=== PATIENT | male | born 1965 | race Two or more races ===

== ENCOUNTER 2016-11-23 21:06 | Inpatient (IN) | payer SELFPAY ==
[~2016-11-23] VITALS: Ht 167.6 cm; Wt 92.5 kg
[~2016-11-23 21:06] MED LIST: AMLO10TA2 PO; AMLO10TA4 PO; ASPI-482 PO; ATOR20TA PO; ATOR20TA58 PO; CARV3.122 PO; ESOM40CA25 PO; GABA600T2 PO; HYDR-2762 PO; HYDR-971 PO; HYDR1POW19 MC; LABE200T2 PO; LOSA100T6 PO; LOSA25TA PO; METO-269 PO; NITR0.4T6 SL; NORT25CA PO; OMEP20CA9 PO; OMEP40CA5 PO; PANT40GR PO; POLY17PO29 PO; TOPI25TA32 PO; TRAM50TA PO
[2016-11-23 22:18] LABS: BASO # 0.1 x10^3/uL (0.0-0.2); BASO % 1 % (0-3); EOS % 3 % (0-3); HEMATOCRIT 43.8 % (39.0-53.0); HEMOGLOBIN 14.4 g/dL (13.0-17.5); LYMPH # 1.6 x10^3/uL (1.0-4.8); LYMPH % 21 % (24-48); MEAN CORPUSCULAR HEMOGLOBIN 26 pg (25-35); MEAN CORPUSCULAR HGB CONC 33 g/dL (31-37); MEAN CORPUSCULAR VOLUME 80 fL (79-100); MONO % 10 % (0-9); NEUT % 65 % (31-73); PLATELET COUNT 214 x10^3/uL (140-400); WHITE BLOOD COUNT 7.5 x10^3/uL (4.0-11.0)
[2016-11-23 22:28] LABS: BILIRUBIN,URINE NEGATIVE (NEG); GLUCOSE,URINE NEGATIVE (NEG); NITRITE,URINE NEGATIVE (NEG); PH,URINE 5.5; PROTEIN,URINE NEGATIVE (NEG-TRACE); UROBILINOGEN,URINE 0.2 mg/dL (0.2 mg/dL)
[2016-11-23 22:35] LABS: CALCIUM 8.7 mg/dL (8.5-10.1); CREATININE 0.9 mg/dL (0.7-1.3); GFR 88.3
[2016-11-23 22:37] LABS: BACTERIA,URINE 0 /HPF (0-FEW); RBC,URINE 0 /HPF (0-2); WBC,URINE 0 /HPF (0-4)
[2016-11-23 22:40] LABS: ALBUMIN 3.9 g/dL (3.4-5.0); ALBUMIN/GLOBULIN RATIO 1.1 (1.0-1.7); C-REACTIVE PROTEIN 8.7 mg/L (0-3.3); TOTAL BILIRUBIN 0.4 mg/dL (0.2-1.0); TOTAL PROTEIN 7.6 g/dL (6.4-8.2)
[2016-11-23] MEDS ORDERED: FAMOTIDINE 20 MG TABLET. PO ONE (23:00)
[2016-11-23] MEDS ORDERED: ONDANSETRON PF 4 MG/2 ML VIAL. IV ONE (23:00)
[2016-11-23] MEDS ORDERED: fentaNYL PF VIAL 100 MCG/2 ML VIAL IM ONE (23:00)
[2016-11-23] MEDS ORDERED: MORPHINE SULFATE 4 MG/ML DISP.SYRIN. IV ONE (23:30)
[2016-11-23] MEDS ORDERED: METOCLOPRAMIDE HCL 10 MG/2 ML VIAL. IV ONE (23:30)
[2016-11-24] VITALS (8 sets, daily range): BP systolic 97–156; BP diastolic 54–95
[2016-11-24] MEDS ORDERED: IV DEXTROSE 5% - 0.9 % NACL 1,000 ML IV ONE (00:15)
[2016-11-24] MEDS ORDERED: ONDANSETRON PF 4 MG/2 ML VIAL. IV PRN (00:15)
[2016-11-24] MEDS ORDERED: IOHEXOL 300 MG/ML 75 ML VIAL IV ONE (00:30)
[2016-11-24] MEDS ORDERED: CONTRAST GIVEN MC PRN (00:30)
--- NOTE | 2016-11-24 00:46 | RAD ---
PROCEDURE CT abdomen and pelvis with IV contrast 11/24/2016. HISTORY Worsening abdominal pain for 2 days. Possible bowel obstruction. TECHNIQUE CT images were obtained through the abdomen and pelvis using an infusion of 75 milliliters Omnipaque 300. Exposure: One or more of the following individualized dose reduction techniques were utilized for this exam: 1. Automated exposure control. 2. Adjustment of the mA and/or kV according to patient size. 3. Use of iterative reconstruction technique. COMPARISON 05/01/2016. FINDINGS A small nodular opacity is again shown in the right middle lobe at the upper most extent of the scan. This appears unchanged from the prior CT. There is mild atelectasis or scarring posteriorly in the left lower lobe. The lung bases otherwise are clear. A hiatal hernia is again demonstrated. The liver shows evidence of diffuse fatty infiltration. This may have progressed some since the prior study. No focal liver lesion is seen. The spleen appears normal. Both kidneys enhance with contrast. A cyst is again shown in the upper left kidney. There is no apparent solid mass or obstruction. The adrenal glands are not enlarged. The pancreas appears normal. No retroperitoneal or mesenteric adenopathy is seen. There is no apparent abdominal soft tissue mass or inflammatory process. Gas and fluid are present throughout the small bowel, and there is probably mild distention, but no transition point or cause for obstruction is seen. There is moderate stool through the colon. Images through the pelvis show no abnormality of the distal ureters or bladder. No pelvic or inguinal adenopathy is seen. There is no apparent pelvic soft tissue mass or inflammatory process. There is a large amount of stool in the distal colon. There is no apparent colon obstruction. IMPRESSION There is mild small-bowel distention with fluid and gas, but no obstruction is identified. Electronically signed by: Luis Miguel Fontaine (Nov 24, 2016 00:45:16)
[2016-11-24] MEDS: MORPHINE SULFATE 2 MG/ML DISP.SYRIN. IV PRN ×5 (01:08→20:08)
--- NOTE | 2016-11-24 06:14 | EKG ---
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
--- NOTE | 2016-11-24 07:25 | RAD ---
Acute abdomen series History: Nausea, vomiting, abdominal pain for 2 days, worsening. Comparison: 06/17/2010. Findings: Frontal view of the chest. Cardiac silhouette appears within normal limits for size. No pneumoperitoneum or pneumothorax is identified. No acute infiltrate is seen. Dual-lead pacemaker by left subclavian approach is seen. Supine and upright views of the abdomen. No dilated loops of bowel are seen. Moderate colonic stool is seen. Impression: No acute abnormality identified in the chest or abdomen.
[2016-11-24] MEDS ORDERED: LABE300T PO (09:47)
[2016-11-24] MEDS ORDERED: LOSA100T6 PO (09:47)
[2016-11-24] MEDS ORDERED: ASPI-424 PO (09:47)
[2016-11-24] MEDS ORDERED: OMEP40CA5 PO (09:47)
[2016-11-24] MEDS ORDERED: AMLO10TA2 PO (09:47)
[2016-11-24] MEDS ORDERED: ISOS30TA4 PO (09:47)
[2016-11-24] MEDS ORDERED: ATOR20TA58 PO (09:47)
[2016-11-24] MEDS ORDERED: BISACODYL 5 MG TABLET.DR. PO PRN (10:00)
--- NOTE | 2016-11-24 10:01 | PDOC ---
PROGRESS NOTES Subjective Subjective Patient reports some diffuse lower abdominal pain persists. Denies nausea with it. Objective Objective Vital Signs Date Time Temp Pulse Resp B/P Pulse Ox O2 Delivery O2 Flow Rate FiO2 11/24/16 08:57 18 Room Air 11/24/16 07:00 97.6 64 139/86 97 97.6 Intake and Output 11/24/16 06:59 Intake Total 1 ml Balance 1 ml Intake Oral 1 ml Physical Exam Abdomen: Normal bowel sounds, Soft, Other (mild diffuse TTP without guarding or rebound) Heart: Regular rate Extremities: No edema General: Alert, Oriented X3, No acute distress Lungs: Clear to auscultation Assessment Assessment Problems Medical Problems: (1) Bowel obstruction Status: Acute (2) Lower abdominal pain Status: Acute Plan Plan of Care 1. Constipation with partial SBO - moderate amount of stool seen on CT, no evidence of acute infection. Patient reports history of chronic constipation, hasn't been taking anything for it recently. Will give Dulcolax and daily Miralax and follow his response to this. Clear liquid diet. 2. HTN - continue home meds. 3. chronic GERD - patient has been seeing GI at about his ongoing symptoms of reflux, even on maximum medical treatment. Has had several hiatal hernia surgeries, apparently not effective. May be having further surgery there in the future. Give PPI while here. Patient to follow up at GI Clinic after discharge. 4. Hx CAD - appears stable, patient sees Dr Patterson regularly as outpatient. Pacemaker functioning well. 5. MARY - patient advised to have his home machine brought in so he can use it while here. 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 Stable, continue Gabapentin. Comment Review of Relevant I have reviewed the following items logan (where applicable) has been applied. Labs Laboratory Tests Test 11/23/16 21:35 11/23/16 22:21 White Blood Count 7.5x10^3/uL (4.0-11.0) Red Blood Count 5.50x10^6/uL (4.30-5.70) Hemoglobin 14.4g/dL (13.0-17.5) Hematocrit 43.8% (39.0-53.0) Mean Corpuscular Volume 80fL (79-100) Mean Corpuscular Hemoglobin 26pg (25-35) Mean Corpuscular Hemoglobin Concent 33g/dL (31-37) Red Cell Distribution Width 15.0% (11.5-14.5) Platelet Count 214x10^3/uL (140-400) Neutrophils (%) (Auto) 65% (31-73) Lymphocytes (%) (Auto) 21% (24-48) Monocytes (%) (Auto) 10% (0-9) Eosinophils (%) (Auto) 3% (0-3) Basophils (%) (Auto) 1% (0-3) Neutrophils # (Auto) 4.9x10^3uL (1.8-7.7) Lymphocytes # (Auto) 1.6x10^3/uL (1.0-4.8) Monocytes # (Auto) 0.7x10^3/uL (0.0-1.1) Eosinophils # (Auto) 0.2x10^3/uL (0.0-0.7) Basophils # (Auto) 0.1x10^3/uL (0.0-0.2) Sodium Level 138mmol/L (136-145) Potassium Level 4.0mmol/L (3.5-5.1) Chloride Level 105mmol/L (98-107) Carbon Dioxide Level 21mmol/L (21-32) Anion Gap 12 (6-14) Blood Urea Nitrogen 14mg/dL (8-26) Creatinine 0.9mg/dL (0.7-1.3) Estimated GFR (Cockcroft-Gault) 88.3 BUN/Creatinine Ratio 16 (6-20) Glucose Level 160mg/dL (70-99) Calcium Level 8.7mg/dL (8.5-10.1) Total Bilirubin 0.4mg/dL (0.2-1.0) Aspartate Amino Transf (AST/SGOT) 24U/L (15-37) Alanine Aminotransferase (ALT/SGPT) 35U/L (16-63) Alkaline Phosphatase 76U/L (46-116) Troponin I Quantitative < 0.017ng/mL (0.000-0.055) C-Reactive Protein, Quantitative 8.7mg/L (0-3.3) Total Protein 7.6g/dL (6.4-8.2) Albumin 3.9g/dL (3.4-5.0) Albumin/Globulin Ratio 1.1 (1.0-1.7) Lipase 124U/L (73-393) Urine Collection Type Unknown Urine Color Yellow Urine Clarity Clear Urine pH 5.5 Urine Specific [place] >=1.030 Urine Protein Negativemg/dL (NEG-TRACE) Urine Glucose (UA) Negativemg/dL (NEG) Urine Ketones (Stick) Negativemg/dL (NEG) Urine Blood Negative (NEG) Urine Nitrite Negative (NEG) Urine Bilirubin Negative (NEG) Urine Urobilinogen Dipstick 0.2mg/dL (0.2 mg/dL) Urine Leukocyte Esterase Negative (NEG) Urine RBC 0/HPF (0-2) Urine WBC 0/HPF (0-4) Urine Bacteria 0/HPF (0-FEW) Urine Mucus Marked/LPF Laboratory Tests Test 11/23/16 21:35 11/23/16 22:21 White Blood Count 7.5x10^3/uL (4.0-11.0) Red Blood Count 5.50x10^6/uL (4.30-5.70) Hemoglobin 14.4g/dL (13.0-17.5) Hematocrit 43.8% (39.0-53.0) Mean Corpuscular Volume 80fL (79-100) Mean Corpuscular Hemoglobin 26pg (25-35) Mean Corpuscular Hemoglobin Concent 33g/dL (31-37) Red Cell Distribution Width 15.0% (11.5-14.5) Platelet Count 214x10^3/uL (140-400) Neutrophils (%) (Auto) 65% (31-73) Lymphocytes (%) (Auto) 21% (24-48) Monocytes (%) (Auto) 10% (0-9) Eosinophils (%) (Auto) 3% (0-3) Basophils (%) (Auto) 1% (0-3) Neutrophils # (Auto) 4.9x10^3uL (1.8-7.7) Lymphocytes # (Auto) 1.6x10^3/uL (1.0-4.8) Monocytes # (Auto) 0.7x10^3/uL (0.0-1.1) Eosinophils # (Auto) 0.2x10^3/uL (0.0-0.7) Basophils # (Auto) 0.1x10^3/uL (0.0-0.2) Sodium Level 138mmol/L (136-145) Potassium Level 4.0mmol/L (3.5-5.1) Chloride Level 105mmol/L (98-107) Carbon Dioxide Level 21mmol/L (21-32) Anion Gap 12 (6-14) Blood Urea Nitrogen 14mg/dL (8-26) Creatinine 0.9mg/dL (0.7-1.3) Estimated GFR (Cockcroft-Gault) 88.3 BUN/Creatinine Ratio 16 (6-20) Glucose Level 160mg/dL (70-99) Calcium Level 8.7mg/dL (8.5-10.1) Total Bilirubin 0.4mg/dL (0.2-1.0) Aspartate Amino Transf (AST/SGOT) 24U/L (15-37) Alanine Aminotransferase (ALT/SGPT) 35U/L (16-63) Alkaline Phosphatase 76U/L (46-116) Troponin I Quantitative < 0.017ng/mL (0.000-0.055) C-Reactive Protein, Quantitative 8.7mg/L (0-3.3) Total Protein 7.6g/dL (6.4-8.2) Albumin 3.9g/dL (3.4-5.0) Albumin/Globulin Ratio 1.1 (1.0-1.7) Lipase 124U/L (73-393) Urine Collection Type Unknown Urine Color Yellow Urine Clarity Clear Urine pH 5.5 Urine Specific [place] >=1.030 Urine Protein Negativemg/dL (NEG-TRACE) Urine Glucose (UA) Negativemg/dL (NEG) Urine Ketones (Stick) Negativemg/dL (NEG) Urine Blood Negative (NEG) Urine Nitrite Negative (NEG) Urine Bilirubin Negative (NEG) Urine Urobilinogen Dipstick 0.2mg/dL (0.2 mg/dL) Urine Leukocyte Esterase Negative (NEG) Urine RBC 0/HPF (0-2) Urine WBC 0/HPF (0-4) Urine Bacteria 0/HPF (0-FEW) Urine Mucus Marked/LPF Medications Current Medications Fentanyl Citrate (Fentanyl 2ml Vial) 50 mcg 1X ONCE IM Last administered on t 22:35; Start 11/23/16 at 23:00; Stop 11/23/16 at 23:01; Status DC Famotidine (Pepcid) 20 mg 1X ONCE PO Last administered on 11/23/16 22:33; Start 11/23/16 at 23:00; Stop 11/23/16 at 23:01; Status DC Ondansetron HCl (Zofran) 4 mg 1X ONCE IV Last administered on 11/23/16 22:32 ; Start 11/23/16 at 23:00; Stop 11/23/16 at 23:01; Status DC Morphine Sulfate 4 mg 1X ONCE IV Last administered on 11/23/16 23:15; Start 11/23/16 at 23:30; Stop 11/23/16 at 23:31; Status DC Metoclopramide HCl (Reglan) 10 mg 1X ONCE IV Last administered on 11/23/16 23 :14; Start 11/23/16 at 23:30; Stop 11/23/16 at 23:31; Status DC Ondansetron HCl (Zofran) 4 mg PRN Q8HRS PRN IV NAUSEA/VOMITING Last administered on 11/24/16 04:52; Start 11/24/16 at 00:15; Stop 11/25/16 at 00:14 Morphine Sulfate 2 mg 2 mg PRN Q2HR PRN IV SEVERE PAIN Last administered on 08:57; Start 11/24/16 at 00:15; Stop 11/25/16 at 00:14 Dextrose/Sodium Chloride (Iv D5% - NS) 1,000 ml @ 75 mls/hr 1X ONCE IV Last administered on 11/24/16 01:11; Start 11/24/16 at 00:15; Stop 11/24/16 at 09:50 ; Status DC Iohexol (Omnipaque 300 Mg/ml) 75 ml 1X ONCE IV Last administered on 11/24/16 00:21; Start 11/24/16 at 00:30; Stop 11/24/16 at 00:31; Status DC Info (Do NOT chart on this entry -- for MONITORING) 1 each PRN DAILY PRN MC SEE COMMENTS; Start 11/24/16 at 00:30; Stop 11/26/16 at 00:29 Bisacodyl (Dulcolax Tab) 10 mg PRN DAILY PRN PO CONSTIPATION; Start 11/24/16 at 10:00 Active Scripts Active Amlodipine Besylate 10 Mg Tablet 10 Mg PO DAILY Adult Low Dose Aspirin Ec (Aspirin) 81 Mg Tablet. 81 Mg PO DAILY Atorvastatin Calcium 20 Mg Tablet 1 Tab PO DAILY Losartan Potassium 100 Mg Tablet 100 Mg PO DAILY Isosorbide Mononitrate Er (Isosorbide Mononitrate) 30 Mg Tab.er.24h 1 Tab PO DAILY Labetalol Hcl 300 Mg Tablet 1 Tab PO BID Omeprazole 40 Mg Capsule. 1 Cap PO BID Reported Gabapentin 600 Mg Tablet 1 Tab PO TID next dose tonight at bedtime, 10/30/15 Topamax (Topiramate) 25 Mg Tablet 25 Mg PO BID next dose tonight at bedtime, 10/30/15 Vitals/I & O Vital Sign - Last 24 Hours 11/23/16 11/23/16 11/23/16 11/23/16 21:07 22:12 22:35 22:42 Temp 97.9 97.9 Pulse 88 76 Resp 24 16 12 B/P 174/104 186/110 159/98 Pulse Ox 97 97 O2 Delivery Room Air Room Air Room Air 11/23/16 11/23/16 11/23/16 11/24/16 23:12 23:15 23:53 03:00 Temp 97.7 97.7 Pulse 72 70 75 Resp 12 16 12 18 B/P 170/97 135/82 156/86 Pulse Ox 97 97 97 O2 Delivery Room Air Room Air Room Air Room Air 11/24/16 11/24/16 11/24/16 03:52 07:00 08:57 Temp 97.6 97.6 Pulse 64 Resp 20 18 B/P 139/86 Pulse Ox 97 O2 Delivery Room Air Room Air Room Air Intake and Output 11/23/16 11/23/16 11/24/16 14:59 22:59 06:59 Intake Total 1 ml Balance 1 ml MADELYN BAY MD Nov 24, 2016 10:01
--- NOTE | 2016-11-24 11:00 | ACF ---
Admit Criteria Forms Admit Criteria Forms Admit Criteria Forms ABDOMINAL PAIN Clinical Indications for Admission to Inpatient Care (Place 'X' for any and all applicable criteria): Admission is indicated for ANY ONE of the following(1)(2)(3)(4)(5): [X]I. Inpatient admission required rather than observation care (Also use Abdominal Pain: Observation Care, as appropriate) because of ANY ONE of the following: [ ]a) Severe pain requiring acute inpatient management [ ]b) Identification of etiology/finding that requires inpatient care (eg, aortic dissection, free air) [ ]c) Absent bowel sounds with complete ileus(6) [ ]d) Suspected toxic megacolon [ ]e) Severe electrolyte abnormalities requiring inpatient care [ ]f) High fever or infection requiring inpatient admission as indicated by ANY ONE of following(7)(8): [ ] i) Appropriate outpatient or observational care antimicrobial treatment unavailable, not effective, or not feasible [ ] ii) Documented bacteremia [ ] iii) Temperature > 104.9 degrees F (oral) [ ] iv) T >103.1 F (oral) or < 96.8 F(rectal) that does not respond to all emergency treatment measures [X]g) Signs of intestinal obstruction [B] [ ]h) Hemodynamic instability [ ]i) IV fluid to replace significant ongoing losses (greater than 3 L/m2 per day) (12)(13) [ ]j) Percutaneous or open drainage (eg, abscess, biliary tract ) procedures [ ]k) Parenteral nutrition regimen that must be implemented on inpatient basis [ ]l) Other condition,treatment or monitoring requiring inpatient admission. [ ]II. Peritoneal signs present [ ]III. Surgery needed that cannot be performed on an ambulatory basis. [ ]IV. Evaluation requires patient to not eat or drink for extended period ( eg, more than 24 hours). [ ]V. Contraindications and/or Inappropriate clinical situations for Observational Care in patients with abdominal pain, when ANY ONE of the following is required: [ ]a) Thorough evaluation is required to prevent catastrophic events due to delays in diagnosing (e.g.Mesenteric ischemia) 1,3 [ ]b) Patient with severe pathology or with chronic symptoms unlikely to improve in the ED stay (3) [ ]. General contraindications and/or Inappropriate clinical situations for Observational Care in patients with abdominal pain, when ANY ONE of the following is required: [ ]a) Prediction of prolongation of LOS based on ANY ONE of the following may be considered as a contraindication for observational care 2, 3, 4, 5, 6, 7, 8, 9, 10, 11 [ ]i) Age > 65 yrs. [ ]ii) Patient arriving by ambulance [ ]iii) Patient with high acuity [ ]iv) Patient requiring vital sign monitoring [ ]v) Patient on IV medication [ ]b) Systolic blood pressures 180mmHg 3,12 [ ]c) Patient with altered mental status including delirium and other alteration of consciousness, (3) [ ]d) Patient whose discharge disposition will be to a long-term home or rehabilitation home should not be managed in Emergency Department Observation Unit. CMS rule requires 3 days hospital stay before such placement.3,13 [ ]e) Patient with failure to thrive due to broad array of etiologies 3,16,17 [ ]f) Inability to ambulate 3,14 Extended stay beyond goal length of stay may be needed for(2)(3): [ ]a) Persistent abdominal pain with suspected intra-abdominal process [ ]b) Diagnosed condition requiring continued stay (e.g., pancreatitis, complicated diverticulitis) [ ]c) Surgery (e.g., colectomy) The original [employer] content created by [employer] has been revised. The portions of the content which have been revised are identified through the use of italic text or in bold, and [facility] has neither reviewed nor approved the modified material.All other unmodified content is copyright [employer]. Please see references footnoted in the original [facility] edition 2016 NAY CASTELLANO Nov 24, 2016 11:00
[2016-11-24] MEDS: ASPIRIN ENTERIC COATED 81 MG TABLET.DR. PO SCH (11:14)
[2016-11-24] MEDS: POLYETHYLENE GLYCOL 3350 17 GM PACKET. PO SCH (11:14)
[2016-11-24] MEDS: PANTOPRAZOLE 40 MG TABLET.DR. PO SCH ×2 (11:15→17:34)
[2016-11-24] MEDS: ISOSORBIDE MONONITRATE ER 30 MG TAB.ER.24H PO SCH (11:15)
[2016-11-24] MEDS: amLODIPine BESYLATE 10 MG TABLET PO SCH (11:15)
[2016-11-24] MEDS: LOSARTAN POTASSIUM 50 MG TABLET. PO SCH (11:16)
[2016-11-24] MEDS: LABETALOL HCL 100 MG TABLET. PO SCH ×2 (11:16→21:00)
--- NOTE | 2016-11-24 11:43 | HP ---
ADMIT DATE: 11/24/2016 CHIEF COMPLAINT: Abdominal pain. HISTORY OF PRESENT ILLNESS: The patient is a 51-year-old male with a history of chronic GERD and chronic constipation who presented to the Emergency Room with the above complaint. He reports the onset of some mild abdominal pain recently. The pain gradually worsened and he became quite uncomfortable with it. He had some nausea but no emesis associated with this. He reports he had a bowel movement on the day prior to admission, but it was not large and he does not usually have a daily bowel movement. He had not tried to taking any medication for this. Evaluation in the Emergency Room included a CT of the abdomen and pelvis which showed a possible partial small-bowel obstruction with moderate stool throughout the colon. There was no evidence of acute infection seen. The patient was started on IV fluids and admitted for further treatment. PAST MEDICAL HISTORY: Chronic constipation, GERD, coronary artery disease, hypertension, hyperlipidemia, Ioppbwz-Awung-Metye disease, and obstructive sleep apnea. PAST SURGICAL HISTORY: Pacemaker placement, three surgeries for hiatal hernia, cholecystectomy, appendectomy, and umbilical hernia repair. ALLERGIES: The patient has no known drug allergies. HOME MEDICATIONS: Omeprazole 40 mg b.i.d., Questran p.r.n. diarrhea, labetalol 300 mg b.i.d., losartan 100 mg daily, Imdur 30 mg daily, atorvastatin 20 mg daily, aspirin 81 mg daily, Neurontin 600 mg t.i.d., amlodipine 10 mg daily, unsure if the patient has been taking this. He was advised to hold that when he last saw his share holder. FAMILY HISTORY: Positive for Ttkpevc-Kusls-Kmpsb in several family members. SOCIAL HISTORY: The patient is . 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 He does not smoke cigarettes. REVIEW OF SYSTEMS: The patient denies fever or chills. He denies cough or shortness of breath. He denies chest pain or palpitations. He sees Dr. Patterson regularly and his pacemaker checks have been okay there. He has a chronic heartburn and nocturnal regurgitation even on maximum dose of medication. He has been seeing GI Clinic at about this and surgical treatment is being considered. He does suffer from chronic constipation. He had been prescribed Linzess and MiraLax in the past and states that this did help when he was taking them daily, but he has not been doing this recently. He does get diarrhea sometimes also. He does take the Neurontin for treatment of his Viwijzm-Yqmdj-Zhimg symptoms and see Dr. Cuellar as an outpatient for this. PHYSICAL EXAMINATION: GENERAL: The patient is alert and oriented x 3, resting comfortably in bed in no acute distress. HEENT: JASS, EOMI, sclerae clear. Oropharynx: Mucous membranes moist. NECK: Supple, without lymphadenopathy. CHEST: Clear to auscultation. CARDIOVASCULAR: Regular rhythm without murmur. ABDOMEN: Soft, normoactive bowel sounds are present. There is mild diffuse tenderness to palpation without guarding or rebound. EXTREMITIES: Without edema. ASSESSMENT AND PLAN: 1. Constipation with partial small bowel obstruction, no evidence of acute infection at this time. We will try the patient on a clear liquid diet, Dulcolax and MiraLax have been ordered for today. We will follow his response to these. 2. Hypertension. Continue home medications. 3. Chronic gastroesophageal reflux disease. Continue proton pump inhibitor while he is here. The patient is to follow up at as an outpatient for further treatment of this. 4. History of coronary artery disease. This appears stable. Continue aspirin. 5. Obstructive sleep apnea. The patient is advised to have his home machine brought in, so he can use while here. 6. Fkrgczr-Effwr-Rntip disease. This appears stable. Continue gabapentin. MADELYN BAY MD DR: MADY/deirdre JOB#: [id number] / [id number] MARIPOSA
[2016-11-24] MEDS: GABAPENTIN 300 MG CAPSULE. PO SCH ×2 (14:38→20:46)
[2016-11-24] MEDS: ATORVASTATIN CALCIUM 20 MG TABLET PO SCH (20:46)
[2016-11-25 03:48] VITALS: BP 96/55
[2016-11-25 04:47] LABS: BASO # 0.1 x10^3/uL (0.0-0.2); BASO % 1 % (0-3); EOS % 3 % (0-3); HEMATOCRIT 36.5 % (39.0-53.0); HEMOGLOBIN 12.1 g/dL (13.0-17.5); LYMPH # 1.7 x10^3/uL (1.0-4.8); LYMPH % 19 % (24-48); MEAN CORPUSCULAR HEMOGLOBIN 26 pg (25-35); MEAN CORPUSCULAR HGB CONC 33 g/dL (31-37); MEAN CORPUSCULAR VOLUME 80 fL (79-100); MONO % 11 % (0-9); NEUT % 66 % (31-73); PLATELET COUNT 184 x10^3/uL (140-400); RED BLOOD COUNT 4.59 x10^6/uL (4.30-5.70); RED CELL DISTRIBUTION WIDTH 15.1 % (11.5-14.5); WHITE BLOOD COUNT 8.6 x10^3/uL (4.0-11.0)
[2016-11-25 06:22] LABS: ALBUMIN 3.1 g/dL (3.4-5.0); ALBUMIN/GLOBULIN RATIO 0.9 (1.0-1.7); CALCIUM 8.1 mg/dL (8.5-10.1); TOTAL PROTEIN 6.4 g/dL (6.4-8.2)
[2016-11-25 06:23] LABS: GFR 78.2; TOTAL BILIRUBIN 0.8 mg/dL (0.2-1.0)
[2016-11-25 06:24] LABS: POTASSIUM 3.5 mmol/L (3.5-5.1)
[2016-11-25 07:00] VITALS: BP 117/64
[2016-11-25] MEDS: ASPIRIN ENTERIC COATED 81 MG TABLET.DR. PO SCH (08:54)
[2016-11-25] MEDS: GABAPENTIN 300 MG CAPSULE. PO SCH ×3 (08:54→21:26)
[2016-11-25] MEDS: LABETALOL HCL 100 MG TABLET. PO SCH ×3 (08:55→21:26)
[2016-11-25] MEDS: ISOSORBIDE MONONITRATE ER 30 MG TAB.ER.24H PO SCH (08:55)
[2016-11-25] MEDS: PANTOPRAZOLE 40 MG TABLET.DR. PO SCH ×2 (08:56→16:49)
[2016-11-25] MEDS: LOSARTAN POTASSIUM 50 MG TABLET. PO SCH (08:56)
[2016-11-25] MEDS: amLODIPine BESYLATE 10 MG TABLET PO SCH (08:57)
[2016-11-25] MEDS: POLYETHYLENE GLYCOL 3350 17 GM PACKET. PO SCH (08:57)
[2016-11-25 11:00] VITALS: BP_SYST 10; BP_SYST 100; BP_DIAS 61
[2016-11-25] MEDS: HYOSCYAMINE 0.125 MG TAB.RAPDIS PO PRN ×2 (11:57→16:49)
--- NOTE | 2016-11-25 14:37 | PDOC ---
PROGRESS NOTES Subjective Subjective Still having abdominal pain and cramping but no vomiting, no BM yet, imaging studies consistent with mall bowel enteritis and colon constipation, he ran out of Linzess which he was on at home prior to admission Objective Objective Vital Signs Date Time Temp Pulse Resp B/P Pulse Ox O2 Delivery O2 Flow Rate FiO2 11/25/16 11:00 98.1 70 20 100/61 94 Room Air 98.1 Intake and Output 11/25/16 07:00 Intake Total 440 ml Output Total 825 ml Balance -385 ml Intake Oral 440 ml Output Urine Total 825 ml # Voids 1 Physical Exam Abdomen: Normal bowel sounds, Soft Heart: Regular rate Extremities: No cyanosis, No edema, Other (C-M-T changes) General: Alert, Oriented X3, Cooperative HEENT: Atraumatic Lungs: Clear to auscultation Neck: Supple Psych/Mental Status: Mental status NL Skin: No breakdown Assessment Assessment Problems Medical Problems: (1)small bowel enteritis - add erythromycin, levsin Status: Acute (2) Lower abdominal pain - likely from constipation, resume linzess, also on Miralax Status: Acute Plan Plan of Care as above, repeat KUB in am, hopefully home tomorrow Comment Review of Relevant I have reviewed the following items logan (where applicable) has been applied. Labs Laboratory Tests Test 11/23/16 21:35 11/23/16 22:21 11/25/16 04:15 White Blood Count 7.5x10^3/uL (4.0-11.0) 8.6x10^3/uL (4.0-11.0) Red Blood Count 5.50x10^6/uL (4.30-5.70) 4.59x10^6/uL (4.30-5.70) Hemoglobin 14.4g/dL (13.0-17.5) 12.1g/dL (13.0-17.5) Hematocrit 43.8% (39.0-53.0) 36.5% (39.0-53.0) Mean Corpuscular Volume 80fL (79-100) 80fL (79-100) Mean Corpuscular Hemoglobin 26pg (25-35) 26pg (25-35) Mean Corpuscular Hemoglobin Concent 33g/dL (31-37) 33g/dL (31-37) Red Cell Distribution Width 15.0% (11.5-14.5) 15.1% (11.5-14.5) Platelet Count 214x10^3/uL (140-400) 184x10^3/uL (140-400) Neutrophils (%) (Auto) 65% (31-73) 66% (31-73) Lymphocytes (%) (Auto) 21% (24-48) 19% (24-48) Monocytes (%) (Auto) 10% (0-9) 11% (0-9) Eosinophils (%) (Auto) 3% (0-3) 3% (0-3) Basophils (%) (Auto) 1% (0-3) 1% (0-3) Neutrophils # (Auto) 4.9x10^3uL (1.8-7.7) 5.6x10^3uL (1.8-7.7) Lymphocytes # (Auto) 1.6x10^3/uL (1.0-4.8) 1.7x10^3/uL (1.0-4.8) Monocytes # (Auto) 0.7x10^3/uL (0.0-1.1) 1.0x10^3/uL (0.0-1.1) Eosinophils # (Auto) 0.2x10^3/uL (0.0-0.7) 0.2x10^3/uL (0.0-0.7) Basophils # (Auto) 0.1x10^3/uL (0.0-0.2) 0.1x10^3/uL (0.0-0.2) Sodium Level 138mmol/L (136-145) 141mmol/L (136-145) Potassium Level 4.0mmol/L (3.5-5.1) 3.5mmol/L (3.5-5.1) Chloride Level 105mmol/L (98-107) 106mmol/L (98-107) Carbon Dioxide Level 21mmol/L (21-32) 27mmol/L (21-32) Anion Gap 12 (6-14) 8 (6-14) Blood Urea Nitrogen 14mg/dL (8-26) 12mg/dL (8-26) Creatinine 0.9mg/dL (0.7-1.3) 1.0mg/dL (0.7-1.3) Estimated GFR (Cockcroft-Gault) 88.3 78.2 BUN/Creatinine Ratio 16 (6-20) 12 (6-20) Glucose Level 160mg/dL (70-99) 105mg/dL (70-99) Calcium Level 8.7mg/dL (8.5-10.1) 8.1mg/dL (8.5-10.1) Total Bilirubin 0.4mg/dL (0.2-1.0) 0.8mg/dL (0.2-1.0) Aspartate Amino Transf (AST/SGOT) 24U/L (15-37) 17U/L (15-37) Alanine Aminotransferase (ALT/SGPT) 35U/L (16-63) 29U/L (16-63) Alkaline Phosphatase 76U/L (46-116) 57U/L (46-116) Troponin I Quantitative < 0.017ng/mL (0.000-0.055) C-Reactive Protein, Quantitative 8.7mg/L (0-3.3) Total Protein 7.6g/dL (6.4-8.2) 6.4g/dL (6.4-8.2) Albumin 3.9g/dL (3.4-5.0) 3.1g/dL (3.4-5.0) Albumin/Globulin Ratio 1.1 (1.0-1.7) 0.9 (1.0-1.7) Lipase 124U/L (73-393) Urine Collection Type Unknown Urine Color Yellow Urine Clarity Clear Urine pH 5.5 Urine Specific [place] >=1.030 Urine Protein Negativemg/dL (NEG-TRACE) Urine Glucose (UA) Negativemg/dL (NEG) Urine Ketones (Stick) Negativemg/dL (NEG) Urine Blood Negative (NEG) Urine Nitrite Negative (NEG) Urine Bilirubin Negative (NEG) Urine Urobilinogen Dipstick 0.2mg/dL (0.2 mg/dL) Urine Leukocyte Esterase Negative (NEG) Urine RBC 0/HPF (0-2) Urine WBC 0/HPF (0-4) Urine Bacteria 0/HPF (0-FEW) Urine Mucus Marked/LPF Laboratory Tests Test 11/25/16 04:15 White Blood Count 8.6x10^3/uL (4.0-11.0) Red Blood Count 4.59x10^6/uL (4.30-5.70) Hemoglobin 12.1g/dL (13.0-17.5) Hematocrit 36.5% (39.0-53.0) Mean Corpuscular Volume 80fL (79-100) Mean Corpuscular Hemoglobin 26pg (25-35) Mean Corpuscular Hemoglobin Concent 33g/dL (31-37) Red Cell Distribution Width 15.1% (11.5-14.5) Platelet Count 184x10^3/uL (140-400) Neutrophils (%) (Auto) 66% (31-73) Lymphocytes (%) (Auto) 19% (24-48) Monocytes (%) (Auto) 11% (0-9) Eosinophils (%) (Auto) 3% (0-3) Basophils (%) (Auto) 1% (0-3) Neutrophils # (Auto) 5.6x10^3uL (1.8-7.7) Lymphocytes # (Auto) 1.7x10^3/uL (1.0-4.8) Monocytes # (Auto) 1.0x10^3/uL (0.0-1.1) Eosinophils # (Auto) 0.2x10^3/uL (0.0-0.7) Basophils # (Auto) 0.1x10^3/uL (0.0-0.2) Sodium Level 141mmol/L (136-145) Potassium Level 3.5mmol/L (3.5-5.1) Chloride Level 106mmol/L (98-107) Carbon Dioxide Level 27mmol/L (21-32) Anion Gap 8 (6-14) Blood Urea Nitrogen 12mg/dL (8-26) Creatinine 1.0mg/dL (0.7-1.3) Estimated GFR (Cockcroft-Gault) 78.2 BUN/Creatinine Ratio 12 (6-20) Glucose Level 105mg/dL (70-99) Calcium Level 8.1mg/dL (8.5-10.1) Total Bilirubin 0.8mg/dL (0.2-1.0) Aspartate Amino Transf (AST/SGOT) 17U/L (15-37) Alanine Aminotransferase (ALT/SGPT) 29U/L (16-63) Alkaline Phosphatase 57U/L (46-116) Total Protein 6.4g/dL (6.4-8.2) Albumin 3.1g/dL (3.4-5.0) Albumin/Globulin Ratio 0.9 (1.0-1.7) Medications Current Medications Fentanyl Citrate (Fentanyl 2ml Vial) 50 mcg 1X ONCE IM Last administered on 22:35; Start 11/23/16 at 23:00; Stop 11/23/16 at 23:01; Status DC Famotidine (Pepcid) 20 mg 1X ONCE PO Last administered on 11/23/16 22:33; Start 11/23/16 at 23:00; Stop 11/23/16 at 23:01; Status DC Ondansetron HCl (Zofran) 4 mg 1X ONCE IV Last administered on 11/23/16 22:32 ; Start 11/23/16 at 23:00; Stop 11/23/16 at 23:01; Status DC Morphine Sulfate 4 mg 1X ONCE IV Last administered on 11/23/16 23:15; Start 11/23/16 at 23:30; Stop 11/23/16 at 23:31; Status DC Metoclopramide HCl (Reglan) 10 mg 1X ONCE IV Last administered on 11/23/16 23 :14; Start 11/23/16 at 23:30; Stop 11/23/16 at 23:31; Status DC Ondansetron HCl (Zofran) 4 mg PRN Q8HRS PRN IV NAUSEA/VOMITING Last administered on 11/24/16 04:52; Start 11/24/16 at 00:15; Stop 11/25/16 at 00:14 ; Status DC Morphine Sulfate 2 mg 2 mg PRN Q2HR PRN IV SEVERE PAIN Last administered on 20:08; Start 11/24/16 at 00:15; Stop 11/25/16 at 00:14; Status DC Dextrose/Sodium Chloride (Iv D5% - NS) 1,000 ml @ 75 mls/hr 1X ONCE IV Last administered on 11/24/16 01:11; Start 11/24/16 at 00:15; Stop 11/24/16 at 09:50 ; Status DC Iohexol (Omnipaque 300 Mg/ml) 75 ml 1X ONCE IV Last administered on 11/24/16 00:21; Start 11/24/16 at 00:30; Stop 11/24/16 at 00:31; Status DC Info (Do NOT chart on this entry -- for MONITORING) 1 each PRN DAILY PRN MC SEE COMMENTS; Start 11/24/16 at 00:30; Stop 11/26/16 at 00:29 Bisacodyl (Dulcolax Tab) 10 mg PRN DAILY PRN PO CONSTIPATION Last administered on 11/25/16 08:56; Start 11/24/16 at 10:00 Amlodipine Besylate (Norvasc) 10 mg DAILY PO Last administered on 11/25/16 08: 57; Start 11/24/16 at 11:00 Aspirin (Ecotrin) 81 mg DAILY PO Last administered on 11/25/16 08:54; Start at 11:00 Atorvastatin Calcium (Lipitor) 20 mg QHS PO Last administered on 11/24/16 20: 46; Start 11/24/16 at 21:00 Isosorbide Mononitrate (Imdur) 30 mg DAILY PO Last administered on 11/25/16 08 :55; Start 11/24/16 at 11:00 Gabapentin (Neurontin) 600 mg TID PO Last administered on 11/25/16 08:54; Start 11/24/16 at 14:00 Pantoprazole Sodium (Protonix) 40 mg BIDAC PO Last administered on 11/25/16 08 :56; Start 11/24/16 at 11:00 Labetalol HCl (Trandate) 300 mg BID PO Last administered on 11/25/16 08:55; Start 11/24/16 at 11:00 Losartan Potassium (Cozaar) 100 mg DAILY PO Last administered on 11/25/16 08: 56; Start 11/24/16 at 11:00 Polyethylene Glycol (miraLAX PACKET) 17 gm DAILY PO Last administered on 08:57; Start 11/24/16 at 11:00 Hyoscyamine (Anaspaz) 0.125 mg BIDAC PRN PO STOMACH CRAMPING Last administered on 4/29/17at 11:57; Start 11/25/16 at 10:30 Linaclotide (Linzess) 145 mcg DAILY07 PO ; Start 11/26/16 at 07:00; Status UNV Active Scripts Active Amlodipine Besylate 10 Mg Tablet 10 Mg PO DAILY Adult Low Dose Aspirin Ec (Aspirin) 81 Mg Tablet. 81 Mg PO DAILY Atorvastatin Calcium 20 Mg Tablet 1 Tab PO DAILY Losartan Potassium 100 Mg Tablet 100 Mg PO DAILY Isosorbide Mononitrate Er (Isosorbide Mononitrate) 30 Mg Tab.er.24h 1 Tab PO DAILY Labetalol Hcl 300 Mg Tablet 1 Tab PO BID Omeprazole 40 Mg Capsule. 1 Cap PO BID Reported Gabapentin 600 Mg Tablet 1 Tab PO TID next dose tonight at bedtime, 10/30/15 Topamax (Topiramate) 25 Mg Tablet 25 Mg PO BID next dose tonight at bedtime, 10/30/15 Vitals/I & O Vital Sign - Last 24 Hours 11/24/16 11/24/16 11/24/16 11/24/16 14:43 15:13 15:30 16:00 Temp 97.9 97.9 Pulse 72 64 Resp 18 18 18 B/P 110/57 130/76 Pulse Ox 94 97 O2 Delivery Room Air Room Air Room Air Room Air 11/24/16 11/24/16 11/24/16 11/24/16 17:00 19:45 20:00 20:08 Temp 97.8 97.8 Pulse 73 65 Resp 18 20 B/P 123/78 99/54 Pulse Ox 97 94 97 O2 Delivery Room Air Room Air Room Air Room Air 11/24/16 11/24/16 11/25/16 11/25/16 21:00 23:37 03:48 07:00 Temp 97.9 98.3 100.4 97.9 98.3 100.4 Pulse 65 65 54 84 Resp 18 18 20 B/P 97/63 97/63 96/55 117/64 Pulse Ox 94 99 94 O2 Delivery Room Air Room Air Room Air 11/25/16 11/25/16 11/25/16 11/25/16 08:00 08:55 08:55 08:56 Pulse 84 84 84 B/P 117/64 117/64 117/64 O2 Delivery Room Air 11/25/16 11/25/16 08:57 11:00 Temp 98.1 98.1 Pulse 84 70 Resp 20 B/P 117/64 100/61 Pulse Ox 94 O2 Delivery Room Air Intake and Output 11/24/16 11/24/16 11/25/16 15:00 23:00 07:00 Intake Total 440 ml Output Total 475 ml 350 ml Balance -475 ml 90 ml KRISTOPHER DURAN MD Nov 25, 2016 14:37
[2016-11-25 15:00] VITALS: BP 106/62
[2016-11-25] MEDS: ERYTHROMYCIN BASE 250 MG TABLET PO SCH ×2 (16:48→21:25)
[2016-11-25] MEDS: ACETAMINOPHEN 500 MG TABLET PO PRN (17:58)
[2016-11-25] MEDS: LINACLOTIDE 145 MCG CAPSULE. PO SCH (17:59)
[2016-11-25 19:00] VITALS: BP 91/56
[2016-11-25] MEDS: ATORVASTATIN CALCIUM 20 MG TABLET PO SCH (21:26)
[2016-11-25 23:00] VITALS: BP 101/49
[2016-11-26 03:00] VITALS: BP 103/61
[2016-11-26] MEDS: ERYTHROMYCIN BASE 250 MG TABLET PO SCH ×3 (06:22→16:33)
[2016-11-26] MEDS: PANTOPRAZOLE 40 MG TABLET.DR. PO SCH ×2 (06:22→16:33)
[2016-11-26] MEDS: LINACLOTIDE 145 MCG CAPSULE. PO SCH (06:22)
[2016-11-26] MEDS: ACETAMINOPHEN 500 MG TABLET PO PRN ×2 (06:26→12:39)
[2016-11-26 07:00] VITALS: BP 111/68
[2016-11-26] MEDS ORDERED: LINACLOTIDE 145 MCG CAPSULE. PO SCH (07:00)
[2016-11-26] MEDS: GABAPENTIN 300 MG CAPSULE. PO SCH ×2 (08:47→13:57)
[2016-11-26] MEDS: ISOSORBIDE MONONITRATE ER 30 MG TAB.ER.24H PO SCH (08:47)
[2016-11-26] MEDS: LOSARTAN POTASSIUM 50 MG TABLET. PO SCH (08:47)
[2016-11-26] MEDS: amLODIPine BESYLATE 10 MG TABLET PO SCH (08:48)
[2016-11-26] MEDS: LABETALOL HCL 100 MG TABLET. PO SCH (08:48)
[2016-11-26] MEDS: ASPIRIN ENTERIC COATED 81 MG TABLET.DR. PO SCH (08:48)
[2016-11-26] MEDS: POLYETHYLENE GLYCOL 3350 17 GM PACKET. PO SCH (08:50)
--- NOTE | 2016-11-26 09:22 | RAD ---
KUB History: Constipation. Follow-up study. Comparison: November 23, 2016. Findings: The previously seen fecal retention within the right side of the colon and the rectum has been evacuated. No obstructive bowel pattern is seen. IMPRESSION: Evacuation of fecal retention.
[2016-11-26 11:00] VITALS: BP 104/56
[2016-11-26] MEDS ORDERED: LINA145C PO (13:20)
--- NOTE | 2016-11-26 13:24 | PDOC ---
Provider Note Provider Note DC summary dictated # [id number] KRISTOPHER DURAN MD Nov 26, 2016 13:24
[2016-11-26 15:00] VITALS: BP_SYST 84; BP_DIAS 45; BP_DIAS 49
[2016-11-26] MEDS ORDERED: IV NORMAL SALINE 500ML BAG 500 ML IV ONE (15:00)
--- NOTE | 2016-11-26 19:19 | DS ---
DATE OF DISCHARGE: 11/26/2016 ADMISSION DIAGNOSES: Lower abdominal pain with bowel obstruction. DISCHARGE DIAGNOSES: Lower abdominal pain with bowel obstruction. HISTORY AND HOSPITAL COURSE: This is a hypertensive [facility]wlc[facility]-Gjng[facility]-Tejbx patient who also takes narcotics who developed constipation and abdominal pain and obstructive symptoms. He was seen in the Emergency Room and subsequently admitted. We did find out after admission that he was no longer taking his Linzess. His obstruction was secondary to fecal impaction. With medications, this resolved. He did have some bowel cramps starting the treatment phase that were controlled. His bowels have moved and radiographically the impaction has completely resolved in addition clinically. His abdomen is now soft, nondistended, nontender. No other medical complications while here. MEDICATIONS: His Linzess 145 mcg has been resumed and he will continue to take that daily. Otherwise, he will continue his usual home meds, which include amlodipine 10 mg daily, aspirin 81 daily, atorvastatin 20 mg daily, gabapentin 600 mg t.i.d., isosorbide mononitrate extended release 30 mg daily, labetalol 300 mg b.i.d., losartan 100 mg daily, omeprazole 40 mg daily and Topiramate 25 mg b.i.d. DIET: Will be cardiac, high fiber. ACTIVITY: As tolerated. FOLLOW UP: In the office within 1-2 weeks. W Ambrocio DURAN MD DR: OTTO/deirdre JOB#: [id number] / [id number]
== END 2016-11-26 17:00 | disposition home or self-care (01) | DRG 389 ==
LOC: ER 21:06 → 4 NORTH 11-24 00:05
PROVIDERS: ADMIT Family Medicine; ATTEND Family Medicine
DX: K56.41 Fecal impaction (principal); K56.60 Unspecified intestinal obstruction; K21.9 Gastro-esophageal reflux disease without esophagitis; I25.10 Atherosclerotic heart disease of native coronary artery without angina pectoris; I10 Essential (primary) hypertension; G60.0 Hereditary motor and sensory neuropathy; G47.33 Obstructive sleep apnea (adult) (pediatric); K52.9 Noninfective gastroenteritis and colitis, unspecified; E78.5 Hyperlipidemia, unspecified; Z95.0 Presence of cardiac pacemaker; Z90.49 Acquired absence of other specified parts of digestive tract
CPT/HCPCS: 36415; 74000; 74022; 74177; 80053; 81001; 83690; 84484; 85027; 86140; 87641; 93005; 96372; 96374; 96375; J2270; J2405; J2765; J3010; J7040; J7042; Q9967; 99285-25

== ENCOUNTER 2017-03-02 19:44 | Emergency (ER) | payer SELFPAY ==
[~2017-03-02] VITALS: Ht 167.6 cm; Wt 90.7 kg
[~2017-03-02 19:44] MED LIST changes: +ASPI-424 PO; +ISOS30TA4 PO; +LABE300T PO; +LINA145C PO; +NITR0.4T22 SL; -NITR0.4T6 SL; -TOPI25TA32 PO; +TOPI25TA52 PO
[2017-03-02] MEDS: MORPHINE SULFATE 4 MG/ML DISP.SYRIN. IV/SQ PRN ×2 (21:52→22:35)
[2017-03-02 21:56] LABS: BASO # 0.1 x10^3/uL (0.0-0.2); BASO % 1 % (0-3); EOS % 4 % (0-3); HEMATOCRIT 40.7 % (39.0-53.0); HEMOGLOBIN 13.6 g/dL (13.0-17.5); LYMPH # 1.8 x10^3/uL (1.0-4.8); LYMPH % 24 % (24-48); MEAN CORPUSCULAR HEMOGLOBIN 26 pg (25-35); MEAN CORPUSCULAR HGB CONC 33 g/dL (31-37); MEAN CORPUSCULAR VOLUME 77 fL (79-100); MONO % 13 % (0-9); NEUT % 59 % (31-73); PLATELET COUNT 193 x10^3/uL (140-400); RED BLOOD COUNT 5.31 x10^6/uL (4.30-5.70); RED CELL DISTRIBUTION WIDTH 15.5 % (11.5-14.5); WHITE BLOOD COUNT 7.5 x10^3/uL (4.0-11.0)
[2017-03-02] MEDS ORDERED: ONDANSETRON PF 4 MG/2 ML VIAL. IV ONE (22:00)
[2017-03-02] MEDS ORDERED: IV NORMAL SALINE 1000ML BAG 1,000 ML IV SCH (22:00)
[2017-03-02 22:09] LABS: CALCIUM 8.5 mg/dL (8.5-10.1); CREATININE 0.9 mg/dL (0.7-1.3); GFR 88.3
[2017-03-02 22:15] LABS: ALBUMIN 3.7 g/dL (3.4-5.0); ALBUMIN/GLOBULIN RATIO 0.9 (1.0-1.7); TOTAL BILIRUBIN 0.5 mg/dL (0.2-1.0); TOTAL PROTEIN 7.6 g/dL (6.4-8.2)
--- NOTE | 2017-03-02 22:47 | RAD ---
CT THORACIC AND LUMBAR SPINE WITHOUT CONTRAST Clinical Indication: FALL FROM CHAIR LBP AND BILAT LEG PAIN Comparison: Correlation with CT abdomen/pelvis dated May 30, 2013. Technique: Axial CT images of the thoracic and lumbar spine were obtained without contrast. Coronal and sagittal reformats were performed. RS compliance statement: One or more of the following individualized dose reduction techniques were utilized for this examination: 1. Automated exposure control 2. Adjustment of the mA and/or kV according to patient size 3. Use of iterative reconstruction technique Findings: There is no acute fracture or dislocation is seen within the thoracic nor lumbar spine. The vertebral body height is maintained. The vertebral body alignment is maintained. Normal alignment is maintained. Normal thoracic kyphosis and lumbar lordosis is maintained. A few rounded, lucent lesions are present within the mid thoracic spine, associated with endplate changes, suggesting degenerative-type changes. Scattered anterior osteophytes are present throughout. Visualized lungs demonstrate no acute finding. Mild posterior dependent changes are present. A hiatal hernia is redemonstrated. A round hypodensity is redemonstrated extending off the superior left kidney, seen on the previous CT exam. Posterior paraspinal soft tissues demonstrate no no acute finding. IMPRESSION: No acute fracture or dislocation involving the thoracic nor lumbar spine. Electronically signed by: Jolene Mccormick MD (03/02/2017 10:43 PM) [facility]
[2017-03-02] MEDS ORDERED: HYDR-971 PO (23:06)
[2017-03-02] MEDS ORDERED: METH4TAB2 PO (23:06)
--- NOTE | 2017-03-02 23:06 | PHYS DOC ---
Past Medical History Past Medical History: GERD, Hypertension, NE, MRSA, Other Additional Past Medical Histor: Neuropathy, Hernia Past Surgical History: Appendectomy, Cholecystectomy, Other Additional Past Surgical Histo: Unknown gastric sx, Hernia repair Alcohol Use: None Drug Use: None Adult General Chief Complaint Chief Complaint: MECHANICAL FALL HPI HPI Patient is a 51 year old male who presents with complaint of low back pain after suffering a fall at home approximately 1 hour prior to arrival. Patient was sitting in a chair that reportedly collapsed, causing the patient to fall straight down to the floor onto his buttocks. Patient denies hitting his head or losing consciousness. Patient states that he's been having worsening pain in his low back, abdomen, and states his pain radiates to his bilateral legs since the fall. Patient does admit to history of chronic neuropathy in his bilateral lower extremities and states that his pain feels like worsening symptoms of neuropathy. Patient also has history of abdominal wall hernia and has had mesh placement. Patient states that he has had problems with frequent pain in his abdomen and states that the fall caused this to worsen. Patient denies any vomiting but has had nausea. Patient has had regular bowel movements. Patient states that he was having abdominal pain prior to his fall. Patient rates pain as 10 out of 10. Patient denies any loss of bowel or bladder control or saddle anesthesia. Patient states that he normally ambulates with use of a cane. Review of Systems Review of Systems Constitutional: Denies fever or chills [] Eyes: Denies change in visual acuity, redness, or eye pain [] HENT: Denies nasal congestion or sore throat [] Respiratory: Denies cough or shortness of breath [] Cardiovascular: Denies chest pain or edema [] GI: Abdominal pain, nausea, denies vomiting, bloody stools or diarrhea [] : Denies dysuria or hematuria [] Musculoskeletal: Back pain, bilateral lower extremity pain [] Integument: Denies rash or skin lesions [] Neurologic: Denies headache, focal weakness or sensory changes [] Current Medications Current Medications Current Medications Medications (Trade) Dose Ordered Sig/Rambo Start Time Stop Time Status Last Admin Dose Admin Morphine Sulfate 4 mg PRN Q15MIN PRN 03/02/17 21:45 03/02/17 23:58 DC 03/02/17 22:35 4 MG Ondansetron HCl (Zofran) 4 mg 1X ONCE 03/02/17 22:00 03/02/17 22:01 DC 03/02/17 21:48 4 MG Sodium Chloride 1,000 ml @ 100 mls/hr Q10H 03/02/17 22:00 03/02/17 23:58 DC 03/02/17 21:48 100 MLS/HR Allergies Allergies Allergies Coded Allergies Type Severity Reaction Last Updated Verified No Known Medication Allergies Allergy Unknown 10/27/15 Yes Physical Exam Physical Exam Constitutional: Alert, afebrile, appears in moderate discomfort. [] HENT: Normocephalic, atraumatic, bilateral external ears normal, oropharynx moist, no oral exudates, nose normal. [] Eyes: PERRLA, EOMI, conjunctiva normal, no discharge. [] Neck: Normal range of motion, no tenderness, supple, no stridor. [] Cardiovascular:Heart rate regular rhythm, no murmur [] Lungs & Thorax: Bilateral breath sounds clear to auscultation [] Abdomen: Bowel sounds normal, soft, no tenderness, no masses, no pulsatile masses. [] Skin: Warm, dry, no erythema, no rash. [] Back: No midline tenderness, bilateral paraspinous muscle tenderness to palpation in the upper and lower lumbar spine, no flank ecchymosis. [] Extremities: No tenderness, no cyanosis, no clubbing, ROM intact, no edema. [] Neurologic: Alert and oriented X 3, normal motor function, normal sensory function, no focal deficits noted. [] Current Patient Data Vital Signs Vital Signs Date Time Temp Pulse Resp B/P (MAP) Pulse Ox O2 Delivery O2 Flow Rate FiO2 03/02/17 23:20 65 148/94 (112) 95 Room Air 03/02/17 22:35 16 03/02/17 21:07 98.6 98.6 Lab Values Laboratory Tests Test 03/02/17 21:18 White Blood Count 7.5 x10^3/uL (4.0-11.0) Red Blood Count 5.31 x10^6/uL (4.30-5.70) Hemoglobin 13.6 g/dL (13.0-17.5) Hematocrit 40.7 % (39.0-53.0) Mean Corpuscular Volume 77 fL (79-100) L Mean Corpuscular Hemoglobin 26 pg (25-35) Mean Corpuscular Hemoglobin Concent 33 g/dL (31-37) Red Cell Distribution Width 15.5 % (11.5-14.5) H Platelet Count 193 x10^3/uL (140-400) Neutrophils (%) (Auto) 59 % (31-73) Lymphocytes (%) (Auto) 24 % (24-48) Monocytes (%) (Auto) 13 % (0-9) H Eosinophils (%) (Auto) 4 % (0-3) H Basophils (%) (Auto) 1 % (0-3) Neutrophils # (Auto) 4.4 x10^3uL (1.8-7.7) Lymphocytes # (Auto) 1.8 x10^3/uL (1.0-4.8) Monocytes # (Auto) 1.0 x10^3/uL (0.0-1.1) Eosinophils # (Auto) 0.3 x10^3/uL (0.0-0.7) Basophils # (Auto) 0.1 x10^3/uL (0.0-0.2) Sodium Level 142 mmol/L (136-145) Potassium Level 4.0 mmol/L (3.5-5.1) Chloride Level 107 mmol/L (98-107) Carbon Dioxide Level 27 mmol/L (21-32) Anion Gap 8 (6-14) Blood Urea Nitrogen 16 mg/dL (8-26) Creatinine 0.9 mg/dL (0.7-1.3) Estimated GFR (Cockcroft-Gault) 88.3 BUN/Creatinine Ratio 18 (6-20) Glucose Level 98 mg/dL (70-99) Calcium Level 8.5 mg/dL (8.5-10.1) Total Bilirubin 0.5 mg/dL (0.2-1.0) Aspartate Amino Transferase (AST) 25 U/L (15-37) Alanine Aminotransferase (ALT) 34 U/L (16-63) Alkaline Phosphatase 75 U/L (46-116) Total Protein 7.6 g/dL (6.4-8.2) Albumin 3.7 g/dL (3.4-5.0) Albumin/Globulin Ratio 0.9 (1.0-1.7) L Laboratory Tests 03/02/17 21:18 Laboratory Tests 03/02/17 21:18 EKG EKG Not performed [] Radiology/Procedures Radiology/Procedures [facility] [address] [place] [address] IMAGING REPORT Signed PATIENT: OSMAN MARTINI ACCOUNT: [id number] : 1965 LOCATION: ER AGE: 51 SEX: M EXAM STATUS: REG ER ORD. PHYSICIAN: WENDY CAMARILLO MD REASON: fall, back pain PROCEDURE: CT THORACIC SPINE WO CONTRAST CT THORACIC AND LUMBAR SPINE WITHOUT CONTRAST Clinical Indication: FALL FROM CHAIR LBP AND BILAT LEG PAIN Comparison: Correlation with CT abdomen/pelvis dated May 30, 2013. Technique: Axial CT images of the thoracic and lumbar spine were obtained without contrast. Coronal and sagittal reformats were performed. PQRS compliance statement: One or more of the following individualized dose reduction techniques were utilized for this examination: 1. Automated exposure control 2. Adjustment of the mA and/or kV according to patient size 3. Use of iterative reconstruction technique Findings: There is no acute fracture or dislocation is seen within the thoracic nor lumbar spine. The vertebral body height is maintained. The vertebral body alignment is maintained. Normal alignment is maintained. Normal thoracic kyphosis and lumbar lordosis is maintained. A few rounded, lucent lesions are present within the mid thoracic spine, associated with endplate changes, suggesting degenerative-type changes. Scattered anterior osteophytes are present throughout. Visualized lungs demonstrate no acute finding. Mild posterior dependent changes are present. A hiatal hernia is redemonstrated. A round hypodensity is redemonstrated extending off the superior left kidney, seen on the previous CT exam. Posterior paraspinal soft tissues demonstrate no no acute finding. IMPRESSION: No acute fracture or dislocation involving the thoracic nor lumbar spine. Electronically signed by: Belén Mccormick MD (03/02/2017 10:43 PM) [facility] DICTATED and SIGNED BY: BELÉN MCCORMICK MD DATE: 03/02/17 2234 CC: WENDY CAMARILLO MD; HOLA ALDRIDGE MD ~ [] Course & Med Decision Making Course & Med Decision Making Pertinent Labs and Imaging studies reviewed. (See chart for details) Patient was treated with IV morphine, Zofran, and fluids. On reevaluation, patient states his symptoms have improved at this time. The patient's CT series does not show any evidence of dislocation or fracture. Patient will be treated with Medrol Dosepak and hydrocodone to help with acute back pain from his fall. Advised follow-up with primary doctor in 3-5 days into return to the emergency department for any worsening symptoms. Patient voiced understanding and in agreement with treatment plan. Dragon Disclaimer Dragon Disclaimer This electronic medical record was generated, in whole or in part, using a voice recognition dictation system. Departure Departure Impression: Primary Impression: Back pain Additional Impressions: Fall Abdominal pain Neuropathy Disposition: HOME, SELF-CARE Condition: IMPROVED Referrals: HOLA ALDRIDGE MD (PCP) Patient Instructions: Back Pain, Adult Additional Instructions: Follow-up to primary doctor in 3-5 days for reevaluation. Return to emergency department for any worsening symptoms. Scripts Hydrocodone/Apap 5-325 (NORCO 5-325 TABLET) 1 Each Tablet 1-2 TAB PO Q4-6HRS Y for PAIN, #40 TAB Prov: WENDY CAMARILLO MD 03/02/17 Methylprednisolone (MEDROL) 4 Mg Tab.ds.pk 1 PKG PO UD, #1 PKG Prov: WENDY CAMARILLO MD 03/02/17 Problem Qualifiers Primary Impression: Back pain Back pain location: low back pain Chronicity: acute Back pain laterality: bilateral Sciatica presence: with sciatica Sciatica laterality: bilateral sciatica Qualified Codes: M54.42 - Lumbago with sciatica, left side; M54.41 - Lumbago with sciatica, right side Additional Impressions: Fall Encounter type: initial encounter Qualified Codes: W19.XXXA - Unspecified fall, initial encounter Abdominal pain Abdominal location: generalized Qualified Codes: R10.84 - Generalized abdominal pain WENDY CAMARILLO MD Mar 02, 2017 23:06
[2017-03-02 23:20] VITALS: BP 148/94
== END 2017-03-02 23:24 | disposition home or self-care (01) ==
LOC: ER 19:44
DX: M54.41 Lumbago with sciatica, right side (principal); R10.84 Generalized abdominal pain; R11.0 Nausea; G57.93 Unspecified mononeuropathy of bilateral lower limbs; K21.9 Gastro-esophageal reflux disease without esophagitis; I10 Essential (primary) hypertension; I25.2 Old myocardial infarction; Z90.49 Acquired absence of other specified parts of digestive tract; W18.39XA Other fall on same level, initial encounter; Y93.89 Activity, other specified; Y92.009 Unspecified place in unspecified non-institutional (private) residence as the place of occurrence of the external cause; Y99.8 Other external cause status
CPT/HCPCS: 36415; 72128; 72131; 80053; 85027; 96361; 96374; 96375; 96376; 99285; J2270; J2405; J7030

== ENCOUNTER 2017-07-12 17:34 | Inpatient (IN) | payer MEDICAID, OTHER ==
[~2017-07-12] VITALS: Ht 167.6 cm; Wt 95.3 kg
[~2017-07-12 17:34] MED LIST changes: +ATOR40TA59 PO; +CYPR4TAB PO; +FURO-69 PO; +METF500T4 PO; +METH4TAB2 PO; +METR500T8 PO; +RANI300C PO; +SUCR1TAB35 PO; +TAMS0.4C2 PO
[2017-07-12] MEDS ORDERED: IV NORMAL SALINE 1000ML BAG 1,000 ML IV SCH (18:00)
--- NOTE | 2017-07-12 18:05 | PHYS DOC ---
Past Medical History Past Medical History: CVA, GERD, Hypertension, MT, MRSA, Other Additional Past Medical Histor: Neuropathy, Hernia Past Surgical History: Appendectomy, Cholecystectomy, Other Additional Past Surgical Histo: Unknown gastric sx, Hernia repair Alcohol Use: None Drug Use: None Adult General Chief Complaint Chief Complaint: HEADACHE HPI HPI Patient is a 52 year old male who presents with headache. 52-year-old male took his blood pressure and it was a bit high so he took his HCTZ at home. Following that he began having a headache in the posterior section of his head. He had some numbness to his face. It was not thunderclap headache. He is not having difficulty speaking or weakness anywhere. He feels a little bit dizzy. Has some numbness to the face. No difficulty speaking. Denies any neck pain. No recent illnesses. No chest pain, fevers, shortness of breath. Denies history of chronic headaches. Pain is constant, moderate, does not radiate. No improving or alleviating factors. Review of Systems Review of Systems Constitutional: Denies fever or chills Eyes: Denies change in visual acuity, redness, or eye pain HENT: Denies nasal congestion or sore throat Respiratory: Denies cough or shortness of breath Cardiovascular: No additional information not addressed in HPI GI: Denies abdominal pain, nausea, vomiting, bloody stools or diarrhea : Denies dysuria or hematuria Musculoskeletal: Denies back pain or joint pain Integument: Denies rash or skin lesions Neurologic: No focal weakness. Endocrine: Denies polyuria or polydipsia All other systems were reviewed and found to be within normal limits, except as documented in this note. Current Medications Current Medications Current Medications Medications (Trade) Dose Ordered Sig/Rambo Start Time Stop Time Status Last Admin Dose Admin Diphenhydramine HCl (Benadryl) 25 mg 1X ONCE 07/12/17 18:30 07/12/17 18:31 DC 07/12/17 18:15 25 MG Metoclopramide HCl (Reglan Vial) 10 mg 1X ONCE 07/12/17 18:30 07/12/17 18:31 DC 07/12/17 18:16 10 MG Sodium Chloride 1,000 ml @ 1,000 mls/hr Q1H 07/12/17 18:00 07/12/17 18:59 DC 07/12/17 18:15 1,000 MLS/HR Allergies Allergies Allergies Coded Allergies Type Severity Reaction Last Updated Verified No Known Medication Allergies Allergy Unknown 03/14/17 Yes Physical Exam Physical Exam Constitutional: Well developed, well nourished, no acute distress, non-toxic appearance. HENT: Normocephalic, atraumatic, bilateral external ears normal, oropharynx moist, no oral exudates, nose normal. Eyes: PERRLA, EOMI, conjunctiva normal, no discharge. Neck: Normal range of motion, no tenderness, supple, no stridor. Cardiovascular:Heart rate regular rhythm, no murmur Lungs & Thorax: Bilateral breath sounds clear to auscultation Abdomen: Bowel sounds normal, soft, no tenderness, no masses, no pulsatile masses. Skin: Warm, dry, no erythema, no rash. Back: No tenderness, no CVA tenderness. Extremities: No tenderness, no cyanosis, no clubbing, ROM intact, no edema. Neurologic: Alert and oriented X 3, normal motor function, normal sensory function, no focal deficits noted. Pt report unilateral left sided weakness chromically but findings are subtle. (states he is at baseline) Psychologic: Affect normal, judgement normal, mood normal. Current Patient Data Vital Signs Vital Signs Date Time Temp Pulse Resp B/P (MAP) Pulse Ox O2 Delivery O2 Flow Rate FiO2 07/12/17 19:00 70 16 99 07/12/17 17:38 98.0 170/102 (124) Room Air 98.0 Lab Values Laboratory Tests Test 07/12/17 17:55 White Blood Count 7.1 x10^3/uL (4.0-11.0) Red Blood Count 5.32 x10^6/uL (4.30-5.70) Hemoglobin 13.4 g/dL (13.0-17.5) Hematocrit 41.3 % (39.0-53.0) Mean Corpuscular Volume 78 fL (79-100) L Mean Corpuscular Hemoglobin 25 pg (25-35) Mean Corpuscular Hemoglobin Concent 32 g/dL (31-37) Red Cell Distribution Width 15.5 % (11.5-14.5) H Platelet Count 217 x10^3/uL (140-400) Neutrophils (%) (Auto) 61 % (31-73) Lymphocytes (%) (Auto) 21 % (24-48) L Monocytes (%) (Auto) 12 % (0-9) H Eosinophils (%) (Auto) 4 % (0-3) H Basophils (%) (Auto) 2 % (0-3) Neutrophils # (Auto) 4.4 x10^3uL (1.8-7.7) Lymphocytes # (Auto) 1.5 x10^3/uL (1.0-4.8) Monocytes # (Auto) 0.8 x10^3/uL (0.0-1.1) Eosinophils # (Auto) 0.3 x10^3/uL (0.0-0.7) Basophils # (Auto) 0.1 x10^3/uL (0.0-0.2) Sodium Level 142 mmol/L (136-145) Potassium Level 4.0 mmol/L (3.5-5.1) Chloride Level 104 mmol/L (98-107) Carbon Dioxide Level 26 mmol/L (21-32) Anion Gap 12 (6-14) Blood Urea Nitrogen 14 mg/dL (8-26) Creatinine 0.9 mg/dL (0.7-1.3) Estimated GFR (Cockcroft-Gault) 87.9 BUN/Creatinine Ratio 16 (6-20) Glucose Level 93 mg/dL (70-99) Calcium Level 8.6 mg/dL (8.5-10.1) Total Bilirubin 0.5 mg/dL (0.2-1.0) Aspartate Amino Transferase (AST) 21 U/L (15-37) Alanine Aminotransferase (ALT) 30 U/L (16-63) Alkaline Phosphatase 74 U/L (46-116) Troponin I Quantitative < 0.017 ng/mL (0.000-0.055) Total Protein 7.3 g/dL (6.4-8.2) Albumin 4.1 g/dL (3.4-5.0) Albumin/Globulin Ratio 1.3 (1.0-1.7) Laboratory Tests 07/12/17 17:55 Laboratory Tests 07/12/17 17:55 EKG EKG EKG is normal sinus rhythm without acute findings of ischemia. Rate is 65. It was done at 1751 and I'm reading it at 6:05 PM.[] Radiology/Procedures Radiology/Procedures [] CT HEAD INDICATION: ACEVEDO X 2 DAYS H/O STROKE COMPARISON: 04/06/2017 TECHNIQUE: 5 mm contiguous axial images were obtained from the skull base to the vertex in both bone and soft tissue algorithm. FINDINGS: No abnormal attenuation within the brain parenchyma. No evidence of acute intracranial hemorrhage. No extra-axial fluid collections. No mass effect or midline shift. Ventricular size is appropriate. Basal cisterns are patent. No fractures identified.Guallpa-white differentiation is preserved.Globes and orbits are within normal limits. Paranasal sinuses and mastoid air cells are clear. IMPRESSION: Unremarkable CT examination of the head without contrast, as above. Specifically, no evidence of an acute intracranial abnormality. Electronically signed by: Toño Lopes MD (07/12/2017 6:34 PM) [facility] [place] DICTATED and SIGNED BY: TOÑO LOPES MD DATE: 07/12/17 183 CC: SHMUEL VILLANUEVA MD; MARYURI MISHRA MD ~ Course & Med Decision Making Course & Med Decision Making Pertinent Labs and Imaging studies reviewed. (See chart for details) FAmily offers the hx that a year ago he went in to a coma with similar symptoms. Currently he feels better. With shared decision making we have decided to admit given his hx. CT is normal. I do not feel that an LP is indicated. I will page Dr. Burciaga to admit at 1954 Dx: hypertension and headache. Admitted in stable condition. Dragon Disclaimer Dragon Disclaimer This electronic medical record was generated, in whole or in part, using a voice recognition dictation system. Departure Departure Referrals: SHMUEL VILLANUEVA MD (PCP) MARYURI MISHRA MD Jul 12, 2017 18:05
[2017-07-12 18:06] LABS: BASO # 0.1 x10^3/uL (0.0-0.2); BASO % 2 % (0-3); EOS % 4 % (0-3); HEMATOCRIT 41.3 % (39.0-53.0); HEMOGLOBIN 13.4 g/dL (13.0-17.5); LYMPH # 1.5 x10^3/uL (1.0-4.8); LYMPH % 21 % (24-48); MEAN CORPUSCULAR HEMOGLOBIN 25 pg (25-35); MEAN CORPUSCULAR HGB CONC 32 g/dL (31-37); MEAN CORPUSCULAR VOLUME 78 fL (79-100); MONO % 12 % (0-9); NEUT % 61 % (31-73); PLATELET COUNT 217 x10^3/uL (140-400); RED BLOOD COUNT 5.32 x10^6/uL (4.30-5.70); RED CELL DISTRIBUTION WIDTH 15.5 % (11.5-14.5); WHITE BLOOD COUNT 7.1 x10^3/uL (4.0-11.0)
--- NOTE | 2017-07-12 18:06 | EKG ---
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
[2017-07-12 18:24] LABS: CALCIUM 8.6 mg/dL (8.5-10.1); CREATININE 0.9 mg/dL (0.7-1.3); GFR 87.9
[2017-07-12 18:30] LABS: ALBUMIN 4.1 g/dL (3.4-5.0); ALBUMIN/GLOBULIN RATIO 1.3 (1.0-1.7); TOTAL BILIRUBIN 0.5 mg/dL (0.2-1.0); TOTAL PROTEIN 7.3 g/dL (6.4-8.2)
[2017-07-12] MEDS ORDERED: diphenhydrAMINE 50 MG/ML VIAL IVP ONE (18:30)
[2017-07-12] MEDS ORDERED: METOCLOPRAMIDE HCL 10 MG/2 ML VIAL. IV ONE (18:30)
--- NOTE | 2017-07-12 18:37 | RAD ---
CT HEAD INDICATION: ACEVEDO X 2 DAYS H/O STROKE COMPARISON: 04/06/2017 TECHNIQUE: 5 mm contiguous axial images were obtained from the skull base to the vertex in both bone and soft tissue algorithm. FINDINGS: No abnormal attenuation within the brain parenchyma. No evidence of acute intracranial hemorrhage. No extra-axial fluid collections. No mass effect or midline shift. Ventricular size is appropriate. Basal cisterns are patent. No fractures identified.Guallpa-white differentiation is preserved.Globes and orbits are within normal limits. Paranasal sinuses and mastoid air cells are clear. IMPRESSION: Unremarkable CT examination of the head without contrast, as above. Specifically, no evidence of an acute intracranial abnormality. Electronically signed by: Toño Lopes MD (07/12/2017 6:34 PM) [place] [id number]
[2017-07-12 22:45] VITALS: BP 135/91
[2017-07-12] MEDS ORDERED: NITROGLYCERIN SUBLINGUAL 0.4 MG BOTTLE OF 25. SL PRN (23:15)
[2017-07-12] MEDS: GABAPENTIN 300 MG CAPSULE. PO SCH (23:15)
[2017-07-13] MEDS ORDERED: ACETAMINOPHEN 325 MG TABLET. PO PRN
[2017-07-13] MEDS ORDERED: hydrALAZINE 20 MG/ML VIAL. IVP PRN
--- NOTE | 2017-07-13 00:01 | HP ---
ADMIT DATE: 07/12/2017 CHIEF COMPLAINT: Headache. HISTORY OF PRESENT ILLNESS: The patient is a 52-year-old well known to our system with frequent admissions for neurological symptoms who presented today with a new onset headache. He relates that he was cooking dinner when he all of a sudden started having headache and not feeling right. His face started tingling and became numb. He had no other neurological symptoms. No difficulty speaking, neck pain, sore throat, swallowing difficulties or dysphagia. He decided to come into the hospital as he had an episode of coma associated with high blood pressure. When he checked his blood pressure at the house, he noted this to be slightly elevated in the 180s to 190s although he typically runs around 160s systolically. In the Emergency Room, his symptoms are essentially resolved say for residual headache. Blood pressure is now back to his normal baseline. PAST MEDICAL HISTORY: CVA; CAD, status post ID; GERD; gastric surgery; hernia repair; hypertension and familial neuropathy. FAMILY HISTORY: Positive for heart disease as well as strokes. SOCIAL HISTORY: Lives with his family and no toxic habits. ALLERGIES: No known drug allergies. MEDICATIONS: MAR reconciled with home medications. REVIEW OF SYSTEMS: As per HPI. Rest of organ system review is negative. PHYSICAL EXAMINATION: VITAL SIGNS: From today show a blood pressure of 170/102, heart rate at 66, respiratory rate at 20 and he is afebrile. GENERAL: This is a well-nourished 52-year-old gentleman resting on the stretcher without any acute distress. HEENT: Shows no scleral icterus. NECK: Supple. LUNGS: Clear. HEART: Has regular rate and rhythm. ABDOMEN: Has positive bowel sounds, soft and nontender. EXTREMITIES: Showed no edema. SKIN: Warm, soft and dry without any rash. LABORATORY DATA: CBC with a WBC of 7.1, hemoglobin 13.4, MCV of 78 and platelets of 217. Chemistries with BUN and creatinine of 14 and 0.9, normal electrolytes, normal LFTs, normal troponin. Previous iron studies positive for iron deficiency. RADIOGRAPHIC IMAGING: With a head CT shows an unremarkable CT without contrast. ASSESSMENT AND PLAN: The patient is a 52-year-old gentleman with poorly controlled hypertension, peripheral vascular disease and heart disease. He now presents with some neurological symptoms, which are spontaneously resolving. I suspect this is related to his blood pressure. He states that he has only taken hydrochlorothiazide as a blood pressure medication at home, although he has multiple listed here. We will restart meds and revaluate in the morning. He may require further education about taking all his medications appropriately. CASSIUS CUNNINGHAM MD DR: MO/deirdre JOB#: [id number] / [id number] [place]
[2017-07-13] MEDS ORDERED: INFLUENZA VAX SCREEN BY RX. MC ONE (01:30)
[2017-07-13] MEDS ORDERED: PNEUMOCOCCAL VAX SCREEN BY RX. MC ONE (01:30)
[2017-07-13 03:40] VITALS: BP 138/93
[2017-07-13 07:00] VITALS: BP 143/94
[2017-07-13] MEDS ORDERED: LINACLOTIDE 145 MCG CAPSULE. PO SCH (07:00)
[2017-07-13] MEDS: GABAPENTIN 300 MG CAPSULE. PO SCH ×2 (07:44→15:52)
[2017-07-13] MEDS: SUCRALFATE 1 GM TABLET. PO SCH ×3 (07:46→15:53)
[2017-07-13] MEDS: PANTOPRAZOLE 40 MG TABLET.DR. PO SCH ×2 (07:46→15:53)
[2017-07-13] MEDS ORDERED: metFORMIN 500 MG TABLET PO SCH (08:00)
[2017-07-13 08:15] LABS: BASO # 0.1 x10^3/uL (0.0-0.2); BASO % 2 % (0-3); EOS % 5 % (0-3); HEMATOCRIT 42.1 % (39.0-53.0); HEMOGLOBIN 13.5 g/dL (13.0-17.5); LYMPH # 1.6 x10^3/uL (1.0-4.8); LYMPH % 34 % (24-48); MEAN CORPUSCULAR HEMOGLOBIN 25 pg (25-35); MEAN CORPUSCULAR HGB CONC 32 g/dL (31-37); MEAN CORPUSCULAR VOLUME 78 fL (79-100); MONO % 13 % (0-9); NEUT % 46 % (31-73); PLATELET COUNT 205 x10^3/uL (140-400); RED CELL DISTRIBUTION WIDTH 15.2 % (11.5-14.5); WHITE BLOOD COUNT 4.8 x10^3/uL (4.0-11.0)
[2017-07-13 08:37] LABS: ALBUMIN 3.6 g/dL (3.4-5.0); ALBUMIN/GLOBULIN RATIO 1.2 (1.0-1.7); CALCIUM 8.2 mg/dL (8.5-10.1); CREATININE 0.9 mg/dL (0.7-1.3); GFR 87.9; POTASSIUM 3.8 mmol/L (3.5-5.1); TOTAL BILIRUBIN 0.8 mg/dL (0.2-1.0); TOTAL PROTEIN 6.6 g/dL (6.4-8.2)
[2017-07-13] MEDS ORDERED: LOSARTAN POTASSIUM 50 MG TABLET. PO SCH (09:00)
[2017-07-13] MEDS ORDERED: ASPIRIN ENTERIC COATED 81 MG TABLET.DR. PO SCH (09:00)
[2017-07-13] MEDS ORDERED: FLU VACC QS2017-18 (36MOS+)/PF 0.5 ML SYRINGE. VAX IM ONE (09:00)
[2017-07-13] MEDS ORDERED: FAMOTIDINE 20 MG TABLET. PO SCH (09:00)
[2017-07-13] MEDS ORDERED: FUROSEMIDE 20 MG TABLET PO SCH (09:00)
[2017-07-13] MEDS ORDERED: PNEUMOC CONJ VACC 23-VALENT 0.5 ML VIAL. VAX IM ONE (09:00)
[2017-07-13] MEDS ORDERED: TAMSULOSIN 0.4 MG CAP.ER.24H. PO SCH (09:00)
[2017-07-13] MEDS ORDERED: amLODIPine BESYLATE 10 MG TABLET PO SCH (09:00)
[2017-07-13 11:00] VITALS: BP 125/73
--- NOTE | 2017-07-13 14:51 | PDOC ---
PROGRESS NOTES Chief Complaint Chief Complaint Neurological deficits HTN urgency ASSESSMENT AND PLAN: 1. Neurol deficits: spontaneously resolved. 2. HTN urgency: now on the low side, as all listed BP meds have been restarted (losartan 100, Norvasc 10, lasix 20). decrease losartan, monitor 3. CAD, PVD: cont all other 2ary prevention meds. History of Present Illness History of Present Illness dizzy this AM with walking, BPs low. now resolved Vitals Vitals Vital Signs Date Time Temp Pulse Resp B/P (MAP) Pulse Ox O2 Delivery O2 Flow Rate FiO2 07/13/17 11:00 97.8 96 16 125/73 (90) 97 Room Air 97.8 Physical Exam General: Alert, Oriented X3 Heart: Regular rate Lungs: Clear, Other Abdomen: Normal bowel sounds, No tenderness Extremities: No clubbing, No edema Skin: No rashes Labs LABS Laboratory Tests Test 07/12/17 17:55 07/13/17 08:05 White Blood Count 7.1 x10^3/uL (4.0-11.0) 4.8 x10^3/uL (4.0-11.0) Red Blood Count 5.32 x10^6/uL (4.30-5.70) 5.40 x10^6/uL (4.30-5.70) Hemoglobin 13.4 g/dL (13.0-17.5) 13.5 g/dL (13.0-17.5) Hematocrit 41.3 % (39.0-53.0) 42.1 % (39.0-53.0) Mean Corpuscular Volume 78 fL (79-100) 78 fL (79-100) Mean Corpuscular Hemoglobin 25 pg (25-35) 25 pg (25-35) Mean Corpuscular Hemoglobin Concent 32 g/dL (31-37) 32 g/dL (31-37) Red Cell Distribution Width 15.5 % (11.5-14.5) 15.2 % (11.5-14.5) Platelet Count 217 x10^3/uL (140-400) 205 x10^3/uL (140-400) Neutrophils (%) (Auto) 61 % (31-73) 46 % (31-73) Lymphocytes (%) (Auto) 21 % (24-48) 34 % (24-48) Monocytes (%) (Auto) 12 % (0-9) 13 % (0-9) Eosinophils (%) (Auto) 4 % (0-3) 5 % (0-3) Basophils (%) (Auto) 2 % (0-3) 2 % (0-3) Neutrophils # (Auto) 4.4 x10^3uL (1.8-7.7) 2.2 x10^3uL (1.8-7.7) Lymphocytes # (Auto) 1.5 x10^3/uL (1.0-4.8) 1.6 x10^3/uL (1.0-4.8) Monocytes # (Auto) 0.8 x10^3/uL (0.0-1.1) 0.6 x10^3/uL (0.0-1.1) Eosinophils # (Auto) 0.3 x10^3/uL (0.0-0.7) 0.3 x10^3/uL (0.0-0.7) Basophils # (Auto) 0.1 x10^3/uL (0.0-0.2) 0.1 x10^3/uL (0.0-0.2) Sodium Level 142 mmol/L (136-145) 141 mmol/L (136-145) Potassium Level 4.0 mmol/L (3.5-5.1) 3.8 mmol/L (3.5-5.1) Chloride Level 104 mmol/L (98-107) 106 mmol/L (98-107) Carbon Dioxide Level 26 mmol/L (21-32) 25 mmol/L (21-32) Anion Gap 12 (6-14) 10 (6-14) Blood Urea Nitrogen 14 mg/dL (8-26) 14 mg/dL (8-26) Creatinine 0.9 mg/dL (0.7-1.3) 0.9 mg/dL (0.7-1.3) Estimated GFR (Cockcroft-Gault) 87.9 87.9 BUN/Creatinine Ratio 16 (6-20) 16 (6-20) Glucose Level 93 mg/dL (70-99) 106 mg/dL (70-99) Calcium Level 8.6 mg/dL (8.5-10.1) 8.2 mg/dL (8.5-10.1) Total Bilirubin 0.5 mg/dL (0.2-1.0) 0.8 mg/dL (0.2-1.0) Aspartate Amino Transf (AST/SGOT) 21 U/L (15-37) 16 U/L (15-37) Alanine Aminotransferase (ALT/SGPT) 30 U/L (16-63) 26 U/L (16-63) Alkaline Phosphatase 74 U/L (46-116) 67 U/L (46-116) Troponin I Quantitative < 0.017 ng/mL (0.000-0.055) < 0.017 ng/mL (0.000-0.055) Total Protein 7.3 g/dL (6.4-8.2) 6.6 g/dL (6.4-8.2) Albumin 4.1 g/dL (3.4-5.0) 3.6 g/dL (3.4-5.0) Albumin/Globulin Ratio 1.3 (1.0-1.7) 1.2 (1.0-1.7) CASSIUS CUNNINGHAM MD Jul 13, 2017 14:51
[2017-07-13 15:00] VITALS: BP 99/62
[2017-07-13] MEDS ORDERED: AMLO10TA2 PO (16:45)
[2017-07-13] MEDS ORDERED: LOSA50TA6 PO (16:45)
[2017-07-13] MEDS ORDERED: ATORVASTATIN CALCIUM 40 MG TABLET. PO SCH (21:00)
--- NOTE | 2017-07-15 15:32 | DS ---
DATE OF DISCHARGE: 07/13/2017 CHIEF COMPLAINT: Neurological deficits, hypertensive urgency. HOSPITAL COURSE: The patient is a 52-year-old who presented to the hospital with numbness, tingling in his face and other neurological deficits which started while he was cooking with his family. All his symptoms; however, resolved while in the Emergency Room. There, he had been found with hypertensive urgency which was attributed to noncompliance with his home medications, which were restarted. The following day blood pressure was actually found to be on the low side with some dizziness. As his symptoms improved and blood pressure stabilized, he was discharged on adjusted home medications of Norvasc 10, losartan 50, as well as Lasix. PHYSICAL EXAMINATION: VITAL SIGNS: Show blood pressure of 125/73, heart rate of 96, respiratory rate at 16. He is afebrile. GENERAL: This is a 52-year-old alert and oriented, no acute distress. LUNGS: Clear. HEART: Regular rate and rhythm. ABDOMEN: Positive bowel sounds, soft, nontender. EXTREMITIES: No edema. DISCHARGE DIAGNOSES: Hypertensive urgency, neurological deficits. DISCHARGE DISPOSITION: To home. DISCHARGE CONDITION: Improved. DISCHARGE MEDICATIONS: Please refer to MAR. DISCHARGE INSTRUCTIONS: Please follow up with your PCP in 1-2 weeks. CASSIUS CUNNINGHAM MD DR: MO/nts JOB#: [id number] / [id number] SHMUEL Dewitt MD
== END 2017-07-13 18:35 | disposition home or self-care (01) | DRG 305 ==
LOC: ER 17:34 → 6 SOUTH 19:56
PROVIDERS: ADMIT Internal Medicine Hematology & Oncology; ATTEND Internal Medicine Hematology & Oncology
DX: I16.0 Hypertensive urgency (principal); G62.9 Polyneuropathy, unspecified; K21.9 Gastro-esophageal reflux disease without esophagitis; I10 Essential (primary) hypertension; I73.9 Peripheral vascular disease, unspecified; I25.10 Atherosclerotic heart disease of native coronary artery without angina pectoris; Z86.73 Personal history of transient ischemic attack (TIA), and cerebral infarction without residual deficits; Z91.19 Patient's noncompliance with other medical treatment and regimen; Z90.49 Acquired absence of other specified parts of digestive tract; Z86.14 Personal history of Methicillin resistant Staphylococcus aureus infection; Z82.49 Family history of ischemic heart disease and other diseases of the circulatory system; Z82.3 Family history of stroke; I25.2 Old myocardial infarction
CPT/HCPCS: 36415; 70450; 80053; 84484; 85025; 90686; 90732; 93005; 96361; 96374; 96375; J1200; J2765; J7030; 99285-25

== ENCOUNTER → 2017-07-25 | Outpatient (CLI) | payer OTHER ==
[2017-07-13 15:00] VITALS: BP 99/62
[~2017-07-25] MED LIST changes: +LOSA50TA6 PO
[2017-07-25 11:56] LABS: CREATININE 0.8 mg/dL (0.7-1.3); GFR 100.7
== END | disposition home or self-care (01) ==
LOC: LAB 11:14
PROVIDERS: ATTEND Psychiatry & Neurology Neurology
DX: G60.0 Hereditary motor and sensory neuropathy (principal)
CPT/HCPCS: 36415; 82565; 84520; 85651

== ENCOUNTER → 2017-09-05 | Outpatient (CLI) | payer OTHER ==
[2017-09-05 12:13] LABS: CREATINE KINASE 172 U/L (39-308)
== END | disposition home or self-care (01) ==
LOC: LAB 11:19
DX: G60.0 Hereditary motor and sensory neuropathy (principal); E55.9 Vitamin D deficiency, unspecified
CPT/HCPCS: 36415; 82306; 82550

== ENCOUNTER → 2017-11-09 | Outpatient (CLI) | payer OTHER | END | disposition home or self-care (01) | LOC: ECHO 09:37 | DX: I36.1 Nonrheumatic tricuspid (valve) insufficiency (principal); R06.00 Dyspnea, unspecified; Z95.0 Presence of cardiac pacemaker | CPT/HCPCS: 93306 ==

== ENCOUNTER → 2017-12-03 | Outpatient (CLI) | payer OTHER | END | disposition home or self-care (01) | LOC: RAD 11:05 | DX: R06.00 Dyspnea, unspecified (principal); I10 Essential (primary) hypertension; E78.5 Hyperlipidemia, unspecified | CPT/HCPCS: 71046 ==

== ENCOUNTER 2017-12-28 19:03 | Inpatient (IN) | payer OTHER ==
[2017-12-28 19:28] LABS: POC GLUCOSE 122 mg/dL (70-99)
[2017-12-28] MEDS: diphenhydrAMINE 50 MG/ML VIAL IVP (19:43)
[2017-12-28] MEDS: METOCLOPRAMIDE HCL 10 MG/2 ML VIAL. IV (19:43)
[2017-12-28] MEDS: KETOROLAC 30 MG/ML INJ. IV (19:44)
[2017-12-28 19:45] LABS: ADD MAN DIFF? NO
[2017-12-28 19:53] LABS: BASO # 0.1 x10^3/uL (0.0-0.2); BASO % 1 % (0-3); EOS # 0.3 x10^3/uL (0.0-0.7); EOS % 5 % (0-3); HEMATOCRIT 40.4 % (39.0-53.0); HEMOGLOBIN 13.8 g/dL (13.0-17.5); LYMPH # 1.9 x10^3/uL (1.0-4.8); LYMPH % 31 % (24-48); MEAN CORPUSCULAR HEMOGLOBIN 26 pg (25-35); MEAN CORPUSCULAR HGB CONC 34 g/dL (31-37); MEAN CORPUSCULAR VOLUME 77 fL (79-100); MONO # 0.8 x10^3/uL (0.0-1.1); MONO % 13 % (0-9); NEUT # 3.1 x10^3uL (1.8-7.7); NEUT % 50 % (31-73); PLATELET COUNT 208 x10^3/uL (140-400); RED BLOOD COUNT 5.25 x10^6/uL (4.30-5.70); WHITE BLOOD COUNT 6.1 x10^3/uL (4.0-11.0)
[2017-12-28 20:08] LABS: ANION GAP 11 (6-14); BLOOD UREA NITROGEN 14 mg/dL (8-26); BUN/CREATININE RATIO 14 (6-20); CALCIUM 8.7 mg/dL (8.5-10.1); CARBON DIOXIDE 23 mmol/L (21-32); CHLORIDE 103 mmol/L (98-107); GFR 77.9; GLUCOSE 129 mg/dL (70-99); POTASSIUM 3.4 mmol/L (3.5-5.1); SODIUM 137 mmol/L (136-145)
[2017-12-28 20:11] LABS: ETHANOL < 10 mg/dL (0-10)
[2017-12-28 20:11] LABS: BILIRUBIN,URINE NEGATIVE (NEG); CLARITY,URINE CLEAR; COLOR,URINE YELLOW; GLUCOSE,URINE NEGATIVE (NEG); NITRITE,URINE NEGATIVE (NEG); PH,URINE 7.5; PROTEIN,URINE NEGATIVE (NEG-TRACE)
[2017-12-28 20:13] LABS: ALBUMIN 3.6 g/dL (3.4-5.0); ALBUMIN/GLOBULIN RATIO 0.9 (1.0-1.7); ALK PHOS 80 U/L (46-116); ALT (SGPT) 36 U/L (16-63); AST (SGOT) 20 U/L (15-37); TOTAL BILIRUBIN 0.5 mg/dL (0.2-1.0); TOTAL PROTEIN 7.6 g/dL (6.4-8.2)
[2017-12-28 20:14] LABS: TROPONINI 0.038 ng/mL (0.000-0.055)
[2017-12-28 20:16] LABS: BARBITURATES NEG (NEG); BENZODIAZEPINES NEG (NEG); CANNABINOIDS NEG (NEG); COCAINE NEG (NEG); METHADONE NEG (NEG); OPIATES NEG (NEG); PHENCYCLIDINE NEG (NEG)
[2017-12-28 20:17] LABS: AMPHETAMINE/METHAMPHETAMINE NEG (NEG); ETHANOL, URINE NEG (NEG)
[2017-12-28 20:22] LABS: BACTERIA,URINE 0 /HPF (0-FEW); RBC,URINE 0 /HPF (0-2); SQUAMOUS EPITHELIAL CELL,UR FEW /LPF; WBC,URINE 0 /HPF (0-4)
[2017-12-28 20:23] LABS: HYALINE CASTS, URINE FEW /HPF
[2017-12-28] MEDS: ASPIRIN CHEWABLE 81 MG TABLET. PO (22:02)
[2017-12-29 02:30] LABS: TROPONINI < 0.017 ng/mL (0.000-0.055)
[2017-12-29 05:44] LABS: TROPONINI < 0.017 ng/mL (0.000-0.055)
[2017-12-29] MEDS: ONDANSETRON PF 4 MG/2 ML VIAL. IV ×2 (06:56→17:42)
[2017-12-29] MEDS: MORPHINE SULFATE 4 MG/ML DISP.SYRIN. IV ×3 (06:57→16:02)
[2017-12-29] MEDS: NITROGLYCERIN SUBLINGUAL 0.4 MG BOTTLE OF 25. SL (08:22)
[2017-12-29] MEDS: NITROGLYCERIN OINT 1 GM PACKET. TP ×3 (12:20→23:18)
[2017-12-29 13:23] LABS: HEMATOCRIT 39.9 % (39.0-53.0); HEMOGLOBIN 13.4 g/dL (13.0-17.5); MEAN CORPUSCULAR HEMOGLOBIN 26 pg (25-35); MEAN CORPUSCULAR HGB CONC 34 g/dL (31-37); MEAN CORPUSCULAR VOLUME 78 fL (79-100); PLATELET COUNT 189 x10^3/uL (140-400); RED BLOOD COUNT 5.09 x10^6/uL (4.30-5.70); RED CELL DISTRIBUTION WIDTH 17.8 % (11.5-14.5); WHITE BLOOD COUNT 5.6 x10^3/uL (4.0-11.0)
[2017-12-29 13:46] LABS: ALBUMIN 3.3 g/dL (3.4-5.0); ALBUMIN/GLOBULIN RATIO 0.9 (1.0-1.7); ALK PHOS 74 U/L (46-116); ALT (SGPT) 30 U/L (16-63); ANION GAP 9 (6-14); AST (SGOT) 17 U/L (15-37); BLOOD UREA NITROGEN 18 mg/dL (8-26); BUN/CREATININE RATIO 18 (6-20); CALCIUM 8.4 mg/dL (8.5-10.1); CARBON DIOXIDE 24 mmol/L (21-32); CHLORIDE 106 mmol/L (98-107); GFR 77.9; GLUCOSE 110 mg/dL (70-99); POTASSIUM 3.7 mmol/L (3.5-5.1); SODIUM 139 mmol/L (136-145); TOTAL BILIRUBIN 0.6 mg/dL (0.2-1.0)
[2017-12-29 14:55] LABS: TROPONINI < 0.017 ng/mL (0.000-0.055)
[2017-12-29] MEDS: ACETAMINOPHEN 325 MG TABLET. PO ×2 (15:59→23:17)
[2017-12-30 05:04] LABS: CHOLESTEROL 152 mg/dL (0-200); HDLC 41 mg/dL (40-60); LDLC 87 mg/dL (0-100); NON-HDL CHOLESTEROL 111 mg/dL (0-129); TRIGLYCERIDES 122 mg/dL (0-150); VLDLC 24 mg/dL (0-40)
[2017-12-30 05:05] LABS: CHOLESTEROL/HDL RATIO 3.7
[2017-12-30] MEDS: NITROGLYCERIN OINT 1 GM PACKET. TP ×4 (06:29→23:53)
[2017-12-30] MEDS: ACETAMINOPHEN 325 MG TABLET. PO ×4 (08:18→21:20)
[2017-12-30] MEDS: ASPIRIN 325 MG TABLET PO (13:27)
[2017-12-31] MEDS: ACETAMINOPHEN 325 MG TABLET. PO (02:44)
[2017-12-31] MEDS: NITROGLYCERIN OINT 1 GM PACKET. TP ×4 (06:00→20:13)
[2017-12-31] MEDS: IV NORMAL SALINE 1000ML BAG 1,000 ML IV ×2 (07:32→20:37)
[2017-12-31] MEDS: ASPIRIN 325 MG TABLET PO (10:08)
[2017-12-31] MEDS ORDERED: IODIXANOL 320 MG/ML 100 ML VIAL. ×2 (10:23→11:13)
[2017-12-31] MEDS ORDERED: LIDOCAINE 2% 20 ML VIAL. (10:23)
[2017-12-31] MEDS ORDERED: fentaNYL PF VIAL 100 MCG/2 ML VIAL (10:49)
[2017-12-31] MEDS ORDERED: NITROGLYCERIN 200 MCG/2 ML SYRINGE FOR CATH/VASC LAB. (10:49)
[2017-12-31] MEDS ORDERED: HEPARIN for IV BOLUS 10,000 UNIT/10 ML VIAL. (10:49)
[2017-12-31] MEDS ORDERED: VERAPAMIL 5 MG/2 ML VIAL. (10:49)
[2017-12-31] MEDS ORDERED: MIDAZOLAM HCL/PF 5 MG/5 ML VIAL. (10:49)
[2017-12-31] MEDS ORDERED: BIVALIRUDIN 250 MG VIAL. IV (11:13)
[2017-12-31] MEDS ORDERED: PRASUGREL 10 MG TABLET. PO (11:45)
[2017-12-31] MEDS ORDERED: TICAGRELOR 90 MG TABLET. (11:46)
[2017-12-31] MEDS: TICAGRELOR 90 MG TABLET. PO (11:55)
[2017-12-31] MEDS: LIDOCAINE 2% 20 ML VIAL. IJ (11:55)
[2017-12-31] MEDS: BIVALIRUDIN 250 MG VIAL. IV (11:56)
[2017-12-31] MEDS: VERAPAMIL 5 MG/2 ML VIAL. IART (11:57)
[2017-12-31] MEDS: fentaNYL PF VIAL 100 MCG/2 ML VIAL IV (11:57)
[2017-12-31] MEDS: MIDAZOLAM HCL/PF 5 MG/5 ML VIAL. IV (11:57)
[2017-12-31] MEDS: IODIXANOL 320 MG/ML 100 ML VIAL. IART (11:58)
[2017-12-31] MEDS: NITROGLYCERIN 200 MCG/2 ML SYRINGE FOR CATH/VASC LAB. IART (11:58)
[2017-12-31] MEDS: HEPARIN for IV BOLUS 10,000 UNIT/10 ML VIAL. IART (11:59)
[2017-12-31] MEDS: ATORVASTATIN CALCIUM 40 MG TABLET. PO (20:37)
[2018-01-01] MEDS: NITROGLYCERIN OINT 1 GM PACKET. TP (03:42)
[2018-01-01] MEDS: ASPIRIN CHEWABLE 81 MG TABLET. PO (08:16)
[2018-01-01] MEDS: ACETAMINOPHEN 325 MG TABLET. PO (08:17)
[2018-01-01] MEDS: TICAGRELOR 90 MG TABLET. PO (08:17)
== END 2018-01-01 12:30 | disposition home or self-care (01) | DRG 246 ==
LOC: ER 19:03 → 2 NORTH 21:12
PROC: 027034Z Dilation of Coronary Artery, One Artery with Drug-eluting Intraluminal Device, Percutaneous Approach (ICD-10-PCS; principal; 2017-12-31)
PROC: 4A023N7 Measurement of Cardiac Sampling and Pressure, Left Heart, Percutaneous Approach (ICD-10-PCS; 2017-12-31)
PROC: B2111ZZ Fluoroscopy of Multiple Coronary Arteries using Low Osmolar Contrast (ICD-10-PCS; 2017-12-31)
PROC: B2151ZZ Fluoroscopy of Left Heart using Low Osmolar Contrast (ICD-10-PCS; 2017-12-31)
DX: I24.9 Acute ischemic heart disease, unspecified (principal); I50.33 Acute on chronic diastolic (congestive) heart failure; E78.00 Pure hypercholesterolemia, unspecified; E78.5 Hyperlipidemia, unspecified; I11.0 Hypertensive heart disease with heart failure; E11.42 Type 2 diabetes mellitus with diabetic polyneuropathy; M19.90 Unspecified osteoarthritis, unspecified site; I25.10 Atherosclerotic heart disease of native coronary artery without angina pectoris; K21.9 Gastro-esophageal reflux disease without esophagitis; Z79.01 Long term (current) use of anticoagulants; Z86.73 Personal history of transient ischemic attack (TIA), and cerebral infarction without residual deficits; Z95.0 Presence of cardiac pacemaker; Z90.49 Acquired absence of other specified parts of digestive tract; Z80.9 Family history of malignant neoplasm, unspecified
CPT/HCPCS: 36415; 70450; 71045; 80053; 80061; 80307; 81001; 82962; 84484; 85025; 85027; 92928; 93005; 93458; 96374; 96375; 99152; 99153; 99285; 99285-25; C1713; C1725; C1769; C1892; G0480; J0583; J1200; J1644; J1650; J1885; J2250; J2270; J2405; J2765; J3010; J3490; J7030

== ENCOUNTER → 2018-01-31 | Outpatient (CLI) | payer MEDICARE, OTHER ==
[2018-01-31] MEDS: IOHEXOL 300 MG/ML 100ML VIAL. IV (10:47)
== END | disposition home or self-care (01) ==
LOC: RAD 10:21
DX: J98.6 Disorders of diaphragm (principal); K76.0 Fatty (change of) liver, not elsewhere classified; K44.9 Diaphragmatic hernia without obstruction or gangrene; I11.9 Hypertensive heart disease without heart failure; E11.42 Type 2 diabetes mellitus with diabetic polyneuropathy; E78.5 Hyperlipidemia, unspecified; E78.00 Pure hypercholesterolemia, unspecified
CPT/HCPCS: 71275; 76000; Q9967

== ENCOUNTER → 2018-02-01 | Outpatient (CLI) | payer MEDICARE, MEDICAID, OTHER ==
[2018-02-01 11:55] LABS: ALBUMIN 3.5 g/dL (3.4-5.0); ALK PHOS 84 U/L (46-116); ALT (SGPT) 30 U/L (16-63); ANION GAP 8 (6-14); AST (SGOT) 19 U/L (15-37); BLOOD UREA NITROGEN 12 mg/dL (8-26); BUN/CREATININE RATIO 13 (6-20); CALCIUM 8.3 mg/dL (8.5-10.1); CARBON DIOXIDE 25 mmol/L (21-32); CHLORIDE 107 mmol/L (98-107); CHOLESTEROL 96 mg/dL (0-200); CREATININE 0.9 mg/dL (0.7-1.3); GFR 87.9; GLUCOSE 98 mg/dL (70-99); HDLC 50 mg/dL (40-60); LDLC 34 mg/dL (0-100); NON-HDL CHOLESTEROL 46 mg/dL (0-129); POTASSIUM 3.7 mmol/L (3.5-5.1); SODIUM 140 mmol/L (136-145); TOTAL BILIRUBIN 0.9 mg/dL (0.2-1.0); TOTAL PROTEIN 7.1 g/dL (6.4-8.2); TRIGLYCERIDES 62 mg/dL (0-150); VLDLC 12 mg/dL (0-40)
[2018-02-01 12:01] LABS: CHOLESTEROL/HDL RATIO 1.9
== END | disposition home or self-care (01) ==
LOC: LAB 10:59
DX: I25.10 Atherosclerotic heart disease of native coronary artery without angina pectoris (principal); I11.9 Hypertensive heart disease without heart failure; E55.9 Vitamin D deficiency, unspecified; E11.42 Type 2 diabetes mellitus with diabetic polyneuropathy; E78.5 Hyperlipidemia, unspecified; E78.00 Pure hypercholesterolemia, unspecified; K21.9 Gastro-esophageal reflux disease without esophagitis
CPT/HCPCS: 36415; 80053; 80061

== ENCOUNTER → 2018-04-11 | Outpatient (CLI) | payer MEDICARE, OTHER ==
[2018-04-08 14:00] VITALS: BP 155/88
[~2018-04-11] MED LIST changes: -AMLO10TA2 PO; +AMLO10TA6 PO; +ASCO10002 PO; +BUDE10.2 IH; +CEFP200T PO; +CHOL500016 PO; +CLOP75TA PO; -CYPR4TAB PO; +CYPR4TAB31 PO; -LABE200T2 PO; +LABE200T4 PO; -LABE300T PO; +LABE300T2 PO; -LOSA100T6 PO; +LOSA100T7 PO; +LOSA1TAB25 PO; -LOSA50TA6 PO; +LOSA50TA7 PO; +METF500T16 PO; -METF500T4 PO; +NAPR500T8 PO; +NORT10CA PO; +TEST5GEL TP; +TICA90TA PO; +TOPI100T8 PO; +TOPI25TA7 PO
[2018-04-11 11:37] LABS: ALBUMIN 3.4 g/dL (3.4-5.0); ALBUMIN/GLOBULIN RATIO 0.9 (1.0-1.7); CALCIUM 8.9 mg/dL (8.5-10.1); CREATININE 0.9 mg/dL (0.7-1.3); GFR 87.9; POTASSIUM 3.6 mmol/L (3.5-5.1); TOTAL BILIRUBIN 0.5 mg/dL (0.2-1.0); TOTAL PROTEIN 7.3 g/dL (6.4-8.2)
== END | disposition home or self-care (01) ==
LOC: LAB 10:39
PROVIDERS: ATTEND Internal Medicine Cardiovascular Disease
DX: I25.10 Atherosclerotic heart disease of native coronary artery without angina pectoris (principal)
CPT/HCPCS: 36415; 80053

== ENCOUNTER → 2018-04-23 | Outpatient (CLI) | payer MEDICARE, OTHER ==
[2018-04-08 14:00] VITALS: BP 155/88
--- NOTE | 2018-04-23 16:46 | RAD ---
Chest, 2 views, 04/23/2018: HISTORY: Pneumothorax Comparison is made to a study from 04/08/2018. A left-sided transvenous pacemaker remains in place with 2 leads extending into the right heart. The heart size and pulmonary vascularity are normal. A small hiatal hernia is again noted. No pulmonary infiltrate is seen. Blunting of the posterior costophrenic angle on the left is unchanged and is compatible scarring. No pleural fluid is evident. The small right pneumothorax evident on 04/08/2018 has resolved. IMPRESSION: No acute cardiopulmonary abnormality is detected. Electronically signed by: Dmitry Lerma MD (04/23/2018 4:43 PM) [facility]
== END | disposition home or self-care (01) ==
LOC: RAD 12:33
PROVIDERS: ATTEND Internal Medicine Pulmonary Disease
DX: J93.9 Pneumothorax, unspecified (principal)
CPT/HCPCS: 71046

== ENCOUNTER → 2018-07-04 | Outpatient (CLI) | payer OTHER ==
[2018-04-08 14:00] VITALS: BP 155/88
[~2018-07-04] MED LIST changes: +CARV3.1210 PO; -CARV3.122 PO; +CONTRAST GIVEN. MC PRN; -HYDR-2762 PO; +HYDR-2765 PO; +HYDR-3164 PO; -HYDR-971 PO; +LOSA-73 PO; +LOSA100T14 PO; -LOSA100T7 PO; -LOSA50TA7 PO; +METR-84 PO; -METR500T8 PO
[2018-07-04] MEDS: IOHEXOL 300 MG/ML 100ML VIAL. IV ONE (08:47)
--- NOTE | 2018-07-04 15:21 | RAD ---
CTA chest with contrast 07/04/2018 Clinical indications: Chest pain, history of pulmonary embolism. COMPARISON: CTA chest 01/31/2018. TECHNIQUE: Multiple CTA images of the chest were obtained following the intravenous ministration 100 mL Omnipaque 300. MIPS were obtained of the chest. *One or more of the following individualized dose reduction techniques were utilized for this examination: 1. Automated exposure control. 2. Adjustment of the mA and/or kV according to patient size. 3. Use of iterative reconstruction technique. FINDINGS: Heart size is normal without significant pericardial effusion. LAD coronary stent. Left chest wall cardiac conduction device with right atrial and right ventricular transvenous leads. No central or major segmental pulmonary arterial filling defect. The central airways are patent. Stable mixed round glass and solid nodule in the right middle lobe measuring up to 1.4 cm with the solid component measuring 0.6 cm series 3/image 68. No axillary, mediastinal or hilar lymphadenopathy. There is a moderate sliding-type hiatal hernia with thickening at the gastroesophageal junction. There are no destructive osseous lesions. Limited images of the upper abdomen: Partial visualization of a left renal cyst. Cholecystectomy. IMPRESSION: 1. No CT evidence of pulmonary embolism. 2. Stable mixed groundglass and solid nodule in the right middle lobe concerning for primary lung malignancy. Percutaneous biopsy is recommended for further evaluation. 3. No thoracic lymphadenopathy. 4. Moderate hiatal hernia with thickening at the gastroesophageal junction, may be due to reflux esophagitis. Clinical correlation is recommended and endoscopy can performed for further evaluation. Electronically signed by: Ramakrishna Bond MD (07/04/2018 3:17 PM) [id number]
== END | disposition home or self-care (01) ==
LOC: CT 07:45
PROVIDERS: ATTEND Internal Medicine Critical Care Medicine
DX: R07.9 Chest pain, unspecified (principal); K44.9 Diaphragmatic hernia without obstruction or gangrene; N28.1 Cyst of kidney, acquired; Z86.711 Personal history of pulmonary embolism
CPT/HCPCS: 71275; Q9967

== ENCOUNTER → 2019-01-21 | Outpatient (CLI) | payer MEDICARE, OTHER ==
[2018-04-08 14:00] VITALS: BP 155/88
[~2019-01-21] MED LIST changes: -AMLO10TA6 PO; +AMLO10TA8 PO; -CONTRAST GIVEN. MC PRN; -GABA600T2 PO; +GABA600T7 PO; -LINA145C PO; +LINZESS145 MCG PO; +METR-34 PO; -METR-84 PO; +OMEP20CA10 PO; -OMEP20CA9 PO
[2019-01-21 08:33] LABS: ALBUMIN 3.5 g/dL (3.4-5.0); ALBUMIN/GLOBULIN RATIO 0.9 (1.0-1.7); CALCIUM 8.4 mg/dL (8.5-10.1); CHOLESTEROL/HDL RATIO 3.3; CREATININE 1.1 mg/dL (0.7-1.3); GFR 69.5; POTASSIUM 3.6 mmol/L (3.5-5.1); TOTAL BILIRUBIN 0.4 mg/dL (0.2-1.0); TOTAL PROTEIN 7.2 g/dL (6.4-8.2)
== END | disposition home or self-care (01) ==
LOC: LAB 07:21
PROVIDERS: ATTEND Internal Medicine Cardiovascular Disease
DX: Z01.810 Encounter for preprocedural cardiovascular examination (principal); Z79.899 Other long term (current) drug therapy
CPT/HCPCS: 36415; 80053; 80061; 83721

== ENCOUNTER → 2019-01-21 | Outpatient (CLI) | payer MEDICARE, OTHER ==
[2018-04-08 14:00] VITALS: BP 155/88
--- NOTE | 2019-01-21 16:39 | RAD ---
Testicular and scrotal sonography Clinical indications: Left testicular pain FINDINGS: Duplex sonography of the scrotum and both testicles was performed including grayscale evaluation and color flow and waveform spectral analysis. The longitudinal and AP and transverse dimensions of the right testicle are 3.4 cm and 2.4 cm and 2.6 cm respectively. The longitudinal AP and transverse dimensions of the left testicle are 3.2 cm and 2.0 cm and 2.3 cm respectively. Both testicles are homogeneous without mass. Symmetric color Doppler flow is seen within the testicles and therefore no testicular torsion is seen. A small cyst of the head of epididymis on the right side is seen measuring 3 mm in size. No hyperemia of the right epididymis is seen. Varicocele is seen on the right side. Minimal hydrocele is seen on the right side. Left epididymis appears asymmetrically enlarged and mildly hyperemic. This may indicate mild epididymitis. There is a minimal hydrocele on the left side. IMPRESSION: Mild left-sided epididymitis. Varicocele on the right side. Electronically signed by: Job Serrano MD (01/21/2019 4:35 PM) [place] [id number]
== END | disposition home or self-care (01) ==
LOC: US 07:27
PROVIDERS: ATTEND Urology
DX: N45.1 Epididymitis (principal); I86.1 Scrotal varices
CPT/HCPCS: 76870

== ENCOUNTER → 2019-03-11 | Outpatient (CLI) | payer MEDICARE, OTHER ==
[2018-04-08 14:00] VITALS: BP 155/88
--- NOTE | 2019-03-11 10:48 | RAD ---
PQRS Compliance Statement: One or more of the following individualized dose reduction techniques were utilized for this examination: 1. Automated exposure control 2. Adjustment of the mA and/or kV according to patient size 3. Use of iterative reconstruction technique CT chest without contrast March 11, 2019 INDICATION: Lung mass. COMPARISON: CT angiography chest July 04, 2018 TECHNIQUE: Multiple axial CT images of the chest were obtained without intravenous contrast. Coronal and sagittal reformats are provided. FINDINGS: Left chest wall cardiac device is identified with leads terminating in the right atrium and right ventricle. Heart size is within normal limits. No significant pericardial effusion. Thoracic aorta is normal in course and caliber. There is a small to moderate-sized hiatal hernia. Postsurgical changes are identified from prior resection of a subpleural pulmonary nodule. Volume loss is noted in the left lower lobe with subsegmental atelectasis. No new or enlarging solid noncalcified pulmonary nodules are identified. No new or enlarging thoracic lymphadenopathy. No suspicious osseous abnormality. Adrenal glands are normal in appearance. There is a simple cyst in the superior pole the left kidney measuring 2.8 cm. Gallbladder surgically absent. No suspicious hepatic lesions. Spleen is normal in appearance. IMPRESSION: Status post resection of right middle lobe subsolid pulmonary nodule. No new or enlarging solid noncalcified pulmonary nodules. No new or enlarging thoracic lymphadenopathy. Electronically signed by: Radha Ayoub MD (03/11/2019 10:45 AM) [id number]
== END | disposition home or self-care (01) ==
LOC: CT 14:17
PROVIDERS: ATTEND Internal Medicine Critical Care Medicine
DX: J98.11 Atelectasis (principal); R91.1 Solitary pulmonary nodule; K44.9 Diaphragmatic hernia without obstruction or gangrene; N28.1 Cyst of kidney, acquired
CPT/HCPCS: 71250

== ENCOUNTER → 2019-06-23 | Outpatient (CLI) | payer MEDICARE, OTHER ==
[2018-04-08 14:00] VITALS: BP 155/88
[~2019-06-23] MED LIST changes: +OMEP40CA45 PO; -OMEP40CA5 PO
[2019-06-23 09:28] LABS: ALBUMIN 3.7 g/dL (3.4-5.0); ALBUMIN/GLOBULIN RATIO 0.9 (1.0-1.7); CALCIUM 8.9 mg/dL (8.5-10.1); CREATININE 1.1 mg/dL (0.7-1.3); GFR 69.2; POTASSIUM 4.2 mmol/L (3.5-5.1); TOTAL BILIRUBIN 0.6 mg/dL (0.2-1.0); TOTAL PROTEIN 7.7 g/dL (6.4-8.2)
== END | disposition home or self-care (01) ==
LOC: LAB 08:44
PROVIDERS: ATTEND Family Medicine
DX: R73.09 Other abnormal glucose (principal)
CPT/HCPCS: 36415; 80053; 83036

== ENCOUNTER → 2019-07-22 | Outpatient (CLI) | payer MEDICARE ==
[2018-04-08 14:00] VITALS: BP 155/88
[~2019-07-22] MED LIST changes: +OMEP-229 PO; -OMEP20CA10 PO
--- NOTE | 2019-07-22 15:15 | RAD ---
MR#: [id number] Date of Study: 07/22/2019 Ordering Physician: ERNESTO VELAZQUEZ, Referring Physician: ERNESTO VELAZQUEZ, Tech: Chris Raymond MBA, RDMS, RVT, RDCS, RTR APPROVED REPORT Right Lower Extremity Venous Study for DVT Patient Location: OUT-PATIENT Indications Lower Extremity Pain: Right Vein Imaging (Right) CFV (R): Compressible SFJ (R): Compressible FEM (R): Compressible POP (R): Compressible DFV (R): Compressible PTV (R): Spontaneous GSV (R): Spontaneous Peroneals (R): Spontaneous Doppler Evaluation (Right) CFV (R): Spontaneous POP (R):Spontaneous Findings On the right the grayscale images of the common femoral, superficial femoral and popliteal veins do n ot demonstrate any evidence of thrombus and these veins appear to be compressible. The below-knee vei ns were not well visualized but grossly appear to be compressible. Spectral imaging and color Doppler do not reveal any evidence of obstruction to flow with normal respirophasic variation above the knee . Below the knee there is spontaneous flow noted. Limited evaluation of the LCFV reveals no significant disease. Critical Notification Critical Value: No Signed by : Ernesto Velazquez, Electronically Approved : 07/22/2019 15:14:59
== END | disposition home or self-care (01) ==
LOC: US 09:44
PROVIDERS: ATTEND Internal Medicine Cardiovascular Disease
DX: M79.604 Pain in right leg (principal)
CPT/HCPCS: 93971

== ENCOUNTER → 2019-08-22 | Outpatient (CLI) | payer MEDICARE, OTHER ==
[2018-04-08 14:00] VITALS: BP 155/88
[~2019-08-22] MED LIST changes: -OMEP-229 PO; +OMEP20CA16 PO; +ONDA4TAB12 PO
--- NOTE | 2019-08-22 17:01 | RAD ---
Examination: CT CHEST WO CONTRAST History: Lung mass Comparison/Correlation: 03/11/2019 CT chest without contrast Findings: Axial images of chest were obtained without contrast. Sagittal and coronal reformatted images were provided. Left-sided pacemaker with 2 associated leads noted. No enlarged thoracic lymph nodes. Small hiatal hernia is present with fluid within the esophagus likely representing reflux. Suture material involving the right anterior basilar aspect is present. No pulmonary nodule or mass. No infiltrate or pleural effusion. Cholecystectomy is noted. Left renal superior pole cyst is present. No acute bony process. Impression: Hiatal hernia with findings suggestive of reflux. No suspicious infiltrate or mass. No significant change. PQRS Compliance Statement: One or more of the following individualized dose reduction techniques were utilized for this examination: 1. Automated exposure control 2. Adjustment of the mA and/or kV according to patient size 3. Use of iterative reconstruction technique Electronically signed by: Shaun Chaudhary MD (08/22/2019 4:58 PM) [facility]
== END | disposition home or self-care (01) ==
LOC: CT 10:00
PROVIDERS: ATTEND Internal Medicine Critical Care Medicine
DX: K44.9 Diaphragmatic hernia without obstruction or gangrene (principal); N28.1 Cyst of kidney, acquired; Z90.49 Acquired absence of other specified parts of digestive tract
CPT/HCPCS: 71250

== ENCOUNTER 2019-09-01 12:51 | Emergency (ER) | payer MEDICARE, OTHER ==
[~2019-09-01] VITALS: Ht 167.6 cm; Wt 99.0 kg
[~2019-09-01 12:51] MED LIST changes: -ONDA4TAB12 PO
[2019-09-01] MEDS ORDERED: IV NORMAL SALINE 1000ML BAG 1,000 ML IV SCH (13:33)
--- NOTE | 2019-09-01 13:38 | PHYS DOC ---
Past Medical History Past Medical History: Cancer, CVA, Diabetes-Type II, High Cholesterol, Hypertension, Seizure, Stroke, Other Additional Past Medical Histor: Neuropathy, Hernia, encephalopathy, LUNG CANCER Past Surgical History: Appendectomy, Cholecystectomy, Pacemaker, Other Additional Past Surgical Histo: hernia, RLL LOBECTOMY Alcohol Use: None Drug Use: None Adult General Chief Complaint Chief Complaint: ABDOMINAL PAIN HPI HPI Patient is a 54-year-old male, with numerous medical problems, who presents to the emergency department for evaluation of some generalized abdominal pain, along with several episodes of vomiting and diarrhea, which has developed over the past 24 hours. He denies any fevers, chills, recent travel or antibiotic use, numbness, weakness, or lightheadedness. There are no alleviating or exacerbating factors to his symptoms. Review of Systems Review of Systems Constitutional: Denies fever or chills [] Eyes: Denies change in visual acuity, redness, or eye pain [] HENT: Denies nasal congestion or sore throat [] Respiratory: Denies cough or shortness of breath [] Cardiovascular: No additional information not addressed in HPI [] GI: Denies bloody emesis or bloody stools . [] : Denies dysuria or hematuria [] Musculoskeletal: Denies back pain or joint pain [] Integument: Denies rash or skin lesions [] Neurologic: Denies headache, focal weakness or sensory changes [] Endocrine: Denies polyuria or polydipsia [] All other systems were reviewed and found to be within normal limits, except as documented in this note. Current Medications Current Medications Current Medications Medications (Trade) Dose Ordered Sig/[facility] Start Time Stop Time Status Last Admin Dose Admin Info (CONTRAST GIVEN -- Rx MONITORING) 1 each PRN DAILY PRN 09/01/19 14:00 09/03/19 13:59 Iohexol (Omnipaque 300 Mg/ml) 75 ml 1X ONCE 09/01/19 14:00 09/01/19 14:01 DC 09/01/19 14:09 75 ML Morphine Sulfate (Morphine Sulfate) 4 mg PRN Q15MIN PRN 09/01/19 13:45 09/02/19 13:44 09/01/19 13:47 4 MG Ondansetron HCl (Zofran) 4 mg 1X ONCE 09/01/19 13:45 09/01/19 13:46 DC 09/01/19 13:47 4 MG Sodium Chloride 1,000 ml @ 1,000 mls/hr Q1H 09/01/19 13:33 09/01/19 14:32 DC 09/01/19 13:47 1,000 MLS/HR Allergies Allergies Allergies Coded Allergies Type Severity Reaction Last Updated Verified No Known Medication Allergies Allergy Unknown 10/08/17 Yes Physical Exam Physical Exam PHYSICAL EXAM: CONSTITUTIONAL: Well developed, well nourished HEAD: normocephalic, atraumatic EENT: PERRL, EOMI. Conjunctivae normal color, sclerae non-icteric; moist mucous membranes. NECK: Supple, non-tender; no meningismus. LUNGS: Lungs CTA, breathing even and unlabored. Normal air movement. HEART: Regular rate and rhythm, no murmur CHEST: No deformity; non-tender ABDOMEN: The abdomen is soft, bowel sounds are present, there is mild diffuse tenderness to palpation of the abdomen, without focal tenderness, rebound, or guarding, no masses or bruits. EXTREM: Normal ROM; no deformity, no calf tenderness. Normal pulses palpable in all extremities. There is no pedal edema. SKIN: No rash; no diaphoresis NEURO: Alert; normal speech and cognition; CN's grossly intact; strength grossly intact without focal deficit. BACK: No CVA TTP. Current Patient Data Vital Signs Vital Signs Date Time Temp Pulse Resp B/P (MAP) Pulse Ox O2 Delivery O2 Flow Rate FiO2 09/01/19 13:47 Room Air 09/01/19 13:05 98.2 90 18 112/71 (85) 98 98.2 Lab Values Laboratory Tests Test 09/01/19 13:05 09/01/19 13:15 09/01/19 14:10 Urine Collection Type Unknown Urine Color Yellow Urine Clarity Clear Urine pH 6.0 Urine Specific [place] 1.025 Urine Protein 30 mg/dL (NEG-TRACE) Urine Glucose (UA) Negative mg/dL (NEG) Urine Ketones (Stick) Negative mg/dL (NEG) Urine Blood Negative (NEG) Urine Nitrite Negative (NEG) Urine Bilirubin Small (NEG) Urine Urobilinogen Dipstick 1.0 mg/dL (0.2 mg/dL) Urine Leukocyte Esterase Negative (NEG) Urine RBC 0 /HPF (0-2) Urine WBC Occ /HPF (0-4) Urine Squamous Epithelial Cells Few /LPF Urine Bacteria 0 /HPF (0-FEW) Urine Mucus Marked /LPF White Blood Count 8.4 x10^3/uL (4.0-11.0) Red Blood Count 5.44 x10^6/uL (4.30-5.70) Hemoglobin 13.0 g/dL (13.0-17.5) Hematocrit 40.6 % (39.0-53.0) Mean Corpuscular Volume 75 fL (79-100) L Mean Corpuscular Hemoglobin 24 pg (25-35) L Mean Corpuscular Hemoglobin Concent 32 g/dL (31-37) Red Cell Distribution Width 16.9 % (11.5-14.5) H Platelet Count 242 x10^3/uL (140-400) Neutrophils (%) (Auto) 82 % (31-73) H Lymphocytes (%) (Auto) 10 % (24-48) L Monocytes (%) (Auto) 7 % (0-9) Eosinophils (%) (Auto) 1 % (0-3) Basophils (%) (Auto) 0 % (0-3) Neutrophils # (Auto) 6.9 x10^3/uL (1.8-7.7) Lymphocytes # (Auto) 0.8 x10^3/uL (1.0-4.8) L Monocytes # (Auto) 0.6 x10^3/uL (0.0-1.1) Eosinophils # (Auto) 0.1 x10^3/uL (0.0-0.7) Basophils # (Auto) 0.0 x10^3/uL (0.0-0.2) Sodium Level 143 mmol/L (136-145) Potassium Level 3.4 mmol/L (3.5-5.1) L Chloride Level 107 mmol/L (98-107) Carbon Dioxide Level 28 mmol/L (21-32) Anion Gap 8 (6-14) Blood Urea Nitrogen 19 mg/dL (8-26) Creatinine 1.0 mg/dL (0.7-1.3) Estimated GFR (Cockcroft-Gault) 77.3 BUN/Creatinine Ratio 19 (6-20) Glucose Level 78 mg/dL (70-99) Calcium Level 7.6 mg/dL (8.5-10.1) L Total Bilirubin 0.6 mg/dL (0.2-1.0) Aspartate Amino Transferase (AST) 34 U/L (15-37) Alanine Aminotransferase (ALT) 44 U/L (16-63) Alkaline Phosphatase 61 U/L (46-116) Total Protein 6.3 g/dL (6.4-8.2) L Albumin 2.9 g/dL (3.4-5.0) L Albumin/Globulin Ratio 0.9 (1.0-1.7) L Lipase 59 U/L (73-393) L Laboratory Tests 09/01/19 13:15 Laboratory Tests 09/01/19 14:10 EKG EKG [] Radiology/Procedures Radiology/Procedures PROCEDURE: CT ABD PELV W/ IV CONTRST ONLY CT scan of the abdomen and pelvis with contrast 09/01/2019 CLINICAL HISTORY: Abdominal pain. TECHNIQUE: After the intravenous administration of 75 cc of Omnipaque 300, contiguous, 5 mm axial sections were obtained through the abdomen and pelvis. One or more of the following individualized dose reduction techniques were utilized for this study: 1. Automated exposure control. 2. Adjustment of the mA and/or kV according to patient size. 3. Use of iterative reconstruction technique. FINDINGS: Images through the lung bases demonstrate surgical clips within the right middle lobe. There is a moderate sized sliding hiatal hernia. Dependent subsegmental atelectasis is seen bilaterally. The liver parenchyma has a decreased attenuation consistent with fatty infiltration. The spleen, pancreas, and adrenal glands are within normal limits. Low-attenuation lesions are seen involving both kidneys which measure 5 mm to 2.7 cm in size. These may represent cysts. The abdominal aorta tapers normally. Surgical clips are seen within the gallbladder fossa consistent with a cholecystectomy. A small fat-containing ventral hernia is seen within the superior midline abdomen which measures 3.8 cm transverse diameter. The patient appears to be post appendectomy. No free fluid or free air is within abdomen. There is no evidence of bowel obstruction. Images through the pelvis demonstrate the urinary bladder distended with urine. No free fluid is seen. Very mild S-shaped curvature of the thoracolumbar spine is seen. Degenerative changes are seen involving the visualized thoracic and throughout the lumbar spine along with both hips. IMPRESSION: No acute abnormality is seen.[] Course & Med Decision Making Course & Med Decision Making Pertinent Labs and Imaging studies reviewed. (See chart for details) []Patient remains stable. I discussed test results, the need for close follow- up, and return precautions. Dragon Disclaimer Dragon Disclaimer This electronic medical record was generated, in whole or in part, using a voice recognition dictation system. Departure Departure Impression: Primary Impression: Nausea vomiting and diarrhea Disposition: HOME, SELF-CARE Condition: STABLE Referrals: HOLA ALDRIDGE MD (PCP) Patient Instructions: Diarrhea, Nausea and Vomiting, Viral Gastroenteritis Scripts Ondansetron (ONDANSETRON ODT) 4 Mg Tab.rapdis 1 TAB PO PRN Q6-8HRS, #15 TAB Prov: EVER SMITH MD 09/01/19 EVER SMITH MD Sep 01, 2019 13:37
[2019-09-01 13:42] LABS: BASO % 0 % (0-3); EOS # 0.1 x10^3/uL (0.0-0.7); EOS % 1 % (0-3); HEMATOCRIT 40.6 % (39.0-53.0); LYMPH # 0.8 x10^3/uL (1.0-4.8); LYMPH % 10 % (24-48); MEAN CORPUSCULAR HEMOGLOBIN 24 pg (25-35); MEAN CORPUSCULAR HGB CONC 32 g/dL (31-37); MEAN CORPUSCULAR VOLUME 75 fL (79-100); MONO # 0.6 x10^3/uL (0.0-1.1); MONO % 7 % (0-9); NEUT # 6.9 x10^3/uL (1.8-7.7); NEUT % 82 % (31-73); PLATELET COUNT 242 x10^3/uL (140-400); RED BLOOD COUNT 5.44 x10^6/uL (4.30-5.70); RED CELL DISTRIBUTION WIDTH 16.9 % (11.5-14.5); WHITE BLOOD COUNT 8.4 x10^3/uL (4.0-11.0)
[2019-09-01 13:45] LABS: BILIRUBIN,URINE SMALL (NEG); CLARITY,URINE CLEAR; NITRITE,URINE NEGATIVE (NEG); PROTEIN,URINE 30 mg/dL (NEG-TRACE)
[2019-09-01] MEDS ORDERED: ONDANSETRON PF 4 MG/2 ML VIAL. IV ONE (13:45)
[2019-09-01] MEDS ORDERED: MORPHINE SULFATE 4 MG/ML VIAL. IV/SQ PRN (13:45)
[2019-09-01 13:53] LABS: COLOR,URINE YELLOW
[2019-09-01 13:56] LABS: BACTERIA,URINE 0 /HPF (0-FEW); RBC,URINE 0 /HPF (0-2); SQUAMOUS EPITHELIAL CELL,UR FEW /LPF; WBC,URINE OCC /HPF (0-4)
[2019-09-01] MEDS ORDERED: CONTRAST GIVEN. MC PRN (14:00)
[2019-09-01] MEDS ORDERED: IOHEXOL 300 MG/ML 100ML VIAL. IV ONE (14:00)
[2019-09-01 14:35] LABS: CALCIUM 7.6 mg/dL (8.5-10.1); GFR 77.3; POTASSIUM 3.4 mmol/L (3.5-5.1)
[2019-09-01 14:40] LABS: ALBUMIN 2.9 g/dL (3.4-5.0); ALBUMIN/GLOBULIN RATIO 0.9 (1.0-1.7); TOTAL BILIRUBIN 0.6 mg/dL (0.2-1.0); TOTAL PROTEIN 6.3 g/dL (6.4-8.2)
[2019-09-01 14:51] VITALS: BP 126/74
--- NOTE | 2019-09-01 14:53 | RAD ---
CT scan of the abdomen and pelvis with contrast 09/01/2019 CLINICAL HISTORY: Abdominal pain. TECHNIQUE: After the intravenous administration of 75 cc of Omnipaque 300, contiguous, 5 mm axial sections were obtained through the abdomen and pelvis. One or more of the following individualized dose reduction techniques were utilized for this study: 1. Automated exposure control. 2. Adjustment of the mA and/or kV according to patient size. 3. Use of iterative reconstruction technique. FINDINGS: Images through the lung bases demonstrate surgical clips within the right middle lobe. There is a moderate sized sliding hiatal hernia. Dependent subsegmental atelectasis is seen bilaterally. The liver parenchyma has a decreased attenuation consistent with fatty infiltration. The spleen, pancreas, and adrenal glands are within normal limits. Low-attenuation lesions are seen involving both kidneys which measure 5 mm to 2.7 cm in size. These may represent cysts. The abdominal aorta tapers normally. Surgical clips are seen within the gallbladder fossa consistent with a cholecystectomy. A small fat-containing ventral hernia is seen within the superior midline abdomen which measures 3.8 cm transverse diameter. The patient appears to be post appendectomy. No free fluid or free air is within abdomen. There is no evidence of bowel obstruction. Images through the pelvis demonstrate the urinary bladder distended with urine. No free fluid is seen. Very mild S-shaped curvature of the thoracolumbar spine is seen. Degenerative changes are seen involving the visualized thoracic and throughout the lumbar spine along with both hips. IMPRESSION: No acute abnormality is seen. Electronically signed by: Juan Newman MD (09/01/2019 2:50 PM) [id number]
[2019-09-01] MEDS ORDERED: ONDA4TAB12 PO (15:12)
== END 2019-09-01 15:23 | disposition home or self-care (01) ==
LOC: ER 12:51
DX: R11.2 Nausea with vomiting, unspecified (principal); R19.7 Diarrhea, unspecified; R10.84 Generalized abdominal pain; E11.40 Type 2 diabetes mellitus with diabetic neuropathy, unspecified; E78.00 Pure hypercholesterolemia, unspecified; I10 Essential (primary) hypertension; Z90.89 Acquired absence of other organs; Z90.49 Acquired absence of other specified parts of digestive tract; Z95.0 Presence of cardiac pacemaker; Z86.73 Personal history of transient ischemic attack (TIA), and cerebral infarction without residual deficits
CPT/HCPCS: 36415; 74177; 80053; 81001; 83690; 85025; 96361; 96374; 96375; 99285; J2270; J2405; J7030; Q9967

== ENCOUNTER → 2019-11-07 | Outpatient (CLI) | payer MEDICARE ==
[~2019-11-07] MED LIST changes: +ONDA4TAB12 PO; +REGADENOSON 0.4 MG/5 ML DISP.SYRIN. IV ONE
--- NOTE | 2019-11-07 09:47 | CARD ---
MR#: [id number] Date of Study: 11/07/2019 Ordering Physician: ERNESTO PATTERSON, Referring Physician: ERNESTO PATTERSON, Tech: Jolene Briseno APPROVED REPORT EXAM: Two-dimensional and M-mode echocardiogram with Doppler and color Doppler. Other Information Quality : AverageHR: 69bpm INDICATION Hypertension/HCVD Chest Pain Surgery/Intervention ICD/Pacemaker: Date: 2015 RISK FACTORS Hypertension 2D DIMENSIONS RVDd2.8 (2.9-3.5cm)Left Atrium(2D)3.2 (1.6-4.0cm) IVSd1.1 (0.7-1.1cm)Aortic Root(2D)3.3 (2.0-3.7cm) LVDd4.9 (3.9-5.9cm)LVOT Diameter2.0 (1.8-2.4cm) PWd1.1 (0.7-1.1cm)LVDs3.1 (2.5-4.0cm) FS (%) 37.2 %SV74.6 ml LVEF(%)67.0 (>50%) Aortic Valve AoV Peak Naren.112.3cm/sAoV VTI22.4cm AO Peak GR.5.0mmHgLVOT Peak Naren.90.9cm/s LVOT VTI 20.67cmAO Mean GR.3mmHg YUDELKA (VMAX)1.53zn3AOJ (VTI)2.85cm2 Mitral Valve MV E Wriujecj09.4cm/sMV DECEL PWGY426ka MV A Wztarofm74.6cm/sMV E Mean Gr.1mmHg MV IRH33keF/A Ratio0.9 MVA (PHT)3.18cm2 TDI E/Lateral E'10.7E/Medial E'14.6 Pulmonary Valve PV Peak Qyamzpzu74.9cm/sPV Peak Grad.3mmHg Tricuspid Valve TR P. Tkkvlauh881hr/sRAP RJQKSNGF3kaDc TR Peak Gr.95whAzPTMW74mmFo Pulmonary Vein S1 Cvxikcqq28.9cm/sD2 Porwdthc96.9cm/s PVa wogrizkt802vznx LEFT VENTRICLE The left ventricle is normal size. There is normal left ventricular wall thickness. The left ventricu lar systolic function is normal and the ejection fraction is within normal range. The Ejection Fracti on is 50-55%. There is normal LV segmental wall motion. Transmitral Doppler flow pattern is Grade I-a bnormal relaxation pattern. RIGHT VENTRICLE The right ventricle is normal size. There is normal right ventricular wall thickness. The right ventr icular systolic function is normal. There is a pacemaker lead in the right ventricle. ATRIA The left atrium size is normal. The right atrium size is normal. There is a pacemaker lead seen in th e right atrium. The interatrial septum is intact with no evidence for an atrial septal defect or brantley nt foramen ovale as noted on 2-D or Doppler imaging. AORTIC VALVE The aortic valve is normal in structure and function. Doppler and Color Flow revealed no significant aortic regurgitation. There is no significant aortic valvular stenosis. MITRAL VALVE The mitral valve is normal in structure and function. There is no evidence of mitral valve prolapse. There is no mitral valve stenosis. Doppler and Color-flow revealed trace mitral regurgitation. TRICUSPID VALVE The tricuspid valve is normal in structure and function. Doppler and Color Flow revealed trace tricus pid regurgitation with an estimated PAP of 23 mmHg. There is no tricuspid valve stenosis. PULMONIC VALVE The pulmonic valve is not well visualized. Doppler and Color Flow revealed no pulmonic valvular regur gitation. There is no pulmonic valvular stenosis. GREAT VESSELS The aortic root is normal in size. The ascending aorta is normal in size. The IVC was not well visual ized. PERICARDIAL EFFUSION There is no evidence of significant pericardial effusion. Critical Notification Critical Value: No <Conclusion> The left ventricular systolic function is normal and the ejection fraction is within normal range. Th e Ejection Fraction is 50-55%. There is normal LV segmental wall motion. There is a pacemaker lead in the right ventricle. Signed by : Ernesto Patterson, Electronically Approved : 11/07/2019 09:47:38
--- NOTE | 2019-11-07 12:13 | RAD ---
MR#: [id number] Date of Study: 11/07/2019 Ordering Physician: ERNESTO VELAZQUEZ, Referring Physician: RADHA DAWN Tech: RT Kayla Oliva) (N) APPROVED REPORT Test Type: Pharmacological Stress Nurse/Tech: Chiquita Verduzco RN Test Indications: Chest pain, shortness of breath, HTN Cardiac History: Hypertension, Family history Medications: See Electronic Medical Record Medical History: lung cancer 1 year ago Resting ECG: SR Resting Heart Rate: 70 bpm Resting Blood Pressure: 134/80mmHg Pretest Chest Pain: No chest pain Nurse/Tech Notes S1,S2 and lungs clear to auscultation. Consent: The procedure was explained to the patient in lay terms. Informed consent was witnessed. Wilmer eout was entered into [employer]. History and Stress Test performed by RT Kayla Oliva) (N) Pharm. Details Pharmacologic stress testing was performed using 0.4mg per 5ml of regadenoson given intravenously ove r 7-10 seconds. Stress Symptoms Dyspnea,Fatigue POST EXERCISE Reason for Termination: Infusion complete Target HR: No Max HR: 115 bpm 82% of Maximum Predicted HR: 139 bpm Max Blood Pressure: 135/67mmHg Blood Pressure response to exercise: Normal blood pressure response during stress. Heart Rate response to exercise: WNL Chest Pain: No. Arrhythmia: No. INTERPRETATION Stress EKG Conclusion: The resting EKG shows a sinus rhythm, a small inferior Q wave and nonspecific T wave changes in the inferior leads. The stress EKG shows no significant changes from baseline. Abnormal baseline EKG but no EKG evidence of stress-induced ischemia. Imaging Protocol IMAGE PROTOCOL: Rest Tc-99m/stress Tc-99m 1 day Rest: Stress: Viability: Radiopharm.Tc99m TomdipddhOr16e Sestamibi Dose10.5mCi 33mCi Duration 15min. 10min. Img Date 11/07/2019 11/07/2019 Inj-Img Wywn12snp. 60min. Rest Admin Site:IV - Right AntecubitalAdministrator:RT Kayla Oliva)(N) Stress Admin Site: IV - Right AntecubitalAdministrator: IBIS Gayle STRESS DATA End Diast. Vol.71.0mlAv. Heart Rate79.0bpm End Syst. Vol.18.0mlCO Index BSA0.0L/min Myocardial Yiqu930.0gEject. Hquaonus97.0% Stress Rates Pk. Fill Rate3.47EDV/secLVtime Pk. Fill 196.04msec Pk. Empty Rate4.90ESV/secLVtime Pk. Xilvv219.31msec 08/01 Pk. Fill1.38EDV/sec Stress Scores Regional WT0.00Summed WT0.00 Regional WM0.00Summed WM1.00 LV Perfusion The stress scans showed no significant defects. The rest scans showed no significant defects. Nuclear imaging shows no reversible ischemia or infarct. Wall Motion Left ventricular systolic function is normal with no regional wall motion abnormalities and an ejecti on fraction of greater than 70%. LV Perf. Quant 17 Seg. SSS1.00 17 Seg. SRS0.00 17 Seg. SDS1.00 Stress Defect Extent (% LAD)0.00Rest Defect Extent (% LAD)0.00Rev. Defect Extent (% LAD)0.00 Stress Defect Extent (% LCX) 8.80Rest Defect Extent (% LCX)0.00Rev. Defect Extent (% LCX)1.30 Stress Defect Extent (% RCA)0.00Rest Defect Extent (% RCA)0.00Rev. Defect Extent (% RCA)0.00 Stress Defect Extent (% SORAYA)1.50Rest Defect Extent (% SORAYA)0.00Rev. Defect Extent (% SORAYA)0.20 Conclusion 1. Mildly abnormal baseline EKG but no EKG evidence of stress-induced ischemia. 2. Nuclear imaging shows no reversible ischemia or infarct. 3. Left ventricular systolic function is normal with no regional wall motion abnormalities and an eje ction fraction of greater than 70%. 4. Low risk Lexiscan nuclear stress test. Signed by : Luis Miguel Grewal MD Electronically Approved : 11/07/2019 12:12:44
== END ==
LOC: NM 07:55
PROVIDERS: ATTEND Internal Medicine Cardiovascular Disease
DX: R94.31 Abnormal electrocardiogram [ECG] [EKG] (principal)
CPT/HCPCS: 78452; 93017; 93306; A9500; J2785

== ENCOUNTER 2019-12-06 23:46 | Inpatient (IN) | payer MEDICARE, OTHER ==
[~2019-12-06] VITALS: Ht 167.6 cm; Wt 97.3 kg
[~2019-12-06 23:46] MED LIST changes: -REGADENOSON 0.4 MG/5 ML DISP.SYRIN. IV ONE
[2019-12-07 00:17] LABS: BASO # 0.1 x10^3/uL (0.0-0.2); BASO % 1 % (0-3); EOS # 0.3 x10^3/uL (0.0-0.7); EOS % 3 % (0-3); HEMOGLOBIN 12.7 g/dL (13.0-17.5); LYMPH # 1.5 x10^3/uL (1.0-4.8); LYMPH % 18 % (24-48); MEAN CORPUSCULAR HEMOGLOBIN 24 pg (25-35); MEAN CORPUSCULAR HGB CONC 32 g/dL (31-37); MEAN CORPUSCULAR VOLUME 73 fL (79-100); MONO % 12 % (0-9); NEUT # 5.6 x10^3/uL (1.8-7.7); NEUT % 66 % (31-73); PLATELET COUNT 226 x10^3/uL (140-400); RED BLOOD COUNT 5.35 x10^6/uL (4.30-5.70); RED CELL DISTRIBUTION WIDTH 17.6 % (11.5-14.5); WHITE BLOOD COUNT 8.5 x10^3/uL (4.0-11.0)
--- NOTE | 2019-12-07 00:23 | RAD ---
CT Head W/O Contrast: History: Left sided weakness stuttering and headache Comparison: none Axial images were obtained without contrast. The mullen and white matter appears normal and symmetrical for the patients age. There is no mass effect, extraaxial fluid collections or hydrocephalus. There is no gross bleed. There is no focal loss of mullen-white matter distinction to suggest acute ischemia, i.e. stroke. Impression: No acute findings. RS Compliance Statement: One or more of the following individualized dose reduction techniques were utilized for this examination: 1. Automated exposure control 2. Adjustment of the mA and/or kV according to patient size 3. Use of iterative reconstruction technique Electronically signed by: Yannick Patrick III, MD (12/07/2019 12:20 AM) [id number]
[2019-12-07 00:27] LABS: CREATININE 1.2 mg/dL (0.7-1.3); GFR 62.6; POTASSIUM 3.4 mmol/L (3.5-5.1)
[2019-12-07] MEDS ORDERED: IV NORMAL SALINE 1000ML BAG 1,000 ML IV SCH (00:30)
--- NOTE | 2019-12-07 00:31 | RAD ---
PORTABLE CHEST 1V Clinical History: Weakness Technique: AP view of the chest was obtained at 12/07/2019 12:00 AM. Comparison: None. Findings: The cardiomediastinal silhouette is normal. The pulmonary vasculature is normal. The lungs and pleural margins are clear. There is a left-sided dual-lead pacemaker. Impression: No evidence of an acute cardiopulmonary process. Electronically signed by: Yannick Patrick III, MD (12/07/2019 12:27 AM) [id number]
[2019-12-07 00:32] LABS: ALBUMIN 3.8 g/dL (3.4-5.0); ALBUMIN/GLOBULIN RATIO 1.1 (1.0-1.7); TOTAL BILIRUBIN 0.5 mg/dL (0.2-1.0); TOTAL PROTEIN 7.4 g/dL (6.4-8.2)
[2019-12-07] MEDS ORDERED: ASPIRIN 325 MG TABLET PO ONE (01:15)
--- NOTE | 2019-12-07 01:17 | PHYS DOC ---
Past Medical History Past Medical History: Cancer, CVA, Diabetes-Type II, High Cholesterol, Hypertension, Seizure, Stroke, Other Additional Past Medical Histor: Neuropathy, Hernia, encephalopathy, LUNG CANCER Past Surgical History: Appendectomy, Cholecystectomy, Pacemaker, Other Additional Past Surgical Histo: hernia, RLL LOBECTOMY Smoking Status: Never Smoker Alcohol Use: None Drug Use: None General Adult EDM: Chief Complaint: FACE PROBLEM HPI: HPI: Patient is a 54 year old male who presents with report of headache, left-sided facial numbness and left-sided weakness that started last Sunday. Patient states that headache is about a 7 out of 10. He denies any nausea or vomiting. He states the headache is more in the back of his head. Patient also noted to have stuttering speech and when asked if that was new, he states that was also new, starting last Sunday. He denies any chest pain or shortness of breath. He denies any fever. [] Review of Systems: Review of Systems: Constitutional: Denies fever or chills. [] Respiratory: Denies cough or shortness of breath. [] Cardiovascular: Denies chest pain or edema. [] GI: Denies abdominal pain, nausea, vomiting or diarrhea. [] Integument: Denies rash. [] Neurologic: Complains of headache, left-sided weakness and numbness. [] A full 10 point review of systems has been reviewed and is otherwise negative. Heart Score: Risk Factors: Risk Factors: DM, Current or recent (<one month) smoker, HTN, HLP, family history of CAD, obesity. Risk Scores: Score 0 - 3: 2.5% MACE over next 6 weeks - Discharge Home Score 4 - 6: 20.3% MACE over next 6 weeks - Admit for Clinical Observation Score 7 - 10: 72.7% MACE over next 6 weeks - Early Invasive Strategies Current Medications: Current Medications Medications (Trade) Dose Ordered Sig/Rambo Start Time Stop Time Status Last Admin Dose Admin Sodium Chloride 1,000 ml @ 1,000 mls/hr Q1H 12/07/19 00:30 12/07/19 01:29 Allergies: Allergies: Allergies Coded Allergies Type Severity Reaction Last Updated Verified No Known Medication Allergies Allergy Unknown 10/08/17 Yes Physical Exam: PE: Constitutional: Well developed, well nourished, no acute distress, non-toxic appearance. [] HENT: Normocephalic, atraumatic, bilateral external ears normal, oropharynx moist, no oral exudates, nose normal. [] Eyes: PERRLA, EOMI, conjunctiva normal, no discharge. [] Neck: Normal range of motion, no tenderness, supple, no stridor. [] Cardiovascular: Regular rate and rhythm [] Lungs & Thorax: Bilateral breath sounds clear to auscultation [] Abdomen: Bowel sounds normal, soft, no tenderness. [] Skin: Warm, dry, no erythema, no rash. [] Extremities: No tenderness, no cyanosis, no clubbing, ROM intact, no edema. [] Neurologic: Alert and oriented X 3, with left-sided weakness of arm and leg as well as loss of sensation. [] Current Patient Data: Labs: Laboratory Tests Test 12/06/19 23:59 12/07/19 00:02 Glucose (Fingerstick) 110 mg/dL (70-99) H White Blood Count 8.5 x10^3/uL (4.0-11.0) Red Blood Count 5.35 x10^6/uL (4.30-5.70) Hemoglobin 12.7 g/dL (13.0-17.5) L Hematocrit 39.0 % (39.0-53.0) Mean Corpuscular Volume 73 fL (79-100) L Mean Corpuscular Hemoglobin 24 pg (25-35) L Mean Corpuscular Hemoglobin Concent 32 g/dL (31-37) Red Cell Distribution Width 17.6 % (11.5-14.5) H Platelet Count 226 x10^3/uL (140-400) Neutrophils (%) (Auto) 66 % (31-73) Lymphocytes (%) (Auto) 18 % (24-48) L Monocytes (%) (Auto) 12 % (0-9) H Eosinophils (%) (Auto) 3 % (0-3) Basophils (%) (Auto) 1 % (0-3) Neutrophils # (Auto) 5.6 x10^3/uL (1.8-7.7) Lymphocytes # (Auto) 1.5 x10^3/uL (1.0-4.8) Monocytes # (Auto) 1.0 x10^3/uL (0.0-1.1) Eosinophils # (Auto) 0.3 x10^3/uL (0.0-0.7) Basophils # (Auto) 0.1 x10^3/uL (0.0-0.2) Activated Partial Thromboplast Time 35 SEC (24-38) Sodium Level 139 mmol/L (136-145) Potassium Level 3.4 mmol/L (3.5-5.1) L Chloride Level 103 mmol/L (98-107) Carbon Dioxide Level 25 mmol/L (21-32) Anion Gap 11 (6-14) Blood Urea Nitrogen 31 mg/dL (8-26) H Creatinine 1.2 mg/dL (0.7-1.3) Estimated GFR (Cockcroft-Gault) 62.6 BUN/Creatinine Ratio 26 (6-20) H Glucose Level 110 mg/dL (70-99) H Calcium Level 9.0 mg/dL (8.5-10.1) Magnesium Level 2.0 mg/dL (1.8-2.4) Total Bilirubin 0.5 mg/dL (0.2-1.0) Aspartate Amino Transferase (AST) 19 U/L (15-37) Alanine Aminotransferase (ALT) 35 U/L (16-63) Alkaline Phosphatase 71 U/L (46-116) Troponin I Quantitative < 0.017 ng/mL (0.000-0.055) Total Protein 7.4 g/dL (6.4-8.2) Albumin 3.8 g/dL (3.4-5.0) Albumin/Globulin Ratio 1.1 (1.0-1.7) Thyroid Stimulating Hormone (TSH) 3.389 uIU/mL (0.358-3.74) Ethyl Alcohol Level < 10 mg/dL (0-10) Laboratory Tests 12/07/19 00:02 Laboratory Tests 12/07/19 00:02 EKG: EKG: [] Radiology/Procedures: Radiology/Procedures: [] Impression: PROCEDURE: CT HEAD WO CONTRAST CT Head W/O Contrast: History: Left sided weakness stuttering and headache Comparison: none Axial images were obtained without contrast. The mullen and white matter appears normal and symmetrical for the patients age. There is no mass effect, extraaxial fluid collections or hydrocephalus. There is no gross bleed. There is no focal loss of mullen-white matter distinction to suggest acute ischemia, i.e. stroke. Impression: No acute findings. PQRS Compliance Statement: One or more of the following individualized dose reduction techniques were utilized for this examination: 1. Automated exposure control 2. Adjustment of the mA and/or kV according to patient size 3. Use of iterative reconstruction technique Electronically signed by: Yannick Patrick III, MD (12/07/2019 12:20 AM) [id number] Course & Med Decision Making: Course & Med Decision Making Pertinent Labs and Imaging studies reviewed. (See chart for details) [] Dragon Disclaimer: Dragon Disclaimer: This electronic medical record was generated, in whole or in part, using a voice recognition dictation system. Departure Departure Impression: Primary Impression: Left-sided weakness Additional Impression: Headache Qualified Codes: R51 - Headache Disposition: 09 ADMITTED INPATIENT Admitting Physician: MADELYN Condition: IMPROVED Referrals: HOLA ALDRIDGE MD (PCP) MT LAMB Jr., DO December 07, 2019 01:17
[2019-12-07] MEDS ORDERED: SUMAtriptan SUCC 6 MG/0.5 ML VIAL. SQ ONE (02:15)
[2019-12-07] MEDS ORDERED: ONDANSETRON PF 4 MG/2 ML VIAL. IV PRN (02:45)
[2019-12-07] MEDS ORDERED: MORPHINE SULFATE 2 MG/ML VIAL. IV PRN (02:45)
[2019-12-07] MEDS: IV NORMAL SALINE 1000ML BAG 1,000 ML IV SCH ×3 (04:34→21:11)
[2019-12-07] MEDS ORDERED: POTASSIUM CHLORIDE 20MEQ 100 ML IV SCH (05:00)
[2019-12-07] MEDS: POTASSIUM CHLORIDE 10MEQ 100 ML IV SCH ×4 (05:07→10:28)
[2019-12-07 07:20] VITALS: BP 116/73
[2019-12-07] MEDS ORDERED: ONDANSETRON ODT 4 MG TAB.RAPDIS. PO PRN (08:45)
[2019-12-07] MEDS ORDERED: POTASSIUM CHLORIDE 20 MEQ TABLET.ER. PO ONE (08:45)
[2019-12-07] MEDS ORDERED: NITROGLYCERIN SUBLINGUAL 0.4 MG BOTTLE OF 25. SL PRN (08:45)
[2019-12-07] MEDS ORDERED: NON FORMULARY ITEM (Cholecalciferol (Vitamin D3) (Vitamin D3) 1 TAB) PO SCH (09:00)
[2019-12-07] MEDS ORDERED: NON FORMULARY ITEM (Budesonide/Formoterol Fumarate (Symbicort 160-4.5 Mcg Inhaler) 2 PUFF) IH SCH (09:00)
--- NOTE | 2019-12-07 09:39 | PDOC1 ---
History and Physical Date of Admission Date of Admission DATE: 12/07/19 TIME: 09:34 Source Source: Chart review, Patient History of Present Illness History of Present Illness Mr. Ramesh, is a 54 year old male admit with new new changes. He was admitted from the ER overnight with report of new headache, with acute left-sided facial numbness and left-sided weakness. He still has headache pain, pounding pain to the posterior of his head, about 7/10 He denies any nausea or vomiting, no falls, but has prior leg weakness and walks with a cane at baseline. . He states the headache is more in the back of his head. Patient also noted to have stuttering speech and when asked if that was new, he states that was also new, starting last Sunday. He denies any chest pain or shortness of breath. He denies any fever. [] Past Medical History Cardiovascular: CAD, Syncope, Hyperlipidemia Pulmonary: Other CENTRAL NERVOUS SYSTEM: CVA, Periperal neuropathy GI: Constipation, GERD, Other Heme/Onc: No pertinent hx Hepatobiliary: No pertinent hx Psych: No pertinent hx Musculoskeletal: Osteoarthritis Rheumatologic: No pertinent hx Infectious disease: No pertinent hx Renal/: No pertinent hx Endocrine: No pertinent hx Past Surgical History Past Surgical History: Pacemaker, Appendectomy, Cholecystectomy, Hernia Repair, Other Family History Family History: Cancer Social History Smoke: No ALCOHOL: none Drugs: None Current Problem List Problem List Problems Medical Problems: (1) Headache Status: Acute (2) Left-sided weakness Status: Acute Current Medications Current Medications Current Medications Sodium Chloride 1,000 ml @ 1,000 mls/hr Q1H IV Last administered on 12/07/19at 00:56; Start 12/07/19 at 00:30; Stop 12/07/19 at 01:29; Status DC Aspirin (Titus Aspirin) 325 mg 1X ONCE PO Last administered on 12/07/19at 00:56; Start 12/07/19 at 01:15; Stop 12/07/19 at 01:16; Status DC Sumatriptan Succinate (Imitrex) 6 mg 1X ONCE SQ Last administered on 12/07/19at 02:13; Start 12/07/19 at 02:15; Stop 12/07/19 at 02:16; Status DC Ondansetron HCl (Zofran) 4 mg PRN Q8HRS PRN IV NAUSEA/VOMITING 1ST CHOICE; Start 12/07/19 at 02:45; Stop 12/08/19 at 02:44 Morphine Sulfate (Morphine Sulfate) 2 mg PRN Q2HR PRN IV SEVERE PAIN 7-10; Start 12/07/19 at 02:45; Stop 12/08/19 at 02:44 Sodium Chloride 1,000 ml @ 125 mls/hr Q8H IV Last administered on 12/07/19at 04:34; Start 12/07/19 at 03:30; Stop 12/08/19 at 03:29 Potassium Chloride/Water 100 ml @ 100 mls/hr Q1H IV ; Start 12/07/19 at 05:00; Stop 12/07/19 at 06:59; Status UNV Potassium Chloride/Water 100 ml @ 100 mls/hr Q1H IV Last administered on 12/07/19at 09:09; Start 12/07/19 at 05:00; Stop 12/07/19 at 09:10; Status DC Potassium Chloride (Klor-Con) 40 meq 1X ONCE PO ; Start 12/07/19 at 08:45; Stop 12/07/19 at 08:46; Status DC Aspirin (Ecotrin) 81 mg DAILY PO ; Start 12/07/19 at 09:00 Atorvastatin Calcium (Lipitor) 40 mg QHS PO ; Start 12/07/19 at 21:00 Clopidogrel Bisulfate (Plavix) 75 mg DAILY PO ; Start 12/07/19 at 09:00 Nitroglycerin (Nitrostat) 0.4 mg PRN Q5MIN PRN SL CHEST PAIN; Start 12/07/19 at 08:45 Nortriptyline HCl (Pamelor) 10 mg QHS PO ; Start 12/07/19 at 21:00 Ondansetron HCl (Zofran Odt) 4 mg PRN Q8HRS PRN PO nausea; Start 12/07/19 at 08:45 Sucralfate (Carafate) 1 gm QIDACHS PO ; Start 12/07/19 at 09:00 Tamsulosin HCl (Flomax) 0.4 mg BID PO ; Start 12/07/19 at 09:00 Topiramate (Topamax) 100 mg DAILY PO ; Start 12/07/19 at 09:00 Tramadol HCl (Ultram) 50 mg Q6HRS PRN PO PAIN; Start 12/07/19 at 08:45; Status UNV Ascorbic Acid (Vitamin C) 1,000 mg DAILY PO ; Start 12/08/19 at 09:00 Non-Formulary Medication (Budesonide/ Formoterol Fumarate (Symbicort 160-4.5 Mcg Inhaler)) 2 puff BID IH ; Start 12/07/19 at 09:00; Status UNV Non-Formulary Medication (Cholecalciferol (Vitamin D3) (Vitamin D3)) 1 tab TID PO ; Start 12/07/19 at 09:00; Status UNV Non-Formulary Medication (Gabapentin ) 1 tab TID PO ; Start 12/07/19 at 09:00; Status UNV Losartan Potassium (Cozaar) 100 mg DAILY PO ; Start 12/07/19 at 10:00 Pantoprazole Sodium (Protonix) 40 mg DAILYAC PO ; Start 12/08/19 at 07:30 Budesonide (Pulmicort) 0.5 mg RTBID NEB ; Start 12/07/19 at 10:00 Albuterol Sulfate (Ventolin Neb Soln) 2.5 mg RTQID NEB ; Start 12/07/19 at 12:00 Active Scripts Active Ondansetron Odt (Ondansetron) 4 Mg Tab.rapdis 1 Tab PO PRN Q6-8HRS Atorvastatin Calcium 40 Mg Tablet 40 Mg PO QHS 30 Days Losartan-Hctz 100-12.5 Mg Tab (Losartan/Hydrochlorothiazide) 1 Each Tablet 1 Tab PO DAILY 30 Days Adult Low Dose Aspirin Ec (Aspirin) 81 Mg Tablet. 81 Mg PO DAILY Omeprazole 40 Mg Capsule.dr 1 Cap PO BID Reported Symbicort 160-4.5 Mcg Inhaler (Budesonide/Formoterol Fumarate) 10.2 Gm Hfa.aer.ad 2 Puff IH BID Topiramate 100 Mg Tablet 1 Tab PO DAILY Tramadol Hcl 50 Mg Tablet 50 Mg PO Q6HRS PRN Nortriptyline Hcl 10 Mg Capsule 1 Cap PO QHS Clopidogrel (Clopidogrel Bisulfate) 75 Mg Tablet 75 Mg PO DAILY Vitamin D3 (Cholecalciferol (Vitamin D3)) 5,000 Unit Tablet 1 Tab PO TID Vitamin C (Ascorbic Acid) 1,000 Mg Tablet 1,000 Mg PO DAILY Carafate (Sucralfate) 1 Gm Tablet 1 Tab PO QID Ranitidine Hcl 300 Mg Capsule 1 Cap PO HS Tamsulosin Hcl 0.4 Mg Cap.er.24h 0.4 Mg PO BID NITROGLYCERIN SubLingual (Nitroglycerin) 0.4 Mg Tab.subl 0.4 Mg SL PRN Q5MIN PRN Gabapentin 600 Mg Tablet 1 Tab PO TID next dose tonight at bedtime, 10/30/15 Allergies Allergies: Coded Allergies: No Known Medication Allergies (Verified Allergy, Unknown, 10/08/17) ROS General: No: Chills, Night Sweats, Fatigue, Malaise, Appetite, Other PSYCHOLOGICAL ROS: No: Anxiety, Behavioral Disorder, Concentration difficultie, Decreased libido, Depression, Disorientation, Hallucinations, Hostility, Obsessive thoughts, Other Eyes: No Blurry vision, No Decreased vision, No Double vision, No Dry eyes, No Excessive tearing, No Eye Pain, No Itchy Eyes, No Loss of vision, No Photophobia, No Scotomata, No Uses contacts, No Uses glasses, No Other HEENT: YES: Heacaches Respiratory: No: Cough, Hemoptysis, Orthopnea, Pleuritic Pain, Shortness of breath, SOB with excertion, Sputum Changes, Stridor, Tachypnea, Wheezing, Other Cardiovascular: No Chest Pain, No Palpitations, No Orthopnea, No Paroxysmal Noc. Dyspnea, No Edema, No Lt Headedness, No Other Gastrointestinal: No Nausea, No Vomiting, No Abdominal Pain, No Diarrhea, No Constipation, No Melena, No Hematochezia, No Other Genitourinary: No Dysuria, No Frequency, No Incontinence, No Hematuria, No Re tention, No Discharge, No Urgency, No Pain, No Flank Pain, No Other, No , No , No , No , No , No , No Musculoskeletal: Yes Joint Stiffness, Yes Muscular Weakness Neurological: Yes Gait Disturbance, Yes Impaired Coord/balance, Yes Speech Problems, Yes Weakness; No Behavorial Changes, No Bowel/Bladder ControlChng, No Confusion, No Dizziness, No Headaches, No Memory Loss, No Numbness/Tingling, No Seizures, No Tremors, No Visual Changes, No Other Skin: No Dry Skin, No Eczema, No Hair Changes, No Lumps, No Mole Changes, No Mottling, No Nail Changes, No Pruritus, No Rash, No Skin Lesion Changes, No Other, No Acne Physical Exam Physical Exam prominent stutter to speech, but does improve as he keeps talking General: Alert, Oriented X3, Cooperative Abdomen: Normal bowel sounds, Soft Extremities: No clubbing, No edema, Normal pulses Skin: No rashes, No breakdown, No significant lesion Neuro: Normal gait, Normal tone, Other (left arm 4/5,. legs 5/5 to flexion, but plantar foot very weak, almost still bilaterally, , ) Psych/Mental Status: Mood NL, Other Vitals Vitals Vital Signs Date Time Temp Pulse Resp B/P (MAP) Pulse Ox O2 Delivery O2 Flow Rate FiO2 12/07/19 07:20 98.3 65 18 116/73 (87) 98 Room Air 98.3 Labs Labs Laboratory Tests Test 12/06/19 23:59 12/07/19 00:02 Glucose (Fingerstick) 110 mg/dL (70-99) White Blood Count 8.5 x10^3/uL (4.0-11.0) Red Blood Count 5.35 x10^6/uL (4.30-5.70) Hemoglobin 12.7 g/dL (13.0-17.5) Hematocrit 39.0 % (39.0-53.0) Mean Corpuscular Volume 73 fL (79-100) Mean Corpuscular Hemoglobin 24 pg (25-35) Mean Corpuscular Hemoglobin Concent 32 g/dL (31-37) Red Cell Distribution Width 17.6 % (11.5-14.5) Platelet Count 226 x10^3/uL (140-400) Neutrophils (%) (Auto) 66 % (31-73) Lymphocytes (%) (Auto) 18 % (24-48) Monocytes (%) (Auto) 12 % (0-9) Eosinophils (%) (Auto) 3 % (0-3) Basophils (%) (Auto) 1 % (0-3) Neutrophils # (Auto) 5.6 x10^3/uL (1.8-7.7) Lymphocytes # (Auto) 1.5 x10^3/uL (1.0-4.8) Monocytes # (Auto) 1.0 x10^3/uL (0.0-1.1) Eosinophils # (Auto) 0.3 x10^3/uL (0.0-0.7) Basophils # (Auto) 0.1 x10^3/uL (0.0-0.2) Activated Partial Thromboplast Time 35 SEC (24-38) Sodium Level 139 mmol/L (136-145) Potassium Level 3.4 mmol/L (3.5-5.1) Chloride Level 103 mmol/L (98-107) Carbon Dioxide Level 25 mmol/L (21-32) Anion Gap 11 (6-14) Blood Urea Nitrogen 31 mg/dL (8-26) Creatinine 1.2 mg/dL (0.7-1.3) Estimated GFR (Cockcroft-Gault) 62.6 BUN/Creatinine Ratio 26 (6-20) Glucose Level 110 mg/dL (70-99) Calcium Level 9.0 mg/dL (8.5-10.1) Magnesium Level 2.0 mg/dL (1.8-2.4) Total Bilirubin 0.5 mg/dL (0.2-1.0) Aspartate Amino Transf (AST/SGOT) 19 U/L (15-37) Alanine Aminotransferase (ALT/SGPT) 35 U/L (16-63) Alkaline Phosphatase 71 U/L (46-116) Troponin I Quantitative < 0.017 ng/mL (0.000-0.055) Total Protein 7.4 g/dL (6.4-8.2) Albumin 3.8 g/dL (3.4-5.0) Albumin/Globulin Ratio 1.1 (1.0-1.7) Thyroid Stimulating Hormone (TSH) 3.389 uIU/mL (0.358-3.74) Ethyl Alcohol Level < 10 mg/dL (0-10) Laboratory Tests Test 12/06/19 23:59 12/07/19 00:02 Glucose (Fingerstick) 110 mg/dL (70-99) White Blood Count 8.5 x10^3/uL (4.0-11.0) Red Blood Count 5.35 x10^6/uL (4.30-5.70) Hemoglobin 12.7 g/dL (13.0-17.5) Hematocrit 39.0 % (39.0-53.0) Mean Corpuscular Volume 73 fL (79-100) Mean Corpuscular Hemoglobin 24 pg (25-35) Mean Corpuscular Hemoglobin Concent 32 g/dL (31-37) Red Cell Distribution Width 17.6 % (11.5-14.5) Platelet Count 226 x10^3/uL (140-400) Neutrophils (%) (Auto) 66 % (31-73) Lymphocytes (%) (Auto) 18 % (24-48) Monocytes (%) (Auto) 12 % (0-9) Eosinophils (%) (Auto) 3 % (0-3) Basophils (%) (Auto) 1 % (0-3) Neutrophils # (Auto) 5.6 x10^3/uL (1.8-7.7) Lymphocytes # (Auto) 1.5 x10^3/uL (1.0-4.8) Monocytes # (Auto) 1.0 x10^3/uL (0.0-1.1) Eosinophils # (Auto) 0.3 x10^3/uL (0.0-0.7) Basophils # (Auto) 0.1 x10^3/uL (0.0-0.2) Activated Partial Thromboplast Time 35 SEC (24-38) Sodium Level 139 mmol/L (136-145) Potassium Level 3.4 mmol/L (3.5-5.1) Chloride Level 103 mmol/L (98-107) Carbon Dioxide Level 25 mmol/L (21-32) Anion Gap 11 (6-14) Blood Urea Nitrogen 31 mg/dL (8-26) Creatinine 1.2 mg/dL (0.7-1.3) Estimated GFR (Cockcroft-Gault) 62.6 BUN/Creatinine Ratio 26 (6-20) Glucose Level 110 mg/dL (70-99) Calcium Level 9.0 mg/dL (8.5-10.1) Magnesium Level 2.0 mg/dL (1.8-2.4) Total Bilirubin 0.5 mg/dL (0.2-1.0) Aspartate Amino Transf (AST/SGOT) 19 U/L (15-37) Alanine Aminotransferase (ALT/SGPT) 35 U/L (16-63) Alkaline Phosphatase 71 U/L (46-116) Troponin I Quantitative < 0.017 ng/mL (0.000-0.055) Total Protein 7.4 g/dL (6.4-8.2) Albumin 3.8 g/dL (3.4-5.0) Albumin/Globulin Ratio 1.1 (1.0-1.7) Thyroid Stimulating Hormone (TSH) 3.389 uIU/mL (0.358-3.74) Ethyl Alcohol Level < 10 mg/dL (0-10) VTE Prophylaxis Ordered VTE Prophylaxis Devices: Yes VTE Pharmacological Prophylaxi: Yes Assessment/Plan Assessment/Plan headache, probably migrane, already on topamax left arm weakness, tingling head, new stuttering speech, parathesias, possible migrane related, prior CVA, stroke risk, CT neg for new change, may need MRI, neuro consult will need to order if needed. Dm2 obesity, BMI 34 CAD, s/p stent 11 months ago, FOLRECITA RENTERIA MD December 07, 2019 09:39
[2019-12-07] MEDS: BUDESONIDE 0.5 MG/2 ML NEBU. NEB SCH ×2 (10:00→18:58)
[2019-12-07] MEDS: ASPIRIN ENTERIC COATED 81 MG TABLET.DR. PO SCH (11:18)
[2019-12-07] MEDS: GABAPENTIN 300 MG CAPSULE. PO SCH ×3 (11:18→21:11)
[2019-12-07] MEDS: CLOPIDOGREL BISULFATE 75 MG TABLET PO SCH (11:18)
[2019-12-07] MEDS: LOSARTAN POTASSIUM 50 MG TABLET. PO SCH (11:18)
[2019-12-07] MEDS: TAMSULOSIN 0.4 MG CAP.ER.24H. PO SCH ×2 (11:19→21:11)
[2019-12-07] MEDS: CHOLECALCIFEROL (VITAMIN D3) 5,000 UNIT CAPSULE PO SCH (11:19)
[2019-12-07] MEDS: TOPIRAMATE 100 MG TABLET. PO SCH (11:19)
[2019-12-07] MEDS: SUCRALFATE 1 GM TABLET. PO SCH ×4 (11:19→21:11)
[2019-12-07 11:20] VITALS: BP 124/75
[2019-12-07] MEDS: ALBUTEROL SULFATE 2.5 MG/3 ML NEBU. NEB SCH ×3 (11:59→18:59)
[2019-12-07 15:26] VITALS: BP 91/56
--- NOTE | 2019-12-07 19:43 | PDOC2 ---
NEUROLOGY CONSULT Date of Admission Date of Admission Full Report Dictated Patient is a 54-year-old man who developed stuttering speech and left-sided weakness 1 week ago after having an argument with his . The symptoms did not improve. He also reports Skpxzyx-Nnjtw-Byxxu disease with symptoms beginning in his 50's. Neurologic exam has some inconsistencies. I feel we need an MRI to evaluate for stroke but I suspect the deficits may be functional. He does have a pacemaker so we will likely need the pacemaker surveying technician to assist. DATE: 12/07/19 TIME: 19:41 Current Medications Current Medications Current Medications Sodium Chloride 1,000 ml @ 1,000 mls/hr Q1H IV Last administered on 12/07/19at 00:56; Start 12/07/19 at 00:30; Stop 12/07/19 at 01:29; Status DC Aspirin (Titus Aspirin) 325 mg 1X ONCE PO Last administered on 12/07/19at 00:56; Start 12/07/19 at 01:15; Stop 12/07/19 at 01:16; Status DC Sumatriptan Succinate (Imitrex) 6 mg 1X ONCE SQ Last administered on 12/07/19at 02:13; Start 12/07/19 at 02:15; Stop 12/07/19 at 02:16; Status DC Ondansetron HCl (Zofran) 4 mg PRN Q8HRS PRN IV NAUSEA/VOMITING 1ST CHOICE; Start 12/07/19 at 02:45; Stop 12/08/19 at 02:44 Morphine Sulfate (Morphine Sulfate) 2 mg PRN Q2HR PRN IV SEVERE PAIN 7-10; Start 12/07/19 at 02:45; Stop 12/08/19 at 02:44 Sodium Chloride 1,000 ml @ 125 mls/hr Q8H IV Last administered on 12/07/19at 04:34; Start 12/07/19 at 03:30; Stop 12/08/19 at 03:29 Potassium Chloride/Water 100 ml @ 100 mls/hr Q1H IV ; Start 12/07/19 at 05:00; Stop 12/07/19 at 06:59; Status UNV Potassium Chloride/Water 100 ml @ 100 mls/hr Q1H IV Last administered on 12/07/19at 10:28; Start 12/07/19 at 05:00; Stop 12/07/19 at 09:10; Status DC Potassium Chloride (Klor-Con) 40 meq 1X ONCE PO Last administered on 12/07/19at 11:18; Start 12/07/19 at 08:45; Stop 12/07/19 at 08:46; Status DC Aspirin (Ecotrin) 81 mg DAILY PO Last administered on 12/07/19at 11:18; Start 12/07/19 at 09:00 Atorvastatin Calcium (Lipitor) 40 mg QHS PO ; Start 12/07/19 at 21:00 Clopidogrel Bisulfate (Plavix) 75 mg DAILY PO Last administered on 12/07/19at 11:18; Start 12/07/19 at 09:00 Nitroglycerin (Nitrostat) 0.4 mg PRN Q5MIN PRN SL CHEST PAIN; Start 12/07/19 at 08:45 Nortriptyline HCl (Pamelor) 10 mg QHS PO ; Start 12/07/19 at 21:00 Ondansetron HCl (Zofran Odt) 4 mg PRN Q8HRS PRN PO nausea; Start 12/07/19 at 08:45 Sucralfate (Carafate) 1 gm QIDACHS PO Last administered on 12/07/19at 16:53; Start 12/07/19 at 09:00 Tamsulosin HCl (Flomax) 0.4 mg BID PO Last administered on 12/07/19at 11:19; St art 12/07/19 at 09:00 Topiramate (Topamax) 100 mg DAILY PO Last administered on 12/07/19at 11:19; Start 12/07/19 at 09:00 Tramadol HCl (Ultram) 50 mg PRN Q6HRS PRN PO PAIN; Start 12/07/19 at 08:45 Ascorbic Acid (Vitamin C) 1,000 mg DAILY PO ; Start 12/08/19 at 09:00 Non-Formulary Medication (Budesonide/ Formoterol Fumarate (Symbicort 160-4.5 Mcg Inhaler)) 2 puff BID IH ; Start 12/07/19 at 09:00; Stop 12/07/19 at 09:32; Status DC Non-Formulary Medication (Cholecalciferol (Vitamin D3) (Vitamin D3)) 1 tab TID PO ; Start 12/07/19 at 09:00; Status UNV Gabapentin (Neurontin) 600 mg TID PO Last administered on 12/07/19at 16:53; Start 12/07/19 at 10:00 Losartan Potassium (Cozaar) 100 mg DAILY PO Last administered on 12/07/19at 11:18; Start 12/07/19 at 10:00 Pantoprazole Sodium (Protonix) 40 mg DAILYAC PO ; Start 12/08/19 at 07:30 Budesonide (Pulmicort) 0.5 mg RTBID NEB Last administered on 12/07/19at 18:58; Start 12/07/19 at 10:00 Albuterol Sulfate (Ventolin Neb Soln) 2.5 mg RTQID NEB Last administered on 12/07/19at 18:59; Start 12/07/19 at 12:00 Vitamin D (Vitamin D3) 5,000 unit DAILY PO Last administered on 12/07/19at 11:19; Start 12/07/19 at 10:00 Active Scripts Active Ondansetron Odt (Ondansetron) 4 Mg Tab.rapdis 1 Tab PO PRN Q6-8HRS Atorvastatin Calcium 40 Mg Tablet 40 Mg PO QHS 30 Days Losartan-Hctz 100-12.5 Mg Tab (Losartan/Hydrochlorothiazide) 1 Each Tablet 1 Tab PO DAILY 30 Days Adult Low Dose Aspirin Ec (Aspirin) 81 Mg Tablet.dr 81 Mg PO DAILY Omeprazole 40 Mg Capsule.dr 1 Cap PO BID Reported Symbicort 160-4.5 Mcg Inhaler (Budesonide/Formoterol Fumarate) 10.2 Gm Hfa.aer.ad 2 Puff IH BID Topiramate 100 Mg Tablet 1 Tab PO DAILY Tramadol Hcl 50 Mg Tablet 50 Mg PO Q6HRS PRN Nortriptyline Hcl 10 Mg Capsule 1 Cap PO QHS Clopidogrel (Clopidogrel Bisulfate) 75 Mg Tablet 75 Mg PO DAILY Vitamin D3 (Cholecalciferol (Vitamin D3)) 5,000 Unit Tablet 1 Tab PO TID Vitamin C (Ascorbic Acid) 1,000 Mg Tablet 1,000 Mg PO DAILY Carafate (Sucralfate) 1 Gm Tablet 1 Tab PO QID Ranitidine Hcl 300 Mg Capsule 1 Cap PO HS Tamsulosin Hcl 0.4 Mg Cap.er.24h 0.4 Mg PO BID NITROGLYCERIN SubLingual (Nitroglycerin) 0.4 Mg Tab.subl 0.4 Mg SL PRN Q5MIN PRN Gabapentin 600 Mg Tablet 1 Tab PO TID next dose tonight at bedtime, 10/30/15 Allergies Allergies: Coded Allergies: No Known Medication Allergies (Verified Allergy, Unknown, 10/08/17) Vitals VITALS Vital Signs Date Time Temp Pulse Resp B/P (MAP) Pulse Ox O2 Delivery O2 Flow Rate FiO2 12/07/19 19:01 98 Room Air 12/07/19 15:26 98.9 75 18 91/56 (68) 98.9 Labs Labs Laboratory Tests Test 12/06/19 23:59 12/07/19 00:02 Glucose (Fingerstick) 110 mg/dL (70-99) White Blood Count 8.5 x10^3/uL (4.0-11.0) Red Blood Count 5.35 x10^6/uL (4.30-5.70) Hemoglobin 12.7 g/dL (13.0-17.5) Hematocrit 39.0 % (39.0-53.0) Mean Corpuscular Volume 73 fL (79-100) Mean Corpuscular Hemoglobin 24 pg (25-35) Mean Corpuscular Hemoglobin Concent 32 g/dL (31-37) Red Cell Distribution Width 17.6 % (11.5-14.5) Platelet Count 226 x10^3/uL (140-400) Neutrophils (%) (Auto) 66 % (31-73) Lymphocytes (%) (Auto) 18 % (24-48) Monocytes (%) (Auto) 12 % (0-9) Eosinophils (%) (Auto) 3 % (0-3) Basophils (%) (Auto) 1 % (0-3) Neutrophils # (Auto) 5.6 x10^3/uL (1.8-7.7) Lymphocytes # (Auto) 1.5 x10^3/uL (1.0-4.8) Monocytes # (Auto) 1.0 x10^3/uL (0.0-1.1) Eosinophils # (Auto) 0.3 x10^3/uL (0.0-0.7) Basophils # (Auto) 0.1 x10^3/uL (0.0-0.2) Activated Partial Thromboplast Time 35 SEC (24-38) Sodium Level 139 mmol/L (136-145) Potassium Level 3.4 mmol/L (3.5-5.1) Chloride Level 103 mmol/L (98-107) Carbon Dioxide Level 25 mmol/L (21-32) Anion Gap 11 (6-14) Blood Urea Nitrogen 31 mg/dL (8-26) Creatinine 1.2 mg/dL (0.7-1.3) Estimated GFR (Cockcroft-Gault) 62.6 BUN/Creatinine Ratio 26 (6-20) Glucose Level 110 mg/dL (70-99) Calcium Level 9.0 mg/dL (8.5-10.1) Magnesium Level 2.0 mg/dL (1.8-2.4) Total Bilirubin 0.5 mg/dL (0.2-1.0) Aspartate Amino Transf (AST/SGOT) 19 U/L (15-37) Alanine Aminotransferase (ALT/SGPT) 35 U/L (16-63) Alkaline Phosphatase 71 U/L (46-116) Troponin I Quantitative < 0.017 ng/mL (0.000-0.055) Total Protein 7.4 g/dL (6.4-8.2) Albumin 3.8 g/dL (3.4-5.0) Albumin/Globulin Ratio 1.1 (1.0-1.7) Thyroid Stimulating Hormone (TSH) 3.389 uIU/mL (0.358-3.74) Ethyl Alcohol Level < 10 mg/dL (0-10) Laboratory Tests Test 12/06/19 23:59 12/07/19 00:02 Glucose (Fingerstick) 110 mg/dL (70-99) White Blood Count 8.5 x10^3/uL (4.0-11.0) Red Blood Count 5.35 x10^6/uL (4.30-5.70) Hemoglobin 12.7 g/dL (13.0-17.5) Hematocrit 39.0 % (39.0-53.0) Mean Corpuscular Volume 73 fL (79-100) Mean Corpuscular Hemoglobin 24 pg (25-35) Mean Corpuscular Hemoglobin Concent 32 g/dL (31-37) Red Cell Distribution Width 17.6 % (11.5-14.5) Platelet Count 226 x10^3/uL (140-400) Neutrophils (%) (Auto) 66 % (31-73) Lymphocytes (%) (Auto) 18 % (24-48) Monocytes (%) (Auto) 12 % (0-9) Eosinophils (%) (Auto) 3 % (0-3) Basophils (%) (Auto) 1 % (0-3) Neutrophils # (Auto) 5.6 x10^3/uL (1.8-7.7) Lymphocytes # (Auto) 1.5 x10^3/uL (1.0-4.8) Monocytes # (Auto) 1.0 x10^3/uL (0.0-1.1) Eosinophils # (Auto) 0.3 x10^3/uL (0.0-0.7) Basophils # (Auto) 0.1 x10^3/uL (0.0-0.2) Activated Partial Thromboplast Time 35 SEC (24-38) Sodium Level 139 mmol/L (136-145) Potassium Level 3.4 mmol/L (3.5-5.1) Chloride Level 103 mmol/L (98-107) Carbon Dioxide Level 25 mmol/L (21-32) Anion Gap 11 (6-14) Blood Urea Nitrogen 31 mg/dL (8-26) Creatinine 1.2 mg/dL (0.7-1.3) Estimated GFR (Cockcroft-Gault) 62.6 BUN/Creatinine Ratio 26 (6-20) Glucose Level 110 mg/dL (70-99) Calcium Level 9.0 mg/dL (8.5-10.1) Magnesium Level 2.0 mg/dL (1.8-2.4) Total Bilirubin 0.5 mg/dL (0.2-1.0) Aspartate Amino Transf (AST/SGOT) 19 U/L (15-37) Alanine Aminotransferase (ALT/SGPT) 35 U/L (16-63) Alkaline Phosphatase 71 U/L (46-116) Troponin I Quantitative < 0.017 ng/mL (0.000-0.055) Total Protein 7.4 g/dL (6.4-8.2) Albumin 3.8 g/dL (3.4-5.0) Albumin/Globulin Ratio 1.1 (1.0-1.7) Thyroid Stimulating Hormone (TSH) 3.389 uIU/mL (0.358-3.74) Ethyl Alcohol Level < 10 mg/dL (0-10) BRIDGER VALENCIA MD December 07, 2019 19:43
[2019-12-07 19:53] VITALS: BP 107/60
[2019-12-07] MEDS: ATORVASTATIN CALCIUM 40 MG TABLET. PO SCH (21:11)
[2019-12-07] MEDS: NORTRIPTYLINE 10 MG CAPSULE PO SCH (21:11)
--- NOTE | 2019-12-07 21:33 | CONS ---
DATE OF CONSULTATION: 12/07/2019 REFERRING PHYSICIAN: Dany Burgess MD REASON FOR CONSULTATION: Evaluate for stroke. HISTORY OF PRESENT ILLNESS: The patient is a pleasant 54-year-old man who began to have difficulty a week ago. He had just had an argument with his . Following this, he had stuttering speech and left-sided weakness with numbness. He reports that he had a stroke in 2013, which caused him to have left-sided numbness. He felt his symptoms did go away. In review of records, he has also had right-sided symptoms and recurrent left-sided symptoms in 07/2014, 01/2015 and 09/2015. On all 3 of those occasions, he underwent an MRI of his brain, which did not reveal any acute process or evidence of stroke. He has also had complaints of headache. PAST MEDICAL HISTORY: 1. Coronary artery disease. 2. Syncope. 3. Hyperlipidemia. 4. Peripheral neuropathy. 5. He also notes that he has Immvcte-Obfjl-Lokhf disease, which began to give him symptoms in the s. 6. Constipation. 7. Gastroesophageal reflux disease. 8. Osteoarthritis. 9. Permanent pacemaker. 10. Appendectomy. 11. Cholecystectomy. 12. Hernia repair. ALLERGIES: No known allergies to drugs. MEDICATIONS PRIOR TO ADMISSION: Vitamin C 1000 mg, aspirin 81 mg, atorvastatin 40 mg, budesonide/formoterol fumarate 2 puffs twice per day, vitamin D3, clopidogrel 75 mg, gabapentin 600 mg 3 times per day, losartan/hydrochlorothiazide, nitroglycerin sublingual as needed, nortriptyline 10 mg at night, omeprazole 40 mg twice per day, Zofran 4 mg as needed, ranitidine 300 mg at night, sucralfate 1 gram 4 times a day, tamsulosin 0.4 mg twice per day, topiramate 100 mg daily and tramadol 50 mg every 6 hours as needed. FAMILY HISTORY: Cancer and Pmjssbj-Jyhpi-Rblby. He reports that his father and two of his brothers have Srrmycr-Wkexo-Vuhyh disease. SOCIAL HISTORY: He is . He has been for 34 years. He does not drink alcohol, smoke tobacco or use recreational drugs. REVIEW OF SYSTEMS: He has headache. He has had no change of vision or hearing. He has had changes in speech with stuttering speech. He has been able to chew and swallow. He does not have shortness of breath, chest or abdominal pain. Does not have bone or joint pain. There has been no fever or rash. Denies gastrointestinal or genitourinary complaint. He does have numbness, which is extensive due to Nuweuvj-Jixwx-Gdzrx. He has weakness in both legs. He does not have any psychiatric complaints. He does not complain of excessive bruising, bleeding or swelling. PHYSICAL EXAMINATION: VITAL SIGNS: The blood pressure was 91/56, pulse 75, respirations 18, temperature 98.9 degrees axillary. Oximetry was 98% on room air. His weight was 97.3 kilograms, height 66 inches with a calculated body mass index of 34.6. GENERAL: He was alert, awake and cooperative. His speech was very stuttering. He did not have word finding difficulty, but started on every word except during the exam when distracted, he was able to answer with single words and had no stutter or hesitation. He was well oriented. He appeared well groomed and well nourished. NEUROLOGIC: Examination of the cranial nerves revealed visual cee were full to confrontation. Extraocular movements were intact. The eyes were conjugate. Pursuit movements were smooth and saccadic eye movements were without dysmetria. Facial sensation was intact. The muscles of mastication and facial expression were powerful symmetrically. Hearing was intact to finger rub. The palate arched symmetrically and the tongue was midline with full motion. Sternocleidomastoid and trapezius were powerful. Muscle bulk and tone was normal. There was left arm drift. He did not have spasticity or rigidity. Power was full in the right upper extremity. On the left side, he had giveaway weakness. The weakness fluctuated greatly in the lower extremities. He had giveaway weakness on the left side as well. Reflexes were diminished throughout in the upper extremities and absent at knees and ankles. He had very high arched feet, which were small and clubbed. The toes were not upgoing. Coordination testing with kfxttd-ak-wiat, pcqc-wu-panr, fine motor and rapid movements were fair. He did not do as well on the left. Sensory exam was intact to pain, light touch, proprioception, graphesthesia, cold thermal and vibration in the upper extremities, except not the hands. He had no sensation to any modalities in his legs. He denied perceiving sensation. With double simultaneous stimulation, he did not perceive the left side. Even when I pushed so hard, it actually touched upon his legs and moved his arm and leg both. At times, he did acknowledge that he felt the left side when I really pushed it like so, but that he still did not perceive it most of the time. Gait was not testable. NECK: Auscultation of the carotid arteries did not reveal a bruit. HEART: Rhythm was regular without a murmur. EXTREMITIES: Peripheral pulses 2/4 at the right wrist absent on the left wrist and present in both ankles. There was no edema or cyanosis. LABORATORY RESULTS: CBC was performed on 12/07/2019 revealing a normal white blood cell count and platelet count. Hemoglobin was low at 12.7, hematocrit normal at 39. Chemistries were performed 12/07/2019 revealing normal sodium. Potassium was low at 3.4. Chloride and CO2 were normal. BUN was elevated at 31 and creatinine was 1.2 with a GFR that calculated at 62.6. Glucose was elevated at 110. Calcium and magnesium were normal. The liver enzymes were not elevated. Troponin was not elevated. The albumin and total protein were normal. TSH was normal. Toxicology with ethyl alcohol was not detected being less than 10. PTT was 35. DIAGNOSTIC RESULTS: CT scan of head was performed 12/07/2019 revealing no acute findings. There was no hemorrhage or loss of mullen-white differentiation to suggest stroke. Chest x-ray was performed 12/07/2019 revealing no evidence of acute cardiopulmonary process. IMPRESSION: The patient is a 54-year-old man who developed symptoms 1 week ago, which have not improved. If this truly had been a stroke one would anticipate with 1-week duration, it would be seen on CT scan head. There are many inconsistencies in his exam, which makes me concerned that this is not an organic process. Typically speech stuttering does not have an organic correlate. A lot of the weakness on the left side seems to be giveaway. Some of the sensory changes do not seem to follow an organic pattern, although he may very well have very severe peripheral neuropathy as he does admit to having Bvspjxw-Xjhwz-Wtlpc as too many of his family members. RECOMMENDATIONS: We will proceed with an MRI brain without contrast to better evaluate for any evidence for stroke. If this like the other 3 MRIs did not reveal stroke, then I think the emphasis would be to work with Psychiatry to address the issues of stress and anxiety. I appreciate being involved in his care. BRIDGER VALENCIA MD DR: TYLER/deirdre JOB#: [id number] / [id number]
[2019-12-07 22:55] VITALS: BP 125/62
[2019-12-08 03:04] VITALS: BP 108/72
[2019-12-08 05:15] LABS: BASO # 0.1 x10^3/uL (0.0-0.2); BASO % 1 % (0-3); EOS # 0.3 x10^3/uL (0.0-0.7); EOS % 6 % (0-3); HEMATOCRIT 32.7 % (39.0-53.0); HEMOGLOBIN 10.7 g/dL (13.0-17.5); LYMPH # 1.2 x10^3/uL (1.0-4.8); LYMPH % 21 % (24-48); MEAN CORPUSCULAR HEMOGLOBIN 24 pg (25-35); MEAN CORPUSCULAR HGB CONC 33 g/dL (31-37); MEAN CORPUSCULAR VOLUME 73 fL (79-100); MONO # 0.6 x10^3/uL (0.0-1.1); MONO % 10 % (0-9); NEUT # 3.5 x10^3/uL (1.8-7.7); NEUT % 62 % (31-73); PLATELET COUNT 183 x10^3/uL (140-400); RED BLOOD COUNT 4.46 x10^6/uL (4.30-5.70); RED CELL DISTRIBUTION WIDTH 17.5 % (11.5-14.5); WHITE BLOOD COUNT 5.6 x10^3/uL (4.0-11.0)
[2019-12-08 05:21] LABS: CALCIUM 7.9 mg/dL (8.5-10.1); CREATININE 0.9 mg/dL (0.7-1.3); GFR 87.3; POTASSIUM 3.7 mmol/L (3.5-5.1)
[2019-12-08] MEDS: ALBUTEROL SULFATE 2.5 MG/3 ML NEBU. NEB SCH ×4 (06:47→20:27)
[2019-12-08] MEDS: BUDESONIDE 0.5 MG/2 ML NEBU. NEB SCH ×2 (06:47→20:27)
--- NOTE | 2019-12-08 07:03 | EKG ---
[facility] [address] [place] [address] Test Date: 2019-12-07 Test Time: 00:04:04 Pat Name: OSMAN CALDERON Department: Room: 8 Gender: M Can Solderer: : 1965 Requested By: MT LAMB Order Number: [id number] Reading MD: Gautam Vega Measurements Intervals [place] Rate: 72 P: 32 VT: 148 QRS: 46 QRSD: 106 T: 7 QT: 396 QTc: 435 Interpretive Statements SINUS RHYTHM NORMAL ECG RI6.02 No previous ECG available for comparison Electronically Signed On 12-08-2019 7:52:33 CDT by Gautam Vega
[2019-12-08 07:52] VITALS: BP 123/62
[2019-12-08] MEDS: TOPIRAMATE 100 MG TABLET. PO SCH (08:44)
[2019-12-08] MEDS: GABAPENTIN 300 MG CAPSULE. PO SCH ×3 (08:44→20:37)
[2019-12-08] MEDS: TAMSULOSIN 0.4 MG CAP.ER.24H. PO SCH ×2 (08:44→20:36)
[2019-12-08] MEDS: PANTOPRAZOLE 40 MG TABLET.DR. PO SCH (08:44)
[2019-12-08] MEDS: ASCORBIC ACID 500 MG TABLET PO SCH (08:44)
[2019-12-08] MEDS: CLOPIDOGREL BISULFATE 75 MG TABLET PO SCH (08:44)
[2019-12-08] MEDS: CHOLECALCIFEROL (VITAMIN D3) 5,000 UNIT CAPSULE PO SCH (08:44)
[2019-12-08] MEDS: SUCRALFATE 1 GM TABLET. PO SCH ×4 (08:44→20:36)
[2019-12-08] MEDS: ASPIRIN ENTERIC COATED 81 MG TABLET.DR. PO SCH (08:44)
[2019-12-08] MEDS: LOSARTAN POTASSIUM 50 MG TABLET. PO SCH (08:45)
[2019-12-08] MEDS: traMADol 50 MG TABLET PO PRN ×2 (08:45→17:01)
--- NOTE | 2019-12-08 08:54 | PDOC ---
PROGRESS NOTES Chief Complaint Chief Complaint A/P: left arm weakness, tingling head, new stuttering speech, parathesias, possible migrane related, prior CVA, stroke risk, CT neg for new change, may need MRI, neuro consult will need to order if needed. headache, probably migrane, already on topamax Dm2 obesity, BMI 34 CAD, s/p stent 11 months ago, History of Present Illness History of Present Illness Mr Delgado is a 54 yo M w/ PMHx CAD, HLD, Zyerzeg-Uqtnj-Yzzqq disease, peripheral neuropathy, GERD, OA, s/p PPM who began with stuttering speech and left-sided weakness with numbness approximately 1 week prior to admission after an argument with his . Per neurology has been evaluated for TIA 07/2014, 01/2015, and 09/2015 with negative MRI of his brain. K 3.4. BUN was elevated at 31 and creatinine was 1.2 with a GFR that calculated at 62.6. Glucose was elevated at 110. Calcium and magnesium were normal. The liver enzymes were not elevated. Troponin was not elevated. The albumin and total protein were normal. TSH was normal. Toxicology with ethyl alcohol was not detected being less than 10. PTT was 35. CT scan of head was performed 12/07/2019 revealing no acute findings. There was no hemorrhage or loss of mullen-white differentiation to suggest stroke. Chest x-ray was performed 12/07/2019 revealing no evidence of acute cardiopulmonary process. No overnight events. Still with left hand numbness in the left side numbness. Awaiting MRI. Still stuttering speech, is inconsistent. He notes a slight cough that is chronic. No chest pain Vitals Vitals Vital Signs Date Time Temp Pulse Resp B/P (MAP) Pulse Ox O2 Delivery O2 Flow Rate FiO2 12/08/19 08:45 87 123/62 12/08/19 08:45 19 98 Room Air 12/08/19 07:52 97.7 97.7 Physical Exam General: Alert, Oriented X3, Cooperative Lungs: Clear, Other Abdomen: Normal bowel sounds, Soft Extremities: No clubbing, No edema, Normal pulses Skin: No rashes, No breakdown, No significant lesion Labs LABS Laboratory Tests Test 12/08/19 04:28 White Blood Count 5.6 x10^3/uL (4.0-11.0) Red Blood Count 4.46 x10^6/uL (4.30-5.70) Hemoglobin 10.7 g/dL (13.0-17.5) Hematocrit 32.7 % (39.0-53.0) Mean Corpuscular Volume 73 fL (79-100) Mean Corpuscular Hemoglobin 24 pg (25-35) Mean Corpuscular Hemoglobin Concent 33 g/dL (31-37) Red Cell Distribution Width 17.5 % (11.5-14.5) Platelet Count 183 x10^3/uL (140-400) Neutrophils (%) (Auto) 62 % (31-73) Lymphocytes (%) (Auto) 21 % (24-48) Monocytes (%) (Auto) 10 % (0-9) Eosinophils (%) (Auto) 6 % (0-3) Basophils (%) (Auto) 1 % (0-3) Neutrophils # (Auto) 3.5 x10^3/uL (1.8-7.7) Lymphocytes # (Auto) 1.2 x10^3/uL (1.0-4.8) Monocytes # (Auto) 0.6 x10^3/uL (0.0-1.1) Eosinophils # (Auto) 0.3 x10^3/uL (0.0-0.7) Basophils # (Auto) 0.1 x10^3/uL (0.0-0.2) Sodium Level 142 mmol/L (136-145) Potassium Level 3.7 mmol/L (3.5-5.1) Chloride Level 111 mmol/L (98-107) Carbon Dioxide Level 22 mmol/L (21-32) Anion Gap 9 (6-14) Blood Urea Nitrogen 14 mg/dL (8-26) Creatinine 0.9 mg/dL (0.7-1.3) Estimated GFR (Cockcroft-Gault) 87.3 Glucose Level 105 mg/dL (70-99) Calcium Level 7.9 mg/dL (8.5-10.1) Assessment and Plan Assessmemt and Plan Problems Medical Problems: (1) Headache Status: Acute (2) Left-sided weakness Status: Acute Comment Review of Relevant I have reviewed the following items logan (where applicable) has been applied. Labs Laboratory Tests Test 12/06/19 23:59 12/07/19 00:02 12/08/19 04:28 Glucose (Fingerstick) 110 mg/dL (70-99) White Blood Count 8.5 x10^3/uL (4.0-11.0) 5.6 x10^3/uL (4.0-11.0) Red Blood Count 5.35 x10^6/uL (4.30-5.70) 4.46 x10^6/uL (4.30-5.70) Hemoglobin 12.7 g/dL (13.0-17.5) 10.7 g/dL (13.0-17.5) Hematocrit 39.0 % (39.0-53.0) 32.7 % (39.0-53.0) Mean Corpuscular Volume 73 fL (79-100) 73 fL (79-100) Mean Corpuscular Hemoglobin 24 pg (25-35) 24 pg (25-35) Mean Corpuscular Hemoglobin Concent 32 g/dL (31-37) 33 g/dL (31-37) Red Cell Distribution Width 17.6 % (11.5-14.5) 17.5 % (11.5-14.5) Platelet Count 226 x10^3/uL (140-400) 183 x10^3/uL (140-400) Neutrophils (%) (Auto) 66 % (31-73) 62 % (31-73) Lymphocytes (%) (Auto) 18 % (24-48) 21 % (24-48) Monocytes (%) (Auto) 12 % (0-9) 10 % (0-9) Eosinophils (%) (Auto) 3 % (0-3) 6 % (0-3) Basophils (%) (Auto) 1 % (0-3) 1 % (0-3) Neutrophils # (Auto) 5.6 x10^3/uL (1.8-7.7) 3.5 x10^3/uL (1.8-7.7) Lymphocytes # (Auto) 1.5 x10^3/uL (1.0-4.8) 1.2 x10^3/uL (1.0-4.8) Monocytes # (Auto) 1.0 x10^3/uL (0.0-1.1) 0.6 x10^3/uL (0.0-1.1) Eosinophils # (Auto) 0.3 x10^3/uL (0.0-0.7) 0.3 x10^3/uL (0.0-0.7) Basophils # (Auto) 0.1 x10^3/uL (0.0-0.2) 0.1 x10^3/uL (0.0-0.2) Activated Partial Thromboplast Time 35 SEC (24-38) Sodium Level 139 mmol/L (136-145) 142 mmol/L (136-145) Potassium Level 3.4 mmol/L (3.5-5.1) 3.7 mmol/L (3.5-5.1) Chloride Level 103 mmol/L (98-107) 111 mmol/L (98-107) Carbon Dioxide Level 25 mmol/L (21-32) 22 mmol/L (21-32) Anion Gap 11 (6-14) 9 (6-14) Blood Urea Nitrogen 31 mg/dL (8-26) 14 mg/dL (8-26) Creatinine 1.2 mg/dL (0.7-1.3) 0.9 mg/dL (0.7-1.3) Estimated GFR (Cockcroft-Gault) 62.6 87.3 BUN/Creatinine Ratio 26 (6-20) Glucose Level 110 mg/dL (70-99) 105 mg/dL (70-99) Calcium Level 9.0 mg/dL (8.5-10.1) 7.9 mg/dL (8.5-10.1) Magnesium Level 2.0 mg/dL (1.8-2.4) Total Bilirubin 0.5 mg/dL (0.2-1.0) Aspartate Amino Transf (AST/SGOT) 19 U/L (15-37) Alanine Aminotransferase (ALT/SGPT) 35 U/L (16-63) Alkaline Phosphatase 71 U/L (46-116) Troponin I Quantitative < 0.017 ng/mL (0.000-0.055) Total Protein 7.4 g/dL (6.4-8.2) Albumin 3.8 g/dL (3.4-5.0) Albumin/Globulin Ratio 1.1 (1.0-1.7) Thyroid Stimulating Hormone (TSH) 3.389 uIU/mL (0.358-3.74) Ethyl Alcohol Level < 10 mg/dL (0-10) Laboratory Tests Test 12/08/19 04:28 White Blood Count 5.6 x10^3/uL (4.0-11.0) Red Blood Count 4.46 x10^6/uL (4.30-5.70) Hemoglobin 10.7 g/dL (13.0-17.5) Hematocrit 32.7 % (39.0-53.0) Mean Corpuscular Volume 73 fL (79-100) Mean Corpuscular Hemoglobin 24 pg (25-35) Mean Corpuscular Hemoglobin Concent 33 g/dL (31-37) Red Cell Distribution Width 17.5 % (11.5-14.5) Platelet Count 183 x10^3/uL (140-400) Neutrophils (%) (Auto) 62 % (31-73) Lymphocytes (%) (Auto) 21 % (24-48) Monocytes (%) (Auto) 10 % (0-9) Eosinophils (%) (Auto) 6 % (0-3) Basophils (%) (Auto) 1 % (0-3) Neutrophils # (Auto) 3.5 x10^3/uL (1.8-7.7) Lymphocytes # (Auto) 1.2 x10^3/uL (1.0-4.8) Monocytes # (Auto) 0.6 x10^3/uL (0.0-1.1) Eosinophils # (Auto) 0.3 x10^3/uL (0.0-0.7) Basophils # (Auto) 0.1 x10^3/uL (0.0-0.2) Sodium Level 142 mmol/L (136-145) Potassium Level 3.7 mmol/L (3.5-5.1) Chloride Level 111 mmol/L (98-107) Carbon Dioxide Level 22 mmol/L (21-32) Anion Gap 9 (6-14) Blood Urea Nitrogen 14 mg/dL (8-26) Creatinine 0.9 mg/dL (0.7-1.3) Estimated GFR (Cockcroft-Gault) 87.3 Glucose Level 105 mg/dL (70-99) Calcium Level 7.9 mg/dL (8.5-10.1) Medications Current Medications Sodium Chloride 1,000 ml @ 1,000 mls/hr Q1H IV Last administered on 12/07/19at 00:56; Start 12/07/19 at 00:30; Stop 12/07/19 at 01:29; Status DC Aspirin (Titus Aspirin) 325 mg 1X ONCE PO Last administered on 12/07/19at 00:56; Start 12/07/19 at 01:15; Stop 12/07/19 at 01:16; Status DC Sumatriptan Succinate (Imitrex) 6 mg 1X ONCE SQ Last administered on 12/07/19at 02:13; Start 12/07/19 at 02:15; Stop 12/07/19 at 02:16; Status DC Ondansetron HCl (Zofran) 4 mg PRN Q8HRS PRN IV NAUSEA/VOMITING 1ST CHOICE; Start 12/07/19 at 02:45; Stop 12/08/19 at 02:44; Status DC Morphine Sulfate (Morphine Sulfate) 2 mg PRN Q2HR PRN IV SEVERE PAIN 7-10; Start 12/07/19 at 02:45; Stop 12/08/19 at 02:45; Status DC Sodium Chloride 1,000 ml @ 125 mls/hr Q8H IV Last administered on 12/07/19at 21:11; Start 12/07/19 at 03:30; Stop 12/08/19 at 03:29; Status DC Potassium Chloride/Water 100 ml @ 100 mls/hr Q1H IV ; Start 12/07/19 at 05:00; Stop 12/07/19 at 06:59; Status UNV Potassium Chloride/Water 100 ml @ 100 mls/hr Q1H IV Last administered on 12/07/19at 10:28; Start 12/07/19 at 05:00; Stop 12/07/19 at 09:10; Status DC Potassium Chloride (Klor-Con) 40 meq 1X ONCE PO Last administered on 12/07/19at 11:18; Start 12/07/19 at 08:45; Stop 12/07/19 at 08:46; Status DC Aspirin (Ecotrin) 81 mg DAILY PO Last administered on 12/08/19at 08:44; Start 12/07/19 at 09:00 Atorvastatin Calcium (Lipitor) 40 mg QHS PO Last administered on 12/07/19 21:11; Start 12/07/19 at 21:00 Clopidogrel Bisulfate (Plavix) 75 mg DAILY PO Last administered on 12/08/19 08:44; Start 12/07/19 at 09:00 Nitroglycerin (Nitrostat) 0.4 mg PRN Q5MIN PRN SL CHEST PAIN; Start 12/07/19 at 08:45 Nortriptyline HCl (Pamelor) 10 mg QHS PO Last administered on 12/07/19 21:11; Start 12/07/19 at 21:00 Ondansetron HCl (Zofran Odt) 4 mg PRN Q8HRS PRN PO nausea; Start 12/07/19 at 08:45 Sucralfate (Carafate) 1 gm QIDACHS PO Last administered on 12/08/19 08:44; Start 12/07/19 at 09:00 Tamsulosin HCl (Flomax) 0.4 mg BID PO Last administered on 12/08/19 08:44; Start 12/07/19 at 09:00 Topiramate (Topamax) 100 mg DAILY PO Last administered on 12/08/19 08:44; Start 12/07/19 at 09:00 Tramadol HCl (Ultram) 50 mg PRN Q6HRS PRN PO PAIN Last administered on 12/08/19 08:45; Start 12/07/19 at 08:45 Ascorbic Acid (Vitamin C) 1,000 mg DAILY PO Last administered on 12/08/19 08:44; Start 12/08/19 at 09:00 Non-Formulary Medication (Budesonide/ Formoterol Fumarate (Symbicort 160-4.5 Mcg Inhaler)) 2 puff BID IH ; Start 12/07/19 at 09:00; Stop 12/07/19 at 09:32; Status DC Non-Formulary Medication (Cholecalciferol (Vitamin D3) (Vitamin D3)) 1 tab TID PO ; Start 12/07/19 at 09:00; Status UNV Gabapentin (Neurontin) 600 mg TID PO Last administered on 12/08/19 08:44; Start 12/07/19 at 10:00 Losartan Potassium (Cozaar) 100 mg DAILY PO Last administered on 12/08/19 08:45; Start 12/07/19 at 10:00 Pantoprazole Sodium (Protonix) 40 mg DAILYAC PO Last administered on 12/08/19at 08:44; Start 12/08/19 at 07:30 Budesonide (Pulmicort) 0.5 mg RTBID NEB Last administered on 12/08/19at 06:47; Start 12/07/19 at 10:00 Albuterol Sulfate (Ventolin Neb Soln) 2.5 mg RTQID NEB Last administered on 12/08/19at 06:47; Start 12/07/19 at 12:00 Vitamin D (Vitamin D3) 5,000 unit DAILY PO Last administered on 12/08/19at 08:44; Start 12/07/19 at 10:00 Active Scripts Active Ondansetron Odt (Ondansetron) 4 Mg Tab.rapdis 1 Tab PO PRN Q6-8HRS Atorvastatin Calcium 40 Mg Tablet 40 Mg PO QHS 30 Days Losartan-Hctz 100-12.5 Mg Tab (Losartan/Hydrochlorothiazide) 1 Each Tablet 1 Tab PO DAILY 30 Days Adult Low Dose Aspirin Ec (Aspirin) 81 Mg Tablet.dr 81 Mg PO DAILY Omeprazole 40 Mg Capsule.dr 1 Cap PO BID Reported Symbicort 160-4.5 Mcg Inhaler (Budesonide/Formoterol Fumarate) 10.2 Gm Hfa.aer.ad 2 Puff IH BID Topiramate 100 Mg Tablet 1 Tab PO DAILY Tramadol Hcl 50 Mg Tablet 50 Mg PO Q6HRS PRN Nortriptyline Hcl 10 Mg Capsule 1 Cap PO QHS Clopidogrel (Clopidogrel Bisulfate) 75 Mg Tablet 75 Mg PO DAILY Vitamin D3 (Cholecalciferol (Vitamin D3)) 5,000 Unit Tablet 1 Tab PO TID Vitamin C (Ascorbic Acid) 1,000 Mg Tablet 1,000 Mg PO DAILY Carafate (Sucralfate) 1 Gm Tablet 1 Tab PO QID Ranitidine Hcl 300 Mg Capsule 1 Cap PO HS Tamsulosin Hcl 0.4 Mg Cap.er.24h 0.4 Mg PO BID NITROGLYCERIN SubLingual (Nitroglycerin) 0.4 Mg Tab.subl 0.4 Mg SL PRN Q5MIN PRN Gabapentin 600 Mg Tablet 1 Tab PO TID next dose tonight at bedtime, 10/30/15 Vitals/I & O Vital Sign - Last 24 Hours 12/07/19 12/07/19 12/07/19 12/07/19 11:18 11:20 12:02 12:12 Temp 98.3 98.3 Pulse 65 72 Resp 18 B/P (MAP) 116/73 124/75 (91) Pulse Ox 98 98 98 O2 Delivery Room Air Room Air Room Air 12/07/19 12/07/19 12/07/19 12/07/19 15:26 15:52 19:00 19:01 Temp 98.9 98.9 Pulse 75 Resp 18 B/P (MAP) 91/56 (68) Pulse Ox 98 98 98 O2 Delivery Room Air Room Air Room Air Room Air 12/07/19 12/07/19 12/07/19 12/08/19 19:53 20:13 22:55 03:04 Temp 97.8 98.7 98.7 97.8 98.7 98.7 Pulse 78 70 68 Resp 16 12 12 B/P (MAP) 107/60 (76) 125/62 (83) 108/72 (84) Pulse Ox 97 95 97 O2 Delivery Room Air Room Air Room Air Room Air 12/08/19 12/08/19 12/08/19 12/08/19 06:47 07:52 08:45 08:45 Temp 97.7 97.7 Pulse 87 87 Resp 18 19 B/P (MAP) 123/62 (82) 123/62 Pulse Ox 98 98 O2 Delivery Room Air Room Air Room Air Intake and Output 12/07/19 12/07/19 12/08/19 15:00 23:00 07:00 Intake Total 450 ml 500 ml Output Total 650 ml 850 ml Balance -200 ml -350 ml DULCE DAVID MD December 08, 2019 08:54
[2019-12-08 11:51] VITALS: BP 130/82
--- NOTE | 2019-12-08 15:41 | NUR ---
SS following for discharge planning. SS reviewed pt chart and discussed with pt RN. Pt is from home with spouse and is currently on room air. Pt's RN reported no MRI today due to pacemaker. SS will continue to follow for discharge planning.
[2019-12-08 15:59] VITALS: BP 138/78
--- NOTE | 2019-12-08 17:28 | PDOC ---
PROGRESS NOTES Assessment Assessment Left side numbness and weakness. Stuttering since 09/16, multi -factorial with psycho component. CMT. Severe peripheral neuropathy in LE. HTN. HLD. Vit D deficiency. Obesity. Pacemaker placement. No evidence of old CVA in the past. RECOMMENDATIONS/PLAN: Continue Plavix 75 mg daily. Continue ASA 81 mg daily. Continue Lipitor 40 mg HS. Continue Neurontin 600 mg tid. Treat medical diseases. Brain MRI contraindicated due to pacemaker. Repeat HCT. OT/PT. Past HCTs, and CTA, MRI, MRA showed no CVA. Multiple C/T/L spine MRI and CTs in past showed no cord or nerve roots impingement. HISTORY OF THE PRESENT ILLNESS: 54-y-old [place] origin male patient with Hx of severe peripheral neuropathy from CMT has symptoms of left side numbness and weakness to be brought to the [facility] of [facility]. Per reports, he had argument with his . He had CVA symptoms in the past, but multiple advanced evaluations were negative. Stroke evaluations were carried out at that time but without stroke found. PAST MEDICAL HISTORY: Refer to above. PAST SURGERY HISTORY: No major surgery recently. ALLERGY: Unknown. MEDICATIONS: Refer to MAR. FAMILY HISTORY: Father has severe peripheral neuropathy. SOCIAL HISTORY: Lives with his at home. Denies smoking, drinking, and illicit drug use. REVIEW OF SYSTEMS: Constitutional: No malnutrition, weight loss, night sweats, cachexia. Head: No traumatic brain or head injury. Skin: No edema, or rash. Ear: No infection, tinnitus. Eyes: No vision loss, color blindness Nose: No bleeding or purulent discharges. Neck: No injury, lymph note enlargement Cardiac: HTN, HLD. Pulmonary: No hemoptysis, dyspnea GI: No melena, hematochezia Urinary/genital: No dysuria, hematuria, incontinence, urinary retention Endocrinologic: obesity Skeletomuscular: Pain Neurological: see HP. Psychiatric: Denies drug use/abuse. Otherwise, not [id number] review of systems. PHYSICAL EXAMINATION: General appearance is in subacute distress. HEENT: Normocephalic and nontraumatic. Eyes, nose, ears, and throat are unremarkable. Neck is supple. No lymphadenopathy. No crepitus. Cardiovascular: S1, S2, regular rate and rhythm. Pulmonary: Clear to auscultation bilaterally. Abdomen: Bowel sounds are positive. Abdomen is soft, nontender, and nondistended. Extremities: No rash, lesions, or edema. CMT feet and toes. No restriction of range of motion NEUROLOGICAL EXAMINATION: Awake. Stutteringm chronic. Oriented to time, place and person. PERRL. EOMI. CN: no focal findings. Muscle tone: normal. Muscle strength: 5 UE, 4 LE DTR: 1 UE, 0 at knee and ankle. Plantar reflex: Flexor response bilaterally Gait: not examined while in bed. Sensory exam: No acute findings. No cerebellar signs elicited. Objective Objective Vital Signs Date Time Temp Pulse Resp B/P (MAP) Pulse Ox O2 Delivery O2 Flow Rate FiO2 12/08/19 17:01 18 98 Room Air 12/08/19 15:59 98.5 100 138/78 (98) 98.5 Intake and Output 12/08/19 07:00 Intake Total 950 ml Output Total 1500 ml Balance -550 ml Intake Oral 950 ml Output Urine Total 1500 ml Vitals Signs Vitals VS - Last 72 Hours, by Label Date Time Temp Pulse Resp B/P (MAP) Pulse Ox O2 Delivery O2 Flow Rate FiO2 12/08/19 17:01 18 98 Room Air 12/08/19 15:59 98.5 100 18 138/78 (98) 98 Room Air 98.5 12/08/19 15:10 97 Room Air 12/08/19 11:51 98.1 85 18 130/82 (98) 97 Room Air 98.1 12/08/19 10:46 Room Air 12/08/19 09:45 18 98 Room Air 12/08/19 08:45 87 123/62 12/08/19 08:45 19 98 Room Air 12/08/19 08:00 Room Air 12/08/19 07:52 97.7 87 18 123/62 (82) 98 Room Air 97.7 12/08/19 06:47 Room Air 12/08/19 03:04 98.7 68 12 108/72 (84) 97 Room Air 98.7 12/07/19 22:55 98.7 70 12 125/62 (83) 95 Room Air 98.7 12/07/19 20:13 Room Air 12/07/19 19:53 97.8 78 16 107/60 (76) 97 Room Air 97.8 12/07/19 19:01 98 Room Air 12/07/19 19:00 98 Room Air 12/07/19 15:52 Room Air 12/07/19 15:26 98.9 75 18 91/56 (68) 98 Room Air 98.9 12/07/19 12:12 98 Room Air 12/07/19 12:02 98 Room Air 12/07/19 11:20 98.3 72 18 124/75 (91) 98 Room Air 98.3 12/07/19 11:18 65 116/73 12/07/19 08:00 Room Air 12/07/19 07:20 98.3 65 18 116/73 (87) 98 Room Air 98.3 Laboratory Laboratory Laboratory Tests Test 12/08/19 04:28 White Blood Count 5.6 x10^3/uL (4.0-11.0) Red Blood Count 4.46 x10^6/uL (4.30-5.70) Hemoglobin 10.7 g/dL (13.0-17.5) Hematocrit 32.7 % (39.0-53.0) Mean Corpuscular Volume 73 fL (79-100) Mean Corpuscular Hemoglobin 24 pg (25-35) Mean Corpuscular Hemoglobin Concent 33 g/dL (31-37) Red Cell Distribution Width 17.5 % (11.5-14.5) Platelet Count 183 x10^3/uL (140-400) Neutrophils (%) (Auto) 62 % (31-73) Lymphocytes (%) (Auto) 21 % (24-48) Monocytes (%) (Auto) 10 % (0-9) Eosinophils (%) (Auto) 6 % (0-3) Basophils (%) (Auto) 1 % (0-3) Neutrophils # (Auto) 3.5 x10^3/uL (1.8-7.7) Lymphocytes # (Auto) 1.2 x10^3/uL (1.0-4.8) Monocytes # (Auto) 0.6 x10^3/uL (0.0-1.1) Eosinophils # (Auto) 0.3 x10^3/uL (0.0-0.7) Basophils # (Auto) 0.1 x10^3/uL (0.0-0.2) Sodium Level 142 mmol/L (136-145) Potassium Level 3.7 mmol/L (3.5-5.1) Chloride Level 111 mmol/L (98-107) Carbon Dioxide Level 22 mmol/L (21-32) Anion Gap 9 (6-14) Blood Urea Nitrogen 14 mg/dL (8-26) Creatinine 0.9 mg/dL (0.7-1.3) Estimated GFR (Cockcroft-Gault) 87.3 Glucose Level 105 mg/dL (70-99) Calcium Level 7.9 mg/dL (8.5-10.1) Medication Medications Current Medications Ascorbic Acid (Vitamin C) 1,000 mg DAILY PO Last administered on 12/08/19at 08:44; Start 12/08/19 at 09:00 Atorvastatin Calcium (Lipitor) 40 mg QHS PO Last administered on 12/07/19at 21:11; Start 12/07/19 at 21:00 Nortriptyline HCl (Pamelor) 10 mg QHS PO Last administered on 12/07/19at 21:11; Start 12/07/19 at 21:00 Pantoprazole Sodium (Protonix) 40 mg DAILYAC PO Last administered on 12/08/19at 08:44; Start 12/08/19 at 07:30 Comment Review of Relevant I have reviewed the following items logan (where applicable) has been applied. JOELLEN SCHULTZ MD December 08, 2019 17:28
--- NOTE | 2019-12-08 18:45 | NUR ---
Patient complained of headache 7-8, at the back of his head. He claimed that the headache is not something new, has been experiencing it at home.
[2019-12-08 19:40] VITALS: BP 133/83
[2019-12-08] MEDS: NORTRIPTYLINE 10 MG CAPSULE PO SCH (20:36)
[2019-12-08] MEDS: ATORVASTATIN CALCIUM 40 MG TABLET. PO SCH (20:36)
[2019-12-08 22:32] VITALS: BP 122/75
[2019-12-09 02:30] VITALS: BP 102/59
[2019-12-09 07:15] VITALS: BP 113/70
[2019-12-09] MEDS: ALBUTEROL SULFATE 2.5 MG/3 ML NEBU. NEB SCH ×3 (07:25→16:00)
[2019-12-09] MEDS: BUDESONIDE 0.5 MG/2 ML NEBU. NEB SCH (07:26)
--- NOTE | 2019-12-09 07:34 | RAD ---
CT HEAD WO CONTRAST History: Left-sided numbness. Weakness. Comparison: December 07, 2019 Technique: Noncontrast CT imaging was performed of the head. Coronal reconstruction was performed. Exposure: One or more of the following individualized dose reduction techniques were utilized for this examination: 1. Automated exposure control 2. Adjustment of the mA and/or kV according to patient size 3. Use of iterative reconstruction technique. Findings: No intracranial hemorrhage. No mass effect. No hydrocephalus. Extra-axial spaces are unremarkable. Imaged orbits are unremarkable. Mild scattered previous sinus mucosal thickening. Mastoid air cells are clear. No acute calvarial fracture. Impression: 1. No acute intracranial abnormality. If persistent clinical concern for acute ischemia, MRI can better evaluate. Electronically signed by: Dylan Umana DO (12/09/2019 7:31 AM) [id number]
[2019-12-09] MEDS: traMADol 50 MG TABLET PO PRN (08:55)
[2019-12-09] MEDS: ASPIRIN ENTERIC COATED 81 MG TABLET.DR. PO SCH (08:56)
[2019-12-09] MEDS: SUCRALFATE 1 GM TABLET. PO SCH ×2 (08:56→11:21)
[2019-12-09] MEDS: PANTOPRAZOLE 40 MG TABLET.DR. PO SCH (08:56)
[2019-12-09] MEDS: ASCORBIC ACID 500 MG TABLET PO SCH (08:56)
[2019-12-09] MEDS: CLOPIDOGREL BISULFATE 75 MG TABLET PO SCH (08:56)
[2019-12-09] MEDS: TOPIRAMATE 100 MG TABLET. PO SCH (08:56)
[2019-12-09] MEDS: CHOLECALCIFEROL (VITAMIN D3) 5,000 UNIT CAPSULE PO SCH (08:56)
[2019-12-09] MEDS: TAMSULOSIN 0.4 MG CAP.ER.24H. PO SCH (08:56)
[2019-12-09] MEDS: GABAPENTIN 300 MG CAPSULE. PO SCH ×2 (08:57→14:35)
[2019-12-09] MEDS: LOSARTAN POTASSIUM 50 MG TABLET. PO SCH (08:57)
--- NOTE | 2019-12-09 10:27 | PDOC ---
PROGRESS NOTES Chief Complaint Chief Complaint A/P: left arm weakness, tingling head, new stuttering speech, parathesias, possible migrane related, prior CVA, stroke risk, CT neg for new change, may need MRI, neuro consult will need to order if needed. headache, probably migrane, already on topamax Dm2 obesity, BMI 34 CAD, s/p stent 11 months ago, History of Present Illness History of Present Illness Mr Delgado is a 54 yo M w/ PMHx CAD, HLD, Cvcplkk-Ayvnf-Wbnfx disease, peripheral neuropathy, GERD, OA, s/p PPM who began with stuttering speech and left-sided weakness with numbness approximately 1 week prior to admission after an argument with his . Per neurology has been evaluated for TIA 07/2014, 01/2015, and 09/2015 with negative MRI of his brain. K 3.4. BUN was elevated at 31 and creatinine was 1.2 with a GFR that calculated at 62.6. Glucose was elevated at 110. Calcium and magnesium were normal. The liver enzymes were not elevated. Troponin was not elevated. The albumin and total protein were normal. TSH was normal. Toxicology with ethyl alcohol was not detected being less than 10. PTT was 35. CT scan of head was performed 12/07/2019 revealing no acute findings. There was no hemorrhage or loss of mullen-white differentiation to suggest stroke. Chest x-ray was performed 12/07/2019 revealing no evidence of acute cardiopulmonary process. 12/07: No overnight events. Still with left hand numbness in the left side numbness. MRI contraindicated 2/2 pacer. Still stuttering speech, is inconsistent. He notes a slight cough that is chronic. No chest pain Repeat head CT per neurology with no acute findings or new changes. Still c/o left hand numbness more consistent with carpal tunnel on examination. Stuttering inconsistent. On plavix, asa, gabapentin. Wishes for outpatient speech therapy for communication evaluation. Vitals Vitals Vital Signs Date Time Temp Pulse Resp B/P (MAP) Pulse Ox O2 Delivery O2 Flow Rate FiO2 12/09/19 08:57 71 113/70 12/09/19 08:55 19 98 Room Air 12/09/19 07:15 97.7 97.7 Physical Exam General: Alert, Oriented X3, Cooperative Lungs: Clear, Other Abdomen: Normal bowel sounds, Soft Extremities: No clubbing, No edema, Normal pulses Skin: No rashes, No breakdown, No significant lesion Assessment and Plan Assessmemt and Plan Problems Medical Problems: (1) Headache Status: Acute (2) Left-sided weakness Status: Acute Comment Review of Relevant I have reviewed the following items logan (where applicable) has been applied. Labs Laboratory Tests Test 12/08/19 04:28 White Blood Count 5.6 x10^3/uL (4.0-11.0) Red Blood Count 4.46 x10^6/uL (4.30-5.70) Hemoglobin 10.7 g/dL (13.0-17.5) Hematocrit 32.7 % (39.0-53.0) Mean Corpuscular Volume 73 fL (79-100) Mean Corpuscular Hemoglobin 24 pg (25-35) Mean Corpuscular Hemoglobin Concent 33 g/dL (31-37) Red Cell Distribution Width 17.5 % (11.5-14.5) Platelet Count 183 x10^3/uL (140-400) Neutrophils (%) (Auto) 62 % (31-73) Lymphocytes (%) (Auto) 21 % (24-48) Monocytes (%) (Auto) 10 % (0-9) Eosinophils (%) (Auto) 6 % (0-3) Basophils (%) (Auto) 1 % (0-3) Neutrophils # (Auto) 3.5 x10^3/uL (1.8-7.7) Lymphocytes # (Auto) 1.2 x10^3/uL (1.0-4.8) Monocytes # (Auto) 0.6 x10^3/uL (0.0-1.1) Eosinophils # (Auto) 0.3 x10^3/uL (0.0-0.7) Basophils # (Auto) 0.1 x10^3/uL (0.0-0.2) Sodium Level 142 mmol/L (136-145) Potassium Level 3.7 mmol/L (3.5-5.1) Chloride Level 111 mmol/L (98-107) Carbon Dioxide Level 22 mmol/L (21-32) Anion Gap 9 (6-14) Blood Urea Nitrogen 14 mg/dL (8-26) Creatinine 0.9 mg/dL (0.7-1.3) Estimated GFR (Cockcroft-Gault) 87.3 Glucose Level 105 mg/dL (70-99) Calcium Level 7.9 mg/dL (8.5-10.1) Medications Current Medications Sodium Chloride 1,000 ml @ 1,000 mls/hr Q1H IV Last administered on 12/07/19at 00:56; Start 12/07/19 at 00:30; Stop 12/07/19 at 01:29; Status DC Aspirin (Titus Aspirin) 325 mg 1X ONCE PO Last administered on 12/07/19at 00:56; Start 12/07/19 at 01:15; Stop 12/07/19 at 01:16; Status DC Sumatriptan Succinate (Imitrex) 6 mg 1X ONCE SQ Last administered on 12/07/19at 02:13; Start 12/07/19 at 02:15; Stop 12/07/19 at 02:16; Status DC Ondansetron HCl (Zofran) 4 mg PRN Q8HRS PRN IV NAUSEA/VOMITING 1ST CHOICE; Start 12/07/19 at 02:45; Stop 12/08/19 at 02:44; Status DC Morphine Sulfate (Morphine Sulfate) 2 mg PRN Q2HR PRN IV SEVERE PAIN 7-10; Start 12/07/19 at 02:45; Stop 12/08/19 at 02:45; Status DC Sodium Chloride 1,000 ml @ 125 mls/hr Q8H IV Last administered on 12/07/19at 21:11; Start 12/07/19 at 03:30; Stop 12/08/19 at 03:29; Status DC Potassium Chloride/Water 100 ml @ 100 mls/hr Q1H IV ; Start 12/07/19 at 05:00; Stop 12/07/19 at 06:59; Status UNV Potassium Chloride/Water 100 ml @ 100 mls/hr Q1H IV Last administered on 12/07/19at 10:28; Start 12/07/19 at 05:00; Stop 12/07/19 at 09:10; Status DC Potassium Chloride (Klor-Con) 40 meq 1X ONCE PO Last administered on 12/07/19at 11:18; Start 12/07/19 at 08:45; Stop 12/07/19 at 08:46; Status DC Aspirin (Ecotrin) 81 mg DAILY PO Last administered on 12/09/19 08:56; Start 12/07/19 at 09:00 Atorvastatin Calcium (Lipitor) 40 mg QHS PO Last administered on 12/08/19 20:36; Start 12/07/19 at 21:00 Clopidogrel Bisulfate (Plavix) 75 mg DAILY PO Last administered on 12/09/19 08:56; Start 12/07/19 at 09:00 Nitroglycerin (Nitrostat) 0.4 mg PRN Q5MIN PRN SL CHEST PAIN; Start 12/07/19 at 08:45 Nortriptyline HCl (Pamelor) 10 mg QHS PO Last administered on 12/08/19 20:36; Start 12/07/19 at 21:00 Ondansetron HCl (Zofran Odt) 4 mg PRN Q8HRS PRN PO nausea; Start 12/07/19 at 08:45 Sucralfate (Carafate) 1 gm QIDACHS PO Last administered on 12/09/19 08:56; Start 12/07/19 at 09:00 Tamsulosin HCl (Flomax) 0.4 mg BID PO Last administered on 12/09/19 08:56; Start 12/07/19 at 09:00 Topiramate (Topamax) 100 mg DAILY PO Last administered on 12/09/19 08:56; Start 12/07/19 at 09:00 Tramadol HCl (Ultram) 50 mg PRN Q6HRS PRN PO PAIN Last administered on 12/09/19 08:55; Start 12/07/19 at 08:45 Ascorbic Acid (Vitamin C) 1,000 mg DAILY PO Last administered on 12/09/19 08:56; Start 12/08/19 at 09:00 Non-Formulary Medication (Budesonide/ Formoterol Fumarate (Symbicort 160-4.5 Mcg Inhaler)) 2 puff BID IH ; Start 12/07/19 at 09:00; Stop 12/07/19 at 09:32; Status DC Non-Formulary Medication (Cholecalciferol (Vitamin D3) (Vitamin D3)) 1 tab TID PO ; Start 12/07/19 at 09:00; Status UNV Gabapentin (Neurontin) 600 mg TID PO Last administered on 12/09/19 08:57; Start 12/07/19 at 10:00 Losartan Potassium (Cozaar) 100 mg DAILY PO Last administered on 12/09/19 08:57; Start 12/07/19 at 10:00 Pantoprazole Sodium (Protonix) 40 mg DAILYAC PO Last administered on 12/09/19 08:56; Start 12/08/19 at 07:30 Budesonide (Pulmicort) 0.5 mg RTBID NEB Last administered on 12/09/19 07:26; Start 12/07/19 at 10:00 Albuterol Sulfate (Ventolin Neb Soln) 2.5 mg RTQID NEB Last administered on 12/09/19 07:25; Start 12/07/19 at 12:00 Vitamin D (Vitamin D3) 5,000 unit DAILY PO Last administered on 12/09/19 08:56; Start 12/07/19 at 10:00 Active Scripts Active Ondansetron Odt (Ondansetron) 4 Mg Tab.rapdis 1 Tab PO PRN Q6-8HRS Atorvastatin Calcium 40 Mg Tablet 40 Mg PO QHS 30 Days Losartan-Hctz 100-12.5 Mg Tab (Losartan/Hydrochlorothiazide) 1 Each Tablet 1 Tab PO DAILY 30 Days Adult Low Dose Aspirin Ec (Aspirin) 81 Mg Tablet. 81 Mg PO DAILY Omeprazole 40 Mg Capsule. 1 Cap PO BID Reported Symbicort 160-4.5 Mcg Inhaler (Budesonide/Formoterol Fumarate) 10.2 Gm Hfa.aer.ad 2 Puff IH BID Topiramate 100 Mg Tablet 1 Tab PO DAILY Tramadol Hcl 50 Mg Tablet 50 Mg PO Q6HRS PRN Nortriptyline Hcl 10 Mg Capsule 1 Cap PO QHS Clopidogrel (Clopidogrel Bisulfate) 75 Mg Tablet 75 Mg PO DAILY Vitamin D3 (Cholecalciferol (Vitamin D3)) 5,000 Unit Tablet 1 Tab PO TID Vitamin C (Ascorbic Acid) 1,000 Mg Tablet 1,000 Mg PO DAILY Carafate (Sucralfate) 1 Gm Tablet 1 Tab PO QID Ranitidine Hcl 300 Mg Capsule 1 Cap PO HS Tamsulosin Hcl 0.4 Mg Cap.er.24h 0.4 Mg PO BID NITROGLYCERIN SubLingual (Nitroglycerin) 0.4 Mg Tab.subl 0.4 Mg SL PRN Q5MIN PRN Gabapentin 600 Mg Tablet 1 Tab PO TID next dose tonight at bedtime, 10/30/15 Vitals/I & O Vital Sign - Last 24 Hours 12/08/19 12/08/19 12/08/19 12/08/19 10:46 11:51 15:10 15:59 Temp 98.1 98.5 98.1 98.5 Pulse 85 100 Resp 18 18 B/P (MAP) 130/82 (98) 138/78 (98) Pulse Ox 97 97 98 O2 Delivery Room Air Room Air Room Air Room Air 12/08/19 12/08/19 12/08/19 12/08/19 17:01 18:05 19:40 20:00 Temp 98.3 98.3 Pulse 90 Resp 18 19 18 B/P (MAP) 133/83 (100) Pulse Ox 98 98 95 O2 Delivery Room Air Room Air Room Air Room Air 12/08/19 12/08/19 12/09/19 12/09/19 20:28 22:32 02:30 07:15 Temp 98.7 97.9 97.7 98.7 97.9 97.7 Pulse 90 80 71 Resp 18 18 20 B/P (MAP) 122/75 (91) 102/59 (73) 113/70 (84) Pulse Ox 97 94 94 98 O2 Delivery Room Air Room Air Room Air Room Air 12/09/19 12/09/19 12/09/19 12/09/19 07:28 07:30 08:55 08:57 Pulse 71 Resp 19 B/P (MAP) 113/70 Pulse Ox 98 98 98 O2 Delivery Room Air Room Air Room Air Intake and Output 12/08/19 12/08/19 12/09/19 15:00 23:00 07:00 Intake Total 480 ml 120 ml 250 ml Balance 480 ml 120 ml 250 ml DULCE DAVID MD December 09, 2019 10:27
[2019-12-09 10:44] VITALS: BP 142/85
[2019-12-09] MEDS ORDERED: MAGNESIUM CITRATE 296 ML SOLUTION. PO ONE (10:45)
[2019-12-09] MEDS ORDERED: PROCHLORPERAZINE 10 MG/2 ML VIAL. IV ONE (12:00)
--- NOTE | 2019-12-09 14:06 | PDOC3 ---
Discharge Summary Visit Information Date of Admission: December 07, 2019 Date of Discharge: December 09, 2019 Admitting Diagnosis: Headache, left sided numbness Final Diagnosis Problems Medical Problems: (1) Headache Status: Acute (2) Left-sided weakness Status: Acute Brief Hospital Course Allergies Allergies Coded Allergies Type Severity Reaction Last Updated Verified No Known Medication Allergies Allergy Unknown 10/08/17 Yes Vital Signs Vital Signs Date Time Temp Pulse Resp B/P (MAP) Pulse Ox O2 Delivery O2 Flow Rate FiO2 12/09/19 11:39 Room Air 12/09/19 10:44 98.1 66 18 142/85 (104) 96 98.1 Lab Results Laboratory Tests Test 12/08/19 04:28 White Blood Count 5.6 x10^3/uL (4.0-11.0) Red Blood Count 4.46 x10^6/uL (4.30-5.70) Hemoglobin 10.7 g/dL (13.0-17.5) Hematocrit 32.7 % (39.0-53.0) Mean Corpuscular Volume 73 fL (79-100) Mean Corpuscular Hemoglobin 24 pg (25-35) Mean Corpuscular Hemoglobin Concent 33 g/dL (31-37) Red Cell Distribution Width 17.5 % (11.5-14.5) Platelet Count 183 x10^3/uL (140-400) Neutrophils (%) (Auto) 62 % (31-73) Lymphocytes (%) (Auto) 21 % (24-48) Monocytes (%) (Auto) 10 % (0-9) Eosinophils (%) (Auto) 6 % (0-3) Basophils (%) (Auto) 1 % (0-3) Neutrophils # (Auto) 3.5 x10^3/uL (1.8-7.7) Lymphocytes # (Auto) 1.2 x10^3/uL (1.0-4.8) Monocytes # (Auto) 0.6 x10^3/uL (0.0-1.1) Eosinophils # (Auto) 0.3 x10^3/uL (0.0-0.7) Basophils # (Auto) 0.1 x10^3/uL (0.0-0.2) Sodium Level 142 mmol/L (136-145) Potassium Level 3.7 mmol/L (3.5-5.1) Chloride Level 111 mmol/L (98-107) Carbon Dioxide Level 22 mmol/L (21-32) Anion Gap 9 (6-14) Blood Urea Nitrogen 14 mg/dL (8-26) Creatinine 0.9 mg/dL (0.7-1.3) Estimated GFR (Cockcroft-Gault) 87.3 Glucose Level 105 mg/dL (70-99) Calcium Level 7.9 mg/dL (8.5-10.1) Brief Hospital Course Mr Delgado is a 54 yo M w/ PMHx CAD, HLD, Aocwhcg-Hghiz-Lphov disease, peripheral neuropathy, GERD, OA, s/p PPM who began with stuttering speech and left-sided weakness with numbness approximately 1 week prior to admission after an argument with his . Per neurology has been evaluated for TIA 07/2014, 01/2015, and 09/2015 with negative MRI of his brain. K 3.4. BUN was elevated at 31 and creatinine was 1.2 with a GFR that calculated at 62.6. Glucose was elevated at 110. Calcium and magnesium were normal. The liver enzymes were not elevated. Troponin was not elevated. The albumin and total protein were normal. TSH was normal. Toxicology with ethyl alcohol was not detected being less than 10. PTT was 35. CT scan of head was performed 12/07/2019 revealing no acute findings. There was no hemorrhage or loss of mullen-white differentiation to suggest stroke. Chest x-ray was performed 12/07/2019 revealing no evidence of acute cardiopulmonary process. 12/07: No overnight events. Still with left hand numbness in the left side numbness. MRI contraindicated 2/2 pacer. Still stuttering speech, is inconsistent. He notes a slight cough that is chronic. No chest pain Repeat head CT per neurology with no acute findings or new changes. Still c/o left hand numbness more consistent with carpal tunnel on examination. Stuttering inconsistent. On plavix, asa, gabapentin. Wishes for outpatient speech therapy for communication evaluation. Compazine broke his headache. Problem list: left arm weakness, tingling head, new stuttering speech, parathesias, possible migrane related, prior CVA, stroke risk, CT neg for new change, unable to MRI headache, probably migrane, already on topamax Dm2 obesity, BMI 34 CAD, s/p stent 11 months ago, Greater than 30 minutes spent on d/c home Discharge Information Condition at Discharge: Improved Follow Up: Weeks (1) Disposition/Orders: D/C to Home Scheduled Ascorbic Acid (Vitamin C) 1,000 Mg Tablet, 1,000 MG PO DAILY, (Reported) Entered as Reported by: NEVAEH GRIFFITHS on 10/09/17 1022 Last Action: Converted on 12/07/19839 by FLORECITA RENTERIA Aspirin (Adult Low Dose Aspirin Ec) 81 Mg Tablet.dr, 81 MG PO DAILY, #30 Prescribed by: MADELYN BAY on 11/24/16 0947 Last Action: Continued on 12/07/19839 by FLORECITA RENTERIA Atorvastatin Calcium (Atorvastatin Calcium) 40 Mg Tablet, 40 MG PO QHS for 30 Days, #30 Ref 1 Prescribed by: GUERLINE REESE MD on 01/01/18 1140 Last Action: Continued on 12/07/19839 by FLORECITA RENTERIA Budesonide/Formoterol Fumarate (Symbicort 160-4.5 Mcg Inhaler) 10.2 Gm Hfa.aer.ad, 2 PUFF IH BID, #1 Ref 3 (Reported) Entered as Reported by: SPARKLE KELLY RN on 04/08/18 08 Last Action: Converted on 12/07/19840 by FLORECITA RENTERIA Cholecalciferol (Vitamin D3) (Vitamin D3) 5,000 Unit Tablet, 1 TAB PO TID, #30 (Reported) Entered as Reported by: NEVAEH GRIFFITHS on 10/09/17 1022 Last Action: Converted on 12/07/19839 by FLORECITA RENTERIA Clopidogrel Bisulfate (Clopidogrel) 75 Mg Tablet, 75 MG PO DAILY for TO PREVENT BLOOD CLOTS, #30 Ref 0 (Reported) Entered as Reported by: SPARKLE KELLY RN on 04/08/18819 Last Action: Continued on 12/07/19840 by FLORECITA RENTERIA Gabapentin (Gabapentin) 600 Mg Tablet, 1 TAB PO TID, #90 Ref 3 (Reported) next dose tonight at bedtime, 10/30/15 Entered as Reported by: ALEK SERVIN on 06/21/15 1141 Last Action: Converted on 12/07/19839 by FLORECITA RENTERIA Losartan/Hydrochlorothiazide (Losartan-Hctz 100-12.5 Mg Tab) 1 Each Tablet, 1 TAB PO DAILY for 30 Days, #30 Ref 5 Prescribed by: GUERLINE REESE MD on 01/01/18 1140 Last Action: Converted on 12/07/19839 by FLORECITA RENTERIA Nortriptyline Hcl (Nortriptyline Hcl) 10 Mg Capsule, 1 CAP PO QHS, #30 (Reported) Entered as Reported by: SPARKLE KELLY RN on 04/08/18826 Last Action: Continued on 12/07/19840 by FLORECITA RENTERIA Omeprazole (Omeprazole) 40 Mg Capsule.dr, 1 CAP PO BID, #30 Ref 3 Prescribed by: MADELYN BAY on 11/24/16 0947 Last Action: Converted on 12/07/19839 by FLORECITA RENTERIA Ondansetron (Ondansetron Odt) 4 Mg Tab.rapdis, 1 TAB PO PRN Q6-8HRS, #15 Prescribed by: EVER SMITH MD on 09/01/19 1512 Last Action: Continued on 12/07/19840 by FLORECITA RENTERIA Sucralfate (Carafate) 1 Gm Tablet, 1 TAB PO QID, #120 Ref 3 (Reported) Entered as Reported by: ARIELLA EDWARDS on 09/19/172046 Last Action: Continued on 12/07/19839 by FLORECITA RENTERIA Tamsulosin Hcl (Tamsulosin Hcl) 0.4 Mg Cap.er.24h, 0.4 MG PO BID, (Reported) Entered as Reported by: QUYNH ANDERSON on 04/05/17238 Last Action: Continued on 12/07/19839 by FLORECITA RENTERIA Topiramate (Topiramate) 100 Mg Tablet, 1 TAB PO DAILY, #60 Ref 1 (Reported) Entered as Reported by: SPARKLE KELLY RN on 04/08/18826 Last Action: Continued on 12/07/19840 by FLORECITA RENTERIA Scheduled PRN Nitroglycerin (NITROGLYCERIN SubLingual) 0.4 Mg Tab.subl, 0.4 MG SL PRN Q5MIN PRN for CHEST PAIN, (Reported) Entered as Reported by: QUYNH ANDERSON on 04/05/17238 Last Action: Continued on 12/07/19839 by FLORECITA RENTERIA Tramadol Hcl (Tramadol Hcl) 50 Mg Tablet, 50 MG PO Q6HRS PRN for PAIN, (Reported) Entered as Reported by: SPARKLE KELLY RN on 04/08/18826 Last Action: Continued on 12/07/19840 by FLORECITA RENTERIA Discontinued Medications Ranitidine Hcl (Ranitidine Hcl) 300 Mg Capsule, 1 CAP PO HS, #30 Ref 3 (Reported) Entered as Reported by: ARIELLA EDWARDS on 09/19/172046 Last Action: HELD on 12/07/19839 by DULCE CATALAN MD December 09, 2019 14:06
--- NOTE | 2019-12-09 15:26 | NUR ---
Discharge Note: ELIAS CALDERON [facility] Discharge instructions and discharge home medications reviewed with patient and a copy given. All questions have been answered and understanding verbalized. The following instructions and handouts were given: Take home meds as directed Speech therapy as outpatient, prescription given to the patient Watch out for new onset weakness, altered sensorium, severe headache, worsening symptoms, call MD. Follow up with PCP in a week. Discontinued lines and drains: peripheral IV intact, patient tolerated removal, no complications noted. Patient discharged to home via wheelchair accompanied by the patient's son at 1515.
--- NOTE | 2019-12-09 16:46 | PDOC ---
Provider Note Provider Note Patient gone. JOHN LOPEZ MD December 09, 2019 16:46
== END 2019-12-09 15:15 | disposition home or self-care (01) | DRG 103 ==
LOC: ER 23:46 → 6 SOUTH 12-07 03:27
PROVIDERS: ADMIT Internal Medicine; ATTEND Internal Medicine
DX: G43.909 Migraine, unspecified, not intractable, without status migrainosus (principal); Z68.34 Body mass index [BMI] 34.0-34.9, adult; E66.9 Obesity, unspecified; E11.9 Type 2 diabetes mellitus without complications; E55.9 Vitamin D deficiency, unspecified; E78.00 Pure hypercholesterolemia, unspecified; E78.5 Hyperlipidemia, unspecified; G60.0 Hereditary motor and sensory neuropathy; I10 Essential (primary) hypertension; I25.10 Atherosclerotic heart disease of native coronary artery without angina pectoris; Z79.02 Long term (current) use of antithrombotics/antiplatelets; Z79.82 Long term (current) use of aspirin; Z79.899 Other long term (current) drug therapy; Z85.118 Personal history of other malignant neoplasm of bronchus and lung; Z86.73 Personal history of transient ischemic attack (TIA), and cerebral infarction without residual deficits; Z90.49 Acquired absence of other specified parts of digestive tract; Z95.0 Presence of cardiac pacemaker; Z95.5 Presence of coronary angioplasty implant and graft; M19.90 Unspecified osteoarthritis, unspecified site; K21.9 Gastro-esophageal reflux disease without esophagitis
CPT/HCPCS: 36415; 70450; 71045; 80048; 80053; 82962; 83735; 84443; 84484; 85025; 85730; 93005; 94640; 94760; G0480; J0780; J3030; J3480; J7030; G0378; J7613; J7626

== ENCOUNTER → 2020-01-26 | Outpatient (CLI) | payer MEDICARE, OTHER ==
[2020-01-26 09:34] LABS: BASO # 0.1 x10^3/uL (0.0-0.2); BASO % 1 % (0-3); EOS # 0.2 x10^3/uL (0.0-0.7); EOS % 4 % (0-3); HEMATOCRIT 35.7 % (39.0-53.0); HEMOGLOBIN 11.6 g/dL (13.0-17.5); LYMPH # 1.4 x10^3/uL (1.0-4.8); LYMPH % 25 % (24-48); MEAN CORPUSCULAR HEMOGLOBIN 24 pg (25-35); MEAN CORPUSCULAR HGB CONC 33 g/dL (31-37); MEAN CORPUSCULAR VOLUME 73 fL (79-100); MONO # 0.6 x10^3/uL (0.0-1.1); MONO % 10 % (0-9); NEUT # 3.3 x10^3/uL (1.8-7.7); NEUT % 60 % (31-73); PLATELET COUNT 238 x10^3/uL (140-400); RED BLOOD COUNT 4.88 x10^6/uL (4.30-5.70); RED CELL DISTRIBUTION WIDTH 17.1 % (11.5-14.5); WHITE BLOOD COUNT 5.5 x10^3/uL (4.0-11.0)
[2020-01-26 09:44] LABS: ALBUMIN 3.3 g/dL (3.4-5.0); ALBUMIN/GLOBULIN RATIO 0.9 (1.0-1.7); CALCIUM 8.2 mg/dL (8.5-10.1); CREATININE 1.1 mg/dL (0.7-1.3); GFR 69.2; POTASSIUM 3.6 mmol/L (3.5-5.1); TOTAL BILIRUBIN 0.3 mg/dL (0.2-1.0); TOTAL PROTEIN 6.9 g/dL (6.4-8.2)
[2020-01-26 09:53] LABS: CHOLESTEROL/HDL RATIO 3.3
== END | disposition home or self-care (01) ==
LOC: LAB 09:09
PROVIDERS: ATTEND Internal Medicine Cardiovascular Disease
DX: R07.9 Chest pain, unspecified (principal)
CPT/HCPCS: 36415; 80053; 80061; 83721; 85025

== ENCOUNTER → 2020-04-06 | Outpatient (CLI) | payer MEDICARE, OTHER ==
[~2020-04-06] MED LIST changes: +ASCO100019 PO; -ASCO10002 PO
--- NOTE | 2020-04-06 10:56 | RAD ---
PQRS Compliance Statement: One or more of the following individualized dose reduction techniques were utilized for this examination: 1. Automated exposure control 2. Adjustment of the mA and/or kV according to patient size 3. Use of iterative reconstruction technique CT CHEST WO CONTRAST 04/06/2020 12:00 AM Indication: Lung cancer; restaging COMPARISON: None available. TECHNIQUE: Multiple axial CT images of the chest were obtained without intravenous contrast. Coronal and sagittal reformats are provided. FINDINGS: Right upper lung wedge resection post surgical changes are identified. No suspicious solid noncalcified pulmonary nodules identified along the resection margin. No evidence for recurrent or residual disease. No pleural effusions, pulmonary vascular congestion or pneumothorax. Subsegmental atelectasis identified in the left lower lobe. Mild bronchial wall thickening compatible with nonspecific bronchitis. There is minus normal in appearance. No pathologically enlarged thoracic lymph nodes are identified. Heart size within normal limits. Left chest wall cardiac device is identified with leads terminating in the right ventricle and right atrium. There is a small to moderate-sized hiatal hernia with mild mucosal thickening. No suspicious osseous abnormality is identified. Simple appearing renal cyst is identified in the superior pole of left kidney stable. IMPRESSION: No evidence for recurrent or residual disease. No pathologically enlarged thoracic lymph nodes are identified. Small moderate size hiatal hernia. Electronically signed by: Radha Ayoub MD (04/06/2020 10:53 AM) [id number]
== END | disposition home or self-care (01) ==
LOC: CT 08:44
PROVIDERS: ATTEND Internal Medicine Critical Care Medicine
DX: C34.90 Malignant neoplasm of unspecified part of unspecified bronchus or lung (principal); J98.11 Atelectasis; K44.9 Diaphragmatic hernia without obstruction or gangrene; N28.1 Cyst of kidney, acquired
CPT/HCPCS: 71250

== ENCOUNTER → 2020-10-19 | Outpatient (CLI) | payer MEDICARE, MEDICAID ==
[2020-07-26 11:15] VITALS: BP 140/74
[~2020-10-19] MED LIST changes: +AMLO-187 PO; -AMLO10TA8 PO; +AMOX1TAB58 PO; +AZIT500T4 PO; -ISOS30TA4 PO; +ISOS30TA68 PO; +REGADENOSON 0.4 MG/5 ML DISP.SYRIN. IV ONE
--- NOTE | 2020-10-19 15:51 | RAD ---
MR#: [id number] Date of Study: 10/19/2020 Ordering Physician: ERNESTO VELAZQUEZ, Referring Physician: RADHA DAWN Tech: KRUNAL Dang, ARRT (R) (N) APPROVED REPORT Test Type: Pharmacological Stress Nurse/Tech: FABIO HALE Test Indications: CAD Cardiac History: CAD, PPM, STENT- SEE EMR Medications: SEE EMR Medical History: SEE EMR Resting ECG: SR Resting Heart Rate: 78 bpm Resting Blood Pressure: 154/87mmHg Pretest Chest Pain: No chest pain Nurse/Tech Notes PPM NOTED, V-PACED W/ PVC'S NOTED ON EKG, DENIED CP OR SOA, VSS. Consent: The procedure was explained to the patient in lay terms. Informed consent was witnessed. Wilmer eout was entered into State of [employer]. History and Stress Test performed by RT Dalila OlviaR) (N) Pharm. Details Pharmacologic stress testing was performed using 0.4mg per 5ml of regadenoson given intravenously ove r 7-10 seconds. Stress Symptoms PT C/O SOA DURING THE FIRST COUPLE MINUTES OF TESTING, THEN SYMPTOMS RESOLVED. VSS. NO OTHER COMPLAIN TS. POST EXERCISE Reason for Termination: Infusion complete Max HR: 111 bpm Max Blood Pressure: 159/76mmHg Blood Pressure response to exercise: Normal blood pressure response during stress. Heart Rate response to exercise: NORMAL HEART RATE RESPONSE DURING STRESS Chest Pain: No. Arrhythmia: . PVC'S NOTED ST Change: No. INTERPRETATION Stress EKG Conclusion: Baseline EKG showed sinus rhythm. No ischemic changes at peak stress. No arr hythmias. Imaging Protocol IMAGE PROTOCOL: Rest Tc-99m/stress Tc-99m 1 day Rest: Stress: Viability: Radiopharm.Tc99m QpnxykmbhHe95k Sestamibi Dose10.8mCi 31mCi Img Date 10/19/2020 10/19/2020 Inj-Img [id number]. 60min. Rest Admin Site:IV - Right AntecubitalAdministrator:RT Dalila OlivaR)(N) Stress Admin Site: IV - Right AntecubitalAdministrator: Evon Price, RT (R)(N) STRESS DATA End Diast. Vol.88.0mlAv. Heart Rate86.0bpm End Syst. Vol.16.0mlCO Index BSA0.0L/min Myocardial Tbkx292.0gEject. Lmujetik43.0% Stress Rates Pk. Fill Rate4.94EDV/secLVtime Pk. Fill 182.68msec Pk. Empty Rate5.54ESV/secLVtime Pk. Jrykr922.29msec 08/01 Pk. Fill1.52EDV/sec Stress Scores Regional WT1.00Summed WT9.00 Regional WM0.00Summed WM0.00 Study quality was good. Left Ventricular size was Normal at Rest and Stress. Lung uptake was . Left Ventricular ejection fraction is 82%. The rest and stress images show normal perfusion, normal contraction and thickening. LV Perf. Quant 17 Seg. SSS0.00 17 Seg. SRS0.00 17 Seg. SDS0.00 Stress Defect Extent (% LAD)0.00Rest Defect Extent (% LAD)0.00Rev. Defect Extent (% LAD)0.00 Stress Defect Extent (% LCX) 0.00Rest Defect Extent (% LCX)0.00Rev. Defect Extent (% LCX)0.00 Stress Defect Extent (% RCA)0.00Rest Defect Extent (% RCA)0.00Rev. Defect Extent (% RCA)0.00 Stress Defect Extent (% SORAYA)0.00Rest Defect Extent (% SORAYA)0.00Rev. Defect Extent (% SORAYA)0.00 Conclusion 1. Regadenoson cardioisotope stress test did not show any evidence of ischemia or infarct. 2. Normal left ventricular systolic function with ejection fraction calculated at 82%. 3. Low risk for cardiac events. Signed by : Gautam Vega, Electronically Approved : 10/19/2020 15:51:00
== END ==
LOC: NM 09:20
PROVIDERS: ATTEND Internal Medicine Cardiovascular Disease
DX: I10 Essential (primary) hypertension (principal); I25.10 Atherosclerotic heart disease of native coronary artery without angina pectoris; Z95.5 Presence of coronary angioplasty implant and graft
CPT/HCPCS: 78452; 93017; A9500; J2785

== ENCOUNTER 2020-11-23 16:16 | Inpatient (IN) | payer MEDICARE, MEDICAID ==
[~2020-11-23] VITALS: Ht 167.6 cm; Wt 103.5 kg
[~2020-11-23 16:16] MED LIST changes: -IOHEXOL 240 MG/ML 50ML VIAL. PO ONE; -IOHEXOL 300 MG/ML 100ML VIAL. IV ONE; -OMEP40CA45 PO; +OMEP40CA7 PO
[2020-11-23] MEDS ORDERED: IV NORMAL SALINE 1000ML BAG 1,000 ML IV SCH (16:45)
--- NOTE | 2020-11-23 16:56 | EKG ---
[facility] [address] [place] [address] Test Date: 2020-11-23 Test Time: 16:36:03 Pat Name: OSMAN CALDERON Department: Room: Gender: M [employer]: : [phone] Requested By: WENDY NI Order Number: [id number] Reading MD: Measurements Intervals Rogers Rate: 103 P: 44 ID: [id number] QRS: 82 QRSD: 98 T: 11 QT: 348 QTc: 458 Interpretive Statements SINUS TACHYCARDIA VENTRICULAR PREMATURE COMPLEX(ES) QRS(T) CONTOUR ABNORMALITY CONSIDER ANTEROSEPTAL MYOCARDIAL DAMAGE ABNORMAL ECG RI6.01 No previous ECG available for comparison
--- NOTE | 2020-11-23 16:57 | RAD ---
CT STROKE HEAD W/O History: Reason: AMS, PT HAD CONTRAST CT EARLIER TODAY / Spl. Instructions: / History: Comparison: None. Technique: Noncontrast CT imaging was performed of the head. Exposure: One or more of the following individualized dose reduction techniques were utilized for thi s examination: 1. Automated exposure control 2. Adjustment of the mA and/or kV according to patient size 3. Use of iterative reconstruction technique. Findings: No intracranial hemorrhage. No mass effect. No hydrocephalus. Punctate calcification within the right frontal region sulcus, may relate to prior microhemorrhage em bolus. Imaged orbits are unremarkable. Imaged paranasal sinuses and mastoid air cells are clear. No acute ca lvarial fracture. Impression: 1. No acute intracranial abnormality. FOR INTERNAL CODING PURPOSES Critical result: Findings discussed with Dr. Jacobs at 11/23/2020 4:51 PM. RESULT CODE: (C) Electronically signed by: Dylan Umana DO (11/23/2020 4:55 PM) [id number]
[2020-11-23 17:03] LABS: BASO # 0.1 x10^3/uL (0.0-0.2); BASO % 0 % (0-3); EOS # 0.2 x10^3/uL (0.0-0.7); EOS % 1 % (0-3); HEMATOCRIT 32.9 % (39.0-53.0); HEMOGLOBIN 10.5 g/dL (13.0-17.5); LYMPH # 0.4 x10^3/uL (1.0-4.8); LYMPH % 3 % (24-48); MEAN CORPUSCULAR HEMOGLOBIN 20 pg (25-35); MEAN CORPUSCULAR HGB CONC 32 g/dL (31-37); MEAN CORPUSCULAR VOLUME 63 fL (79-100); MONO # 0.6 x10^3/uL (0.0-1.1); MONO % 4 % (0-9); NEUT # 12.8 x10^3/uL (1.8-7.7); NEUT % 91 % (31-73); PLATELET COUNT 240 x10^3/uL (140-400); RED BLOOD COUNT 5.22 x10^6/uL (4.30-5.70); RED CELL DISTRIBUTION WIDTH 18.7 % (11.5-14.5)
[2020-11-23 17:13] LABS: PROTHROMBIN TIME PATIENT 13.8 SEC (11.7-14.0)
[2020-11-23 17:21] LABS: CALCIUM 8.3 mg/dL (8.5-10.1); POTASSIUM 3.8 mmol/L (3.5-5.1)
[2020-11-23 17:25] LABS: MAGNESIUM 2.1 mg/dL (1.8-2.4)
--- NOTE | 2020-11-23 17:28 | RAD ---
EXAM: AP View of the chest DATE: 11/23/2020 5:13 PM INDICATION: Altered mental status COMPARISON: 07/23/2020 12/07/2019 FINDINGS: The heart is not enlarged. Mediastinal and hilar contours are stable. Cardiac generator pack obscures a portion of the left chest with leads in stable position. Patchy opacities left lung base likely atelectasis or developing consolidation. No pleural effusion or pneumothorax. IMPRESSION: Patchy opacities left lung base likely atelectasis or developing consolidation. Electronically signed by: Jake Jones MD (11/23/2020 5:26 PM) ORQUIDEA
[2020-11-23] MEDS ORDERED: AZITHRMYCN 500MG IVPB FOR OMNI 250 ML IV ONE (17:45)
[2020-11-23] MEDS ORDERED: cefTRIAXone IV Push 1 GM VIAL. IVP ONE (17:45)
--- NOTE | 2020-11-23 17:57 | PHYS DOC ---
Past Medical History Past Medical History: Cancer, CVA, Diabetes-Type II, High Cholesterol, Hypertension, Seizure, Stroke, Other Additional Past Medical Histor: Neuropathy, Hernia, encephalopathy, LUNG CANCER Past Surgical History: Appendectomy, Cholecystectomy, Pacemaker, Other Additional Past Surgical Histo: hernia, RLL LOBECTOMY Smoking Status: Never Smoker Alcohol Use: None Drug Use: None Adult General Chief Complaint Chief Complaint: ALTERED MENTAL STATUS [facility] HPI Patient is a 55 year old male with an extensive past medical history which does include hypertension, hyperlipidemia, diabetes, prior CVA, seizure disorder now presents emergency department for reported altered mental status. Patient was reportedly undergoing oral contrast CT to evaluate for hiatal hernia and possible need for surgical repair when he became unresponsive and was not talking. No seizure-like activity or convulsions. Patient was breathing the entire time and never became hypoxic. No other specific changes. No reported recent illness or sick contacts. Patient is not providing any history. Review of Systems Review of Systems Constitutional: Denies fever or chills [] Eyes: Denies change in visual acuity, redness, or eye pain [] HENT: Denies nasal congestion or sore throat [] Respiratory: Denies cough or shortness of breath [] Cardiovascular: No additional information not addressed in HPI [] GI: Denies abdominal pain, nausea, vomiting, bloody stools or diarrhea [] : Denies dysuria or hematuria [] Musculoskeletal: Denies back pain or joint pain [] Integument: Denies rash or skin lesions [] Neurologic: Denies headache, focal weakness or sensory changes [] Endocrine: Denies polyuria or polydipsia [] All other systems were reviewed and found to be within normal limits, except as documented in this note. Current Medications Current Medications Current Medications Medications (Trade) Dose Ordered Sig/Rambo Start Time Stop Time Status Last Admin Dose Admin Acetaminophen (Tylenol) 650 mg PRN Q4HRS PRN 11/23/20 18:30 Aspirin (Ecotrin) 81 mg DAILY 11/24/20 09:00 Atorvastatin Calcium (Lipitor) 40 mg QHS 11/23/20 21:00 Azithromycin 250 ml @ 250 mls/hr 1X ONCE 11/23/20 17:45 11/23/20 18:44 11/23/20 18:04 250 MLS/HR Ceftriaxone Sodium (Rocephin) 1 gm 1X ONCE 11/23/20 17:45 11/23/20 17:46 DC 11/23/20 18:03 1 GM Clopidogrel Bisulfate (Plavix) 75 mg DAILY 11/24/20 09:00 Enoxaparin Sodium (Lovenox 40mg Syringe) 40 mg Q24H 11/23/20 21:00 Gabapentin (Neurontin) 600 mg TID 11/23/20 21:00 Guaifenesin (Robitussin Dm) 10 ml PRN Q6HRS PRN 11/23/20 18:30 Nitroglycerin (Nitrostat) 0.4 mg PRN Q5MIN PRN 11/23/20 18:30 Nortriptyline HCl (Pamelor) 10 mg QHS 11/23/20 21:00 Ondansetron HCl (Zofran Odt) 4 mg PRN Q6HRS PRN 11/23/20 18:30 Ondansetron HCl (Zofran) 4 mg PRN Q4HRS PRN 11/23/20 18:30 Pantoprazole Sodium (Protonix) 40 mg BIDAC 11/23/20 21:00 Sodium Chloride 1,000 ml @ 1,000 mls/hr Q1H 11/23/20 16:45 11/23/20 17:44 DC 11/23/20 17:16 1,000 MLS/HR Tamsulosin HCl (Flomax) 0.4 mg BID 11/23/20 21:00 Allergies Allergies Allergies Coded Allergies Type Severity Reaction Last Updated Verified No Known Drug Allergies 07/24/20 No Physical Exam Physical Exam Constitutional: Well developed, well nourished, no acute distress, non-toxic appearance. [] HENT: Normocephalic, atraumatic, bilateral external ears normal, oropharynx moist, no oral exudates, nose normal. [] Eyes: PERRLA, EOMI, conjunctiva normal, no discharge. [] Neck: Normal range of motion, no tenderness, supple, no stridor. [] Cardiovascular:Heart rate regular rhythm, no murmur [] Lungs & Thorax: Bilateral breath sounds clear to auscultation [] Abdomen: Bowel sounds normal, soft, no tenderness, no masses, no pulsatile masses. [] Skin: Warm, dry, no erythema, no rash. [] Back: No tenderness, no CVA tenderness. [] Extremities: No tenderness, no cyanosis, no clubbing, ROM intact, no edema. [] Neurologic: Patient nonverbal, moving all extremities equally. [] Psychologic: Patient nonverbal [] Current Patient Data Vital Signs Vital Signs Date Time Temp Pulse Resp B/P (MAP) Pulse Ox O2 Delivery O2 Flow Rate FiO2 11/23/20 16:28 100.2 105 19 114/77 (89) 93 Room Air 100.2 Lab Values Laboratory Tests Test 11/23/20 16:32 11/23/20 16:53 Glucose (Fingerstick) 131 mg/dL (70-99) H White Blood Count 14.0 x10^3/uL (4.0-11.0) H Red Blood Count 5.22 x10^6/uL (4.30-5.70) Hemoglobin 10.5 g/dL (13.0-17.5) L Hematocrit 32.9 % (39.0-53.0) L Mean Corpuscular Volume 63 fL (79-100) L Mean Corpuscular Hemoglobin 20 pg (25-35) L Mean Corpuscular Hemoglobin Concent 32 g/dL (31-37) Red Cell Distribution Width 18.7 % (11.5-14.5) H Platelet Count 240 x10^3/uL (140-400) Neutrophils (%) (Auto) 91 % (31-73) H Lymphocytes (%) (Auto) 3 % (24-48) L Monocytes (%) (Auto) 4 % (0-9) Eosinophils (%) (Auto) 1 % (0-3) Basophils (%) (Auto) 0 % (0-3) Neutrophils # (Auto) 12.8 x10^3/uL (1.8-7.7) H Lymphocytes # (Auto) 0.4 x10^3/uL (1.0-4.8) L Monocytes # (Auto) 0.6 x10^3/uL (0.0-1.1) Eosinophils # (Auto) 0.2 x10^3/uL (0.0-0.7) Basophils # (Auto) 0.1 x10^3/uL (0.0-0.2) Platelet Estimate Pending Prothrombin Time 13.8 SEC (11.7-14.0) Prothrombin Time INR 1.1 (0.8-1.1) Activated Partial Thromboplast Time 30 SEC (24-38) Sodium Level 142 mmol/L (136-145) Potassium Level 3.8 mmol/L (3.5-5.1) Chloride Level 104 mmol/L (98-107) Carbon Dioxide Level 25 mmol/L (21-32) Anion Gap 13 (6-14) Blood Urea Nitrogen 22 mg/dL (8-26) Creatinine 1.0 mg/dL (0.7-1.3) Estimated GFR (Cockcroft-Gault) 77.0 Glucose Level 129 mg/dL (70-99) H Lactic Acid Level 1.2 mmol/L (0.4-2.0) Calcium Level 8.3 mg/dL (8.5-10.1) L Magnesium Level 2.1 mg/dL (1.8-2.4) Ammonia 18 mcmol/L (11-34) Creatine Kinase 264 U/L (39-308) Troponin I Quantitative < 0.017 ng/mL (0.000-0.055) DV-Mez-S-Type Natriuretic Peptide 37 pg/mL (0-124) Laboratory Tests 11/23/20 16:53 Laboratory Tests 11/23/20 16:53 EKG EKG [] Radiology/Procedures Radiology/Procedures [] Course & Med Decision Making Course & Med Decision Making Pertinent Labs and Imaging studies reviewed. (See chart for details) 55M with history presenting with altered mental status and nonverbal however the patient quickly became more arousable speaking intermittently. After discussing with the staff the patient is well known for having episodes of psychogenic seizure-like episodes and nonverbal. No significant derangements in vital signs other than a mildly elevated temperature to raise concern for underlying infectious etiology could be causing some metabolic encephalopathy. Will obtain a full work-up as well as a CT of the head to make sure there is no intracranial etiology evaluate for other life-threatening illnesses. CT of the head normal however the patient was noted to have an elevated white blood cell count at 14 with a fever and chest x-ray does demonstrate pneumonia. Because of this coupled with the altered mental status I do feel the patient would warrant admission for IV antibiotics for community-acquired pneumonia. Dragon Disclaimer Dragon Disclaimer This electronic medical record was generated, in whole or in part, using a voice recognition dictation system. Departure Departure Impression: Primary Impression: CAP (community acquired pneumonia) Disposition: 09 ADMITTED INPATIENT Condition: GOOD Referrals: HOLA ALDRIDGE MD (PCP) WENDY NI MD Nov 23, 2020 17:57
--- NOTE | 2020-11-23 18:03 | PDOC1 ---
History and Physical Date of Admission Date of Admission DATE: 11/23/20 TIME: 18:02 Identification/Chief Complaint Chief Complaint Altered mental status Source Source: Caregiver, Chart review, Patient History of Present Illness History of Present Illness Mr Delgado is a 54 yo M w/ PMHx CAD s/p LAD stenting 12/2017, HLD, Evwcohq-Zwjuu-Xcfec disease, peripheral neuropathy, GERD, OA, s/p PPM presents to the ED from CT scan with reported altered mental status. Patient was undergoing oral contrast CT when he became unresponsive and was not talking. No seizure-like activity or convulsions. Patient was breathing the entire time and never became hypoxic. No other specific changes. No reported recent illness or sick contacts. Patient is not providing any history and his son is bedside to relate his father is going through pre-operative assessment for consideration of surgical repair for noted hiatal and ventral incisional hernia. He had a cardiac stress test with MPI on 10/17/20 that was low risk for ischemia. His son does note he has had a cough for the past few days, no fevers and no sick contacts. He has had both COVID 19 vaccines. He is confused, stuttering. His son does note that his father has been more confused over the past 3-5 days. Labs reveal WBC 14 with left shift, Hb 10.5, platelets 240, troponin 0, BNP 37, lactate WNL, metabolic panel within normal laboratory limits CT head with no acute abnormalities. Chest radiograph with left lower lobe infiltrate. Admitted for further treatment Past Medical History Cardiovascular: CAD, Syncope, Hyperlipidemia Pulmonary: Other CENTRAL NERVOUS SYSTEM: CVA, Periperal neuropathy GI: Constipation, GERD, Other Heme/Onc: No pertinent hx Hepatobiliary: No pertinent hx Psych: No pertinent hx Musculoskeletal: Osteoarthritis Rheumatologic: No pertinent hx Infectious disease: No pertinent hx Renal/: No pertinent hx Endocrine: No pertinent hx Past Surgical History Past Surgical History: Pacemaker, Appendectomy, Cholecystectomy, Hernia Repair, Other Family History Family History: Cancer Social History Smoke: No ALCOHOL: none Drugs: None Current Problem List Problem List Problems Medical Problems: (1) CAP (community acquired pneumonia) Status: Acute Current Medications Current Medications Current Medications Sodium Chloride 1,000 ml @ 1,000 mls/hr Q1H IV Last administered on 11/23/20at 17:16; Start 11/23/20 at 16:45; Stop 11/23/20 at 17:44; Status DC Ceftriaxone Sodium (Rocephin) 1 gm 1X ONCE IVP ; Start 11/23/20 at 17:45; Stop 11/23/20 at 17:46; Status DC Azithromycin 250 ml @ 250 mls/hr 1X ONCE IV ; Start 11/23/20 at 17:45; Stop 11/23/20 at 18:44 Active Scripts Active Azithromycin Tablet (Azithromycin) 500 Mg Tablet 1 Tab PO DAILY 3 Days Augmentin 500-125 Tablet (Amoxicillin/Potassium Clav) 1 Each Tablet 1 Tab PO BID 3 Days Ondansetron Odt (Ondansetron) 4 Mg Tab.rapdis 1 Tab PO PRN Q6-8HRS Atorvastatin Calcium 40 Mg Tablet 40 Mg PO QHS 30 Days Losartan-Hctz 100-12.5 Mg Tab (Losartan/Hydrochlorothiazide) 1 Each Tablet 1 Tab PO DAILY 30 Days Adult Low Dose Aspirin Ec (Aspirin) 81 Mg Tablet.dr 81 Mg PO DAILY Omeprazole 40 Mg Capsule.dr 1 Cap PO BID Reported Symbicort 160-4.5 Mcg Inhaler (Budesonide/Formoterol Fumarate) 10.2 Gm Hfa.aer.ad 2 Puff IH BID Topiramate 100 Mg Tablet 1 Tab PO DAILY Tramadol Hcl 50 Mg Tablet 50 Mg PO Q6HRS PRN Nortriptyline Hcl 10 Mg Capsule 1 Cap PO QHS Clopidogrel (Clopidogrel Bisulfate) 75 Mg Tablet 75 Mg PO DAILY Vitamin D3 (Cholecalciferol (Vitamin D3)) 5,000 Unit Tablet 1 Tab PO TID Vitamin C (Ascorbic Acid) 1,000 Mg Tablet 1,000 Mg PO DAILY Carafate (Sucralfate) 1 Gm Tablet 1 Tab PO QID Tamsulosin Hcl 0.4 Mg Cap.er.24h 0.4 Mg PO BID NITROGLYCERIN SubLingual (Nitroglycerin) 0.4 Mg Tab.subl 0.4 Mg SL PRN Q5MIN PRN Gabapentin 600 Mg Tablet 1 Tab PO TID next dose tonight at bedtime, 10/30/15 Allergies Allergies: Coded Allergies: No Known Drug Allergies (Unverified , 07/24/20) ROS Review of System Unable to accurately obtain due to patient confusion and stuttering Physical Exam General: Cooperative, mild distress HEENT: Atraumatic, PERRLA, EOMI, Mucous membr. moist/pink Lungs: Other (left basilar crackles) Heart: S1S2, RRR, no thrills, no rubs, no gallops, no murmurs Abdomen: Normal bowel sounds, Soft, No tenderness, No hepatosplenomegaly, No masses Extremities: No clubbing, No cyanosis, No edema, Normal pulses, No tenderness/swelling Skin: No rashes, No breakdown, No significant lesion Neuro: Normal tone, Cranial nerves 3-12 NL, Reflexes 2+, Other (follows commands, no focal weakness, bilateral sensation loss to fine pinprick in feet) Psych/Mental Status: Other (Confused , stuttering) Vitals Vitals Vital Signs Date Time Temp Pulse Resp B/P (MAP) Pulse Ox O2 Delivery O2 Flow Rate FiO2 11/23/20 16:28 100.2 105 19 114/77 (89) 93 Room Air 100.2 Labs Labs Laboratory Tests Test 11/23/20 16:32 11/23/20 16:53 Glucose (Fingerstick) 131 mg/dL (70-99) White Blood Count 14.0 x10^3/uL (4.0-11.0) Red Blood Count 5.22 x10^6/uL (4.30-5.70) Hemoglobin 10.5 g/dL (13.0-17.5) Hematocrit 32.9 % (39.0-53.0) Mean Corpuscular Volume 63 fL (79-100) Mean Corpuscular Hemoglobin 20 pg (25-35) Mean Corpuscular Hemoglobin Concent 32 g/dL (31-37) Red Cell Distribution Width 18.7 % (11.5-14.5) Platelet Count 240 x10^3/uL (140-400) Neutrophils (%) (Auto) 91 % (31-73) Lymphocytes (%) (Auto) 3 % (24-48) Monocytes (%) (Auto) 4 % (0-9) Eosinophils (%) (Auto) 1 % (0-3) Basophils (%) (Auto) 0 % (0-3) Neutrophils # (Auto) 12.8 x10^3/uL (1.8-7.7) Lymphocytes # (Auto) 0.4 x10^3/uL (1.0-4.8) Monocytes # (Auto) 0.6 x10^3/uL (0.0-1.1) Eosinophils # (Auto) 0.2 x10^3/uL (0.0-0.7) Basophils # (Auto) 0.1 x10^3/uL (0.0-0.2) Prothrombin Time 13.8 SEC (11.7-14.0) Prothromb Time International Ratio 1.1 (0.8-1.1) Activated Partial Thromboplast Time 30 SEC (24-38) Sodium Level 142 mmol/L (136-145) Potassium Level 3.8 mmol/L (3.5-5.1) Chloride Level 104 mmol/L (98-107) Carbon Dioxide Level 25 mmol/L (21-32) Anion Gap 13 (6-14) Blood Urea Nitrogen 22 mg/dL (8-26) Creatinine 1.0 mg/dL (0.7-1.3) Estimated GFR (Cockcroft-Gault) 77.0 Glucose Level 129 mg/dL (70-99) Lactic Acid Level 1.2 mmol/L (0.4-2.0) Calcium Level 8.3 mg/dL (8.5-10.1) Magnesium Level 2.1 mg/dL (1.8-2.4) Ammonia 18 mcmol/L (11-34) Creatine Kinase 264 U/L (39-308) Troponin I Quantitative < 0.017 ng/mL (0.000-0.055) EM-Chw-C-Type Natriuretic Peptide 37 pg/mL (0-124) Laboratory Tests Test 11/23/20 16:32 11/23/20 16:53 Glucose (Fingerstick) 131 mg/dL (70-99) White Blood Count 14.0 x10^3/uL (4.0-11.0) Red Blood Count 5.22 x10^6/uL (4.30-5.70) Hemoglobin 10.5 g/dL (13.0-17.5) Hematocrit 32.9 % (39.0-53.0) Mean Corpuscular Volume 63 fL (79-100) Mean Corpuscular Hemoglobin 20 pg (25-35) Mean Corpuscular Hemoglobin Concent 32 g/dL (31-37) Red Cell Distribution Width 18.7 % (11.5-14.5) Platelet Count 240 x10^3/uL (140-400) Neutrophils (%) (Auto) 91 % (31-73) Lymphocytes (%) (Auto) 3 % (24-48) Monocytes (%) (Auto) 4 % (0-9) Eosinophils (%) (Auto) 1 % (0-3) Basophils (%) (Auto) 0 % (0-3) Neutrophils # (Auto) 12.8 x10^3/uL (1.8-7.7) Lymphocytes # (Auto) 0.4 x10^3/uL (1.0-4.8) Monocytes # (Auto) 0.6 x10^3/uL (0.0-1.1) Eosinophils # (Auto) 0.2 x10^3/uL (0.0-0.7) Basophils # (Auto) 0.1 x10^3/uL (0.0-0.2) Prothrombin Time 13.8 SEC (11.7-14.0) Prothromb Time International Ratio 1.1 (0.8-1.1) Activated Partial Thromboplast Time 30 SEC (24-38) Sodium Level 142 mmol/L (136-145) Potassium Level 3.8 mmol/L (3.5-5.1) Chloride Level 104 mmol/L (98-107) Carbon Dioxide Level 25 mmol/L (21-32) Anion Gap 13 (6-14) Blood Urea Nitrogen 22 mg/dL (8-26) Creatinine 1.0 mg/dL (0.7-1.3) Estimated GFR (Cockcroft-Gault) 77.0 Glucose Level 129 mg/dL (70-99) Lactic Acid Level 1.2 mmol/L (0.4-2.0) Calcium Level 8.3 mg/dL (8.5-10.1) Magnesium Level 2.1 mg/dL (1.8-2.4) Ammonia 18 mcmol/L (11-34) Creatine Kinase 264 U/L (39-308) Troponin I Quantitative < 0.017 ng/mL (0.000-0.055) IH-Znd-H-Type Natriuretic Peptide 37 pg/mL (0-124) Images Images Chest radiograph: The heart is not enlarged. Mediastinal and hilar contours are stable. Cardiac generator pack obscures a portion of the left chest with leads in stable position. Patchy opacities left lung base likely atelectasis or developing consolidation. No pleural effusion or pneumothorax. IMPRESSION: Patchy opacities left lung base likely atelectasis or developing consolidation. Head CT: No intracranial hemorrhage. No mass effect. No hydrocephalus. Punctate calcification within the right frontal region sulcus, may relate to prior microhemorrhage embolus. Imaged orbits are unremarkable. Imaged paranasal sinuses and mastoid air cells are clear. No acute calvarial fracture. Impression: 1. No acute intracranial abnormality. VTE Prophylaxis Ordered VTE Prophylaxis Devices: Yes VTE Pharmacological Prophylaxi: Yes Assessment/Plan Assessment/Plan A/P: Acute encephalopathy - likely from pneumonia. Concerning he has had this same issue previously. 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 Cont PPI BID OA - stable. Will watch tramadol dosing given his confusion SSS s/p PPM - leads appear in good position on CXR Dm2 - A1c 6 with diet control Obesity, BMI 36 - counseled family on lifestyle modification CAD, s/p stent to LAD in 2018 - normal MPI in september 2020 FEN - Cardiac diet PPX - lovenox FULL CODE Dispo - inpatient. Surrogate decision maker is Edel Delgado, daughter COVID-19 CRITERIA: The patient was evaluated during the global COVID-19 pandemic, and that diagnosis was suspected/considered upon their initial presentation. Their evaluation, treatment and testing was consistent with current guidelines for patients who present with complaints or symptoms that may be related to COVID-19. Justifications for Admission Other Justification investigation for COVID DULCE DAVID MD Nov 23, 2020 18:02
[2020-11-23] MEDS ORDERED: ONDANSETRON ODT 4 MG TAB.RAPDIS. PO PRN (18:30)
[2020-11-23] MEDS ORDERED: ACETAMINOPHEN 325 MG TABLET. PO PRN (18:30)
[2020-11-23] MEDS ORDERED: NITROGLYCERIN SUBLINGUAL 0.4 MG BOTTLE OF 25. SL PRN (18:30)
[2020-11-23] MEDS ORDERED: ONDANSETRON PF 4 MG/2 ML VIAL. IV PRN (18:30)
[2020-11-23] MEDS ORDERED: guaiFENesin DM 200MG/20MG 10 ML SYRUP PO PRN (18:30)
[2020-11-23 18:40] LABS: % BANDS 6 % (0-9); % EOS 1 % (0-5); % LYMPHS 6 % (24-48); % MONOS 5 % (0-10); % SEGS 82 % (35-66); PLT ESTIMATE ADEQUATE (ADEQUATE)
[2020-11-23 18:59] LABS: ANISOCYTOSIS SLIGHT; HYPOCHROMIA MOD; MICROCYTOSIS MARKED; OVALOCYTES FEW; POIKILOCYTOSIS SLIGHT; SCHISTOCYTES FEW
[2020-11-23] MEDS: GABAPENTIN 300 MG CAPSULE. PO SCH (21:00)
[2020-11-23] MEDS: PANTOPRAZOLE 40 MG TABLET.DR. PO SCH (21:00)
[2020-11-23] MEDS: ATORVASTATIN CALCIUM 40 MG TABLET. PO SCH (21:00)
[2020-11-23] MEDS: TAMSULOSIN 0.4 MG CAP.ER.24H. PO SCH (21:00)
[2020-11-23] MEDS: NORTRIPTYLINE 10 MG CAPSULE PO SCH (21:00)
[2020-11-23 23:04] VITALS: BP 121/59
[2020-11-23] MEDS: ENOXAPARIN 40 MG/0.4 ML SYRINGE. SQ SCH (23:19)
--- NOTE | 2020-11-24 02:20 | NUR ---
The patient, OSMAN CALDERON, 55 y/o, M admitted by DULCE DAVID MD,pt assist to bed with 1pa. pt moving all extremities, weakness noted to left side. nih scale 7. pt able to answer yes or no questions. pt noted to stutter while talking. Pt was given written information regarding hospital policies, unit procedures and contact persons. Dr Gandara notified of pt admit will cont to monitor pt status and safety. pmrn
[2020-11-24 02:49] VITALS: BP 116/45
[2020-11-24 05:35] LABS: BASO % 0 % (0-3); EOS # 0.2 x10^3/uL (0.0-0.7); EOS % 3 % (0-3); HEMATOCRIT 30.3 % (39.0-53.0); HEMOGLOBIN 9.6 g/dL (13.0-17.5); LYMPH # 0.7 x10^3/uL (1.0-4.8); LYMPH % 9 % (24-48); MEAN CORPUSCULAR HEMOGLOBIN 20 pg (25-35); MEAN CORPUSCULAR HGB CONC 32 g/dL (31-37); MEAN CORPUSCULAR VOLUME 63 fL (79-100); MONO # 0.7 x10^3/uL (0.0-1.1); MONO % 9 % (0-9); NEUT # 5.8 x10^3/uL (1.8-7.7); NEUT % 78 % (31-73); PLATELET COUNT 206 x10^3/uL (140-400); RED BLOOD COUNT 4.81 x10^6/uL (4.30-5.70); RED CELL DISTRIBUTION WIDTH 18.7 % (11.5-14.5); WHITE BLOOD COUNT 7.5 x10^3/uL (4.0-11.0)
[2020-11-24 06:12] LABS: CHOLESTEROL/HDL RATIO 3.4
[2020-11-24 06:14] LABS: CALCIUM 8.2 mg/dL (8.5-10.1); CREATININE 0.8 mg/dL (0.7-1.3); GFR 99.6; POTASSIUM 3.3 mmol/L (3.5-5.1); TOTAL BILIRUBIN 0.9 mg/dL (0.2-1.0); TOTAL PROTEIN 6.1 g/dL (6.4-8.2)
[2020-11-24 07:00] VITALS: BP 106/62
--- NOTE | 2020-11-24 08:51 | PDOC ---
PROGRESS NOTES Date of Service: DATE: 11/24/20 TIME: 08:50 Chief Complaint Chief Complaint VTE Prophylaxis Ordered VTE Prophylaxis Devices: Yes VTE Pharmacological Prophylaxi: Yes Assessment/Plan Assessment/Plan A/P: Acute encephalopathy - likely from pneumonia. Concerning he has had this same issue previously. 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 Cont PPI BID OA - stable. Will watch tramadol dosing given his confusion SSS s/p PPM - leads appear in good position on CXR Dm2 - A1c 6 with diet control HYPOKALEMIA Obesity, BMI 50 - counseled family on lifestyle modification CAD, s/p stent to LAD in 2017 - normal MPI in september 2020 conversion disorder. Patient admits that he has been under some stress. acute hypoxic resp failure PLAN FEN - Cardiac diet PPX - lovenox FULL CODE Dispo - inpatient. Surrogate decision maker is Edel Delgado, daughter NANCY Baptiste CTA HEAD , NECK 11-24 NEUROLOGY CONSULT mri HEAD ECHO Pacemaker is NOT MRI conditional could go to or [facility] if necessary CONTINUE IV ROCEPHIN 1 GM Q 24 HRS IV D/W RN 39 MIN pt exam, chart review,> 50% of time spent with exam, chart review, pt care coordination During scan yesterday 11-22 , patient became unresponsive and was unable to talk. Patient has a history of PPM implantation, neurology consulted COVID-19 CRITERIA: The patient was evaluated during the global COVID-19 pandemic, and that diagnosis was suspected/considered upon their initial presentation. Their evaluation, treatment and testing was consistent with current guidelines for patients who present with complaints or symptoms that may be related to COVID-19. COVID NEG Justifications for Admission Justifications for Admission Other Justification investigation for COVID History of Present Illness History of Present Illness istory of Present Illness Mr Delgado is a 54 yo M w/ PMHx CAD s/p LAD stenting 12/2017, HLD, Fvmufqo-Saleh-Angqs disease, peripheral neuropathy, GERD, OA, s/p PPM presents to the ED from CT scan with reported altered mental status. Patient was undergoing oral contrast CT when he became unresponsive and was not talking. No seizure-like activity or convulsions. Patient was breathing the entire time and never became hypoxic. No other specific changes. No reported recent illness or sick contacts. Patient is not providing any history and his son is bedside to relate his father is going through pre-operative assessment for consideration of surgical repair for noted hiatal and ventral incisional hernia. He had a cardiac stress test with MPI on 10/17/20 that was low risk for ischemia. His son does note he has had a cough for the past few days, no fevers and no sick contacts. He has had both COVID 19 vaccines. He is confused, stuttering. His son does note that his father has been more confused over the past 3-5 days. Labs reveal WBC 14 with left shift, Hb 10.5, platelets 240, troponin 0, BNP 37, lactate WNL, metabolic panel within normal laboratory limits CT head with no acute abnormalities. Chest radiograph with left lower lobe infiltrate. Admitted for further treatment Past Medical History Cardiovascular: CAD, Syncope, Hyperlipidemia Pulmonary: Other CENTRAL NERVOUS SYSTEM: CVA, Periperal neuropathy GI: Constipation, GERD, Other Heme/Onc: No pertinent hx Hepatobiliary: No pertinent hx Psych: No pertinent hx Musculoskeletal: Osteoarthritis Rheumatologic: No pertinent hx Infectious disease: No pertinent hx Renal/: No pertinent hx Endocrine: No pertinent hx Past Surgical History Past Surgical History: Pacemaker, Appendectomy, Cholecystectomy, Hernia Repair, Other Family History Family History: Cancer Social History Smoke: No ALCOHOL: none Drugs: None Current Problem List Problem List Problems Medical Problems: (1) CAP (community acquired pneumonia) Status: Acute Current Medications Current Medications Current Medications Sodium Chloride 1,000 ml @ 1,000 mls/hr Q1H IV Last administered on 11/23/20at 17:16; Start 11/23/20 at 16:45; Stop 11/23/20 at 17:44; Status DC Ceftriaxone Sodium (Rocephin) 1 gm 1X ONCE IVP ; Start 11/23/20 at 17:45; Stop 11/23/20 at 17:46; Status DC Azithromycin 250 ml @ 250 mls/hr 1X ONCE IV ; Start 11/23/20 at 17:45; Stop 11/23/20 at 18:44 Active Scripts Active Azithromycin Tablet (Azithromycin) 500 Mg Tablet 1 Tab PO DAILY 3 Days Augmentin 500-125 Tablet (Amoxicillin/Potassium Clav) 1 Each Tablet 1 Tab PO BID 3 Days Ondansetron Odt (Ondansetron) 4 Mg Tab.rapdis 1 Tab PO PRN Q6-8HRS Atorvastatin Calcium 40 Mg Tablet 40 Mg PO QHS 30 Days Losartan-Hctz 100-12.5 Mg Tab (Losartan/Hydrochlorothiazide) 1 Each Tablet 1 Tab PO DAILY 30 Days Adult Low Dose Aspirin Ec (Aspirin) 81 Mg Tablet.dr 81 Mg PO DAILY Omeprazole 40 Mg Capsule.dr 1 Cap PO BID Reported Symbicort 160-4.5 Mcg Inhaler (Budesonide/Formoterol Fumarate) 10.2 Gm Hfa.aer.ad 2 Puff IH BID Topiramate 100 Mg Tablet 1 Tab PO DAILY Tramadol Hcl 50 Mg Tablet 50 Mg PO Q6HRS PRN Nortriptyline Hcl 10 Mg Capsule 1 Cap PO QHS Clopidogrel (Clopidogrel Bisulfate) 75 Mg Tablet 75 Mg PO DAILY Vitamin D3 (Cholecalciferol (Vitamin D3)) 5,000 Unit Tablet 1 Tab PO TID Vitamin C (Ascorbic Acid) 1,000 Mg Tablet 1,000 Mg PO DAILY Carafate (Sucralfate) 1 Gm Tablet 1 Tab PO QID Tamsulosin Hcl 0.4 Mg Cap.er.24h 0.4 Mg PO BID NITROGLYCERIN SubLingual (Nitroglycerin) 0.4 Mg Tab.subl 0.4 Mg SL PRN Q5MIN PRN Gabapentin 600 Mg Tablet 1 Tab PO TID next dose tonight at bedtime, 10/30/15 Allergies Allergies: Coded Allergies: No Known Drug Allergies (Unverified , 07/24/20) ROS Review of System Unable to accurately obtain due to patient confusion and stuttering Vitals Vitals Vital Signs Date Time Temp Pulse Resp B/P (MAP) Pulse Ox O2 Delivery O2 Flow Rate FiO2 11/24/20 07:00 97.7 90 21 106/62 (77) 99 Nasal Cannula 1.0 97.7 Physical Exam General: Cooperative, mild distress Lungs: Clear, Other Abdomen: Normal bowel sounds, Soft, No tenderness, No hepatosplenomegaly, No masses Extremities: No clubbing, No cyanosis, No edema, Normal pulses, No tenderness/swelling Skin: No rashes, No breakdown, No significant lesion Labs LABS PATIENT: OSMAN CALDERONACCOUNT: [id number] : 1965 LOCATION: ER AGE: 55 SEX: M EXAM STATUS: REG ER ORD. PHYSICIAN: LOGAN NI MD REASON: AMS, PT HAD CONTRAST CT EARLIER TODAY PROCEDURE: CT CODE STROKE HEAD WO CT STROKE HEAD W/O History: Reason: AMS, PT HAD CONTRAST CT EARLIER TODAY / Spl. Instructions: / History: Comparison: None. Technique: Noncontrast CT imaging was performed of the head. Exposure: One or more of the following individualized dose reduction techniques were utilized for this examination: 1. Automated exposure control 2. Adjustment of the mA and/or kV according to patient size 3. Use of iterative reconstruction technique. Findings: No intracranial hemorrhage. No mass effect. No hydrocephalus. Punctate calcification within the right frontal region sulcus, may relate to prior microhemorrhage embolus. Imaged orbits are unremarkable. Imaged paranasal sinuses and mastoid air cells are clear. No acute calvarial fracture. Impression: 1. No acute intracranial abnormality. FOR INTERNAL CODING PURPOSES Critical result: Findings discussed with Dr. Jacobs at 11/23/2020 4:51 PM. RESULT CODE: (C) Electronically signed by: Dylan Umana DO (11/23/2020 4:55 PM) [id number] DICTATED and SIGNED BY: DYLAN UMANA DO DATE: 11/23/20 [id number] EXAM: AP View of the chest DATE: 11/23/2020 5:13 PM INDICATION: Altered mental status COMPARISON: 07/23/2020 12/07/2019 FINDINGS: The heart is not enlarged. Mediastinal and hilar contours are stable. Cardiac generator pack obscures a portion of the left chest with leads in stable position. Patchy opacities left lung base likely atelectasis or developing consolidation. No pleural effusion or pneumothorax. IMPRESSION: Patchy opacities left lung base likely atelectasis or developing consolidation. Electronically signed by: Jake Tucker MD (11/23/2020 5:26 PM) [facility] DICTATED and SIGNED BY: JAKE TUCKER MD DATE: 11/23/20 [id number] 1. Automated exposure control 2. Adjustment of the mA and/or kV according to patient size 3. Use of iterative reconstruction technique. FINDINGS: CTA NECK: Arch/Proximal Great Vessels: The arch is normal configuration. Great vessel origins are patent. Carotid Bifurcation/Cervical ICA: Common carotid, internal carotid, and external carotid arteries are patent. 0 percent stenosis of the internal carotid arteries. Vertebral Arteries: Vertebral arteries are normal in caliber and patent.: CTA HEAD: Posterior Circulation: Intradural vertebral arteries, basilar artery, superior cerebellar arteries are patent. Posterior cerebral arteries are patent. Anterior Circulation: Internal carotid arteries are patent. Minimal calcifications in the supraclinoid portion of the right internal carotid artery. Middle cerebral arteries and anterior cerebral arteries are patent. No aneurysm, stenosis, dissection, or occlusion in the head or neck. Veins: Jugular veins and dural venous sinuses are patent. MISCELLANEOUS: Mild degenerative disc disease in the cervical spine. IMPRESSION: No acute arterial abnormality in the head or neck. Electronically signed by: Lucy Whitaker MD (11/24/2020 1:24 PM) [id number] DICTATED and SIGNED BY: LUCY WHITAKER MD DATE: 11/24/20 [id number] 0 Laboratory Tests Test 11/23/20 16:32 11/23/20 16:53 11/24/20 03:55 Glucose (Fingerstick) 131 mg/dL (70-99) White Blood Count 14.0 x10^3/uL (4.0-11.0) 7.5 x10^3/uL (4.0-11.0) Red Blood Count 5.22 x10^6/uL (4.30-5.70) 4.81 x10^6/uL (4.30-5.70) Hemoglobin 10.5 g/dL (13.0-17.5) 9.6 g/dL (13.0-17.5) Hematocrit 32.9 % (39.0-53.0) 30.3 % (39.0-53.0) Mean Corpuscular Volume 63 fL (79-100) 63 fL (79-100) Mean Corpuscular Hemoglobin 20 pg (25-35) 20 pg (25-35) Mean Corpuscular Hemoglobin Concent 32 g/dL (31-37) 32 g/dL (31-37) Red Cell Distribution Width 18.7 % (11.5-14.5) 18.7 % (11.5-14.5) Platelet Count 240 x10^3/uL (140-400) 206 x10^3/uL (140-400) Neutrophils (%) (Auto) 91 % (31-73) 78 % (31-73) Lymphocytes (%) (Auto) 3 % (24-48) 9 % (24-48) Monocytes (%) (Auto) 4 % (0-9) 9 % (0-9) Eosinophils (%) (Auto) 1 % (0-3) 3 % (0-3) Basophils (%) (Auto) 0 % (0-3) 0 % (0-3) Neutrophils # (Auto) 12.8 x10^3/uL (1.8-7.7) 5.8 x10^3/uL (1.8-7.7) Lymphocytes # (Auto) 0.4 x10^3/uL (1.0-4.8) 0.7 x10^3/uL (1.0-4.8) Monocytes # (Auto) 0.6 x10^3/uL (0.0-1.1) 0.7 x10^3/uL (0.0-1.1) Eosinophils # (Auto) 0.2 x10^3/uL (0.0-0.7) 0.2 x10^3/uL (0.0-0.7) Basophils # (Auto) 0.1 x10^3/uL (0.0-0.2) 0.0 x10^3/uL (0.0-0.2) Segmented Neutrophils % 82 % (35-66) Band Neutrophils % 6 % (0-9) Lymphocytes % 6 % (24-48) Monocytes % 5 % (0-10) Eosinophils % 1 % (0-5) Platelet Estimate Adequate (ADEQUATE) Hypochromasia Mod Poikilocytosis Slight Anisocytosis Slight Microcytosis Marked Ovalocytes Few Schistocytes Few Prothrombin Time 13.8 SEC (11.7-14.0) Prothromb Time International Ratio 1.1 (0.8-1.1) Activated Partial Thromboplast Time 30 SEC (24-38) Sodium Level 142 mmol/L (136-145) 142 mmol/L (136-145) Potassium Level 3.8 mmol/L (3.5-5.1) 3.3 mmol/L (3.5-5.1) Chloride Level 104 mmol/L (98-107) 107 mmol/L (98-107) Carbon Dioxide Level 25 mmol/L (21-32) 24 mmol/L (21-32) Anion Gap 13 (6-14) 11 (6-14) Blood Urea Nitrogen 22 mg/dL (8-26) 17 mg/dL (8-26) Creatinine 1.0 mg/dL (0.7-1.3) 0.8 mg/dL (0.7-1.3) Estimated GFR (Cockcroft-Gault) 77.0 99.6 Glucose Level 129 mg/dL (70-99) 105 mg/dL (70-99) Lactic Acid Level 1.2 mmol/L (0.4-2.0) Calcium Level 8.3 mg/dL (8.5-10.1) 8.2 mg/dL (8.5-10.1) Magnesium Level 2.1 mg/dL (1.8-2.4) Ammonia 18 mcmol/L (11-34) Creatine Kinase 264 U/L (39-308) Troponin I Quantitative < 0.017 ng/mL (0.000-0.055) FG-Ean-H-Type Natriuretic Peptide 37 pg/mL (0-124) BUN/Creatinine Ratio 21 (6-20) Total Bilirubin 0.9 mg/dL (0.2-1.0) Aspartate Amino Transf (AST/SGOT) 18 U/L (15-37) Alanine Aminotransferase (ALT/SGPT) 35 U/L (16-63) Alkaline Phosphatase 56 U/L (46-116) Total Protein 6.1 g/dL (6.4-8.2) Albumin 3.0 g/dL (3.4-5.0) Albumin/Globulin Ratio 1.0 (1.0-1.7) Triglycerides Level 80 mg/dL (0-150) Cholesterol Level 142 mg/dL (0-200) LDL Cholesterol, Calculated 84 mg/dL (0-100) VLDL Cholesterol, Calculated 16 mg/dL (0-40) Non-HDL Cholesterol Calculated 100 mg/dL (0-129) HDL Cholesterol 42 mg/dL (40-60) Cholesterol/HDL Ratio 3.4 Assessment and Plan Assessmemt and Plan Problems Medical Problems: (1) CAP (community acquired pneumonia) Status: Acute Comment Review of Relevant I have reviewed the following items logan (where applicable) has been applied. Labs Laboratory Tests Test 11/23/20 16:32 11/23/20 16:53 11/24/20 03:55 Glucose (Fingerstick) 131 mg/dL (70-99) White Blood Count 14.0 x10^3/uL (4.0-11.0) 7.5 x10^3/uL (4.0-11.0) Red Blood Count 5.22 x10^6/uL (4.30-5.70) 4.81 x10^6/uL (4.30-5.70) Hemoglobin 10.5 g/dL (13.0-17.5) 9.6 g/dL (13.0-17.5) Hematocrit 32.9 % (39.0-53.0) 30.3 % (39.0-53.0) Mean Corpuscular Volume 63 fL (79-100) 63 fL (79-100) Mean Corpuscular Hemoglobin 20 pg (25-35) 20 pg (25-35) Mean Corpuscular Hemoglobin Concent 32 g/dL (31-37) 32 g/dL (31-37) Red Cell Distribution Width 18.7 % (11.5-14.5) 18.7 % (11.5-14.5) Platelet Count 240 x10^3/uL (140-400) 206 x10^3/uL (140-400) Neutrophils (%) (Auto) 91 % (31-73) 78 % (31-73) Lymphocytes (%) (Auto) 3 % (24-48) 9 % (24-48) Monocytes (%) (Auto) 4 % (0-9) 9 % (0-9) Eosinophils (%) (Auto) 1 % (0-3) 3 % (0-3) Basophils (%) (Auto) 0 % (0-3) 0 % (0-3) Neutrophils # (Auto) 12.8 x10^3/uL (1.8-7.7) 5.8 x10^3/uL (1.8-7.7) Lymphocytes # (Auto) 0.4 x10^3/uL (1.0-4.8) 0.7 x10^3/uL (1.0-4.8) Monocytes # (Auto) 0.6 x10^3/uL (0.0-1.1) 0.7 x10^3/uL (0.0-1.1) Eosinophils # (Auto) 0.2 x10^3/uL (0.0-0.7) 0.2 x10^3/uL (0.0-0.7) Basophils # (Auto) 0.1 x10^3/uL (0.0-0.2) 0.0 x10^3/uL (0.0-0.2) Segmented Neutrophils % 82 % (35-66) Band Neutrophils % 6 % (0-9) Lymphocytes % 6 % (24-48) Monocytes % 5 % (0-10) Eosinophils % 1 % (0-5) Platelet Estimate Adequate (ADEQUATE) Hypochromasia Mod Poikilocytosis Slight Anisocytosis Slight Microcytosis Marked Ovalocytes Few Schistocytes Few Prothrombin Time 13.8 SEC (11.7-14.0) Prothromb Time International Ratio 1.1 (0.8-1.1) Activated Partial Thromboplast Time 30 SEC (24-38) Sodium Level 142 mmol/L (136-145) 142 mmol/L (136-145) Potassium Level 3.8 mmol/L (3.5-5.1) 3.3 mmol/L (3.5-5.1) Chloride Level 104 mmol/L (98-107) 107 mmol/L (98-107) Carbon Dioxide Level 25 mmol/L (21-32) 24 mmol/L (21-32) Anion Gap 13 (6-14) 11 (6-14) Blood Urea Nitrogen 22 mg/dL (8-26) 17 mg/dL (8-26) Creatinine 1.0 mg/dL (0.7-1.3) 0.8 mg/dL (0.7-1.3) Estimated GFR (Cockcroft-Gault) 77.0 99.6 Glucose Level 129 mg/dL (70-99) 105 mg/dL (70-99) Lactic Acid Level 1.2 mmol/L (0.4-2.0) Calcium Level 8.3 mg/dL (8.5-10.1) 8.2 mg/dL (8.5-10.1) Magnesium Level 2.1 mg/dL (1.8-2.4) Ammonia 18 mcmol/L (11-34) Creatine Kinase 264 U/L (39-308) Troponin I Quantitative < 0.017 ng/mL (0.000-0.055) PL-Ggy-D-Type Natriuretic Peptide 37 pg/mL (0-124) BUN/Creatinine Ratio 21 (6-20) Total Bilirubin 0.9 mg/dL (0.2-1.0) Aspartate Amino Transf (AST/SGOT) 18 U/L (15-37) Alanine Aminotransferase (ALT/SGPT) 35 U/L (16-63) Alkaline Phosphatase 56 U/L (46-116) Total Protein 6.1 g/dL (6.4-8.2) Albumin 3.0 g/dL (3.4-5.0) Albumin/Globulin Ratio 1.0 (1.0-1.7) Triglycerides Level 80 mg/dL (0-150) Cholesterol Level 142 mg/dL (0-200) LDL Cholesterol, Calculated 84 mg/dL (0-100) VLDL Cholesterol, Calculated 16 mg/dL (0-40) Non-HDL Cholesterol Calculated 100 mg/dL (0-129) HDL Cholesterol 42 mg/dL (40-60) Cholesterol/HDL Ratio 3.4 Laboratory Tests Test 11/23/20 16:32 11/23/20 16:53 11/24/20 03:55 Glucose (Fingerstick) 131 mg/dL (70-99) White Blood Count 14.0 x10^3/uL (4.0-11.0) 7.5 x10^3/uL (4.0-11.0) Red Blood Count 5.22 x10^6/uL (4.30-5.70) 4.81 x10^6/uL (4.30-5.70) Hemoglobin 10.5 g/dL (13.0-17.5) 9.6 g/dL (13.0-17.5) Hematocrit 32.9 % (39.0-53.0) 30.3 % (39.0-53.0) Mean Corpuscular Volume 63 fL (79-100) 63 fL (79-100) Mean Corpuscular Hemoglobin 20 pg (25-35) 20 pg (25-35) Mean Corpuscular Hemoglobin Concent 32 g/dL (31-37) 32 g/dL (31-37) Red Cell Distribution Width 18.7 % (11.5-14.5) 18.7 % (11.5-14.5) Platelet Count 240 x10^3/uL (140-400) 206 x10^3/uL (140-400) Neutrophils (%) (Auto) 91 % (31-73) 78 % (31-73) Lymphocytes (%) (Auto) 3 % (24-48) 9 % (24-48) Monocytes (%) (Auto) 4 % (0-9) 9 % (0-9) Eosinophils (%) (Auto) 1 % (0-3) 3 % (0-3) Basophils (%) (Auto) 0 % (0-3) 0 % (0-3) Neutrophils # (Auto) 12.8 x10^3/uL (1.8-7.7) 5.8 x10^3/uL (1.8-7.7) Lymphocytes # (Auto) 0.4 x10^3/uL (1.0-4.8) 0.7 x10^3/uL (1.0-4.8) Monocytes # (Auto) 0.6 x10^3/uL (0.0-1.1) 0.7 x10^3/uL (0.0-1.1) Eosinophils # (Auto) 0.2 x10^3/uL (0.0-0.7) 0.2 x10^3/uL (0.0-0.7) Basophils # (Auto) 0.1 x10^3/uL (0.0-0.2) 0.0 x10^3/uL (0.0-0.2) Segmented Neutrophils % 82 % (35-66) Band Neutrophils % 6 % (0-9) Lymphocytes % 6 % (24-48) Monocytes % 5 % (0-10) Eosinophils % 1 % (0-5) Platelet Estimate Adequate (ADEQUATE) Hypochromasia Mod Poikilocytosis Slight Anisocytosis Slight Microcytosis Marked Ovalocytes Few Schistocytes Few Prothrombin Time 13.8 SEC (11.7-14.0) Prothromb Time International Ratio 1.1 (0.8-1.1) Activated Partial Thromboplast Time 30 SEC (24-38) Sodium Level 142 mmol/L (136-145) 142 mmol/L (136-145) Potassium Level 3.8 mmol/L (3.5-5.1) 3.3 mmol/L (3.5-5.1) Chloride Level 104 mmol/L (98-107) 107 mmol/L (98-107) Carbon Dioxide Level 25 mmol/L (21-32) 24 mmol/L (21-32) Anion Gap 13 (6-14) 11 (6-14) Blood Urea Nitrogen 22 mg/dL (8-26) 17 mg/dL (8-26) Creatinine 1.0 mg/dL (0.7-1.3) 0.8 mg/dL (0.7-1.3) Estimated GFR (Cockcroft-Gault) 77.0 99.6 Glucose Level 129 mg/dL (70-99) 105 mg/dL (70-99) Lactic Acid Level 1.2 mmol/L (0.4-2.0) Calcium Level 8.3 mg/dL (8.5-10.1) 8.2 mg/dL (8.5-10.1) Magnesium Level 2.1 mg/dL (1.8-2.4) Ammonia 18 mcmol/L (11-34) Creatine Kinase 264 U/L (39-308) Troponin I Quantitative < 0.017 ng/mL (0.000-0.055) DG-Sfz-X-Type Natriuretic Peptide 37 pg/mL (0-124) BUN/Creatinine Ratio 21 (6-20) Total Bilirubin 0.9 mg/dL (0.2-1.0) Aspartate Amino Transf (AST/SGOT) 18 U/L (15-37) Alanine Aminotransferase (ALT/SGPT) 35 U/L (16-63) Alkaline Phosphatase 56 U/L (46-116) Total Protein 6.1 g/dL (6.4-8.2) Albumin 3.0 g/dL (3.4-5.0) Albumin/Globulin Ratio 1.0 (1.0-1.7) Triglycerides Level 80 mg/dL (0-150) Cholesterol Level 142 mg/dL (0-200) LDL Cholesterol, Calculated 84 mg/dL (0-100) VLDL Cholesterol, Calculated 16 mg/dL (0-40) Non-HDL Cholesterol Calculated 100 mg/dL (0-129) HDL Cholesterol 42 mg/dL (40-60) Cholesterol/HDL Ratio 3.4 Medications Current Medications Sodium Chloride 1,000 ml @ 1,000 mls/hr Q1H IV Last administered on 11/23/20at 17:16; Start 11/23/20 at 16:45; Stop 11/23/20 at 17:44; Status DC Ceftriaxone Sodium (Rocephin) 1 gm 1X ONCE IVP Last administered on 11/23/20at 18:03; Start 11/23/20 at 17:45; Stop 11/23/20 at 17:46; Status DC Azithromycin 250 ml @ 250 mls/hr 1X ONCE IV Last administered on 11/23/20at 18:04; Start 11/23/20 at 17:45; Stop 11/23/20 at 18:44; Status DC Ondansetron HCl (Zofran) 4 mg PRN Q4HRS PRN IV NAUSEA/VOMITING; Start 11/23/20 at 18:30 Acetaminophen (Tylenol) 650 mg PRN Q4HRS PRN PO TEMP OVER 100.4F OR MILD PAIN; Start 11/23/20 at 18:30 Enoxaparin Sodium (Lovenox 40mg Syringe) 40 mg Q24H SQ Last administered on 11/23/20at 23:19; Start 11/23/20 at 21:00 Guaifenesin (Robitussin Dm) 10 ml PRN Q6HRS PRN PO COUGH; Start 11/23/20 at 18:30 Aspirin (Ecotrin) 81 mg DAILY PO ; Start 11/24/20 at 09:00 Atorvastatin Calcium (Lipitor) 40 mg QHS PO ; Start 11/23/20 at 21:00 Clopidogrel Bisulfate (Plavix) 75 mg DAILY PO ; Start 11/24/20 at 09:00 Nitroglycerin (Nitrostat) 0.4 mg PRN Q5MIN PRN SL CHEST PAIN; Start 11/23/20 at 18:30 Nortriptyline HCl (Pamelor) 10 mg QHS PO ; Start 11/23/20 at 21:00 Ondansetron HCl (Zofran Odt) 4 mg PRN Q6HRS PRN PO nausea; Start 11/23/20 at 18:30 Tamsulosin HCl (Flomax) 0.4 mg BID PO ; Start 11/23/20 at 21:00 Gabapentin (Neurontin) 600 mg TID PO ; Start 11/23/20 at 21:00 Pantoprazole Sodium (Protonix) 40 mg BIDAC PO ; Start 11/23/20 at 21:00 Doxycycline Hyclate 100 mg/ Dextrose 100 ml @ 50 mls/hr Q12HR IV ; Start 11/24/20 at 09:00 Ceftriaxone Sodium (Rocephin) 1 gm Q24H IVP ; Start 11/24/20 at 10:00 Active Scripts Active Azithromycin Tablet (Azithromycin) 500 Mg Tablet 1 Tab PO DAILY 3 Days Augmentin 500-125 Tablet (Amoxicillin/Potassium Clav) 1 Each Tablet 1 Tab PO BID 3 Days Ondansetron Odt (Ondansetron) 4 Mg Tab.rapdis 1 Tab PO PRN Q6-8HRS Atorvastatin Calcium 40 Mg Tablet 40 Mg PO QHS 30 Days Losartan-Hctz 100-12.5 Mg Tab (Losartan/Hydrochlorothiazide) 1 Each Tablet 1 Tab PO DAILY 30 Days Adult Low Dose Aspirin Ec (Aspirin) 81 Mg Tablet.dr 81 Mg PO DAILY Omeprazole 40 Mg Capsule.dr 1 Cap PO BID Reported Symbicort 160-4.5 Mcg Inhaler (Budesonide/Formoterol Fumarate) 10.2 Gm Hfa.aer.ad 2 Puff IH BID Topiramate 100 Mg Tablet 1 Tab PO DAILY Tramadol Hcl 50 Mg Tablet 50 Mg PO Q6HRS PRN Nortriptyline Hcl 10 Mg Capsule 1 Cap PO QHS Clopidogrel (Clopidogrel Bisulfate) 75 Mg Tablet 75 Mg PO DAILY Vitamin D3 (Cholecalciferol (Vitamin D3)) 5,000 Unit Tablet 1 Tab PO TID Vitamin C (Ascorbic Acid) 1,000 Mg Tablet 1,000 Mg PO DAILY Carafate (Sucralfate) 1 Gm Tablet 1 Tab PO QID Tamsulosin Hcl 0.4 Mg Cap.er.24h 0.4 Mg PO BID NITROGLYCERIN SubLingual (Nitroglycerin) 0.4 Mg Tab.subl 0.4 Mg SL PRN Q5MIN PRN Gabapentin 600 Mg Tablet 1 Tab PO TID next dose tonight at bedtime, 10/30/15 Vitals/I & O Vital Sign - Last 24 Hours 11/23/20 11/23/20 11/23/20 11/23/20 16:28 16:48 17:18 17:48 Temp 100.2 100.2 Pulse 105 108 100 96 Resp 19 18 19 20 B/P (MAP) 114/77 (89) 118/64 (82) 110/68 (82) 119/66 (83) Pulse Ox 93 93 96 97 O2 Delivery Room Air Nasal Cannula Nasal Cannula Nasal Cannula O2 Flow Rate 1.0 1.0 1.0 11/23/20 11/23/20 11/23/20 11/23/20 18:18 18:48 19:18 19:48 Pulse 100 98 96 92 Resp 15 19 19 B/P (MAP) 116/68 (84) 95/61 (72) 111/70 (84) 112/62 (79) Pulse Ox 97 97 97 96 O2 Delivery Nasal Cannula Nasal Cannula Nasal Cannula Nasal Cannula O2 Flow Rate 1.0 1.0 1.0 1.0 11/23/20 11/23/20 11/23/20 11/23/20 20:18 20:48 21:18 21:48 Pulse 90 90 90 88 Resp 18 14 20 31 B/P (MAP) 108/65 (79) 112/63 (79) 122/68 (86) 110/54 (72) Pulse Ox 96 97 97 98 O2 Delivery Nasal Cannula Nasal Cannula Nasal Cannula Nasal Cannula O2 Flow Rate 1.0 1.0 1.0 1.0 11/23/20 11/23/20 11/24/20 11/24/20 23:04 23:54 02:49 07:00 Temp 99.8 99.9 97.7 99.8 99.9 97.7 Pulse 85 79 90 Resp 21 B/P (MAP) 121/59 (79) 116/45 (68) 106/62 (77) Pulse Ox 97 95 99 O2 Delivery Nasal Cannula Nasal Cannula Nasal Cannula Nasal Cannula O2 Flow Rate 1.0 1.0 1.0 1.0 Intake and Output 11/23/20 11/23/20 11/24/20 15:00 23:00 07:00 Intake Total 1250 ml 0 ml Output Total 500 ml Balance 1250 ml -500 ml Justicifation of Admission Dx: Justifications for Admission: Justification of Admission Dx: Yes Respiratory Failure: Severe Resp Distress DANIELLE MORENO MD Nov 24, 2020 08:51
[2020-11-24] MEDS ORDERED: IOHEXOL 350 MG/ML 100 ML VIAL. IV ONE (09:15)
[2020-11-24] MEDS ORDERED: CONTRAST GIVEN. MC PRN (09:30)
--- NOTE | 2020-11-24 10:19 | PDOC2 ---
NEUROLOGY CONSULT Date of Service DOS: DATE: 11/24/20 TIME: 10:11 Reason for Consult Reason for Consult: Weakness Referring Physician Referring Physician: Dr. Sultana Source Source: Chart review, Patient History of Present Illness History of Present Illness The patient is a 54-year-old right-handed male who came to the emergency dep artment yesterday with increased difficulty speaking. He actually became unresponsive for some time. He was weaker in the previously paretic left side. 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 He also has Hrhcsmg-Sbuav-Ffcue disease. Neurology has seen him in July 2014, January 2015, September 2015, and november 2019 with neurological symptoms. On the last visit, this was precipitated by an argument with his . On all of these occasions, he has had negative neurological work-up and the consideration was that of conversion disorder. Patient admits that he has been under some stress. Past Medical History Cardiovascular: CAD, Syncope, Hyperlipidemia CENTRAL NERVOUS SYSTEM: CVA, Periperal neuropathy (Obncblo-Yjaub-Rxicz), TIA GI: Constipation, GERD Musculoskeletal: Osteoarthritis Past Surgical History Past Surgical History: Pacemaker, Appendectomy, Cholecystectomy, Hernia Repair, Other (Coronary stent) Family History Family History: CAD Social History Social History , no alcohol or tobacco Current Medications Current Medications Current Medications Sodium Chloride 1,000 ml @ 1,000 mls/hr Q1H IV Last administered on 11/23/20at 17:16; Start 11/23/20 at 16:45; Stop 11/23/20 at 17:44; Status DC Ceftriaxone Sodium (Rocephin) 1 gm 1X ONCE IVP Last administered on 11/23/20at 18:03; Start 11/23/20 at 17:45; Stop 11/23/20 at 17:46; Status DC Azithromycin 250 ml @ 250 mls/hr 1X ONCE IV Last administered on 11/23/20at 18:04; Start 11/23/20 at 17:45; Stop 11/23/20 at 18:44; Status DC Ondansetron HCl (Zofran) 4 mg PRN Q4HRS PRN IV NAUSEA/VOMITING; Start 11/23/20 at 18:30 Acetaminophen (Tylenol) 650 mg PRN Q4HRS PRN PO TEMP OVER 100.4F OR MILD PAIN; Start 11/23/20 at 18:30 Enoxaparin Sodium (Lovenox 40mg Syringe) 40 mg Q24H SQ Last administered on 11/23/20at 23:19; Start 11/23/20 at 21:00 Guaifenesin (Robitussin Dm) 10 ml PRN Q6HRS PRN PO COUGH; Start 11/23/20 at 18:30 Aspirin (Ecotrin) 81 mg DAILY PO ; Start 11/24/20 at 09:00 Atorvastatin Calcium (Lipitor) 40 mg QHS PO ; Start 11/23/20 at 21:00 Clopidogrel Bisulfate (Plavix) 75 mg DAILY PO ; Start 11/24/20 at 09:00 Nitroglycerin (Nitrostat) 0.4 mg PRN Q5MIN PRN SL CHEST PAIN; Start 11/23/20 at 18:30 Nortriptyline HCl (Pamelor) 10 mg QHS PO ; Start 11/23/20 at 21:00 Ondansetron HCl (Zofran Odt) 4 mg PRN Q6HRS PRN PO nausea; Start 11/23/20 at 18:30 Tamsulosin HCl (Flomax) 0.4 mg BID PO ; Start 11/23/20 at 21:00 Gabapentin (Neurontin) 600 mg TID PO ; Start 11/23/20 at 21:00 Pantoprazole Sodium (Protonix) 40 mg BIDAC PO ; Start 11/23/20 at 21:00 Doxycycline Hyclate 100 mg/ Dextrose 100 ml @ 50 mls/hr Q12HR IV ; Start 11/24/20 at 09:00 Ceftriaxone Sodium (Rocephin) 1 gm Q24H IVP ; Start 11/24/20 at 10:00 Iohexol (Omnipaque 350 Mg/ml) 75 ml 1X ONCE IV ; Start 11/24/20 at 09:15; Stop 11/24/20 at 09:18; Status DC Info (CONTRAST GIVEN -- Rx MONITORING) 1 each PRN DAILY PRN MC SEE COMMENTS; Start 11/24/20 at 09:30; Stop 11/26/20 at 09:29 Active Scripts Active Azithromycin Tablet (Azithromycin) 500 Mg Tablet 1 Tab PO DAILY 3 Days Augmentin 500-125 Tablet (Amoxicillin/Potassium Clav) 1 Each Tablet 1 Tab PO BID 3 Days Ondansetron Odt (Ondansetron) 4 Mg Tab.rapdis 1 Tab PO PRN Q6-8HRS Atorvastatin Calcium 40 Mg Tablet 40 Mg PO QHS 30 Days Losartan-Hctz 100-12.5 Mg Tab (Losartan/Hydrochlorothiazide) 1 Each Tablet 1 Tab PO DAILY 30 Days Adult Low Dose Aspirin Ec (Aspirin) 81 Mg Tablet. 81 Mg PO DAILY Omeprazole 40 Mg Capsule.dr 1 Cap PO BID Reported Symbicort 160-4.5 Mcg Inhaler (Budesonide/Formoterol Fumarate) 10.2 Gm Hfa.aer.ad 2 Puff IH BID Topiramate 100 Mg Tablet 1 Tab PO DAILY Tramadol Hcl 50 Mg Tablet 50 Mg PO Q6HRS PRN Nortriptyline Hcl 10 Mg Capsule 1 Cap PO QHS Clopidogrel (Clopidogrel Bisulfate) 75 Mg Tablet 75 Mg PO DAILY Vitamin D3 (Cholecalciferol (Vitamin D3)) 5,000 Unit Tablet 1 Tab PO TID Vitamin C (Ascorbic Acid) 1,000 Mg Tablet 1,000 Mg PO DAILY Carafate (Sucralfate) 1 Gm Tablet 1 Tab PO QID Tamsulosin Hcl 0.4 Mg Cap.er.24h 0.4 Mg PO BID NITROGLYCERIN SubLingual (Nitroglycerin) 0.4 Mg Tab.subl 0.4 Mg SL PRN Q5MIN PRN Gabapentin 600 Mg Tablet 1 Tab PO TID next dose tonight at bedtime, 10/30/15 Allergies Allergies: Coded Allergies: No Known Drug Allergies (Unverified , 07/24/20) ROS Review of System Negative for fever, chills, weight loss, shortness of breath, chest pain, indigestion, hematochezia, melena, and dysuria. Full 14-point review of systems is negative. Physical Exam Physical Examination General: Well-developed, well-nourished male in no acute distress HEENT: Normocephalic andatraumatic. Temporal arteriespulsatile and nontender. Neck: Supple without bruit, no meningismus Musculoskeletal: Stability:see neurologic. Gait exam:see neurologic. Tone:see neurologic.Strength:see neurologic.Pes cavus bilaterally Neurological: Mental Status:intact, orientation, memory, attention span/concentration, language, fund of knowledge normal, but has stuttering speech. Cranial Nerves: Pupils equal and reactive to light, extraocular movements areintact, visual cee are full to confrontation. Facial sensation is normal. There is no facial asymmetry. Vestibulo-ocular reflex is intact. Palate elevates and tongue protrudes in midline. All other cranial related problems are negative except as mentioned before.Reflexes:0+ and symmetric with flexor plantar responses. Motor:Can develop full strength bilaterally, give way weakness on the left, 5/5 strength with normal tone and bulk. Coordination:Finger-nose finger and ghld-[id number] testing are normal. Rapid alternating movements and fine finger movements are intact. Gait:Not tested. Sensory:Stocking loss, also left-sided sensory loss. Vitals VITALS Vital Signs Date Time Temp Pulse Resp B/P (MAP) Pulse Ox O2 Delivery O2 Flow Rate FiO2 11/24/20 08:00 Nasal Cannula 1.0 11/24/20 07:00 97.7 90 21 106/62 (77) 99 97.7 Labs Labs Laboratory Tests Test 11/23/20 16:32 11/23/20 16:53 11/24/20 03:55 Glucose (Fingerstick) 131 mg/dL (70-99) White Blood Count 14.0 x10^3/uL (4.0-11.0) 7.5 x10^3/uL (4.0-11.0) Red Blood Count 5.22 x10^6/uL (4.30-5.70) 4.81 x10^6/uL (4.30-5.70) Hemoglobin 10.5 g/dL (13.0-17.5) 9.6 g/dL (13.0-17.5) Hematocrit 32.9 % (39.0-53.0) 30.3 % (39.0-53.0) Mean Corpuscular Volume 63 fL (79-100) 63 fL (79-100) Mean Corpuscular Hemoglobin 20 pg (25-35) 20 pg (25-35) Mean Corpuscular Hemoglobin Concent 32 g/dL (31-37) 32 g/dL (31-37) Red Cell Distribution Width 18.7 % (11.5-14.5) 18.7 % (11.5-14.5) Platelet Count 240 x10^3/uL (140-400) 206 x10^3/uL (140-400) Neutrophils (%) (Auto) 91 % (31-73) 78 % (31-73) Lymphocytes (%) (Auto) 3 % (24-48) 9 % (24-48) Monocytes (%) (Auto) 4 % (0-9) 9 % (0-9) Eosinophils (%) (Auto) 1 % (0-3) 3 % (0-3) Basophils (%) (Auto) 0 % (0-3) 0 % (0-3) Neutrophils # (Auto) 12.8 x10^3/uL (1.8-7.7) 5.8 x10^3/uL (1.8-7.7) Lymphocytes # (Auto) 0.4 x10^3/uL (1.0-4.8) 0.7 x10^3/uL (1.0-4.8) Monocytes # (Auto) 0.6 x10^3/uL (0.0-1.1) 0.7 x10^3/uL (0.0-1.1) Eosinophils # (Auto) 0.2 x10^3/uL (0.0-0.7) 0.2 x10^3/uL (0.0-0.7) Basophils # (Auto) 0.1 x10^3/uL (0.0-0.2) 0.0 x10^3/uL (0.0-0.2) Segmented Neutrophils % 82 % (35-66) Band Neutrophils % 6 % (0-9) Lymphocytes % 6 % (24-48) Monocytes % 5 % (0-10) Eosinophils % 1 % (0-5) Platelet Estimate Adequate (ADEQUATE) Hypochromasia Mod Poikilocytosis Slight Anisocytosis Slight Microcytosis Marked Ovalocytes Few Schistocytes Few Prothrombin Time 13.8 SEC (11.7-14.0) Prothromb Time International Ratio 1.1 (0.8-1.1) Activated Partial Thromboplast Time 30 SEC (24-38) Sodium Level 142 mmol/L (136-145) 142 mmol/L (136-145) Potassium Level 3.8 mmol/L (3.5-5.1) 3.3 mmol/L (3.5-5.1) Chloride Level 104 mmol/L (98-107) 107 mmol/L (98-107) Carbon Dioxide Level 25 mmol/L (21-32) 24 mmol/L (21-32) Anion Gap 13 (6-14) 11 (6-14) Blood Urea Nitrogen 22 mg/dL (8-26) 17 mg/dL (8-26) Creatinine 1.0 mg/dL (0.7-1.3) 0.8 mg/dL (0.7-1.3) Estimated GFR (Cockcroft-Gault) 77.0 99.6 Glucose Level 129 mg/dL (70-99) 105 mg/dL (70-99) Lactic Acid Level 1.2 mmol/L (0.4-2.0) Calcium Level 8.3 mg/dL (8.5-10.1) 8.2 mg/dL (8.5-10.1) Magnesium Level 2.1 mg/dL (1.8-2.4) Ammonia 18 mcmol/L (11-34) Creatine Kinase 264 U/L (39-308) Troponin I Quantitative < 0.017 ng/mL (0.000-0.055) TS-Qof-X-Type Natriuretic Peptide 37 pg/mL (0-124) BUN/Creatinine Ratio 21 (6-20) Total Bilirubin 0.9 mg/dL (0.2-1.0) Aspartate Amino Transf (AST/SGOT) 18 U/L (15-37) Alanine Aminotransferase (ALT/SGPT) 35 U/L (16-63) Alkaline Phosphatase 56 U/L (46-116) Total Protein 6.1 g/dL (6.4-8.2) Albumin 3.0 g/dL (3.4-5.0) Albumin/Globulin Ratio 1.0 (1.0-1.7) Triglycerides Level 80 mg/dL (0-150) Cholesterol Level 142 mg/dL (0-200) LDL Cholesterol, Calculated 84 mg/dL (0-100) VLDL Cholesterol, Calculated 16 mg/dL (0-40) Non-HDL Cholesterol Calculated 100 mg/dL (0-129) HDL Cholesterol 42 mg/dL (40-60) Cholesterol/HDL Ratio 3.4 Laboratory Tests Test 11/23/20 16:32 11/23/20 16:53 11/24/20 03:55 Glucose (Fingerstick) 131 mg/dL (70-99) White Blood Count 14.0 x10^3/uL (4.0-11.0) 7.5 x10^3/uL (4.0-11.0) Red Blood Count 5.22 x10^6/uL (4.30-5.70) 4.81 x10^6/uL (4.30-5.70) Hemoglobin 10.5 g/dL (13.0-17.5) 9.6 g/dL (13.0-17.5) Hematocrit 32.9 % (39.0-53.0) 30.3 % (39.0-53.0) Mean Corpuscular Volume 63 fL (79-100) 63 fL (79-100) Mean Corpuscular Hemoglobin 20 pg (25-35) 20 pg (25-35) Mean Corpuscular Hemoglobin Concent 32 g/dL (31-37) 32 g/dL (31-37) Red Cell Distribution Width 18.7 % (11.5-14.5) 18.7 % (11.5-14.5) Platelet Count 240 x10^3/uL (140-400) 206 x10^3/uL (140-400) Neutrophils (%) (Auto) 91 % (31-73) 78 % (31-73) Lymphocytes (%) (Auto) 3 % (24-48) 9 % (24-48) Monocytes (%) (Auto) 4 % (0-9) 9 % (0-9) Eosinophils (%) (Auto) 1 % (0-3) 3 % (0-3) Basophils (%) (Auto) 0 % (0-3) 0 % (0-3) Neutrophils # (Auto) 12.8 x10^3/uL (1.8-7.7) 5.8 x10^3/uL (1.8-7.7) Lymphocytes # (Auto) 0.4 x10^3/uL (1.0-4.8) 0.7 x10^3/uL (1.0-4.8) Monocytes # (Auto) 0.6 x10^3/uL (0.0-1.1) 0.7 x10^3/uL (0.0-1.1) Eosinophils # (Auto) 0.2 x10^3/uL (0.0-0.7) 0.2 x10^3/uL (0.0-0.7) Basophils # (Auto) 0.1 x10^3/uL (0.0-0.2) 0.0 x10^3/uL (0.0-0.2) Segmented Neutrophils % 82 % (35-66) Band Neutrophils % 6 % (0-9) Lymphocytes % 6 % (24-48) Monocytes % 5 % (0-10) Eosinophils % 1 % (0-5) Platelet Estimate Adequate (ADEQUATE) Hypochromasia Mod Poikilocytosis Slight Anisocytosis Slight Microcytosis Marked Ovalocytes Few Schistocytes Few Prothrombin Time 13.8 SEC (11.7-14.0) Prothromb Time International Ratio 1.1 (0.8-1.1) Activated Partial Thromboplast Time 30 SEC (24-38) Sodium Level 142 mmol/L (136-145) 142 mmol/L (136-145) Potassium Level 3.8 mmol/L (3.5-5.1) 3.3 mmol/L (3.5-5.1) Chloride Level 104 mmol/L (98-107) 107 mmol/L (98-107) Carbon Dioxide Level 25 mmol/L (21-32) 24 mmol/L (21-32) Anion Gap 13 (6-14) 11 (6-14) Blood Urea Nitrogen 22 mg/dL (8-26) 17 mg/dL (8-26) Creatinine 1.0 mg/dL (0.7-1.3) 0.8 mg/dL (0.7-1.3) Estimated GFR (Cockcroft-Gault) 77.0 99.6 Glucose Level 129 mg/dL (70-99) 105 mg/dL (70-99) Lactic Acid Level 1.2 mmol/L (0.4-2.0) Calcium Level 8.3 mg/dL (8.5-10.1) 8.2 mg/dL (8.5-10.1) Magnesium Level 2.1 mg/dL (1.8-2.4) Ammonia 18 mcmol/L (11-34) Creatine Kinase 264 U/L (39-308) Troponin I Quantitative < 0.017 ng/mL (0.000-0.055) AT-Xli-J-Type Natriuretic Peptide 37 pg/mL (0-124) BUN/Creatinine Ratio 21 (6-20) Total Bilirubin 0.9 mg/dL (0.2-1.0) Aspartate Amino Transf (AST/SGOT) 18 U/L (15-37) Alanine Aminotransferase (ALT/SGPT) 35 U/L (16-63) Alkaline Phosphatase 56 U/L (46-116) Total Protein 6.1 g/dL (6.4-8.2) Albumin 3.0 g/dL (3.4-5.0) Albumin/Globulin Ratio 1.0 (1.0-1.7) Triglycerides Level 80 mg/dL (0-150) Cholesterol Level 142 mg/dL (0-200) LDL Cholesterol, Calculated 84 mg/dL (0-100) VLDL Cholesterol, Calculated 16 mg/dL (0-40) Non-HDL Cholesterol Calculated 100 mg/dL (0-129) HDL Cholesterol 42 mg/dL (40-60) Cholesterol/HDL Ratio 3.[address] STROKE HEAD W/O History: Reason: AMS, PT HAD CONTRAST CT EARLIER TODAY / Spl. Instructions: / History: Comparison: None. Technique: Noncontrast CT imaging was performed of the head. Exposure: One or more of the following individualized dose reduction techniques were utilized for this examination: 1. Automated exposure control 2. Adjustment of the mA and/or kV according to patient size 3. Use of iterative reconstruction technique. Findings: No intracranial hemorrhage. No mass effect. No hydrocephalus. Punctate calcification within the right frontal region sulcus, may relate to prior microhemorrhage embolus. Imaged orbits are unremarkable. Imaged paranasal sinuses and mastoid air cells are clear. No acute calvarial fracture. Impression: 1. No acute intracranial abnormality. Assessment/Plan Assessment/Plan Impression: Several prior admissions for stroke symptoms with negative work-up, stuttering speech is not usually seen from organic disease presenting in adulthood, therefore consider conversion disorder Zqbvczu-Fvuze-Gxqyf neuropathy Recommendations: I consulted cardiology, he cannot have an MRI here with his pacemaker, could go to or [facility] if necessary, but I do not believe he requires an immediate MRI CT angiogram Echocardiogram Rehabilitation modalities Reassurance offered Continue clopidogrel, aspirin, statin Thank you for letting me help with the patient's care. JOHN LOPEZ MD Nov 24, 2020 10:19
--- NOTE | 2020-11-24 10:45 | PDOC2 ---
CARDIAC CONSULT DATE OF CONSULT Date of Consult DATE: 11/24/20 TIME: 10:33 REASON FOR CONSULT Reason for Consult: IS pacemaker MRI compatible REFERRING PHYSICIAN Referring Physician: Dr. Macedo SOURCE Source: Chart review, Patient HISTORY OF PRESENT ILLNESS HISTORY OF PRESENT ILLNESS This is a 55 yo male who presented secondary to altered mental status. Patient underwent outpatient CT yesterday for evaluation of hiatal hernia. During scan, patient became unresponsive and was unable to talk. Patient has a history of PPM implantation, which prompted this consult. Device is not MRI conditional. He denies any chest pain, dizziness, diaphoresis, or shortness of breath. Speech has improved this morning, but continues to have stutter. PAST MEDICAL HISTORY Cardiovascular: CAD, HTN, Hyperlipidemia Pulmonary: Other (MARY, lung CA) CENTRAL NERVOUS SYSTEM: CVA, Periperal neuropathy GI: GERD Psych: Anxiety Endocrine: Diabetes PAST SURGICAL HISTORY Past Surgical History: Pacemaker, Appendectomy, Cholecystectomy, Hernia Repair, Other (RLL lobectomy ) FAMILY HISTORY Family History: Cancer SOCIAL HISTORY Smoke: No ALCOHOL: none Drugs: None Lives: with Family CURRENT MEDICATIONS CURRENT MEDICATIONS Current Medications Medications (Trade) Dose Ordered Sig/Rambo Route PRN Reason Start Time Stop Time Status Last Admin Dose Admin Sodium Chloride 1,000 ml @ 1,000 mls/hr Q1H IV 11/23/20 16:45 11/23/20 17:44 DC 11/23/20 17:16 Ceftriaxone Sodium (Rocephin) 1 gm 1X ONCE IVP 11/23/20 17:45 11/23/20 17:46 DC 11/23/20 18:03 Azithromycin 250 ml @ 250 mls/hr 1X ONCE IV 11/23/20 17:45 11/23/20 18:44 DC 11/23/20 18:04 Enoxaparin Sodium (Lovenox 40mg Syringe) 40 mg Q24H SQ 11/23/20 21:00 11/23/20 23:19 Iohexol (Omnipaque 350 Mg/ml) 75 ml 1X ONCE IV 11/24/20 09:15 11/24/20 09:18 DC 11/24/20 10:22 ALLERGIES ALLERGIES: Coded Allergies: No Known Drug Allergies (Unverified , 07/24/20) ROS Review of System 14 point ROS conducted with pertinent positives noted above in HPI PHYSICAL EXAM General: Alert, Oriented X3, Cooperative, No acute distress HEENT: Atraumatic, Mucous membr. moist/pink Lungs: Clear to auscultation Heart: Regular rate Abdomen: Soft, No tenderness Extremities: No edema Skin: No significant lesion Neuro: Sensation intact, Other (stutter) Psych/Mental Status: Mood NL MUSCULOSKELETAL: Osteoarthritic changes both hands VITALS/I&O VITALS/I&O: Vital Signs Date Time Temp Pulse Resp B/P (MAP) Pulse Ox O2 Delivery O2 Flow Rate FiO2 11/24/20 08:00 Nasal Cannula 1.0 11/24/20 07:00 97.7 90 21 106/62 (77) 99 97.7 I & O 11/23/20 11/23/20 11/24/20 15:00 23:00 07:00 Intake Total 1250 ml 0 ml Output Total 500 ml Balance 1250 ml -500 ml LABS Lab: Laboratory Tests Test 11/23/20 16:32 11/23/20 16:53 11/24/20 03:55 Glucose (Fingerstick) 131 mg/dL (70-99) H White Blood Count 14.0 x10^3/uL (4.0-11.0) H 7.5 x10^3/uL (4.0-11.0) Red Blood Count 5.22 x10^6/uL (4.30-5.70) 4.81 x10^6/uL (4.30-5.70) Hemoglobin 10.5 g/dL (13.0-17.5) L 9.6 g/dL (13.0-17.5) L Hematocrit 32.9 % (39.0-53.0) L 30.3 % (39.0-53.0) L Mean Corpuscular Volume 63 fL (79-100) L 63 fL (79-100) L Mean Corpuscular Hemoglobin 20 pg (25-35) L 20 pg (25-35) L Mean Corpuscular Hemoglobin Concent 32 g/dL (31-37) 32 g/dL (31-37) Red Cell Distribution Width 18.7 % (11.5-14.5) H 18.7 % (11.5-14.5) H Platelet Count 240 x10^3/uL (140-400) 206 x10^3/uL (140-400) Neutrophils (%) (Auto) 91 % (31-73) H 78 % (31-73) H Lymphocytes (%) (Auto) 3 % (24-48) L 9 % (24-48) L Monocytes (%) (Auto) 4 % (0-9) 9 % (0-9) Eosinophils (%) (Auto) 1 % (0-3) 3 % (0-3) Basophils (%) (Auto) 0 % (0-3) 0 % (0-3) Neutrophils # (Auto) 12.8 x10^3/uL (1.8-7.7) H 5.8 x10^3/uL (1.8-7.7) Lymphocytes # (Auto) 0.4 x10^3/uL (1.0-4.8) L 0.7 x10^3/uL (1.0-4.8) L Monocytes # (Auto) 0.6 x10^3/uL (0.0-1.1) 0.7 x10^3/uL (0.0-1.1) Eosinophils # (Auto) 0.2 x10^3/uL (0.0-0.7) 0.2 x10^3/uL (0.0-0.7) Basophils # (Auto) 0.1 x10^3/uL (0.0-0.2) 0.0 x10^3/uL (0.0-0.2) Segmented Neutrophils % 82 % (35-66) H Band Neutrophils % 6 % (0-9) Lymphocytes % 6 % (24-48) L Monocytes % 5 % (0-10) Eosinophils % 1 % (0-5) Platelet Estimate Adequate (ADEQUATE) Hypochromasia Mod Poikilocytosis Slight Anisocytosis Slight Microcytosis Marked Ovalocytes Few Schistocytes Few Prothrombin Time 13.8 SEC (11.7-14.0) Prothrombin Time INR 1.1 (0.8-1.1) Activated Partial Thromboplast Time 30 SEC (24-38) Sodium Level 142 mmol/L (136-145) 142 mmol/L (136-145) Potassium Level 3.8 mmol/L (3.5-5.1) 3.3 mmol/L (3.5-5.1) L Chloride Level 104 mmol/L (98-107) 107 mmol/L (98-107) Carbon Dioxide Level 25 mmol/L (21-32) 24 mmol/L (21-32) Anion Gap 13 (6-14) 11 (6-14) Blood Urea Nitrogen 22 mg/dL (8-26) 17 mg/dL (8-26) Creatinine 1.0 mg/dL (0.7-1.3) 0.8 mg/dL (0.7-1.3) Estimated GFR (Cockcroft-Gault) 77.0 99.6 Glucose Level 129 mg/dL (70-99) H 105 mg/dL (70-99) H Lactic Acid Level 1.2 mmol/L (0.4-2.0) Calcium Level 8.3 mg/dL (8.5-10.1) L 8.2 mg/dL (8.5-10.1) L Magnesium Level 2.1 mg/dL (1.8-2.4) Ammonia 18 mcmol/L (11-34) Creatine Kinase 264 U/L (39-308) Troponin I Quantitative < 0.017 ng/mL (0.000-0.055) OQ-Avd-W-Type Natriuretic Peptide 37 pg/mL (0-124) BUN/Creatinine Ratio 21 (6-20) H Total Bilirubin 0.9 mg/dL (0.2-1.0) Aspartate Amino Transferase (AST) 18 U/L (15-37) Alanine Aminotransferase (ALT) 35 U/L (16-63) Alkaline Phosphatase 56 U/L (46-116) Total Protein 6.1 g/dL (6.4-8.2) L Albumin 3.0 g/dL (3.4-5.0) L Albumin/Globulin Ratio 1.0 (1.0-1.7) Triglycerides Level 80 mg/dL (0-150) Cholesterol Level 142 mg/dL (0-200) LDL Cholesterol, Calculated 84 mg/dL (0-100) VLDL Cholesterol, Calculated 16 mg/dL (0-40) Non-HDL Cholesterol Calculated 100 mg/dL (0-129) HDL Cholesterol 42 mg/dL (40-60) Cholesterol/HDL Ratio 3.4 Laboratory Tests 11/23/20 16:53 11/24/20 03:55 Laboratory Tests 11/23/20 16:53 11/24/20 03:55 ECHOCARDIOGRAM ECHOCARDIOGRAM <Conclusion> The left ventricular systolic function is normal and the ejection fraction is within normal range. The Ejection Fraction is 50-55%. There is normal LV segmental wall motion. There is a pacemaker lead in the right ventricle. DATE: 11/07/19 0944 STRESS TEST STRESS TEST Conclusion 1. Regadenoson cardioisotope stress test did not show any evidence of ischemia or infarct. 2. Normal left ventricular systolic function with ejection fraction calculated at 82%. DATE: 10/19/20 [id number] HEART CATH HEART CATH Conclusion 1. Acute on chronic diastolic HF with EF of 55% and LVEDP of 22 mm Hg. 2. One vessel CAD - Successful PCI of the LAD with implantation of a 4.0/15 mm BISMARK. Recommendations ASA 81mg daily Ticagrelor 90mg bid x 30 days then transition to Plavix 75mg daily Cardiac rehab. High dose statin therapy Of note, patient stated he had 9/10 chest pain while laying on the cath table but did not appear to be in distress at all. Furthermore, his flow in the LAD was normal and therefore, he should not have been having 9/10 chest pain at rest. Despite PCI, pt's chest pain only went to 5/10 - suspect there are significant MSK issues with his chest pain. DATE: 12/31/17 1430 ASSESSMENT/PLAN ASSESSMENT/PLAN 1. Altered mental status; CT head without acute findings. Remains with stuttering speech. 2. H/o CVA 3. CAD s/p PCI/BISMARK to the LAD 2017 as noted above. MPI 10/17 without ischemia or infarct. clinically stable 4. SSS s/p PPM (Biotronik); Device download does not show any significant arrhythmias. AFIB burden 0%. 5. Chronic diastolic CHF; Recent echo with preserved LV systolic function. clinically compensated 6. Hypertension; controlled 7. Hyperlipidemia 8. Diabetes, II 9. Low-grade fevers Recommendations Pacemaker is NOT MRI conditional Resume secondary prevention measures ASA/statin Rehab modalities Supportive care from a CV standpoint ADRIAN GALDAMEZ APRN Nov 24, 2020 10:45
[2020-11-24 11:00] VITALS: BP 124/61
[2020-11-24] MEDS: cefTRIAXone IV Push 1 GM VIAL. IVP SCH (12:08)
[2020-11-24] MEDS: DOXYCYCLINE HYCLATE 100 MG in IV DEXTROSE 5% 100ML 100 ML IV SCH ×2 (12:09→21:49)
--- NOTE | 2020-11-24 12:59 | NUR ---
SS following for discharge planning. SS reviewed pt chart and discussed with pt RN. Pt is from home with spouse and is currently requiring oxygen at one liter nasal canula. COVID19 negative. Pt on IV Doxycycline and IV Rocephin. NPO. PT/OT/ST ordered. Cardiology and Neurology consulted. Pt having ECHO and CT angiogram today. SS will continue to follow for discharge planning.
--- NOTE | 2020-11-24 13:26 | RAD ---
STUDY: CT angiography of the head and neck INDICATION: Stroke COMPARISON: Noncontrast CT head 11/24/2019 TECHNIQUE: Axial CT imaging of the head and neck utilizing angiography protocol and performed after t he intravenous administration of contrast. Multiplanar reformats and 3D MIP acquisitions were obtaine d. Encountered areas of stenosis are measured per NASCET criteria. One or more of the following individualized dose reduction techniques were utilized for this examinat ion: 1. Automated exposure control 2. Adjustment of the mA and/or kV according to patient size 3. Use of iterative reconstruction technique. FINDINGS: CTA NECK: Arch/Proximal Great Vessels: The arch is normal configuration. Great vessel origins are patent. Carotid Bifurcation/Cervical ICA: Common carotid, internal carotid, and external carotid arteries are patent. 0 percent stenosis of the internal carotid arteries. Vertebral Arteries: Vertebral arteries are normal in caliber and patent.: CTA HEAD: Posterior Circulation: Intradural vertebral arteries, basilar artery, superior cerebellar arteries ar e patent. Posterior cerebral arteries are patent. Anterior Circulation: Internal carotid arteries are patent. Minimal calcifications in the supraclinoi d portion of the right internal carotid artery. Middle cerebral arteries and anterior cerebral arteri es are patent. No aneurysm, stenosis, dissection, or occlusion in the head or neck. Veins: Jugular veins and dural venous sinuses are patent. MISCELLANEOUS: Mild degenerative disc disease in the cervical spine. IMPRESSION: No acute arterial abnormality in the head or neck. Electronically signed by: Lucy Whitaker MD (11/24/2020 1:24 PM) [id number]
[2020-11-24] MEDS: GABAPENTIN 300 MG CAPSULE. PO SCH ×3 (14:00→21:30)
[2020-11-24 15:00] VITALS: BP 129/80
[2020-11-24] MEDS: TAMSULOSIN 0.4 MG CAP.ER.24H. PO SCH ×2 (15:38→21:30)
[2020-11-24] MEDS: ASPIRIN ENTERIC COATED 81 MG TABLET.DR. PO SCH (15:38)
[2020-11-24] MEDS: PANTOPRAZOLE 40 MG TABLET.DR. PO SCH ×2 (15:38→16:21)
[2020-11-24] MEDS: CLOPIDOGREL BISULFATE 75 MG TABLET PO SCH (15:38)
[2020-11-24] MEDS ORDERED: POTASSIUM CHLORIDE 20 MEQ TABLET.ER. PO ONE (16:00)
[2020-11-24 17:53] LABS: AMPHETAMINE/METHAMPHETAMINE NEG (NEG); BARBITURATES NEG (NEG); BENZODIAZEPINES NEG (NEG); CANNABINOIDS NEG (NEG); COCAINE NEG (NEG); METHADONE NEG (NEG); OPIATES NEG (NEG); PHENCYCLIDINE NEG (NEG)
--- NOTE | 2020-11-24 18:03 | RAD ---
Exam: Chest one view INDICATION: Hypoxia TECHNIQUE: Frontal view of the chest Comparisons: 11/23/2020 FINDINGS: Pacer with leads terminating the right atrium and ventricle. The cardiomediastinal silhouette and pulmonary vessels are within normal limits. The lung and pleural spaces are clear. IMPRESSION: No acute pulmonary process. Electronically signed by: Bety Rangel MD (11/24/2020 6:01 PM) HEATHER
[2020-11-24 18:21] LABS: BILIRUBIN,URINE NEGATIVE (NEG); CLARITY,URINE CLEAR; COLOR,URINE YELLOW; NITRITE,URINE NEGATIVE (NEG); PROTEIN,URINE NEGATIVE (NEG-TRACE)
[2020-11-24 18:28] LABS: BACTERIA,URINE 0 /HPF (0-FEW); RBC,URINE 0 /HPF (0-2)
[2020-11-24 18:53] VITALS: BP 127/69
[2020-11-24] MEDS: NORTRIPTYLINE 10 MG CAPSULE PO SCH (21:29)
[2020-11-24] MEDS: ENOXAPARIN 40 MG/0.4 ML SYRINGE. SQ SCH (21:32)
[2020-11-24] MEDS ORDERED: LIDO:MAALOX 1:1 20 ML SINGLE DOSE. PO PRN (21:45)
[2020-11-24] MEDS ORDERED: SIMETHICONE 80 MG TAB.CHEW PO PRN (21:45)
[2020-11-24] MEDS ORDERED: CALCIUM CARBONATE 500 MG TAB.CHEW PO PRN (21:45)
[2020-11-24] MEDS: ATORVASTATIN CALCIUM 40 MG TABLET. PO SCH (21:48)
[2020-11-24 22:32] VITALS: BP 140/94
[2020-11-25 02:00] VITALS: BP 144/73
[2020-11-25 04:39] LABS: BASO % 1 % (0-3); EOS # 0.5 x10^3/uL (0.0-0.7); EOS % 12 % (0-3); HEMATOCRIT 32.6 % (39.0-53.0); HEMOGLOBIN 10.2 g/dL (13.0-17.5); LYMPH # 0.9 x10^3/uL (1.0-4.8); LYMPH % 20 % (24-48); MEAN CORPUSCULAR HEMOGLOBIN 20 pg (25-35); MEAN CORPUSCULAR HGB CONC 31 g/dL (31-37); MEAN CORPUSCULAR VOLUME 64 fL (79-100); MONO # 0.6 x10^3/uL (0.0-1.1); MONO % 14 % (0-9); NEUT # 2.5 x10^3/uL (1.8-7.7); NEUT % 54 % (31-73); PLATELET COUNT 204 x10^3/uL (140-400); RED BLOOD COUNT 5.13 x10^6/uL (4.30-5.70); RED CELL DISTRIBUTION WIDTH 18.7 % (11.5-14.5); WHITE BLOOD COUNT 4.5 x10^3/uL (4.0-11.0)
[2020-11-25 04:51] LABS: CREATININE 0.9 mg/dL (0.7-1.3); POTASSIUM 4.1 mmol/L (3.5-5.1)
[2020-11-25] MEDS: PANTOPRAZOLE 40 MG TABLET.DR. PO SCH (06:15)
[2020-11-25 07:00] VITALS: BP 113/85
[2020-11-25] MEDS ORDERED: PERFLUTREN PROTEIN-A MICROSPHR 0.22 MG/ML 3 ML VIAL. IV ONE ×2 (07:36→08:00)
[2020-11-25] MEDS ORDERED: POTASSIUM CHLORIDE 20 MEQ TABLET.ER. PO SCH (08:00)
--- NOTE | 2020-11-25 08:21 | PDOC ---
PROGRESS NOTES Date of Service: DATE: 11/25/20 TIME: 08:19 Chief Complaint Chief Complaint VTE Prophylaxis Ordered VTE Prophylaxis Devices: Yes VTE Pharmacological Prophylaxi: Yes Assessment/Plan Assessment/Plan A/P: Acute encephalopathy - likely from pneumonia. Concerning he has had this same issue previously. 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 Cont PPI BID OA - stable. Will watch tramadol dosing given his confusion SSS s/p PPM - leads appear in good position on CXR Dm2 - A1c 6 with diet control HYPOKALEMIA Obesity, BMI 50 - counseled family on lifestyle modification CAD, s/p stent to LAD in 2017 - normal MPI in september 2020 One vessel CAD - Successful PCI of the LAD with implantation of a 4.0/15 mm BISMARK. conversion disorder. Patient admits that he has been under some stress. acute hypoxic resp failure, NOW ON ROOM AIR 11-25 6 MIN WALK PLAN FEN - Cardiac diet PPX - lovenox FULL CODE Dispo - inpatient. Surrogate decision maker is Edel Delgado, daughter PO Oliva CTA HEAD , NECK 11-24 NEUROLOGY CONSULT mri HEAD ECHO Pacemaker is NOT MRI conditional could go to or [facility] if necessary CONTINUE IV ROCEPHIN 1 GM Q 24 HRS IV D/W RN 39 MIN pt exam, chart review,> 50% of time spent with exam, chart review, pt care coordination During scan yesterday 11-22 , patient became unresponsive and was unable to talk. Patient has a history of PPM implantation, neurology consulted COVID-19 CRITERIA: The patient was evaluated during the global COVID-19 pandemic, and that diagnosis was suspected/considered upon their initial presentation. Their evaluation, treatment and testing was consistent with current guidelines for patients who present with complaints or symptoms that may be related to COVID-19. COVID NEG Justifications for Admission Justifications for Admission Other Justification investigation for COVID History of Present Illness History of Present Illness History of Present Illness Mr Delgado is a 54 yo M w/ PMHx CAD s/p LAD stenting 12/2017, HLD, Loyhanh-Rrmhu-Ocdwu disease, peripheral neuropathy, GERD, OA, s/p PPM presents to the ED from CT scan with reported altered mental status. Patient was undergoing oral contrast CT when he became unresponsive and was not talking. No seizure-like activity or convulsions. Patient was breathing the entire time and never became hypoxic. No other specific changes. No reported recent illness or sick contacts. Patient is not providing any history and his son is bedside to relate his father is going through pre-operative assessment for consideration of surgical repair for noted hiatal and ventral incisional hernia. He had a cardiac stress test with MPI on 10/17/20 that was low risk for ischemia. His son does note he has had a cough for the past few days, no fevers and no sick contacts. He has had both COVID 19 vaccines. He is confused, stuttering. His son does note that his father has been more confused over the past 3-5 days. Labs reveal WBC 14 with left shift, Hb 10.5, platelets 240, troponin 0, BNP 37, lactate WNL, metabolic panel within normal laboratory limits CT head with no acute abnormalities. Chest radiograph with left lower lobe infiltrate. Admitted for further treatment Past Medical History Cardiovascular: CAD, Syncope, Hyperlipidemia Pulmonary: Other CENTRAL NERVOUS SYSTEM: CVA, Periperal neuropathy GI: Constipation, GERD, Other Heme/Onc: No pertinent hx Hepatobiliary: No pertinent hx Psych: No pertinent hx Musculoskeletal: Osteoarthritis Rheumatologic: No pertinent hx Infectious disease: No pertinent hx Renal/: No pertinent hx Endocrine: No pertinent hx Past Surgical History Past Surgical History: Pacemaker, Appendectomy, Cholecystectomy, Hernia Repair, Other Family History Family History: Cancer Social History Smoke: No ALCOHOL: none Drugs: None Current Problem List Problem List Problems Medical Problems: (1) CAP (community acquired pneumonia) Status: Acute Current Medications Current Medications Current Medications Sodium Chloride 1,000 ml @ 1,000 mls/hr Q1H IV Last administered on 11/23/20at 17:16; Start 11/23/20 at 16:45; Stop 11/23/20 at 17:44; Status DC Ceftriaxone Sodium (Rocephin) 1 gm 1X ONCE IVP ; Start 11/23/20 at 17:45; Stop 11/23/20 at 17:46; Status DC Azithromycin 250 ml @ 250 mls/hr 1X ONCE IV ; Start 11/23/20 at 17:45; Stop 11/23/20 at 18:44 Active Scripts Active Azithromycin Tablet (Azithromycin) 500 Mg Tablet 1 Tab PO DAILY 3 Days Augmentin 500-125 Tablet (Amoxicillin/Potassium Clav) 1 Each Tablet 1 Tab PO BID 3 Days Ondansetron Odt (Ondansetron) 4 Mg Tab.rapdis 1 Tab PO PRN Q6-8HRS Atorvastatin Calcium 40 Mg Tablet 40 Mg PO QHS 30 Days Losartan-Hctz 100-12.5 Mg Tab (Losartan/Hydrochlorothiazide) 1 Each Tablet 1 Tab PO DAILY 30 Days Adult Low Dose Aspirin Ec (Aspirin) 81 Mg Tablet.dr 81 Mg PO DAILY Omeprazole 40 Mg Capsule.dr 1 Cap PO BID Reported Symbicort 160-4.5 Mcg Inhaler (Budesonide/Formoterol Fumarate) 10.2 Gm Hfa.aer.ad 2 Puff IH BID Topiramate 100 Mg Tablet 1 Tab PO DAILY Tramadol Hcl 50 Mg Tablet 50 Mg PO Q6HRS PRN Nortriptyline Hcl 10 Mg Capsule 1 Cap PO QHS Clopidogrel (Clopidogrel Bisulfate) 75 Mg Tablet 75 Mg PO DAILY Vitamin D3 (Cholecalciferol (Vitamin D3)) 5,000 Unit Tablet 1 Tab PO TID Vitamin C (Ascorbic Acid) 1,000 Mg Tablet 1,000 Mg PO DAILY Carafate (Sucralfate) 1 Gm Tablet 1 Tab PO QID Tamsulosin Hcl 0.4 Mg Cap.er.24h 0.4 Mg PO BID NITROGLYCERIN SubLingual (Nitroglycerin) 0.4 Mg Tab.subl 0.4 Mg SL PRN Q5MIN PRN Gabapentin 600 Mg Tablet 1 Tab PO TID next dose tonight at bedtime, 10/30/15 Allergies Allergies: Coded Allergies: No Known Drug Allergies (Unverified , 07/24/20) ROS Review of System Unable to accurately obtain due to patient confusion 11-25 now alert nad, stuttering has resolved home later when consults clear, 6 min walk Vitals Vitals Vital Signs Date Time Temp Pulse Resp B/P (MAP) Pulse Ox O2 Delivery O2 Flow Rate FiO2 11/25/20 08:13 Room Air 11/25/20 02:00 97.0 79 19 144/73 (96) 98 97.0 11/24/20 19:30 1.0 Physical Exam General: Alert, Oriented X3, Cooperative, No acute distress Heart: Regular rate Lungs: Clear, Other Abdomen: Soft, No tenderness Extremities: No cyanosis, No edema Skin: No breakdown, No significant lesion Labs LABS PDESC: Pulmonary Vein S1 Velocity 67.8cm/s D2 Velocity 58.4cm/s PVa duration 93msec LEFT VENTRICLE The left ventricle is normal size. There is mild concentric left ventricular hypertrophy. The left ventricular systolic function is normal. Ejection fraction 60-65%. There is normal LV segmental wall motion. The left ventricular diastolic function and filling is normal for age. No left ventricle thrombus noted on this study. RIGHT VENTRICLE The right ventricle is normal size. There is normal right ventricular wall thickness. The right ventricular systolic function is normal. ATRIA The left atrium size is normal. The right atrium size is normal. The interatrial septum is intact with no evidence for an atrial septal defect or patent foramen ovale as noted on 2-D or Doppler imaging. AORTIC VALVE The aortic valve is normal in structure and function. Doppler and Color Flow revealed no significant aortic regurgitation. There is no significant aortic valvular stenosis. MITRAL VALVE The mitral valve is normal in structure and function. There is no evidence of mitral valve prolapse. There is no mitral valve stenosis. Doppler and Color-flow revealed trace mitral regurgitation. TRICUSPID VALVE The tricuspid valve is normal in structure and function. Doppler and Color Flow revealed trace tricuspid regurgitation. Estimated PAP 30 mmHg. There is no tricuspid valve stenosis. PULMONIC VALVE The pulmonary valve is normal in structure and function. Doppler and Color Flow revealed no pulmonic valvular regurgitation. GREAT VESSELS The aortic root is normal in size. The ascending aorta is normal in size. Due to poor image quality, the IVC could not be assessed. PERICARDIAL EFFUSION There is no evidence of significant pericardial effusion. Critical Notification Critical Value: No <Conclusion> The left ventricular systolic function is normal. Ejection fraction 60-65%. There is normal LV segmental wall motion. Trace mitral regurgitation. Trace tricuspid regurgitation. Estimated PAP 30 mmHg. There is no evidence of significant pericardial effusion. Signed by : Gautam Vega, Electronically Approved : 11/25/2020 09:40:54 ORDERED: BCULT Procedure Result BLOOD CULTURE Preliminary NO GROWTH AFTER 1 DAY ----- ------- Signed PATIENT: OSMAN CALDERONACCOUNT: [id number] : 1965 LOCATION: [address] [place] [address] AGE: 55 SEX: M EXAM STATUS: ADM IN ORD. PHYSICIAN: DANIELLE MORENO MD REASON: hypoxia [id number] PROCEDURE: CHEST AP ONLY Exam: Chest one view INDICATION: Hypoxia TECHNIQUE: Frontal view of the chest Comparisons: 11/23/2020 FINDINGS: Pacer with leads terminating the right atrium and ventricle. The cardiomediastinal silhouette and pulmonary vessels are within normal limits. The lung and pleural spaces are clear. IMPRESSION: No acute pulmonary process. Electronically signed by: Bety Aguilar MD (11/24/2020 6:01 PM) [facility] DICTATED and SIGNED BY: BETY AGUILAR MD DATE: 11/24/20 [id number] Laboratory Tests Test 11/24/20 17:30 4/29/21 03:55 Urine Collection Type Unknown Urine Color Yellow Urine Clarity Clear Urine pH 7.0 (<5.0-8.0) Urine Specific [place] >=1.030 (1.000-1.030) Urine Protein Negative mg/dL (NEG-TRACE) Urine Glucose (UA) Negative mg/dL (NEG) Urine Ketones (Stick) Negative mg/dL (NEG) Urine Blood Negative (NEG) Urine Nitrite Negative (NEG) Urine Bilirubin Negative (NEG) Urine Urobilinogen Dipstick 1.0 mg/dL (0.2 mg/dL) Urine Leukocyte Esterase Small (NEG) Urine RBC 0 /HPF (0-2) Urine WBC 1-4 /HPF (0-4) Urine Squamous Epithelial Cells Few /LPF Urine Bacteria 0 /HPF (0-FEW) Urine Opiates Screen Neg (NEG) Urine Methadone Screen Neg (NEG) Urine Barbiturates Neg (NEG) Urine Phencyclidine Screen Neg (NEG) Urine Amphetamine/Methamphetamine Neg (NEG) Urine Benzodiazepines Screen Neg (NEG) Urine Cocaine Screen Neg (NEG) Urine Cannabinoids Screen Neg (NEG) Urine Ethyl Alcohol Neg (NEG) White Blood Count 4.5 x10^3/uL (4.0-11.0) Red Blood Count 5.13 x10^6/uL (4.30-5.70) Hemoglobin 10.2 g/dL (13.0-17.5) Hematocrit 32.6 % (39.0-53.0) Mean Corpuscular Volume 64 fL (79-100) Mean Corpuscular Hemoglobin 20 pg (25-35) Mean Corpuscular Hemoglobin Concent 31 g/dL (31-37) Red Cell Distribution Width 18.7 % (11.5-14.5) Platelet Count 204 x10^3/uL (140-400) Neutrophils (%) (Auto) 54 % (31-73) Lymphocytes (%) (Auto) 20 % (24-48) Monocytes (%) (Auto) 14 % (0-9) Eosinophils (%) (Auto) 12 % (0-3) Basophils (%) (Auto) 1 % (0-3) Neutrophils # (Auto) 2.5 x10^3/uL (1.8-7.7) Lymphocytes # (Auto) 0.9 x10^3/uL (1.0-4.8) Monocytes # (Auto) 0.6 x10^3/uL (0.0-1.1) Eosinophils # (Auto) 0.5 x10^3/uL (0.0-0.7) Basophils # (Auto) 0.0 x10^3/uL (0.0-0.2) Sodium Level 142 mmol/L (136-145) Potassium Level 4.1 mmol/L (3.5-5.1) Chloride Level 109 mmol/L (98-107) Carbon Dioxide Level 27 mmol/L (21-32) Anion Gap 6 (6-14) Blood Urea Nitrogen 14 mg/dL (8-26) Creatinine 0.9 mg/dL (0.7-1.3) Estimated GFR (Cockcroft-Gault) 87.0 Glucose Level 109 mg/dL (70-99) Calcium Level 8.0 mg/dL (8.5-10.1) Assessment and Plan Assessmemt and Plan Problems Medical Problems: (1) CAP (community acquired pneumonia) Status: Acute Comment Review of Relevant I have reviewed the following items logan (where applicable) has been applied. Labs Laboratory Tests Test 11/23/20 16:32 11/23/20 16:53 11/23/20 20:37 11/24/20 03:55 Glucose (Fingerstick) 131 mg/dL (70-99) White Blood Count 14.0 x10^3/uL (4.0-11.0) 7.5 x10^3/uL (4.0-11.0) Red Blood Count 5.22 x10^6/uL (4.30-5.70) 4.81 x10^6/uL (4.30-5.70) Hemoglobin 10.5 g/dL (13.0-17.5) 9.6 g/dL (13.0-17.5) Hematocrit 32.9 % (39.0-53.0) 30.3 % (39.0-53.0) Mean Corpuscular Volume 63 fL (79-100) 63 fL (79-100) Mean Corpuscular Hemoglobin 20 pg (25-35) 20 pg (25-35) Mean Corpuscular Hemoglobin Concent 32 g/dL (31-37) 32 g/dL (31-37) Red Cell Distribution Width 18.7 % (11.5-14.5) 18.7 % (11.5-14.5) Platelet Count 240 x10^3/uL (140-400) 206 x10^3/uL (140-400) Neutrophils (%) (Auto) 91 % (31-73) 78 % (31-73) Lymphocytes (%) (Auto) 3 % (24-48) 9 % (24-48) Monocytes (%) (Auto) 4 % (0-9) 9 % (0-9) Eosinophils (%) (Auto) 1 % (0-3) 3 % (0-3) Basophils (%) (Auto) 0 % (0-3) 0 % (0-3) Neutrophils # (Auto) 12.8 x10^3/uL (1.8-7.7) 5.8 x10^3/uL (1.8-7.7) Lymphocytes # (Auto) 0.4 x10^3/uL (1.0-4.8) 0.7 x10^3/uL (1.0-4.8) Monocytes # (Auto) 0.6 x10^3/uL (0.0-1.1) 0.7 x10^3/uL (0.0-1.1) Eosinophils # (Auto) 0.2 x10^3/uL (0.0-0.7) 0.2 x10^3/uL (0.0-0.7) Basophils # (Auto) 0.1 x10^3/uL (0.0-0.2) 0.0 x10^3/uL (0.0-0.2) Segmented Neutrophils % 82 % (35-66) Band Neutrophils % 6 % (0-9) Lymphocytes % 6 % (24-48) Monocytes % 5 % (0-10) Eosinophils % 1 % (0-5) Platelet Estimate Adequate (ADEQUATE) Hypochromasia Mod Poikilocytosis Slight Anisocytosis Slight Microcytosis Marked Ovalocytes Few Schistocytes Few Prothrombin Time 13.8 SEC (11.7-14.0) Prothromb Time International Ratio 1.1 (0.8-1.1) Activated Partial Thromboplast Time 30 SEC (24-38) Sodium Level 142 mmol/L (136-145) 142 mmol/L (136-145) Potassium Level 3.8 mmol/L (3.5-5.1) 3.3 mmol/L (3.5-5.1) Chloride Level 104 mmol/L (98-107) 107 mmol/L (98-107) Carbon Dioxide Level 25 mmol/L (21-32) 24 mmol/L (21-32) Anion Gap 13 (6-14) 11 (6-14) Blood Urea Nitrogen 22 mg/dL (8-26) 17 mg/dL (8-26) Creatinine 1.0 mg/dL (0.7-1.3) 0.8 mg/dL (0.7-1.3) Estimated GFR (Cockcroft-Gault) 77.0 99.6 Glucose Level 129 mg/dL (70-99) 105 mg/dL (70-99) Lactic Acid Level 1.2 mmol/L (0.4-2.0) Calcium Level 8.3 mg/dL (8.5-10.1) 8.2 mg/dL (8.5-10.1) Magnesium Level 2.1 mg/dL (1.8-2.4) Ammonia 18 mcmol/L (11-34) Creatine Kinase 264 U/L (39-308) Troponin I Quantitative < 0.017 ng/mL (0.000-0.055) [id number] Natriuretic Peptide 37 pg/mL (0-124) SARS-CoV-2 RNA (SOL) Negative (Negative) BUN/Creatinine Ratio 21 (6-20) Total Bilirubin 0.9 mg/dL (0.2-1.0) Aspartate Amino Transf (AST/SGOT) 18 U/L (15-37) Alanine Aminotransferase (ALT/SGPT) 35 U/L (16-63) Alkaline Phosphatase 56 U/L (46-116) Total Protein 6.1 g/dL (6.4-8.2) Albumin 3.0 g/dL (3.4-5.0) Albumin/Globulin Ratio 1.0 (1.0-1.7) Triglycerides Level 80 mg/dL (0-150) Cholesterol Level 142 mg/dL (0-200) LDL Cholesterol, Calculated 84 mg/dL (0-100) VLDL Cholesterol, Calculated 16 mg/dL (0-40) Non-HDL Cholesterol Calculated 100 mg/dL (0-129) HDL Cholesterol 42 mg/dL (40-60) Cholesterol/HDL Ratio 3.4 Procalcitonin 0.17 ng/mL (0.00-0.10) Test 11/24/20 17:30 11/25/20 03:55 Urine Collection Type Unknown Urine Color Yellow Urine Clarity Clear Urine pH 7.0 (<5.0-8.0) Urine Specific [place] >=1.030 (1.000-1.030) Urine Protein Negative mg/dL (NEG-TRACE) Urine Glucose (UA) Negative mg/dL (NEG) Urine Ketones (Stick) Negative mg/dL (NEG) Urine Blood Negative (NEG) Urine Nitrite Negative (NEG) Urine Bilirubin Negative (NEG) Urine Urobilinogen Dipstick 1.0 mg/dL (0.2 mg/dL) Urine Leukocyte Esterase Small (NEG) Urine RBC 0 /HPF (0-2) Urine WBC 1-4 /HPF (0-4) Urine Squamous Epithelial Cells Few /LPF Urine Bacteria 0 /HPF (0-FEW) Urine Opiates Screen Neg (NEG) Urine Methadone Screen Neg (NEG) Urine Barbiturates Neg (NEG) Urine Phencyclidine Screen Neg (NEG) Urine Amphetamine/Methamphetamine Neg (NEG) Urine Benzodiazepines Screen Neg (NEG) Urine Cocaine Screen Neg (NEG) Urine Cannabinoids Screen Neg (NEG) Urine Ethyl Alcohol Neg (NEG) White Blood Count 4.5 x10^3/uL (4.0-11.0) Red Blood Count 5.13 x10^6/uL (4.30-5.70) Hemoglobin 10.2 g/dL (13.0-17.5) Hematocrit 32.6 % (39.0-53.0) Mean Corpuscular Volume 64 fL (79-100) Mean Corpuscular Hemoglobin 20 pg (25-35) Mean Corpuscular Hemoglobin Concent 31 g/dL (31-37) Red Cell Distribution Width 18.7 % (11.5-14.5) Platelet Count 204 x10^3/uL (140-400) Neutrophils (%) (Auto) 54 % (31-73) Lymphocytes (%) (Auto) 20 % (24-48) Monocytes (%) (Auto) 14 % (0-9) Eosinophils (%) (Auto) 12 % (0-3) Basophils (%) (Auto) 1 % (0-3) Neutrophils # (Auto) 2.5 x10^3/uL (1.8-7.7) Lymphocytes # (Auto) 0.9 x10^3/uL (1.0-4.8) Monocytes # (Auto) 0.6 x10^3/uL (0.0-1.1) Eosinophils # (Auto) 0.5 x10^3/uL (0.0-0.7) Basophils # (Auto) 0.0 x10^3/uL (0.0-0.2) Sodium Level 142 mmol/L (136-145) Potassium Level 4.1 mmol/L (3.5-5.1) Chloride Level 109 mmol/L (98-107) Carbon Dioxide Level 27 mmol/L (21-32) Anion Gap 6 (6-14) Blood Urea Nitrogen 14 mg/dL (8-26) Creatinine 0.9 mg/dL (0.7-1.3) Estimated GFR (Cockcroft-Gault) 87.0 Glucose Level 109 mg/dL (70-99) Calcium Level 8.0 mg/dL (8.5-10.1) Laboratory Tests Test 11/24/20 17:30 11/25/20 03:55 Urine Collection Type Unknown Urine Color Yellow Urine Clarity Clear Urine pH 7.0 (<5.0-8.0) Urine Specific [place] >=1.030 (1.000-1.030) Urine Protein Negative mg/dL (NEG-TRACE) Urine Glucose (UA) Negative mg/dL (NEG) Urine Ketones (Stick) Negative mg/dL (NEG) Urine Blood Negative (NEG) Urine Nitrite Negative (NEG) Urine Bilirubin Negative (NEG) Urine Urobilinogen Dipstick 1.0 mg/dL (0.2 mg/dL) Urine Leukocyte Esterase Small (NEG) Urine RBC 0 /HPF (0-2) Urine WBC 1-4 /HPF (0-4) Urine Squamous Epithelial Cells Few /LPF Urine Bacteria 0 /HPF (0-FEW) Urine Opiates Screen Neg (NEG) Urine Methadone Screen Neg (NEG) Urine Barbiturates Neg (NEG) Urine Phencyclidine Screen Neg (NEG) Urine Amphetamine/Methamphetamine Neg (NEG) Urine Benzodiazepines Screen Neg (NEG) Urine Cocaine Screen Neg (NEG) Urine Cannabinoids Screen Neg (NEG) Urine Ethyl Alcohol Neg (NEG) White Blood Count 4.5 x10^3/uL (4.0-11.0) Red Blood Count 5.13 x10^6/uL (4.30-5.70) Hemoglobin 10.2 g/dL (13.0-17.5) Hematocrit 32.6 % (39.0-53.0) Mean Corpuscular Volume 64 fL (79-100) Mean Corpuscular Hemoglobin 20 pg (25-35) Mean Corpuscular Hemoglobin Concent 31 g/dL (31-37) Red Cell Distribution Width 18.7 % (11.5-14.5) Platelet Count 204 x10^3/uL (140-400) Neutrophils (%) (Auto) 54 % (31-73) Lymphocytes (%) (Auto) 20 % (24-48) Monocytes (%) (Auto) 14 % (0-9) Eosinophils (%) (Auto) 12 % (0-3) Basophils (%) (Auto) 1 % (0-3) Neutrophils # (Auto) 2.5 x10^3/uL (1.8-7.7) Lymphocytes # (Auto) 0.9 x10^3/uL (1.0-4.8) Monocytes # (Auto) 0.6 x10^3/uL (0.0-1.1) Eosinophils # (Auto) 0.5 x10^3/uL (0.0-0.7) Basophils # (Auto) 0.0 x10^3/uL (0.0-0.2) Sodium Level 142 mmol/L (136-145) Potassium Level 4.1 mmol/L (3.5-5.1) Chloride Level 109 mmol/L (98-107) Carbon Dioxide Level 27 mmol/L (21-32) Anion Gap 6 (6-14) Blood Urea Nitrogen 14 mg/dL (8-26) Creatinine 0.9 mg/dL (0.7-1.3) Estimated GFR (Cockcroft-Gault) 87.0 Glucose Level 109 mg/dL (70-99) Calcium Level 8.0 mg/dL (8.5-10.1) Microbiology 11/23/20 Blood Culture - Preliminary, Resulted NO GROWTH AFTER 1 DAY Medications Current Medications Sodium Chloride 1,000 ml @ 1,000 mls/hr Q1H IV Last administered on 11/23/20at 17:16; Start 11/23/20 at 16:45; Stop 11/23/20 at 17:44; Status DC Ceftriaxone Sodium (Rocephin) 1 gm 1X ONCE IVP Last administered on 11/23/20 18:03; Start 11/23/20 at 17:45; Stop 11/23/20 at 17:46; Status DC Azithromycin 250 ml @ 250 mls/hr 1X ONCE IV Last administered on 11/23/20at 18:04; Start 11/23/20 at 17:45; Stop 11/23/20 at 18:44; Status DC Ondansetron HCl (Zofran) 4 mg PRN Q4HRS PRN IV NAUSEA/VOMITING; Start 11/23/20 at 18:30 Acetaminophen (Tylenol) 650 mg PRN Q4HRS PRN PO TEMP OVER 100.4F OR MILD PAIN Last administered on 11/24/20at 15:47; Start 11/23/20 at 18:30 Enoxaparin Sodium (Lovenox 40mg Syringe) 40 mg Q24H SQ Last administered on 11/24/20at 21:32; Start 11/23/20 at 21:00 Guaifenesin (Robitussin Dm) 10 ml PRN Q6HRS PRN PO COUGH; Start 11/23/20 at 18:30 Aspirin (Ecotrin) 81 mg DAILY PO Last administered on 11/24/20at 15:38; Start 11/24/20 at 09:00 Atorvastatin Calcium (Lipitor) 40 mg QHS PO Last administered on 11/24/20 21:48; Start 11/23/20 at 21:00 Clopidogrel Bisulfate (Plavix) 75 mg DAILY PO Last administered on 11/24/20 15:38; Start 11/24/20 at 09:00 Nitroglycerin (Nitrostat) 0.4 mg PRN Q5MIN PRN SL CHEST PAIN; Start 11/23/20 at 18:30 Nortriptyline HCl (Pamelor) 10 mg QHS PO Last administered on 11/24/20at 21:29; Start 11/23/20 at 21:00 Ondansetron HCl (Zofran Odt) 4 mg PRN Q6HRS PRN PO nausea; Start 11/23/20 at 18:30 Tamsulosin HCl (Flomax) 0.4 mg BID PO Last administered on 11/24/20at 21:30; Start 11/23/20 at 21:00 Gabapentin (Neurontin) 600 mg TID PO Last administered on 11/24/20at 21:30; S tart 11/23/20 at 21:00 Pantoprazole Sodium (Protonix) 40 mg BIDAC PO Last administered on 11/25/20at 06:15; Start 11/23/20 at 21:00 Doxycycline Hyclate 100 mg/ Dextrose 100 ml @ 50 mls/hr Q12HR IV Last administered on 11/24/20at 21:49; Start 11/24/20 at 09:00 Ceftriaxone Sodium (Rocephin) 1 gm Q24H IVP Last administered on 11/24/20at 12:08; Start 11/24/20 at 10:00 Iohexol (Omnipaque 350 Mg/ml) 75 ml 1X ONCE IV Last administered on 11/24/20at 10:22; Start 11/24/20 at 09:15; Stop 11/24/20 at 09:18; Status DC Info (CONTRAST GIVEN -- Rx MONITORING) 1 each PRN DAILY PRN MC SEE COMMENTS; Start 11/24/20 at 09:30; Stop 11/26/20 at 09:29 Potassium Chloride (Klor-Con) 40 meq 1X ONCE PO Last administered on 11/24/20at 17:12; Start 11/24/20 at 16:00; Stop 11/24/20 at 16:01; Status DC Potassium Chloride (Klor-Con) 20 meq DAILYWBKFT PO ; Start 11/25/20 at 08:00 Multi-Ingredient Mouthwash/Gargle (Gi Cocktail) 20 ml PRN QID PRN PO CHEST PAIN Last administered on 11/24/20at 22:02; Start 11/24/20 at 21:45 Calcium Carbonate/ Glycine (Tums) 500 mg PRN AFTMEALHC PRN PO INDIGESTION; Start 11/24/20 at 21:45 Simethicone (Gas-X) 80 mg PRN AFTMEALHC PRN PO GAS / BLOATING; Start 11/24/20 at 21:45 Perflutren Protein Type A Microsphe (Optison) 0.66 mg STK-MED ONCE IV ; Start 11/25/20 at 07:36; Stop 11/25/20 at 07:36; Status DC Perflutren Protein Type A Microsphe (Optison) 0.66 mg 1X ONCE IV Last administ ered on 11/25/20at 07:48; Start 11/25/20 at 08:00; Stop 11/25/20 at 08:01; Status DC Active Scripts Active Azithromycin Tablet (Azithromycin) 500 Mg Tablet 1 Tab PO DAILY 3 Days Augmentin 500-125 Tablet (Amoxicillin/Potassium Clav) 1 Each Tablet 1 Tab PO BID 3 Days Ondansetron Odt (Ondansetron) 4 Mg Tab.rapdis 1 Tab PO PRN Q6-8HRS Atorvastatin Calcium 40 Mg Tablet 40 Mg PO QHS 30 Days Losartan-Hctz 100-12.5 Mg Tab (Losartan/Hydrochlorothiazide) 1 Each Tablet 1 Tab PO DAILY 30 Days Adult Low Dose Aspirin Ec (Aspirin) 81 Mg Tablet.dr 81 Mg PO DAILY Omeprazole 40 Mg Capsule.dr 1 Cap PO BID Reported Symbicort 160-4.5 Mcg Inhaler (Budesonide/Formoterol Fumarate) 10.2 Gm Hfa.aer.ad 2 Puff IH BID Topiramate 100 Mg Tablet 1 Tab PO DAILY Tramadol Hcl 50 Mg Tablet 50 Mg PO Q6HRS PRN Nortriptyline Hcl 10 Mg Capsule 1 Cap PO QHS Clopidogrel (Clopidogrel Bisulfate) 75 Mg Tablet 75 Mg PO DAILY Vitamin D3 (Cholecalciferol (Vitamin D3)) 5,000 Unit Tablet 1 Tab PO TID Vitamin C (Ascorbic Acid) 1,000 Mg Tablet 1,000 Mg PO DAILY Carafate (Sucralfate) 1 Gm Tablet 1 Tab PO QID Tamsulosin Hcl 0.4 Mg Cap.er.24h 0.4 Mg PO BID NITROGLYCERIN SubLingual (Nitroglycerin) 0.4 Mg Tab.subl 0.4 Mg SL PRN Q5MIN PRN Gabapentin 600 Mg Tablet 1 Tab PO TID next dose tonight at bedtime, 10/30/15 Vitals/I & O Vital Sign - Last 24 Hours 11/24/20 11/24/20 11/24/20 11/24/20 11:00 15:00 18:53 19:30 Temp 98.1 97.5 97.5 98.1 97.5 97.5 Pulse 82 72 78 Resp 21 B/P (MAP) 124/61 (82) 129/80 (96) 127/69 (88) Pulse Ox 98 98 97 O2 Delivery Nasal Cannula Nasal Cannula Room Air Nasal Cannula O2 Flow Rate 1.0 1.0 1.0 11/24/20 11/25/20 11/25/20 22:32 02:00 08:13 Temp 96.7 97.0 96.7 97.0 Pulse 78 79 Resp 19 19 B/P (MAP) 140/94 (109) 144/73 (96) Pulse Ox 97 98 O2 Delivery Room Air Room Air Room Air Intake and Output 11/24/20 11/24/20 11/25/20 14:59 22:59 06:59 Intake Total 250 ml 100 ml Output Total 500 ml 500 ml 500 ml Balance -500 ml -250 ml -400 ml Justicifation of Admission Dx: Justifications for Admission: Justification of Admission Dx: Yes Respiratory Failure: Severe Resp Distress DANIELLE MORENO MD Nov 25, 2020 08:21
[2020-11-25] MEDS: TAMSULOSIN 0.4 MG CAP.ER.24H. PO SCH (09:34)
[2020-11-25] MEDS: ASPIRIN ENTERIC COATED 81 MG TABLET.DR. PO SCH (09:34)
[2020-11-25] MEDS: GABAPENTIN 300 MG CAPSULE. PO SCH (09:34)
[2020-11-25] MEDS: CLOPIDOGREL BISULFATE 75 MG TABLET PO SCH (09:34)
[2020-11-25] MEDS: DOXYCYCLINE HYCLATE 100 MG in IV DEXTROSE 5% 100ML 100 ML IV SCH (09:39)
--- NOTE | 2020-11-25 09:41 | CARD ---
MR#: [id number] Date of Study: 11/25/2020 Ordering Physician: JOHN LOPEZ, Referring Physician: JOHN LOPEZ, Tech: Vika Clark [facility] APPROVED REPORT EXAM: Two-dimensional and M-mode echocardiogram with Doppler and color Doppler. Other Information Quality : Technically Limited Rhythm : NSR INDICATION Chest Pain Echo Enhancing Agent Indication: Endocardial border delineation Agent/Amount Used: Optison 3mL RISK FACTORS Hypertension Obesity Hyperlipidemia 2D DIMENSIONS Left Atrium(2D)3.7 (1.6-4.0cm)IVSd1.2 (0.7-1.1cm) Aortic Root(2D)3.5 (2.0-3.7cm)LVDd5.0 (3.9-5.9cm) LVOT Diameter2.0 (1.8-2.4cm)PWd1.1 (0.7-1.1cm) LVDs3.0 (2.5-4.0cm)FS (%) 38.6 % SV79.6 mlLVEF(%)68.7 (>50%) Aortic Valve AoV Peak Naren.135.8cm/sAoV VTI28.3cm AO Peak GR.7.4mmHgLVOT Peak Naren.109.9cm/s AO Mean GR.3mmHgAVA (VMAX)2.45cm2 Mitral Valve MV E Yxnnaiyy160.7cm/sMV DECEL [id number] MV A Svrqphds476.2cm/sE/A Ratio1.0 Pulmonary Valve PV Peak Pelivacz80.8cm/s Tricuspid Valve TR P. Rwyngncs384oi/sTR Peak Gr.25mmHg Pulmonary Vein S1 Mcjbykib89.8cm/sD2 Treelted08.4cm/s PVa [id number] LEFT VENTRICLE The left ventricle is normal size. There is mild concentric left ventricular hypertrophy. The left ve ntricular systolic function is normal. Ejection fraction 60-65%. There is normal LV segmental wall mo tion. The left ventricular diastolic function and filling is normal for age. No left ventricle thromb us noted on this study. RIGHT VENTRICLE The right ventricle is normal size. There is normal right ventricular wall thickness. The right ventr icular systolic function is normal. ATRIA The left atrium size is normal. The right atrium size is normal. The interatrial septum is intact wit h no evidence for an atrial septal defect or patent foramen ovale as noted on 2-D or Doppler imaging. AORTIC VALVE The aortic valve is normal in structure and function. Doppler and Color Flow revealed no significant aortic regurgitation. There is no significant aortic valvular stenosis. MITRAL VALVE The mitral valve is normal in structure and function. There is no evidence of mitral valve prolapse. There is no mitral valve stenosis. Doppler and Color-flow revealed trace mitral regurgitation. TRICUSPID VALVE The tricuspid valve is normal in structure and function. Doppler and Color Flow revealed trace tricus pid regurgitation. Estimated PAP 30 mmHg. There is no tricuspid valve stenosis. PULMONIC VALVE The pulmonary valve is normal in structure and function. Doppler and Color Flow revealed no pulmonic valvular regurgitation. GREAT VESSELS The aortic root is normal in size. The ascending aorta is normal in size. Due to poor image quality, the IVC could not be assessed. PERICARDIAL EFFUSION There is no evidence of significant pericardial effusion. Critical Notification Critical Value: No <Conclusion> The left ventricular systolic function is normal. Ejection fraction 60-65%. There is normal LV segmental wall motion. Trace mitral regurgitation. Trace tricuspid regurgitation. Estimated PAP 30 mmHg. There is no evidence of significant pericardial effusion. Signed by : Gautam Vega, Electronically Approved : 11/25/2020 09:40:54
[2020-11-25] MEDS: cefTRIAXone IV Push 1 GM VIAL. IVP SCH (10:26)
--- NOTE | 2020-11-25 10:33 | PDOC ---
CARDIO Progress Notes Date and Time Date of Service 11/25/20 Time of Evaluation 1030 Subjective Subjective: No Chest Pain, No shortness of breath Vitals Vitals Vital Signs Date Time Temp Pulse Resp B/P (MAP) Pulse Ox O2 Delivery O2 Flow Rate FiO2 11/25/20 08:13 Room Air 11/25/20 07:00 97.9 94 16 113/85 (94) 96 97.9 11/24/20 19:30 1.0 Weight Weight [ ] Input and Output Intake and Output Intake and Output 11/25/20 06:59 Intake Total 350 ml Output Total 1500 ml Balance -1150 ml Intake Oral 350 ml Output Urine Total 1500 ml Laboratory Labs Laboratory Tests Test 11/24/20 17:30 11/25/20 03:55 Urine Collection Type Unknown Urine Color Yellow Urine Clarity Clear Urine pH 7.0 (<5.0-8.0) Urine Specific [place] >=1.030 (1.000-1.030) Urine Protein Negative mg/dL (NEG-TRACE) Urine Glucose (UA) Negative mg/dL (NEG) Urine Ketones (Stick) Negative mg/dL (NEG) Urine Blood Negative (NEG) Urine Nitrite Negative (NEG) Urine Bilirubin Negative (NEG) Urine Urobilinogen Dipstick 1.0 mg/dL (0.2 mg/dL) Urine Leukocyte Esterase Small (NEG) Urine RBC 0 /HPF (0-2) Urine WBC 1-4 /HPF (0-4) Urine Squamous Epithelial Cells Few /LPF Urine Bacteria 0 /HPF (0-FEW) Urine Opiates Screen Neg (NEG) Urine Methadone Screen Neg (NEG) Urine Barbiturates Neg (NEG) Urine Phencyclidine Screen Neg (NEG) Urine Amphetamine/Methamphetamine Neg (NEG) Urine Benzodiazepines Screen Neg (NEG) Urine Cocaine Screen Neg (NEG) Urine Cannabinoids Screen Neg (NEG) Urine Ethyl Alcohol Neg (NEG) White Blood Count 4.5 x10^3/uL (4.0-11.0) Red Blood Count 5.13 x10^6/uL (4.30-5.70) Hemoglobin 10.2 g/dL (13.0-17.5) Hematocrit 32.6 % (39.0-53.0) Mean Corpuscular Volume 64 fL (79-100) Mean Corpuscular Hemoglobin 20 pg (25-35) Mean Corpuscular Hemoglobin Concent 31 g/dL (31-37) Red Cell Distribution Width 18.7 % (11.5-14.5) Platelet Count 204 x10^3/uL (140-400) Neutrophils (%) (Auto) 54 % (31-73) Lymphocytes (%) (Auto) 20 % (24-48) Monocytes (%) (Auto) 14 % (0-9) Eosinophils (%) (Auto) 12 % (0-3) Basophils (%) (Auto) 1 % (0-3) Neutrophils # (Auto) 2.5 x10^3/uL (1.8-7.7) Lymphocytes # (Auto) 0.9 x10^3/uL (1.0-4.8) Monocytes # (Auto) 0.6 x10^3/uL (0.0-1.1) Eosinophils # (Auto) 0.5 x10^3/uL (0.0-0.7) Basophils # (Auto) 0.0 x10^3/uL (0.0-0.2) Sodium Level 142 mmol/L (136-145) Potassium Level 4.1 mmol/L (3.5-5.1) Chloride Level 109 mmol/L (98-107) Carbon Dioxide Level 27 mmol/L (21-32) Anion Gap 6 (6-14) Blood Urea Nitrogen 14 mg/dL (8-26) Creatinine 0.9 mg/dL (0.7-1.3) Estimated GFR (Cockcroft-Gault) 87.0 Glucose Level 109 mg/dL (70-99) Calcium Level 8.0 mg/dL (8.5-10.1) Microbiology Micro Microbiology 11/23/20 Blood Culture - Preliminary, Resulted NO GROWTH AFTER 1 DAY Physical Exam HEENT: Neck Supple W Full Motion Chest: Symmetric Heart: S1S2, RRR Abdomen: Soft N/T Extremities: No Edema Neurology: alert, oriented, follow commands Assessment Assessment 1. Altered mental status; CT head without acute findings. stuttering improved. suspected conversion disorder 2. H/o CVA 3. CAD s/p PCI/BISMARK to the LAD 2017 as noted above. MPI 10/17 without ischemia or infarct. clinically stable 4. SSS s/p PPM (Biotronik); Device download does not show any significant arrhythmias. AFIB burden 0%. Pacemaker is NOT MRI conditional 5. Chronic diastolic CHF; Recent echo with preserved LV systolic function. clinically compensated 6. Hypertension; controlled 7. Hyperlipidemia; statin 8. Diabetes, II 9. Low-grade fevers Recommendations Secondary prevention measures ASA/Plavix/statin Supportive care from a CV standpoint Follow up in our office with Dr. Patterson as scheduled Justicifation of Admission Dx: Justifications for Admission: Justification of Admission Dx: Yes Respiratory Failure: Severe Resp Distress ADRIAN GALDAMEZ APRN Nov 25, 2020 10:33
[2020-11-25 11:00] VITALS: BP 112/79
--- NOTE | 2020-11-25 13:15 | PDOC ---
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 Pneumonia Plan Does not need MRI, could go to [facility] or in the future if needed Rehabilitation modalities Reassurance offered Continue clopidogrel, aspirin, statin Okay for discharge with pneumonia treatment finished Follow-up with neurology as needed Subjective No complaints, feels up to going home Objective Vital Signs Date Time Temp Pulse Resp B/P (MAP) Pulse Ox O2 Delivery O2 Flow Rate FiO2 11/25/20 11:00 98.2 86 14 112/79 (90) 97 Room Air 98.2 11/24/20 19:30 1.0 Intake and Output 11/25/20 07:00 Intake Total 350 ml Output Total 1500 ml Balance -1150 ml Intake Oral 350 ml Output Urine Total 1500 ml PHYSICAL EXAM Alert. Oriented to time, place and person. Not stuttering. PERRL. EOMI. CN: no focal findings. Muscle tone: normal. Muscle strength: 5/5 DTR: 0+ Plantar reflex: Flexor Gait: Consistent with some weakness in the left leg. Sensory exam: Stocking loss. No cerebellar signs elicited. Review of Relevant I have reviewed the following items logan (where applicable) has been applied. Labs Laboratory Tests Test 11/23/20 16:32 11/23/20 16:53 11/23/20 20:37 11/24/20 03:55 Glucose (Fingerstick) 131 mg/dL (70-99) White Blood Count 14.0 x10^3/uL (4.0-11.0) 7.5 x10^3/uL (4.0-11.0) Red Blood Count 5.22 x10^6/uL (4.30-5.70) 4.81 x10^6/uL (4.30-5.70) Hemoglobin 10.5 g/dL (13.0-17.5) 9.6 g/dL (13.0-17.5) Hematocrit 32.9 % (39.0-53.0) 30.3 % (39.0-53.0) Mean Corpuscular Volume 63 fL (79-100) 63 fL (79-100) Mean Corpuscular Hemoglobin 20 pg (25-35) 20 pg (25-35) Mean Corpuscular Hemoglobin Concent 32 g/dL (31-37) 32 g/dL (31-37) Red Cell Distribution Width 18.7 % (11.5-14.5) 18.7 % (11.5-14.5) Platelet Count 240 x10^3/uL (140-400) 206 x10^3/uL (140-400) Neutrophils (%) (Auto) 91 % (31-73) 78 % (31-73) Lymphocytes (%) (Auto) 3 % (24-48) 9 % (24-48) Monocytes (%) (Auto) 4 % (0-9) 9 % (0-9) Eosinophils (%) (Auto) 1 % (0-3) 3 % (0-3) Basophils (%) (Auto) 0 % (0-3) 0 % (0-3) Neutrophils # (Auto) 12.8 x10^3/uL (1.8-7.7) 5.8 x10^3/uL (1.8-7.7) Lymphocytes # (Auto) 0.4 x10^3/uL (1.0-4.8) 0.7 x10^3/uL (1.0-4.8) Monocytes # (Auto) 0.6 x10^3/uL (0.0-1.1) 0.7 x10^3/uL (0.0-1.1) Eosinophils # (Auto) 0.2 x10^3/uL (0.0-0.7) 0.2 x10^3/uL (0.0-0.7) Basophils # (Auto) 0.1 x10^3/uL (0.0-0.2) 0.0 x10^3/uL (0.0-0.2) Segmented Neutrophils % 82 % (35-66) Band Neutrophils % 6 % (0-9) Lymphocytes % 6 % (24-48) Monocytes % 5 % (0-10) Eosinophils % 1 % (0-5) Platelet Estimate Adequate (ADEQUATE) Hypochromasia Mod Poikilocytosis Slight Anisocytosis Slight Microcytosis Marked Ovalocytes Few Schistocytes Few Prothrombin Time 13.8 SEC (11.7-14.0) Prothromb Time International Ratio 1.1 (0.8-1.1) Activated Partial Thromboplast Time 30 SEC (24-38) Sodium Level 142 mmol/L (136-145) 142 mmol/L (136-145) Potassium Level 3.8 mmol/L (3.5-5.1) 3.3 mmol/L (3.5-5.1) Chloride Level 104 mmol/L (98-107) 107 mmol/L (98-107) Carbon Dioxide Level 25 mmol/L (21-32) 24 mmol/L (21-32) Anion Gap 13 (6-14) 11 (6-14) Blood Urea Nitrogen 22 mg/dL (8-26) 17 mg/dL (8-26) Creatinine 1.0 mg/dL (0.7-1.3) 0.8 mg/dL (0.7-1.3) Estimated GFR (Cockcroft-Gault) 77.0 99.6 Glucose Level 129 mg/dL (70-99) 105 mg/dL (70-99) Lactic Acid Level 1.2 mmol/L (0.4-2.0) Calcium Level 8.3 mg/dL (8.5-10.1) 8.2 mg/dL (8.5-10.1) Magnesium Level 2.1 mg/dL (1.8-2.4) Ammonia 18 mcmol/L (11-34) Creatine Kinase 264 U/L (39-308) Troponin I Quantitative < 0.017 ng/mL (0.000-0.055) KC-Flc-M-Type Natriuretic Peptide 37 pg/mL (0-124) SARS-CoV-2 RNA (SOL) Negative (Negative) BUN/Creatinine Ratio 21 (6-20) Total Bilirubin 0.9 mg/dL (0.2-1.0) Aspartate Amino Transf (AST/SGOT) 18 U/L (15-37) Alanine Aminotransferase (ALT/SGPT) 35 U/L (16-63) Alkaline Phosphatase 56 U/L (46-116) Total Protein 6.1 g/dL (6.4-8.2) Albumin 3.0 g/dL (3.4-5.0) Albumin/Globulin Ratio 1.0 (1.0-1.7) Triglycerides Level 80 mg/dL (0-150) Cholesterol Level 142 mg/dL (0-200) LDL Cholesterol, Calculated 84 mg/dL (0-100) VLDL Cholesterol, Calculated 16 mg/dL (0-40) Non-HDL Cholesterol Calculated 100 mg/dL (0-129) HDL Cholesterol 42 mg/dL (40-60) Cholesterol/HDL Ratio 3.4 Procalcitonin 0.17 ng/mL (0.00-0.10) Test 11/24/20 17:30 11/25/20 03:55 Urine Collection Type Unknown Urine Color Yellow Urine Clarity Clear Urine pH 7.0 (<5.0-8.0) Urine Specific [place] >=1.030 (1.000-1.030) Urine Protein Negative mg/dL (NEG-TRACE) Urine Glucose (UA) Negative mg/dL (NEG) Urine Ketones (Stick) Negative mg/dL (NEG) Urine Blood Negative (NEG) Urine Nitrite Negative (NEG) Urine Bilirubin Negative (NEG) Urine Urobilinogen Dipstick 1.0 mg/dL (0.2 mg/dL) Urine Leukocyte Esterase Small (NEG) Urine RBC 0 /HPF (0-2) Urine WBC 1-4 /HPF (0-4) Urine Squamous Epithelial Cells Few /LPF Urine Bacteria 0 /HPF (0-FEW) Urine Opiates Screen Neg (NEG) Urine Methadone Screen Neg (NEG) Urine Barbiturates Neg (NEG) Urine Phencyclidine Screen Neg (NEG) Urine Amphetamine/Methamphetamine Neg (NEG) Urine Benzodiazepines Screen Neg (NEG) Urine Cocaine Screen Neg (NEG) Urine Cannabinoids Screen Neg (NEG) Urine Ethyl Alcohol Neg (NEG) White Blood Count 4.5 x10^3/uL (4.0-11.0) Red Blood Count 5.13 x10^6/uL (4.30-5.70) Hemoglobin 10.2 g/dL (13.0-17.5) Hematocrit 32.6 % (39.0-53.0) Mean Corpuscular Volume 64 fL (79-100) Mean Corpuscular Hemoglobin 20 pg (25-35) Mean Corpuscular Hemoglobin Concent 31 g/dL (31-37) Red Cell Distribution Width 18.7 % (11.5-14.5) Platelet Count 204 x10^3/uL (140-400) Neutrophils (%) (Auto) 54 % (31-73) Lymphocytes (%) (Auto) 20 % (24-48) Monocytes (%) (Auto) 14 % (0-9) Eosinophils (%) (Auto) 12 % (0-3) Basophils (%) (Auto) 1 % (0-3) Neutrophils # (Auto) 2.5 x10^3/uL (1.8-7.7) Lymphocytes # (Auto) 0.9 x10^3/uL (1.0-4.8) Monocytes # (Auto) 0.6 x10^3/uL (0.0-1.1) Eosinophils # (Auto) 0.5 x10^3/uL (0.0-0.7) Basophils # (Auto) 0.0 x10^3/uL (0.0-0.2) Sodium Level 142 mmol/L (136-145) Potassium Level 4.1 mmol/L (3.5-5.1) Chloride Level 109 mmol/L (98-107) Carbon Dioxide Level 27 mmol/L (21-32) Anion Gap 6 (6-14) Blood Urea Nitrogen 14 mg/dL (8-26) Creatinine 0.9 mg/dL (0.7-1.3) Estimated GFR (Cockcroft-Gault) 87.0 Glucose Level 109 mg/dL (70-99) Calcium Level 8.0 mg/dL (8.5-10.1) Laboratory Tests Test 11/24/20 17:30 11/25/20 03:55 Urine Collection Type Unknown Urine Color Yellow Urine Clarity Clear Urine pH 7.0 (<5.0-8.0) Urine Specific [place] >=1.030 (1.000-1.030) Urine Protein Negative mg/dL (NEG-TRACE) Urine Glucose (UA) Negative mg/dL (NEG) Urine Ketones (Stick) Negative mg/dL (NEG) Urine Blood Negative (NEG) Urine Nitrite Negative (NEG) Urine Bilirubin Negative (NEG) Urine Urobilinogen Dipstick 1.0 mg/dL (0.2 mg/dL) Urine Leukocyte Esterase Small (NEG) Urine RBC 0 /HPF (0-2) Urine WBC 1-4 /HPF (0-4) Urine Squamous Epithelial Cells Few /LPF Urine Bacteria 0 /HPF (0-FEW) Urine Opiates Screen Neg (NEG) Urine Methadone Screen Neg (NEG) Urine Barbiturates Neg (NEG) Urine Phencyclidine Screen Neg (NEG) Urine Amphetamine/Methamphetamine Neg (NEG) Urine Benzodiazepines Screen Neg (NEG) Urine Cocaine Screen Neg (NEG) Urine Cannabinoids Screen Neg (NEG) Urine Ethyl Alcohol Neg (NEG) White Blood Count 4.5 x10^3/uL (4.0-11.0) Red Blood Count 5.13 x10^6/uL (4.30-5.70) Hemoglobin 10.2 g/dL (13.0-17.5) Hematocrit 32.6 % (39.0-53.0) Mean Corpuscular Volume 64 fL (79-100) Mean Corpuscular Hemoglobin 20 pg (25-35) Mean Corpuscular Hemoglobin Concent 31 g/dL (31-37) Red Cell Distribution Width 18.7 % (11.5-14.5) Platelet Count 204 x10^3/uL (140-400) Neutrophils (%) (Auto) 54 % (31-73) Lymphocytes (%) (Auto) 20 % (24-48) Monocytes (%) (Auto) 14 % (0-9) Eosinophils (%) (Auto) 12 % (0-3) Basophils (%) (Auto) 1 % (0-3) Neutrophils # (Auto) 2.5 x10^3/uL (1.8-7.7) Lymphocytes # (Auto) 0.9 x10^3/uL (1.0-4.8) Monocytes # (Auto) 0.6 x10^3/uL (0.0-1.1) Eosinophils # (Auto) 0.5 x10^3/uL (0.0-0.7) Basophils # (Auto) 0.0 x10^3/uL (0.0-0.2) Sodium Level 142 mmol/L (136-145) Potassium Level 4.1 mmol/L (3.5-5.1) Chloride Level 109 mmol/L (98-107) Carbon Dioxide Level 27 mmol/L (21-32) Anion Gap 6 (6-14) Blood Urea Nitrogen 14 mg/dL (8-26) Creatinine 0.9 mg/dL (0.7-1.3) Estimated GFR (Cockcroft-Gault) 87.0 Glucose Level 109 mg/dL (70-99) Calcium Level 8.0 mg/dL (8.5-10.1) Microbiology 11/23/20 Blood Culture - Preliminary, Resulted NO GROWTH AFTER 1 DAY Medications Current Medications Sodium Chloride 1,000 ml @ 1,000 mls/hr Q1H IV Last administered on 11/23/20at 17:16; Start 11/23/20 at 16:45; Stop 11/23/20 at 17:44; Status DC Ceftriaxone Sodium (Rocephin) 1 gm 1X ONCE IVP Last administered on 11/23/20at 18:03; Start 11/23/20 at 17:45; Stop 11/23/20 at 17:46; Status DC Azithromycin 250 ml @ 250 mls/hr 1X ONCE IV Last administered on 11/23/20at 18:04; Start 11/23/20 at 17:45; Stop 11/23/20 at 18:44; Status DC Ondansetron HCl (Zofran) 4 mg PRN Q4HRS PRN IV NAUSEA/VOMITING; Start 11/23/20 at 18:30 Acetaminophen (Tylenol) 650 mg PRN Q4HRS PRN PO TEMP OVER 100.4F OR MILD PAIN Last administered on 11/24/20at 15:47; Start 11/23/20 at 18:30 Enoxaparin Sodium (Lovenox 40mg Syringe) 40 mg Q24H SQ Last administered on 11/24/20at 21:32; Start 11/23/20 at 21:00 Guaifenesin (Robitussin Dm) 10 ml PRN Q6HRS PRN PO COUGH; Start 11/23/20 at 18:30 Aspirin (Ecotrin) 81 mg DAILY PO Last administered on 11/25/20at 09:34; Start 11/24/20 at 09:00 Atorvastatin Calcium (Lipitor) 40 mg QHS PO Last administered on 11/24/20at 21:48; Start 11/23/20 at 21:00 Clopidogrel Bisulfate (Plavix) 75 mg DAILY PO Last administered on 11/25/20at 09:34; Start 11/24/20 at 09:00 Nitroglycerin (Nitrostat) 0.4 mg PRN Q5MIN PRN SL CHEST PAIN; Start 11/23/20 at 18:30 Nortriptyline HCl (Pamelor) 10 mg QHS PO Last administered on 11/24/20at 21:29; Start 11/23/20 at 21:00 Ondansetron HCl (Zofran Odt) 4 mg PRN Q6HRS PRN PO nausea; Start 11/23/20 at 18:30 Tamsulosin HCl (Flomax) 0.4 mg BID PO Last administered on 11/25/20 09:34; Start 11/23/20 at 21:00 Gabapentin (Neurontin) 600 mg TID PO Last administered on 11/25/20 09:34; Start 11/23/20 at 21:00 Pantoprazole Sodium (Protonix) 40 mg BIDAC PO Last administered on 11/25/20 06:15; Start 11/23/20 at 21:00 Doxycycline Hyclate 100 mg/ Dextrose 100 ml @ 50 mls/hr Q12HR IV Last administered on 11/25/20 09:39; Start 11/24/20 at 09:00 Ceftriaxone Sodium (Rocephin) 1 gm Q24H IVP Last administered on 11/25/20 10:26; Start 11/24/20 at 10:00 Iohexol (Omnipaque 350 Mg/ml) 75 ml 1X ONCE IV Last administered on 11/24/20 10:22; Start 11/24/20 at 09:15; Stop 11/24/20 at 09:18; Status DC Info (CONTRAST GIVEN -- Rx MONITORING) 1 each PRN DAILY PRN MC SEE COMMENTS; Start 11/24/20 at 09:30; Stop 11/26/20 at 09:29 Potassium Chloride (Klor-Con) 40 meq 1X ONCE PO Last administered on 11/24/20 17:12; Start 11/24/20 at 16:00; Stop 11/24/20 at 16:01; Status DC Potassium Chloride (Klor-Con) 20 meq DAILYWBKFT PO Last administered on 11/25at 09:34; Start 11/25/20 at 08:00 Multi-Ingredient Mouthwash/Gargle (Gi Cocktail) 20 ml PRN QID PRN PO CHEST PAIN Last administered on 11/24/20at 22:02; Start 11/24/20 at 21:45 Calcium Carbonate/ Glycine (Tums) 500 mg PRN AFTMEALHC PRN PO INDIGESTION; Start 11/24/20 at 21:45 Simethicone (Gas-X) 80 mg PRN AFTMEALHC PRN PO GAS / BLOATING; Start 11/24/20 at 21:45 Perflutren Protein Type A Microsphe (Optison) 0.66 mg STK-MED ONCE IV ; Start 11/25/20 at 07:36; Stop 11/25/20 at 07:36; Status DC Perflutren Protein Type A Microsphe (Optison) 0.66 mg 1X ONCE IV Last administered on 11/25/20at 07:48; Start 11/25/20 at 08:00; Stop 11/25/20 at 08:01; Status DC Active Scripts Active Azithromycin Tablet (Azithromycin) 500 Mg Tablet 1 Tab PO DAILY 3 Days Augmentin 500-125 Tablet (Amoxicillin/Potassium Clav) 1 Each Tablet 1 Tab PO BID 3 Days Ondansetron Odt (Ondansetron) 4 Mg Tab.rapdis 1 Tab PO PRN Q6-8HRS Atorvastatin Calcium 40 Mg Tablet 40 Mg PO QHS 30 Days Losartan-Hctz 100-12.5 Mg Tab (Losartan/Hydrochlorothiazide) 1 Each Tablet 1 Tab PO DAILY 30 Days Adult Low Dose Aspirin Ec (Aspirin) 81 Mg Tablet.dr 81 Mg PO DAILY Omeprazole 40 Mg Capsule.dr 1 Cap PO BID Reported Symbicort 160-4.5 Mcg Inhaler (Budesonide/Formoterol Fumarate) 10.2 Gm Hfa.aer.ad 2 Puff IH BID Topiramate 100 Mg Tablet 1 Tab PO DAILY Tramadol Hcl 50 Mg Tablet 50 Mg PO Q6HRS PRN Nortriptyline Hcl 10 Mg Capsule 1 Cap PO QHS Clopidogrel (Clopidogrel Bisulfate) 75 Mg Tablet 75 Mg PO DAILY Vitamin D3 (Cholecalciferol (Vitamin D3)) 5,000 Unit Tablet 1 Tab PO TID Vitamin C (Ascorbic Acid) 1,000 Mg Tablet 1,000 Mg PO DAILY Carafate (Sucralfate) 1 Gm Tablet 1 Tab PO QID Tamsulosin Hcl 0.4 Mg Cap.er.24h 0.4 Mg PO BID NITROGLYCERIN SubLingual (Nitroglycerin) 0.4 Mg Tab.subl 0.4 Mg SL PRN Q5MIN PRN Gabapentin 600 Mg Tablet 1 Tab PO TID next dose tonight at bedtime, 10/30/15 Vitals/I & O Vital Sign - Last 24 Hours 11/24/20 11/24/20 11/24/20 11/24/20 15:00 18:53 19:30 22:32 Temp 97.5 97.5 96.7 97.5 97.5 96.7 Pulse 72 78 78 Resp 21 21 19 B/P (MAP) 129/80 (96) 127/69 (88) 140/94 (109) Pulse Ox 98 97 97 O2 Delivery Nasal Cannula Room Air Nasal Cannula Room Air O2 Flow Rate 1.0 1.0 11/25/20 11/25/20 11/25/20 11/25/20 02:00 07:00 08:13 11:00 Temp 97.0 97.9 98.2 97.0 97.9 98.2 Pulse 79 94 86 Resp 19 16 14 B/P (MAP) 144/73 (96) 113/85 (94) 112/79 (90) Pulse Ox 98 96 97 O2 Delivery Room Air Room Air Room Air Room Air Intake and Output 11/24/20 11/24/20 11/25/20 15:00 23:00 07:00 Intake Total 250 ml 100 ml Output Total 500 ml 500 ml 500 ml Balance -500 ml -250 ml -[address] angiography of the head and neck INDICATION: Stroke COMPARISON: Noncontrast CT head 11/24/2019 TECHNIQUE: Axial CT imaging of the head and neck utilizing angiography protocol and performed after the intravenous administration of contrast. Multiplanar reformats and 3D MIP acquisitions were obtained. Encountered areas of stenosis are measured per NASCET criteria. One or more of the following individualized dose reduction techniques were utilized for this examination: 1. Automated exposure control 2. Adjustment of the mA and/or kV according to patient size 3. Use of iterative reconstruction technique. FINDINGS: CTA NECK: Arch/Proximal Great Vessels: The arch is normal configuration. Great vessel origins are patent. Carotid Bifurcation/Cervical ICA: Common carotid, internal carotid, and external carotid arteries are patent. 0 percent stenosis of the internal carotid arteries. Vertebral Arteries: Vertebral arteries are normal in caliber and patent.: CTA HEAD: Posterior Circulation: Intradural vertebral arteries, basilar artery, superior cerebellar arteries are patent. Posterior cerebral arteries are patent. Anterior Circulation: Internal carotid arteries are patent. Minimal calcifications in the supraclinoid portion of the right internal carotid artery. Middle cerebral arteries and anterior cerebral arteries are patent. No aneurysm, stenosis, dissection, or occlusion in the head or neck. Veins: Jugular veins and dural venous sinuses are patent. MISCELLANEOUS: Mild degenerative disc disease in the cervical spine. IMPRESSION: No acute arterial abnormality in the head or neck. Echocardiogram: LEFT VENTRICLE The left ventricle is normal size. There is mild concentric left ventricular hypertrophy. The left ventricular systolic function is normal. Ejection fraction 60-65%. There is normal LV segmental wall motion. The left ventricular diastolic function and filling is normal for age. No left ventricle thrombus noted on this study. RIGHT VENTRICLE The right ventricle is normal size. There is normal right ventricular wall thickness. The right ventricular systolic function is normal. ATRIA The left atrium size is normal. The right atrium size is normal. The interatrial septum is intact with no evidence for an atrial septal defect or patent foramen ovale as noted on 2-D or Doppler imaging. AORTIC VALVE The aortic valve is normal in structure and function. Doppler and Color Flow revealed no significant aortic regurgitation. There is no significant aortic valvular stenosis. MITRAL VALVE The mitral valve is normal in structure and function. There is no evidence of mitral valve prolapse. There is no mitral valve stenosis. Doppler and Color-flow revealed trace mitral regurgitation. TRICUSPID VALVE The tricuspid valve is normal in structure and function. Doppler and Color Flow revealed trace tricuspid regurgitation. Estimated PAP 30 mmHg. There is no tricuspid valve stenosis. PULMONIC VALVE The pulmonary valve is normal in structure and function. Doppler and Color Flow revealed no pulmonic valvular regurgitation. GREAT VESSELS The aortic root is normal in size. The ascending aorta is normal in size. Due to poor image quality, the IVC could not be assessed. PERICARDIAL EFFUSION There is no evidence of significant pericardial effusion. Critical Notification Critical Value: No <Conclusion> The left ventricular systolic function is normal. Ejection fraction 60-65%. There is normal LV segmental wall motion. Trace mitral regurgitation. Trace tricuspid regurgitation. Estimated PAP 30 mmHg. There is no evidence of significant pericardial effusion. Justicifation of Admission Dx: Justifications for Admission: Justification of Admission Dx: Yes Respiratory Failure: Severe Resp Distress JOHN LOPEZ MD Nov 25, 2020 13:14
--- NOTE | 2020-11-25 13:43 | PDOC3 ---
Discharge Summary Date of Admission: Nov 23, 2020 Date of Discharge: Nov 25, 2020 Follow-Up: 3-5 days Admitting Diagnosis comment: HPI= History of Present Illness Mr Delgado is a 54 yo M w/ PMHx CAD s/p LAD stenting 12/2017, HLD, Ucdawmt-Qjawd-Ywykr disease, peripheral neuropathy, GERD, OA, s/p PPM presents to the ED from CT scan with reported altered mental status. Patient was undergoing oral contrast CT when he became unresponsive and was not talking. No seizure-like activity or convulsions. Patient was breathing the entire time and never became hypoxic. No other specific changes. No reported recent illness or sick contacts. Patient is not providing any history and his son is bedside to relate his father is going through pre-operative assessment for consideration of surgical repair for noted hiatal and ventral incisional hernia. He had a cardiac stress test with MPI on 10/17/20 that was low risk for ischemia. His son does note he has had a cough for the past few days, no fevers and no sick contacts. He has had both COVID 19 vaccines. He is confused, stuttering. His son does note that his father has been more confused over the past 3-5 days. Labs reveal WBC 14 with left shift, Hb 10.5, platelets 240, troponin 0, BNP 37, lactate WNL, metabolic panel within normal laboratory limits CT head with no acute abnormalities. Chest radiograph with left lower lobe infiltrate. Admitted for further treatment, IMPROVED 11-25, NO STUTTERING DISCHARGE DX D/C CONDITION GOOD PROGNOSIS EXCELLENT SEE PCP NEXT WEEK D/C MEDS SEE MAR CONSULTS NEUROLOGY, CARDIOLOGY Assessment/Plan A/P: Acute encephalopathy - likely from pneumonia. Concerning he has had this same issue previously. 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 Cont PPI BID OA - stable. Will watch tramadol dosing given his confusion SSS s/p PPM - leads appear in good position on CXR Dm2 - A1c 6 with diet control HYPOKALEMIA Obesity, BMI 50 - counseled family on lifestyle modification CAD, s/p stent to LAD in 2017 - normal MPI in september 2020 One vessel CAD - Successful PCI of the LAD with implantation of a 4.0/15 mm BISMARK. conversion disorder. Patient admits that he has been under some stress. acute hypoxic resp failure, NOW ON ROOM AIR 11-25 6 MIN WALK IF OK D/C TODAY PLAN FEN - Cardiac diet PPX - lovenox FULL CODE Dispo - inpatient. Surrogate decision maker is Edel Delgado, daughter NANCY Baptiste CTA HEAD , NECK 11-24 NEUROLOGY CONSULT mri HEAD ECHO Pacemaker is NOT MRI conditional could go to or [facility] if necessary CONTINUE IV ROCEPHIN 1 GM Q 24 HRS IV D/W RN 39 MIN pt exam, chart review D/C PLANNING ,> 50% of time spent with exam, chart review, pt care coordination During scan yesterday 11-22 , patient became unresponsive and was unable to talk. Patient has a history of PPM implantation, neurology consulted COVID-19 CRITERIA: The patient was evaluated during the global COVID-19 pandemic, and that diagnosis was suspected/considered upon their initial presentation. Their evaluation, treatment and testing was consistent with current guidelines for patients who present with complaints or symptoms that may be related to COVID-19. COVID NEG Justifications for Admission Justifications for Admission Other Justification investigation for COVID History of Present Illness History of Present Illness History of Present Illness Mr Delgado is a 54 yo M w/ PMHx CAD s/p LAD stenting 12/2017, HLD, Awstljd-Qvkaz-Dsgyo disease, peripheral neuropathy, GERD, OA, s/p PPM presents to the ED from CT scan with reported altered mental status. Patient was undergoing oral contrast CT when he became unresponsive and was not talking. No seizure-like activity or convulsions. Patient was breathing the entire time and never became hypoxic. No other specific changes. No reported recent illness or sick contacts. Patient is not providing any history and his son is bedside to relate his father is going through pre-operative assessment for consideration of surgical repair for noted hiatal and ventral incisional hernia. He had a cardiac stress test with MPI on 10/17/20 that was low risk for ischemia. His son does note he has had a cough for the past few days, no fevers and no sick contacts. He has had both COVID 19 vaccines. He is confused, stuttering. His son does note that his father has been more confused over the past 3-5 days. Labs reveal WBC 14 with left shift, Hb 10.5, platelets 240, troponin 0, BNP 37, lactate WNL, metabolic panel within normal laboratory limits CT head with no acute abnormalities. Chest radiograph with left lower lobe infiltrate. Admitted for further treatment Past Medical History Cardiovascular: CAD, Syncope, Hyperlipidemia Pulmonary: Other CENTRAL NERVOUS SYSTEM: CVA, Periperal neuropathy GI: Constipation, GERD, Other Heme/Onc: No pertinent hx Hepatobiliary: No pertinent hx Psych: No pertinent hx Musculoskeletal: Osteoarthritis Rheumatologic: No pertinent hx Infectious disease: No pertinent hx Renal/: No pertinent hx Endocrine: No pertinent hx Past Surgical History Past Surgical History: Pacemaker, Appendectomy, Cholecystectomy, Hernia Repair, Other Family History Family History: Cancer Social History Smoke: No ALCOHOL: none Drugs: None Current Problem List Problem List Problems Medical Problems: (1) CAP (community acquired pneumonia) Status: Acute Current Medications Current Medications Current Medications Sodium Chloride 1,000 ml @ 1,000 mls/hr Q1H IV Last administered on 11/23/20at 17:16; Start 11/23/20 at 16:45; Stop 11/23/20 at 17:44; Status DC Ceftriaxone Sodium (Rocephin) 1 gm 1X ONCE IVP ; Start 11/23/20 at 17:45; Stop 11/23/20 at 17:46; Status DC Azithromycin 250 ml @ 250 mls/hr 1X ONCE IV ; Start 11/23/20 at 17:45; Stop 11/23/20 at 18:44 Active Scripts Active Azithromycin Tablet (Azithromycin) 500 Mg Tablet 1 Tab PO DAILY 3 Days Augmentin 500-125 Tablet (Amoxicillin/Potassium Clav) 1 Each Tablet 1 Tab PO BID 3 Days Ondansetron Odt (Ondansetron) 4 Mg Tab.rapdis 1 Tab PO PRN Q6-8HRS Atorvastatin Calcium 40 Mg Tablet 40 Mg PO QHS 30 Days Losartan-Hctz 100-12.5 Mg Tab (Losartan/Hydrochlorothiazide) 1 Each Tablet 1 Tab PO DAILY 30 Days Adult Low Dose Aspirin Ec (Aspirin) 81 Mg Tablet.dr 81 Mg PO DAILY Omeprazole 40 Mg Capsule.dr 1 Cap PO BID Reported Symbicort 160-4.5 Mcg Inhaler (Budesonide/Formoterol Fumarate) 10.2 Gm Hfa.aer.ad 2 Puff IH BID Topiramate 100 Mg Tablet 1 Tab PO DAILY Tramadol Hcl 50 Mg Tablet 50 Mg PO Q6HRS PRN Nortriptyline Hcl 10 Mg Capsule 1 Cap PO QHS Clopidogrel (Clopidogrel Bisulfate) 75 Mg Tablet 75 Mg PO DAILY Vitamin D3 (Cholecalciferol (Vitamin D3)) 5,000 Unit Tablet 1 Tab PO TID Vitamin C (Ascorbic Acid) 1,000 Mg Tablet 1,000 Mg PO DAILY Carafate (Sucralfate) 1 Gm Tablet 1 Tab PO QID Tamsulosin Hcl 0.4 Mg Cap.er.24h 0.4 Mg PO BID NITROGLYCERIN SubLingual (Nitroglycerin) 0.4 Mg Tab.subl 0.4 Mg SL PRN Q5MIN PRN Gabapentin 600 Mg Tablet 1 Tab PO TID next dose tonight at bedtime, 10/30/15 Allergies Allergies: Coded Allergies: No Known Drug Allergies (Unverified , 07/24/20) ROS Review of System Unable to accurately obtain due to patient confusion 11-25 now alert nad, stuttering has resolved home later when consults clear, 6 min walk Vitals Vitals Vital Signs Date Time Temp Pulse Resp B/P (MAP) Pulse Ox O2 Delivery O2 Flow Rate FiO2 11/25/20 08:13 Room Air 11/25/20 02:00 97.0 79 19 144/73 (96) 98 97.0 11/24/20 19:30 1.0 Physical Exam General: Alert, Oriented X3, Cooperative, No acute distress Heart: Regular rate Lungs: Clear, Other Abdomen: Soft, No tenderness Extremities: No cyanosis, No edema Skin: No breakdown, No significant lesion FINAL DIAGNOSIS Problems Medical Problems: (1) CAP (community acquired pneumonia) Status: Acute Brief Hospital Course Mr. Moran is a 55 old [sex] who presented with [ ] Discharge Medications Current Medications Sodium Chloride 1,000 ml @ 1,000 mls/hr Q1H IV Last administered on 11/23/20at 17:16; Start 11/23/20 at 16:45; Stop 11/23/20 at 17:44; Status DC Ceftriaxone Sodium (Rocephin) 1 gm 1X ONCE IVP Last administered on 11/23/20at 18:03; Start 11/23/20 at 17:45; Stop 11/23/20 at 17:46; Status DC Azithromycin 250 ml @ 250 mls/hr 1X ONCE IV Last administered on 11/23/20at 18:04; Start 11/23/20 at 17:45; Stop 11/23/20 at 18:44; Status DC Ondansetron HCl (Zofran) 4 mg PRN Q4HRS PRN IV NAUSEA/VOMITING; Start 11/23/20 at 18:30 Acetaminophen (Tylenol) 650 mg PRN Q4HRS PRN PO TEMP OVER 100.4F OR MILD PAIN Last administered on 11/24/20at 15:47; Start 11/23/20 at 18:30 Enoxaparin Sodium (Lovenox 40mg Syringe) 40 mg Q24H SQ Last administered on 11/24/20at 21:32; Start 11/23/20 at 21:00 Guaifenesin (Robitussin Dm) 10 ml PRN Q6HRS PRN PO COUGH; Start 11/23/20 at 18:30 Aspirin (Ecotrin) 81 mg DAILY PO Last administered on 11/25/20at 09:34; Start 11/24/20 at 09:00 Atorvastatin Calcium (Lipitor) 40 mg QHS PO Last administered on 11/24/20at 21:48; Start 11/23/20 at 21:00 Clopidogrel Bisulfate (Plavix) 75 mg DAILY PO Last administered on 11/25/20at 09:34; Start 11/24/20 at 09:00 Nitroglycerin (Nitrostat) 0.4 mg PRN Q5MIN PRN SL CHEST PAIN; Start 11/23/20 at 18:30 Nortriptyline HCl (Pamelor) 10 mg QHS PO Last administered on 11/24/20at 21:29; Start 11/23/20 at 21:00 Ondansetron HCl (Zofran Odt) 4 mg PRN Q6HRS PRN PO nausea; Start 11/23/20 at 18:30 Tamsulosin HCl (Flomax) 0.4 mg BID PO Last administered on 11/25/20at 09:34; Start 11/23/20 at 21:00 Gabapentin (Neurontin) 600 mg TID PO Last administered on 11/25/20at 09:34; Start 11/23/20 at 21:00 Pantoprazole Sodium (Protonix) 40 mg BIDAC PO Last administered on 11/25/20at 06:15; Start 11/23/20 at 21:00 Doxycycline Hyclate 100 mg/ Dextrose 100 ml @ 50 mls/hr Q12HR IV Last adm inistered on 11/25/20at 09:39; Start 11/24/20 at 09:00 Ceftriaxone Sodium (Rocephin) 1 gm Q24H IVP Last administered on 11/25/20at 10:26; Start 11/24/20 at 10:00 Iohexol (Omnipaque 350 Mg/ml) 75 ml 1X ONCE IV Last administered on 11/24/20at 10:22; Start 11/24/20 at 09:15; Stop 11/24/20 at 09:18; Status DC Info (CONTRAST GIVEN -- Rx MONITORING) 1 each PRN DAILY PRN MC SEE COMMENTS; Start 11/24/20 at 09:30; Stop 11/26/20 at 09:29 Potassium Chloride (Klor-Con) 40 meq 1X ONCE PO Last administered on 11/24/20at 17:12; Start 11/24/20 at 16:00; Stop 11/24/20 at 16:01; Status DC Potassium Chloride (Klor-Con) 20 meq DAILYWBKFT PO Last administered on 11/25/20at 09:34; Start 11/25/20 at 08:00 Multi-Ingredient Mouthwash/Gargle (Gi Cocktail) 20 ml PRN QID PRN PO CHEST PAIN Last administered on 11/24/20at 22:02; Start 11/24/20 at 21:45 Calcium Carbonate/ Glycine (Tums) 500 mg PRN AFTMEALHC PRN PO INDIGESTION; Start 11/24/20 at 21:45 Simethicone (Gas-X) 80 mg PRN AFTMEALHC PRN PO GAS / BLOATING; Start 11/24/20 at 21:45 Perflutren Protein Type A Microsphe (Optison) 0.66 mg STK-MED ONCE IV ; Start 11/25/20 at 07:36; Stop 11/25/20 at 07:36; Status DC Perflutren Protein Type A Microsphe (Optison) 0.66 mg 1X ONCE IV Last administered on 11/25/20at 07:48; Start 11/25/20 at 08:00; Stop 11/25/20 at 08:01; Status DC Active Scripts Active Azithromycin Tablet (Azithromycin) 500 Mg Tablet 1 Tab PO DAILY 3 Days Augmentin 500-125 Tablet (Amoxicillin/Potassium Clav) 1 Each Tablet 1 Tab PO BID 3 Days Ondansetron Odt (Ondansetron) 4 Mg Tab.rapdis 1 Tab PO PRN Q6-8HRS Atorvastatin Calcium 40 Mg Tablet 40 Mg PO QHS 30 Days Losartan-Hctz 100-12.5 Mg Tab (Losartan/Hydrochlorothiazide) 1 Each Tablet 1 Tab PO DAILY 30 Days Adult Low Dose Aspirin Ec (Aspirin) 81 Mg Tablet.dr 81 Mg PO DAILY Omeprazole 40 Mg Capsule.dr 1 Cap PO BID Reported Symbicort 160-4.5 Mcg Inhaler (Budesonide/Formoterol Fumarate) 10.2 Gm Hfa.aer.ad 2 Puff IH BID Topiramate 100 Mg Tablet 1 Tab PO DAILY Tramadol Hcl 50 Mg Tablet 50 Mg PO Q6HRS PRN Nortriptyline Hcl 10 Mg Capsule 1 Cap PO QHS Clopidogrel (Clopidogrel Bisulfate) 75 Mg Tablet 75 Mg PO DAILY Vitamin D3 (Cholecalciferol (Vitamin D3)) 5,000 Unit Tablet 1 Tab PO TID Vitamin C (Ascorbic Acid) 1,000 Mg Tablet 1,000 Mg PO DAILY Carafate (Sucralfate) 1 Gm Tablet 1 Tab PO QID Tamsulosin Hcl 0.4 Mg Cap.er.24h 0.4 Mg PO BID NITROGLYCERIN SubLingual (Nitroglycerin) 0.4 Mg Tab.subl 0.4 Mg SL PRN Q5MIN PRN Gabapentin 600 Mg Tablet 1 Tab PO TID next dose tonight at bedtime, 10/30/15 Vital Signs Vital Signs Date Time Temp Pulse Resp B/P (MAP) Pulse Ox O2 Delivery O2 Flow Rate FiO2 11/25/20 11:00 98.2 86 14 112/79 (90) 97 Room Air 98.2 11/24/20 19:30 1.0 Labs Laboratory Tests Test 11/23/20 16:32 11/23/20 16:53 11/23/20 20:37 11/24/20 03:55 Glucose (Fingerstick) 131 mg/dL (70-99) White Blood Count 14.0 x10^3/uL (4.0-11.0) 7.5 x10^3/uL (4.0-11.0) Red Blood Count 5.22 x10^6/uL (4.30-5.70) 4.81 x10^6/uL (4.30-5.70) Hemoglobin 10.5 g/dL (13.0-17.5) 9.6 g/dL (13.0-17.5) Hematocrit 32.9 % (39.0-53.0) 30.3 % (39.0-53.0) Mean Corpuscular Volume 63 fL (79-100) 63 fL (79-100) Mean Corpuscular Hemoglobin 20 pg (25-35) 20 pg (25-35) Mean Corpuscular Hemoglobin Concent 32 g/dL (31-37) 32 g/dL (31-37) Red Cell Distribution Width 18.7 % (11.5-14.5) 18.7 % (11.5-14.5) Platelet Count 240 x10^3/uL (140-400) 206 x10^3/uL (140-400) Neutrophils (%) (Auto) 91 % (31-73) 78 % (31-73) Lymphocytes (%) (Auto) 3 % (24-48) 9 % (24-48) Monocytes (%) (Auto) 4 % (0-9) 9 % (0-9) Eosinophils (%) (Auto) 1 % (0-3) 3 % (0-3) Basophils (%) (Auto) 0 % (0-3) 0 % (0-3) Neutrophils # (Auto) 12.8 x10^3/uL (1.8-7.7) 5.8 x10^3/uL (1.8-7.7) Lymphocytes # (Auto) 0.4 x10^3/uL (1.0-4.8) 0.7 x10^3/uL (1.0-4.8) Monocytes # (Auto) 0.6 x10^3/uL (0.0-1.1) 0.7 x10^3/uL (0.0-1.1) Eosinophils # (Auto) 0.2 x10^3/uL (0.0-0.7) 0.2 x10^3/uL (0.0-0.7) Basophils # (Auto) 0.1 x10^3/uL (0.0-0.2) 0.0 x10^3/uL (0.0-0.2) Segmented Neutrophils % 82 % (35-66) Band Neutrophils % 6 % (0-9) Lymphocytes % 6 % (24-48) Monocytes % 5 % (0-10) Eosinophils % 1 % (0-5) Platelet Estimate Adequate (ADEQUATE) Hypochromasia Mod Poikilocytosis Slight Anisocytosis Slight Microcytosis Marked Ovalocytes Few Schistocytes Few Prothrombin Time 13.8 SEC (11.7-14.0) Prothromb Time International Ratio 1.1 (0.8-1.1) Activated Partial Thromboplast Time 30 SEC (24-38) Sodium Level 142 mmol/L (136-145) 142 mmol/L (136-145) Potassium Level 3.8 mmol/L (3.5-5.1) 3.3 mmol/L (3.5-5.1) Chloride Level 104 mmol/L (98-107) 107 mmol/L (98-107) Carbon Dioxide Level 25 mmol/L (21-32) 24 mmol/L (21-32) Anion Gap 13 (6-14) 11 (6-14) Blood Urea Nitrogen 22 mg/dL (8-26) 17 mg/dL (8-26) Creatinine 1.0 mg/dL (0.7-1.3) 0.8 mg/dL (0.7-1.3) Estimated GFR (Cockcroft-Gault) 77.0 99.6 Glucose Level 129 mg/dL (70-99) 105 mg/dL (70-99) Lactic Acid Level 1.2 mmol/L (0.4-2.0) Calcium Level 8.3 mg/dL (8.5-10.1) 8.2 mg/dL (8.5-10.1) Magnesium Level 2.1 mg/dL (1.8-2.4) Ammonia 18 mcmol/L (11-34) Creatine Kinase 264 U/L (39-308) Troponin I Quantitative < 0.017 ng/mL (0.000-0.055) BO-Wxv-S-Type Natriuretic Peptide 37 pg/mL (0-124) SARS-CoV-2 RNA (SOL) Negative (Negative) BUN/Creatinine Ratio 21 (6-20) Total Bilirubin 0.9 mg/dL (0.2-1.0) Aspartate Amino Transf (AST/SGOT) 18 U/L (15-37) Alanine Aminotransferase (ALT/SGPT) 35 U/L (16-63) Alkaline Phosphatase 56 U/L (46-116) Total Protein 6.1 g/dL (6.4-8.2) Albumin 3.0 g/dL (3.4-5.0) Albumin/Globulin Ratio 1.0 (1.0-1.7) Triglycerides Level 80 mg/dL (0-150) Cholesterol Level 142 mg/dL (0-200) LDL Cholesterol, Calculated 84 mg/dL (0-100) VLDL Cholesterol, Calculated 16 mg/dL (0-40) Non-HDL Cholesterol Calculated 100 mg/dL (0-129) HDL Cholesterol 42 mg/dL (40-60) Cholesterol/HDL Ratio 3.4 Procalcitonin 0.17 ng/mL (0.00-0.10) Test 11/24/20 17:30 11/25/20 03:55 Urine Collection Type Unknown Urine Color Yellow Urine Clarity Clear Urine pH 7.0 (<5.0-8.0) Urine Specific [place] >=1.030 (1.000-1.030) Urine Protein Negative mg/dL (NEG-TRACE) Urine Glucose (UA) Negative mg/dL (NEG) Urine Ketones (Stick) Negative mg/dL (NEG) Urine Blood Negative (NEG) Urine Nitrite Negative (NEG) Urine Bilirubin Negative (NEG) Urine Urobilinogen Dipstick 1.0 mg/dL (0.2 mg/dL) Urine Leukocyte Esterase Small (NEG) Urine RBC 0 /HPF (0-2) Urine WBC 1-4 /HPF (0-4) Urine Squamous Epithelial Cells Few /LPF Urine Bacteria 0 /HPF (0-FEW) Urine Opiates Screen Neg (NEG) Urine Methadone Screen Neg (NEG) Urine Barbiturates Neg (NEG) Urine Phencyclidine Screen Neg (NEG) Urine Amphetamine/Methamphetamine Neg (NEG) Urine Benzodiazepines Screen Neg (NEG) Urine Cocaine Screen Neg (NEG) Urine Cannabinoids Screen Neg (NEG) Urine Ethyl Alcohol Neg (NEG) White Blood Count 4.5 x10^3/uL (4.0-11.0) Red Blood Count 5.13 x10^6/uL (4.30-5.70) Hemoglobin 10.2 g/dL (13.0-17.5) Hematocrit 32.6 % (39.0-53.0) Mean Corpuscular Volume 64 fL (79-100) Mean Corpuscular Hemoglobin 20 pg (25-35) Mean Corpuscular Hemoglobin Concent 31 g/dL (31-37) Red Cell Distribution Width 18.7 % (11.5-14.5) Platelet Count 204 x10^3/uL (140-400) Neutrophils (%) (Auto) 54 % (31-73) Lymphocytes (%) (Auto) 20 % (24-48) Monocytes (%) (Auto) 14 % (0-9) Eosinophils (%) (Auto) 12 % (0-3) Basophils (%) (Auto) 1 % (0-3) Neutrophils # (Auto) 2.5 x10^3/uL (1.8-7.7) Lymphocytes # (Auto) 0.9 x10^3/uL (1.0-4.8) Monocytes # (Auto) 0.6 x10^3/uL (0.0-1.1) Eosinophils # (Auto) 0.5 x10^3/uL (0.0-0.7) Basophils # (Auto) 0.0 x10^3/uL (0.0-0.2) Sodium Level 142 mmol/L (136-145) Potassium Level 4.1 mmol/L (3.5-5.1) Chloride Level 109 mmol/L (98-107) Carbon Dioxide Level 27 mmol/L (21-32) Anion Gap 6 (6-14) Blood Urea Nitrogen 14 mg/dL (8-26) Creatinine 0.9 mg/dL (0.7-1.3) Estimated GFR (Cockcroft-Gault) 87.0 Glucose Level 109 mg/dL (70-99) Calcium Level 8.0 mg/dL (8.5-10.1) Laboratory Tests Test 11/24/20 17:30 11/25/20 03:55 Urine Collection Type Unknown Urine Color Yellow Urine Clarity Clear Urine pH 7.0 (<5.0-8.0) Urine Specific [place] >=1.030 (1.000-1.030) Urine Protein Negative mg/dL (NEG-TRACE) Urine Glucose (UA) Negative mg/dL (NEG) Urine Ketones (Stick) Negative mg/dL (NEG) Urine Blood Negative (NEG) Urine Nitrite Negative (NEG) Urine Bilirubin Negative (NEG) Urine Urobilinogen Dipstick 1.0 mg/dL (0.2 mg/dL) Urine Leukocyte Esterase Small (NEG) Urine RBC 0 /HPF (0-2) Urine WBC 1-4 /HPF (0-4) Urine Squamous Epithelial Cells Few /LPF Urine Bacteria 0 /HPF (0-FEW) Urine Opiates Screen Neg (NEG) Urine Methadone Screen Neg (NEG) Urine Barbiturates Neg (NEG) Urine Phencyclidine Screen Neg (NEG) Urine Amphetamine/Methamphetamine Neg (NEG) Urine Benzodiazepines Screen Neg (NEG) Urine Cocaine Screen Neg (NEG) Urine Cannabinoids Screen Neg (NEG) Urine Ethyl Alcohol Neg (NEG) White Blood Count 4.5 x10^3/uL (4.0-11.0) Red Blood Count 5.13 x10^6/uL (4.30-5.70) Hemoglobin 10.2 g/dL (13.0-17.5) Hematocrit 32.6 % (39.0-53.0) Mean Corpuscular Volume 64 fL (79-100) Mean Corpuscular Hemoglobin 20 pg (25-35) Mean Corpuscular Hemoglobin Concent 31 g/dL (31-37) Red Cell Distribution Width 18.7 % (11.5-14.5) Platelet Count 204 x10^3/uL (140-400) Neutrophils (%) (Auto) 54 % (31-73) Lymphocytes (%) (Auto) 20 % (24-48) Monocytes (%) (Auto) 14 % (0-9) Eosinophils (%) (Auto) 12 % (0-3) Basophils (%) (Auto) 1 % (0-3) Neutrophils # (Auto) 2.5 x10^3/uL (1.8-7.7) Lymphocytes # (Auto) 0.9 x10^3/uL (1.0-4.8) Monocytes # (Auto) 0.6 x10^3/uL (0.0-1.1) Eosinophils # (Auto) 0.5 x10^3/uL (0.0-0.7) Basophils # (Auto) 0.0 x10^3/uL (0.0-0.2) Sodium Level 142 mmol/L (136-145) Potassium Level 4.1 mmol/L (3.5-5.1) Chloride Level 109 mmol/L (98-107) Carbon Dioxide Level 27 mmol/L (21-32) Anion Gap 6 (6-14) Blood Urea Nitrogen 14 mg/dL (8-26) Creatinine 0.9 mg/dL (0.7-1.3) Estimated GFR (Cockcroft-Gault) 87.0 Glucose Level 109 mg/dL (70-99) Calcium Level 8.0 mg/dL (8.5-10.1) Allergies Allergies Coded Allergies Type Severity Reaction Last Updated Verified No Known Drug Allergies 07/24/20 No Justicifation of Admission Dx: Justifications for Admission: Justification of Admission Dx: Yes Respiratory Failure: Severe Resp Distress DANIELLE MORENO MD Nov 25, 2020 13:43
[2020-11-25] MEDS ORDERED: POTA20TA4 PO (13:47)
[2020-11-25] MEDS ORDERED: AZIT500T4 PO (13:47)
[2020-11-25] MEDS ORDERED: CALC200T23 PO (13:47)
[2020-11-25] MEDS ORDERED: AMOX1TAB58 PO (13:47)
[2020-11-25] MEDS ORDERED: GUAI5SYR PO (13:47)
[2020-11-25] MEDS ORDERED: ACET325T21 PO (13:47)
--- NOTE | 2020-11-25 13:48 | DISCH ---
DISCHARGE INSTRUCTIONS Condition on Discharge Condition on Discharge: Stable Activity After Discharge Activity Instructions for Disc: Activity as tolerated Bathing Instructions: No Tub Bath until see Lifting Instructions after Dis: No heavy lifting, No pulling or pushing, Do not lift >10 pounds Exercise Instruction after Dis: Progress as tolerated Driving Instructions after Dis: Do not drive today Weight Bearing Status after Di: As tolerated Diet after Discharge Diet after Discharge: Cardiac Diet Texture: Regular Liquid Texture: Thin Liquid Swallowing Supervision: None needed Wound Incision Care Wound/Incision Care: Ice to area for comfort Checks after Discharge Checks after discharge: Check blood press - daily, Check blood sugar, ac/hs, Check your Temp as needed, Weigh Yourself Daily Contacting the [facility] after DC Call your doctor for: If your condition worsens Follow-Up Follow up with: SEE PCP NEXT WEEK Treatment/Equipment after DC Adaptive Equipment Issued: DANIELLE Stover MD Nov 25, 2020 13:48
--- NOTE | 2020-11-25 14:00 | NUR ---
SS following up with discharge planning. SS reviewed pt chart and discussed with pt RN. Pt is currently on room air. IV antibiotics discontinued. COVID19 negative. PT/OT ordered. OT recommended home. Discharge order on the chart for home with self care.
[2020-11-25 15:25] VITALS: BP 127/76
--- NOTE | 2020-11-25 15:28 | NUR ---
Discharge Note: LEI CALDERON [facility] Discharge instructions and discharge home medications reviewed with Patient and a copy given. All questions have been answered and understanding verbalized. The following instructions and handouts were given: Conversion disorder, AMS, BIPAP. IV out, monitor off and placed at nurses station.
== END 2020-11-25 15:21 | disposition home or self-care (01) | DRG 177 ==
LOC: ER 16:16 → ED HOLD 19:26 → 2 SOUTH 21:08
PROVIDERS: ADMIT Internal Medicine; ATTEND Internal Medicine
DX: J15.6 Pneumonia due to other Gram-negative bacteria (principal); J96.01 Acute respiratory failure with hypoxia; G81.94 Hemiplegia, unspecified affecting left nondominant side; G93.40 Encephalopathy, unspecified; I50.32 Chronic diastolic (congestive) heart failure; Z68.43 Body mass index [BMI] 50.0-59.9, adult; E11.9 Type 2 diabetes mellitus without complications; E66.9 Obesity, unspecified; E78.00 Pure hypercholesterolemia, unspecified; E78.5 Hyperlipidemia, unspecified; E87.6 Hypokalemia; F44.9 Dissociative and conversion disorder, unspecified; F80.81 Childhood onset fluency disorder; G40.909 Epilepsy, unspecified, not intractable, without status epilepticus; G60.0 Hereditary motor and sensory neuropathy; I11.0 Hypertensive heart disease with heart failure; I25.10 Atherosclerotic heart disease of native coronary artery without angina pectoris; I48.91 Unspecified atrial fibrillation; K21.9 Gastro-esophageal reflux disease without esophagitis; M47.812 Spondylosis without myelopathy or radiculopathy, cervical region; Z20.822 Contact with and (suspected) exposure to COVID-19; Z79.51 Long term (current) use of inhaled steroids; Z79.82 Long term (current) use of aspirin; Z79.899 Other long term (current) drug therapy; Z82.49 Family history of ischemic heart disease and other diseases of the circulatory system; Z85.118 Personal history of other malignant neoplasm of bronchus and lung; Z86.73 Personal history of transient ischemic attack (TIA), and cerebral infarction without residual deficits; Z90.49 Acquired absence of other specified parts of digestive tract; Z95.0 Presence of cardiac pacemaker; Z95.5 Presence of coronary angioplasty implant and graft; F41.9 Anxiety disorder, unspecified
CPT/HCPCS: 96361; 96365; 96375; 99285; C8929; 36415; 70450; 70496; 70498; 71045; 80048; 80053; 80061; 80307; 81001; 82140; 82550; 82962; 83605; 83735; 83880; 84145; 84484; 85007; 85025; 85610; 85730; 87040; 87086; 93005; 94618; J0456; J0696; J1650; J3490; J7030; J7060; Q9956; Q9967; U0003; U0005; 92526-GN; 92610-GN; 97116-GP; 97535-GO; G0378

== ENCOUNTER → 2020-11-23 | Outpatient (CLI) | payer MEDICARE, MEDICAID ==
[2020-07-26 11:15] VITALS: BP 140/74
[~2020-11-23] MED LIST changes: +IOHEXOL 240 MG/ML 50ML VIAL. PO ONE; +IOHEXOL 300 MG/ML 100ML VIAL. IV ONE; -REGADENOSON 0.4 MG/5 ML DISP.SYRIN. IV ONE
--- NOTE | 2020-11-23 17:06 | KCIC ---
CT ABDOMEN+PELVIS W History: Reason: Evaluate for midline hernia vs diastases. Hiatal hernia repair x2. / Spl. Instructio ns: 100mL Omni 300 / History: Rt lung CA w/lobectomy, cholecystectomy. Technique: After the administration of intravenous contrast, CT imaging was performed of the abdomen and pelvis. Multiplanar images are reviewed. Exposure: One or more of the following individualized dose reduction techniques were utilized for thi s examination: 1. Automated exposure control 2. Adjustment of the mA and/or kV according to patient size 3. Use of iterative reconstruction technique. Comparison: September 01, 2019 Findings: Lower chest: Partially imaged postoperative changes right middle lobe region. Linear left lower lobe atelectasis. Moderate hiatal hernia. Distended oral contrast filled distal esophagus. Abdomen and pelvis: Hepatic steatosis. The spleen, adrenal glands, and pancreas are unremarkable. Tracy or cholecystectomy. Patent portal veins. Unchanged bilateral renal cysts. No hydronephrosis. Decompressed urinary bladder. Colonic diverticulosis. Prior appendectomy, unchanged appearance. No pathologic lymphadenopathy. No a scites. No evidence of bowel obstruction. Oral contrast opacifies to the level of the mid to distal s mall bowel. Upper abdominal anterior wall multiple hernias. The largest fascial defect measures 2.3 cm, unchanged compared to prior. Additional supraumbilical midline fat-containing hernia is increased in size raciel ures 2.1 x 2.6 cm with fascial defect measuring 1.8 cm. Unchanged fat-containing inguinal hernias. Bones: Unchanged small sclerotic lesions within the pelvis and right proximal femur, likely bone tc nds. Impression: 1. No acute abdominal or pelvic pathology. 2. Anterior abdominal wall midline fat-containing hernias with mildly increased supraumbilical herni a compared to prior. 3. Moderate hiatal hernia with distended contrast filled distal esophagus, may relate to reflux. Electronically signed by: Dylan Umana DO (11/23/2020 5:03 PM) [id number]
== END ==
LOC: KCIC CT 07:57
PROVIDERS: ATTEND Surgery
DX: K43.2 Incisional hernia without obstruction or gangrene (principal); J98.11 Atelectasis; K44.9 Diaphragmatic hernia without obstruction or gangrene; K57.30 Diverticulosis of large intestine without perforation or abscess without bleeding
CPT/HCPCS: 74177; Q9966; Q9967

== ENCOUNTER 2020-12-17 18:01 | Emergency (ER) | payer MEDICARE, MEDICAID ==
[~2020-12-17] VITALS: Ht 167.6 cm; Wt 106.0 kg
[~2020-12-17 18:01] MED LIST changes: -CONTRAST GIVEN. MC PRN; -PRED20TA PO
[2020-12-17] MEDS ORDERED: IV NORMAL SALINE 1000ML BAG 1,000 ML IV ONE (18:45)
[2020-12-17] MEDS ORDERED: ONDANSETRON PF 4 MG/2 ML VIAL. IVP ONE ×2 (18:45→19:30)
--- NOTE | 2020-12-17 18:48 | PHYS DOC ---
Past Medical History Past Medical History: Cancer, CVA, Diabetes-Type II, High Cholesterol, Hy pertension, Seizure, Stroke, Other Additional Past Medical Histor: Neuropathy, Hernia, encephalopathy, LUNG CANCER Past Surgical History: Appendectomy, Cholecystectomy, Pacemaker, Other Additional Past Surgical Histo: hernia, RLL LOBECTOMY Smoking Status: Never Smoker Alcohol Use: None Drug Use: None General Adult EDM: Chief Complaint: ALLERGIC REACTION HPI: HPI: Patient is a 55 year old [male past medical history of hypertension diabetes hyperlipidemia CVA presents with a chief complaint of diffuse rash itch and nausea. Patient states onset of symptoms noon today. Patient believes symptoms have been caused by a CT of his chest with IV contrast that was performed at 0900 hours. Patient has diffuse rash with itch. He has been nauseous but has not vomited. He denies any associated chest pain or shortness of breath. Review of Systems: Review of Systems: Review of systems: Constitutional symptoms- No fever, no chills. Eyes- No Discharge, No Visual Loss Respiratory symptoms- No shortness of breath, No wheezing, No Dyspnea on Exertion Cardiovascular Systems; No chest pain, No Palpitations, No syncope Gastrointestinal symptoms: NO abdominal pain, Positive nausea, no vomiting or diarrhea. Genitourinary symptoms: No dysuria. Musculoskeletal symptoms: No back pain No extremity pain. NEUROLOGICAL Symptoms: No headache, no generalized weakness; No focal Weakness Skin-rash hives Heart Score: C/O Chest Pain: N/A Risk Factors: Risk Factors: DM, Current or recent (<one month) smoker, HTN, HLP, family history of CAD, obesity. Risk Scores: Score 0 - 3: 2.5% MACE over next 6 weeks - Discharge Home Score 4 - 6: 20.3% MACE over next 6 weeks - Admit for Clinical Observation Score 7 - 10: 72.7% MACE over next 6 weeks - Early Invasive Strategies Current Medications: Current Medications Medications (Trade) Dose Ordered Sig/Rambo Start Time Stop Time Status Last Admin Dose Admin Ondansetron HCl (Zofran) 4 mg 1X ONCE 12/17/20 18:45 12/17/20 18:46 Sodium Chloride 1,000 ml @ 1,000 mls/hr 1X ONCE 12/17/20 18:45 12/17/20 19:44 Allergies: Allergies: Allergies Coded Allergies Type Severity Reaction Last Updated Verified No Known Drug Allergies 07/24/20 No Physical Exam: PE: General: alert, no acute distress. Skin: warm, rash hives, diaphoretic Head:: Normocephalic, atraumatic. Neck: Trachea midline. Eyes: EOMI, Normal conjunctiva, No drainage CARDIOVASCULAR: Regular rate and rhythm RESPIRATORY: No respiratory distress Back: Full range of motion. MUSCULOSKELETAL: Full range of motion of bilateral upper and lower extremities. GASTROINTESTINAL: Abdomen soft without rebound or guarding. NEUROLOGICAL: Alert and noted to person, place and time. No neurological deficits observed Psychiatric: Cooperative. Normal judgment EKG: EKG: [] Radiology/Procedures: Radiology/Procedures: [] Course & Med Decision Making: Course & Med Decision Making Pertinent Labs and Imaging studies reviewed. (See chart for details) [] Patient was evaluated for chief complaint. Work-up consisted of laboratory analysis. Treatment included Zofran Solu-Medrol prednisone IV fluids. Patient symptoms improved post treatment. Patient was discharged home on prednisone advised to take Benadryl as needed [place] Disclaimer: Thea Disclaimer: This electronic medical record was generated, in whole or in part, using a voice recognition dictation system. Departure Departure Impression: Primary Impression: Allergic reaction Disposition: HOME / SELF CARE / HOMELESS Condition: STABLE Referrals: HOLA ALDRIDGE MD (PCP) Patient Instructions: Drug Allergy Scripts Prednisone (PREDNISONE) 20 Mg Tablet 1 TAB PO UD for 5 Days, #10 TAB Prov: CLARI SCHERER DO 12/17/20 CLARI SCHERER DO December 17, 2020 18:48
[2020-12-17 19:20] LABS: BASO # 0.1 x10^3/uL (0.0-0.2); BASO % 1 % (0-3); EOS # 0.2 x10^3/uL (0.0-0.7); EOS % 2 % (0-3); HEMATOCRIT 34.3 % (39.0-53.0); HEMOGLOBIN 10.7 g/dL (13.0-17.5); LYMPH # 0.5 x10^3/uL (1.0-4.8); LYMPH % 4 % (24-48); MEAN CORPUSCULAR HEMOGLOBIN 19 pg (25-35); MEAN CORPUSCULAR HGB CONC 31 g/dL (31-37); MEAN CORPUSCULAR VOLUME 63 fL (79-100); MONO # 0.6 x10^3/uL (0.0-1.1); MONO % 5 % (0-9); NEUT # 11.6 x10^3/uL (1.8-7.7); NEUT % 90 % (31-73); PLATELET COUNT 211 x10^3/uL (140-400); RED BLOOD COUNT 5.49 x10^6/uL (4.30-5.70); RED CELL DISTRIBUTION WIDTH 19.6 % (11.5-14.5)
[2020-12-17] MEDS ORDERED: methylPREDNISolone SOD SUCC PF 125 MG/2 ML VIAL. IV ONE (19:30)
[2020-12-17] MEDS ORDERED: diphenhydrAMINE 50 MG/ML VIAL IVP ONE (19:30)
[2020-12-17 19:32] LABS: CALCIUM 8.4 mg/dL (8.5-10.1); CREATININE 1.3 mg/dL (0.7-1.3); GFR 56.9; POTASSIUM 3.7 mmol/L (3.5-5.1)
[2020-12-17 19:39] LABS: ALBUMIN 3.8 g/dL (3.4-5.0); ALBUMIN/GLOBULIN RATIO 1.2 (1.0-1.7); TOTAL BILIRUBIN 1.3 mg/dL (0.2-1.0)
[2020-12-17 20:04] LABS: % BANDS 1 % (0-9); % BASOS 1 % (0-3); % LYMPHS 1 % (24-48); % MONOS 2 % (0-10); % SEGS 95 % (35-66); PLT ESTIMATE ADEQUATE (ADEQUATE)
[2020-12-17 20:06] LABS: ANISOCYTOSIS SLIGHT; MICROCYTOSIS MARKED
[2020-12-17 20:07] LABS: HYPOCHROMIA SLIGHT; OVALOCYTES FEW; POLYCHROMASIA SLIGHT
[2020-12-17] MEDS ORDERED: PRED20TA PO (20:24)
[2020-12-17 20:26] VITALS: BP 112/60
== END 2020-12-17 20:34 | disposition home or self-care (01) ==
LOC: ER 18:01
DX: T78.40XA Allergy, unspecified, initial encounter (principal); E11.40 Type 2 diabetes mellitus with diabetic neuropathy, unspecified; E78.00 Pure hypercholesterolemia, unspecified; Z86.73 Personal history of transient ischemic attack (TIA), and cerebral infarction without residual deficits; X58.XXXA Exposure to other specified factors, initial encounter
CPT/HCPCS: 36415; 80053; 85007; 85025; 96361; 96374; 96375; 99284; J1200; J2405; J2930; J7030

== ENCOUNTER → 2020-12-17 | Outpatient (CLI) | payer MEDICARE, MEDICAID ==
[2020-11-25 15:25] VITALS: BP 127/76
[~2020-12-17] MED LIST changes: +ACET325T21 PO; +CALC200T23 PO; +CONTRAST GIVEN. MC PRN; +GUAI5SYR PO; +OMEP40CA45 PO; -OMEP40CA7 PO; +POTA20TA4 PO; +PRED20TA PO
[2020-12-17] MEDS: IOHEXOL 350 MG/ML 100 ML VIAL. IV ONE (08:52)
--- NOTE | 2020-12-17 09:03 | RAD ---
CT arteriogram of the chest. HISTORY: Dyspnea CT arteriogram of the chest was done using 100 mL Omnipaque 350 contrast. Sagittal and coronal MIP im ages were reconstructed. Thyroid is homogeneous. There is no mediastinal adenopathy. There is no pleu ral effusion. Visualized portions of the liver and spleen are unremarkable. The patient's had a ariadna cystectomy. There is a moderate-sized hiatus hernia. There is a cyst at the upper pole of the left ki dney, no further follow-up is warranted. Adrenal glands are normal. There is a small anterior abdomin al wall hernia in the upper abdomen containing fat. This study is negative for evidence of a pulmonar y embolus. There is mild atelectasis in the lung bases. There is mild respiratory motion artifact. Th ere are no other confluent infiltrates. There are changes from previous surgery on the right. IMPRESSION: 1. Moderate size hiatus hernia. 2. Small upper abdominal midline abdominal wall hernia. 3. Negative for pulmonary embolus. 4. Mild atelectasis in the lung bases without other infiltrates. PQRS Compliance Statement: One or more of the following individualized dose reduction techniques were utilized for this examinat ion: 1. Automated exposure control 2. Adjustment of the mA and/or kV according to patient size 3. Use of iterative reconstruction technique Electronically signed by: Jose F Qiu MD (12/17/2020 9:00 AM) [id number]
== END ==
LOC: CT 10:14
PROVIDERS: ATTEND Internal Medicine Critical Care Medicine
DX: K44.9 Diaphragmatic hernia without obstruction or gangrene (principal); K43.9 Ventral hernia without obstruction or gangrene; J98.11 Atelectasis
CPT/HCPCS: 71275; Q9967

== ENCOUNTER → 2021-02-04 | Outpatient (CLI) | payer MEDICARE, MEDICAID ==
[~2021-02-04] MED LIST changes: -OMEP40CA45 PO; +OMEP40CA7 PO; +POTA-121 PO; -POTA20TA4 PO; +PRED20TA PO
[2021-02-04 09:19] LABS: BASO # 0.1 x10^3/uL (0.0-0.2); BASO % 1 % (0-3); EOS # 0.3 x10^3/uL (0.0-0.7); EOS % 4 % (0-3); HEMATOCRIT 34.5 % (39.0-53.0); HEMOGLOBIN 10.8 g/dL (13.0-17.5); LYMPH # 1.1 x10^3/uL (1.0-4.8); LYMPH % 15 % (24-48); MEAN CORPUSCULAR HEMOGLOBIN 20 pg (25-35); MEAN CORPUSCULAR HGB CONC 31 g/dL (31-37); MEAN CORPUSCULAR VOLUME 64 fL (79-100); MONO # 0.8 x10^3/uL (0.0-1.1); MONO % 11 % (0-9); NEUT # 5.1 x10^3/uL (1.8-7.7); NEUT % 70 % (31-73); PLATELET COUNT 246 x10^3/uL (140-400); RED BLOOD COUNT 5.38 x10^6/uL (4.30-5.70); RED CELL DISTRIBUTION WIDTH 20.6 % (11.5-14.5); WHITE BLOOD COUNT 7.3 x10^3/uL (4.0-11.0)
[2021-02-04 09:35] LABS: ALBUMIN 3.4 g/dL (3.4-5.0); ALBUMIN/GLOBULIN RATIO 0.9 (1.0-1.7); CALCIUM 8.7 mg/dL (8.5-10.1); CREATININE 1.2 mg/dL (0.7-1.3); GFR 62.4; POTASSIUM 3.7 mmol/L (3.5-5.1); TOTAL BILIRUBIN 0.6 mg/dL (0.2-1.0); TOTAL PROTEIN 7.1 g/dL (6.4-8.2)
[2021-02-04 09:46] LABS: CHOLESTEROL/HDL RATIO 3.3
[2021-02-04 11:38] LABS: PLT ESTIMATE ADEQUATE (ADEQUATE)
[2021-02-04 11:39] LABS: ANISOCYTOSIS MOD; HYPOCHROMIA MOD; MICROCYTOSIS MOD; OVALOCYTES FEW; POLYCHROMASIA SLIGHT
[2021-02-05 00:13] LABS: HEMOGLOBIN A1C 6.3 % (4.8-5.6)
== END ==
LOC: LAB 08:48
PROVIDERS: ATTEND Family Medicine
DX: Z12.5 Encounter for screening for malignant neoplasm of prostate (principal); I10 Essential (primary) hypertension; E78.5 Hyperlipidemia, unspecified; R73.09 Other abnormal glucose
CPT/HCPCS: 36415; 80053; 80061; 83036; 85025; G0103

== ENCOUNTER 2021-07-23 00:14 | Emergency (ER) | payer MEDICARE ==
[~2021-07-23] VITALS: Ht 167.6 cm; Wt 101.8 kg
--- NOTE | 2021-07-23 01:05 | PHYS DOC ---
Past Medical History Past Medical History: Cancer, CVA, Diabetes-Type II, Hypertension, Seizure, TIA, Other Additional Past Medical Histor: Neuropathy, encephalopathy, lung Ca, Hernia Past Surgical History: Appendectomy, Cholecystectomy, Other Additional Past Surgical Histo: Pacemaker, RLL lobectomy, Hernia Smoking Status: Never Smoker Alcohol Use: None Drug Use: None General Adult EDM: Chief Complaint: MULTIPLE COMPLAINTS HPI: HPI: Patient is a 56 year old male who presents with multiple complaints. He reports that he became lightheaded/dizzy and he thinks that he fell down and might of passed out. He does not believe he lost full consciousness. He denies hitting his head. He reports that he has frequent chest pain, which she has had for quite some time, no changes today. He denies any active or severe chest pain at present. He reports that he is always short of breath, no acute changes today. He denies palpitations. No seizure or tonic-clonic activity reported. No incontinence. He denies abdominal pain, nausea, vomiting. He denies fevers or chills. He denies neck pain or back pain. He denies focal weakness, numbness or tingling symptoms. He reports that he takes an injection every 9 weeks for his lungs. He does not know the name of the medication he is not sure why he takes this medicine specifically other than its for his lungs. He is not sure why he only takes this injection every 9 weeks. He reports that he had just given his injection in his abdomen prior to the onset of lightheadedness symptoms. He is not currently experiencing lightheadedness or dizziness. Review of Systems: Review of Systems: Constitutional: Denies fever or chills. [] Eyes: Denies change in visual acuity. [] HENT: Denies nasal congestion or sore throat. [] Respiratory: Denies acute changes in chronic cough, denies sputum production or hemoptysis. He has chronic dyspnea, unchanged. No wheezing. Cardiovascular: Chronic and unchanged chest pain. GI: Denies abdominal pain, nausea, vomiting, or diarrhea : Denies urinary symptoms or incontinence Musculoskeletal: Chronic foot and lower extremity pain, unchanged Integument: Denies rash. [] Neurologic: Denies headache, focal weakness or sensory changes. Dizziness. Psychiatric: Denies depression or anxiety. [] Heart Score: C/O Chest Pain: Yes HEART Score for Chest Pain: HEART Score for Chest Pain Response (Comments) Value History Slighlty/Non-Suspicious 0 ECG Normal 0 Age >45 - < 65 1 Risk Factors 1 or 2 Risk Factors 1 Troponin < Normal Limit 0 Total 2 Risk Factors: Risk Factors: DM, Current or recent (<one month) smoker, HTN, HLP, family history of CAD, obesity. Risk Scores: Score 0 - 3: 2.5% MACE over next 6 weeks - Discharge Home Score 4 - 6: 20.3% MACE over next 6 weeks - Admit for Clinical Observation Score 7 - 10: 72.7% MACE over next 6 weeks - Early Invasive Strategies Allergies: Allergies: Allergies Coded Allergies Type Severity Reaction Last Updated Verified No Known Drug Allergies 07/24/20 No Physical Exam: PE: Constitutional: Well developed, well nourished, no acute distress, non-toxic appearance. [] HENT: Normocephalic, atraumatic, oropharynx is patent and clear, mucous membranes are moist. TMs are clear bilaterally. Eyes: PERRL, EOMI, conjunctiva normal, no discharge. No nystagmus. Neck: Normal range of motion, no tenderness, supple, no stridor. Trachea is midline, no JVD, no midline or paraspinal tenderness Cardiovascular:Heart rate regular rhythm, +2 radial and +2 dorsalis pedis pulses bilaterally Lungs & Thorax: Bilateral breath sounds clear to auscultation, no rales, rhonchi or wheezes. Abdomen: Bowel sounds normal, soft, no tenderness, no masses, no pulsatile mas ses. [] Skin: Warm, dry, no erythema, no rash. [] Back: No tenderness, no CVA tenderness. [] Extremities: No tenderness, no cyanosis, no clubbing, ROM intact, mild, symmetric, nonpitting 1+ lower extremity, pedal edema, chronic and unchanged for him. No calf tenderness. No acute limb deformity. Chronic foot/clubfoot deformity, since . Neurologic: He is awake, alert, oriented x3. Cranial nerves II through XII nicki sly intact. 5 out of 5 motor strength all 4 extremities. Sensation is grossly intact. Speech is clear and fluent. No limb ataxia. No pronator drift or dysmetria. Psychologic: Affect normal, judgement normal, mood normal. [] EKG: EKG: EKG is interpreted at 0027 Rhythm is sinus Rate is 76 bpm [place] is normal No STEMI Radiology/Procedures: Radiology/Procedures: IMAGING REPORT Signed PATIENT: OSMAN CALDERONACCOUNT: [id number] : 1965 LOCATION: ER AGE: 56 SEX: M EXAM STATUS: REG ER ORD. PHYSICIAN: EUSEBIO DUNBAR DO REASON: syncope PROCEDURE: CT HEAD WO CONTRAST EXAM: CT HEAD WITHOUT CONTRAST. HISTORY: Syncope. TECHNIQUE: Computed tomography of the head was performed without intravenous contrast. One or more of the following individualized dose reduction techniques were utilized for this examination: 1. Automated exposure control. 2. Adjustment of the mA and/or kV according to patient size. 3. Use of iterative reconstruction technique. COMPARISON: None. FINDINGS: There is no intracranial hemorrhage. Guallpa-white differentiation is preserved. The ventricles are normal in size and position. The visualized paranasal sinuses appear clear. The orbits are unremarkable. The temporal bones are unremarkable. The calvarium reveals no suspicious lesions. IMPRESSION: 1. No acute intracranial findings. Electronically signed by: Caroline Marie MD (07/23/2021 1:53 AM) [facility] DICTATED and SIGNED BY: JACQUELINE MARIE MD DATE: 07/23/21 [id number] 0 IMAGING REPORT Signed PATIENT: OSMAN CALDERONACCOUNT: [id number] : 1965 LOCATION: ER AGE: 56 SEX: M EXAM STATUS: REG ER ORD. PHYSICIAN: EUSEBIO DUNBAR DO REASON: syncope, chest pain PROCEDURE: PORTABLE CHEST 1V EXAM: CHEST ONE VIEW. HISTORY: Syncope, chest pain. COMPARISON: 11/24/2020. FINDINGS: A frontal view of the chest is obtained. A left-sided pacemaker has its leads in the right atrium and right ventricle. There is mild elevation of the right hemidiaphragm with associated atelectasis. A lung suture line is noted right base. There is no pneumothorax or pleural effusion. The heart is not enlarged. IMPRESSION: 1. No confluent infiltrates. Electronically signed by: Caroline Marie MD (07/23/2021 1:48 AM) [facility] DICTATED and SIGNED BY: JACQUELINE MARIE MD DATE: 07/23/21 [id number] 0 Course & Med Decision Making: Course & Med Decision Making Pertinent Labs and Imaging studies reviewed. (See chart for details) The findings, differential diagnosis and plan of care discussed with the patient. He has a nonfocal neurologic exam. Imaging and laboratory exams are unremarkable here. He is vital signs are stable. He manifests no evidence of distress. There is no current indication for further invasive exams, imaging or admission at this time, based on current clinical presentation. He denies any acute changes in chronic symptoms from his baseline. I strongly encouraged him to talk to his patient services representative about this injection that he takes, including the s seamus effects of this medication. Return precautions are given. He feels comfortable with the plan for discharge home. Dragon Disclaimer: Dragon Disclaimer: This electronic medical record was generated, in whole or in part, using a voice recognition dictation system. Departure Departure Impression: Primary Impression: Dizziness Disposition: 01 HOME / SELF CARE / HOMELESS Condition: STABLE Referrals: HOLA ALDRIDGE MD (PCP) Patient Instructions: Dizziness Additional Instructions: Return to the ER for acute injury or trauma, for severe chest pain, more severe shortness of breath, if you have any acute changes from your chronic symptoms, if you develop any abdominal pain, vomiting, coughing up blood, focal weakness, head injury, severe headache, neck or back pain or for any other concerns. Please contact your patient services representative and your primary care doctor to discuss these issues further. EUSEBIO DUNBAR DO Jul 23, 2021 01:05
[2021-07-23 01:28] LABS: BILIRUBIN,URINE NEGATIVE (NEG); CLARITY,URINE CLEAR; COLOR,URINE YELLOW; NITRITE,URINE NEGATIVE (NEG); PH,URINE 5.5 (<5.0-8.0); PROTEIN,URINE NEGATIVE (NEG-TRACE)
[2021-07-23 01:28] LABS: BASO # 0.1 x10^3/uL (0.0-0.2); BASO % 1 % (0-3); EOS % 0 % (0-3); HEMATOCRIT 36.4 % (39.0-53.0); HEMOGLOBIN 11.3 g/dL (13.0-17.5); LYMPH # 1.5 x10^3/uL (1.0-4.8); LYMPH % 16 % (24-48); MEAN CORPUSCULAR HEMOGLOBIN 19 pg (25-35); MEAN CORPUSCULAR HGB CONC 31 g/dL (31-37); MEAN CORPUSCULAR VOLUME 61 fL (79-100); MONO # 1.2 x10^3/uL (0.0-1.1); MONO % 13 % (0-9); NEUT # 6.3 x10^3/uL (1.8-7.7); NEUT % 70 % (31-73); PLATELET COUNT 234 x10^3/uL (140-400); RED BLOOD COUNT 6.03 x10^6/uL (4.30-5.70); RED CELL DISTRIBUTION WIDTH 19.9 % (11.5-14.5); WHITE BLOOD COUNT 9.1 x10^3/uL (4.0-11.0)
[2021-07-23 01:34] LABS: BARBITURATES POS (NEG); BENZODIAZEPINES NEG (NEG); CANNABINOIDS NEG (NEG); COCAINE NEG (NEG); METHADONE NEG (NEG); OPIATES NEG (NEG); PHENCYCLIDINE NEG (NEG)
[2021-07-23 01:35] LABS: AMPHETAMINE/METHAMPHETAMINE NEG (NEG)
[2021-07-23 01:37] LABS: CALCIUM 8.8 mg/dL (8.5-10.1); CREATININE 1.4 mg/dL (0.7-1.3); GFR 52.1; POTASSIUM 3.5 mmol/L (3.5-5.1)
[2021-07-23 01:43] LABS: BACTERIA,URINE 0 /HPF (0-FEW); HYALINE CASTS, URINE MANY /HPF; RBC,URINE 0 /HPF (0-2)
[2021-07-23 01:44] LABS: ALBUMIN 3.6 g/dL (3.4-5.0); ALBUMIN/GLOBULIN RATIO 0.9 (1.0-1.7); TOTAL BILIRUBIN 0.4 mg/dL (0.2-1.0); TOTAL PROTEIN 7.7 g/dL (6.4-8.2)
--- NOTE | 2021-07-23 01:51 | RAD ---
EXAM: CHEST ONE VIEW. HISTORY: Syncope, chest pain. COMPARISON: 11/24/2020. FINDINGS: A frontal view of the chest is obtained. A left-sided pacemaker has its leads in the right atrium and right ventricle. There is mild elevation of the right hemidiaphragm with associated atelectasis. A lung suture line is noted right base. There is no pneumothorax or pleural effusion. The heart is not enlarged. IMPRESSION: 1. No confluent infiltrates. Electronically signed by: Caroline Marie MD (07/23/2021 1:48 AM) [facility] [place]
--- NOTE | 2021-07-23 01:56 | RAD ---
EXAM: CT HEAD WITHOUT CONTRAST. HISTORY: Syncope. TECHNIQUE: Computed tomography of the head was performed without intravenous contrast. One or more of the following individualized dose reduction techniques were utilized for this examination: 1. Automated exposure control. 2. Adjustment of the mA and/or kV according to patient size. 3. Use of iterative reconstruction technique. COMPARISON: None. FINDINGS: There is no intracranial hemorrhage. Guallpa-white differentiation is preserved. The ventricle s are normal in size and position. The visualized paranasal sinuses appear clear. The orbits are unremarkable. The temporal bones are un remarkable. The calvarium reveals no suspicious lesions. IMPRESSION: 1. No acute intracranial findings. Electronically signed by: Caroline Marie MD (07/23/2021 1:53 AM) [facility]
[2021-07-23 02:02] LABS: PLT ESTIMATE ADEQUATE (ADEQUATE)
[2021-07-23 02:03] LABS: ANISOCYTOSIS SLIGHT; HYPOCHROMIA MARKED; MICROCYTOSIS MARKED; OVALOCYTES MOD; POIKILOCYTOSIS SLIGHT
[2021-07-23 02:04] LABS: POLYCHROMASIA SLIGHT
--- NOTE | 2021-07-23 04:29 | EKG ---
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
[2021-07-23 04:50] VITALS: BP 132/74
== END 2021-07-23 04:56 | disposition home or self-care (01) ==
LOC: ER 00:14
DX: R42 Dizziness and giddiness (principal); R07.89 Other chest pain; R06.02 Shortness of breath; E11.40 Type 2 diabetes mellitus with diabetic neuropathy, unspecified; I10 Essential (primary) hypertension; Z86.73 Personal history of transient ischemic attack (TIA), and cerebral infarction without residual deficits
CPT/HCPCS: 36415; 70450; 71045; 80053; 80307; 81001; 82550; 83880; 84484; 85025; 93005; 99285; G0480

== ENCOUNTER → 2021-10-03 | Outpatient (CLI) | payer MEDICARE ==
--- NOTE | 2021-10-03 15:44 | CARD ---
MR#: [id number] Date of Study: 10/03/2021 Ordering Physician: ERNESTO VELAZQUEZ, Referring Physician: ERNESTO VELAZQUEZ, Tech: Yannick Wayne [facility] APPROVED REPORT EXAM: Two-dimensional and M-mode echocardiogram with Doppler and color Doppler. Other Information Quality : FairHR: 67bpm Rhythm : NSR INDICATION Cardiac Disease: CAD Surgery/Intervention ICD/Pacemaker: RISK FACTORS Hypertension Obesity Hyperlipidemia 2D DIMENSIONS Left Atrium(2D)3.8 (1.6-4.0cm)IVSd1.0 (0.7-1.1cm) Aortic Root(2D)3.7 (2.0-3.7cm)LVDd4.9 (3.9-5.9cm) LVOT Diameter2.2 (1.8-2.4cm)PWd1.0 (0.7-1.1cm) LA Ouevmw64 (18-58mL)LVDs2.8 (2.5-4.0cm) FS (%) 42.9 %SV82.2 ml LVEF(%)73.8 (>50%) Aortic Valve AoV Peak Naren.116.1cm/sAoV VTI23.8cm AO Peak GR.5.4mmHgLVOT Peak Naren.83.6cm/s LVOT VTI 20.02cmAO Mean GR.3mmHg YUDELKA (VMAX)2.09rz0SNH (VTI)3.18cm2 Mitral Valve MV E Ewqhvaes79.9cm/sMV DECEL [id number] MV A Bpsgmrnm63.4cm/sMV E Mean Gr.1mmHg MV UVM49rdF/A Ratio1.0 MVA (PHT)4.23cm2 TDI E/Lateral E'14.3E/Medial E'15.5 Pulmonary Valve PV Peak Yclxoeqi28.2cm/sPV Peak Grad.3mmHg Tricuspid Valve TR P. Pi[place]asso182rs/sTR Peak Gr.23mmHg Pulmonary Vein S1 Pnwvetmx73.2cm/sD2 Irycrmpg15.8cm/s LEFT VENTRICLE The left ventricle is normal size. There is normal left ventricular wall thickness. The left ventricu lar systolic function is normal and the ejection fraction is within normal range. EF 55% There is nor mal LV segmental wall motion. Tissue Doppler imaging reveals abnormal left ventricular diastolic dysf unction. No left ventricle thrombus noted on this study. There is no ventricular septal defect visual ized. There is no left ventricular aneurysm. There is no mass noted in the left ventricle. RIGHT VENTRICLE The right ventricle is normal size. There is normal right ventricular wall thickness. The right ventr icular systolic function is normal. There is a pacemaker lead noted in the RA/RV. ATRIA The left atrium size is normal. The right atrium size is normal. The interatrial septum is intact wit h no evidence for an atrial septal defect or patent foramen ovale as noted on 2-D or Doppler imaging. AORTIC VALVE The aortic valve is mildly sclerotic. Doppler and Color Flow revealed no significant aortic regurgita tion. There is no significant aortic valvular stenosis. There is no aortic valvular vegetation. MITRAL VALVE The mitral valve is normal in structure and function. There is no evidence of mitral valve prolapse. There is no mitral valve stenosis. Doppler and Color-flow revealed trace to mild mitral regurgitation . TRICUSPID VALVE The tricuspid valve is normal in structure and function. Doppler and Color Flow revealed trace tricus pid regurgitation. The PA pressure was estimated at 34 mmHg. There is no tricuspid valve prolapse or vegetation. There is no tricuspid valve stenosis. PULMONIC VALVE Doppler and Color Flow revealed no pulmonic valvular regurgitation. There is no pulmonic valvular ofelia nosis. GREAT VESSELS The aortic root is normal in size. The ascending aorta is normal in size. The IVC is normal in size a nd collapses >50% with inspiration. PERICARDIAL EFFUSION There is no evidence of significant pericardial effusion. Critical Notification Critical Value: No <Conclusion> The left ventricular systolic function is normal and the ejection fraction is within normal range. EF 55% There is normal LV segmental wall motion. There is a pacemaker lead noted in the RA/RV. Signed by : Ernesto Velazquez, Electronically Approved : 10/03/2021 15:43:28
== END ==
LOC: ECHO 07:13
PROVIDERS: ATTEND Internal Medicine Cardiovascular Disease
DX: I08.0 Rheumatic disorders of both mitral and aortic valves (principal); I25.10 Atherosclerotic heart disease of native coronary artery without angina pectoris
CPT/HCPCS: 93306; C8929

== ENCOUNTER → 2021-10-27 | Outpatient (CLI) | payer MEDICARE ==
[2021-10-27 09:09] LABS: ALBUMIN 3.7 g/dL (3.4-5.0); ALBUMIN/GLOBULIN RATIO 0.9 (1.0-1.7); CALCIUM 8.8 mg/dL (8.5-10.1); CREATININE 1.1 mg/dL (0.7-1.3); GFR 68.8; TOTAL BILIRUBIN 0.8 mg/dL (0.2-1.0); TOTAL PROTEIN 7.6 g/dL (6.4-8.2)
[2021-10-27 09:15] LABS: CHOLESTEROL/HDL RATIO 3.1
== END ==
LOC: LAB 08:02
PROVIDERS: ATTEND Internal Medicine Cardiovascular Disease
DX: I25.10 Atherosclerotic heart disease of native coronary artery without angina pectoris (principal)
CPT/HCPCS: 36415; 80053; 80061; 83721

== ENCOUNTER → 2021-11-07 | Outpatient (CLI) | payer MEDICARE ==
[~2021-11-07] MED LIST changes: +CONTRAST GIVEN. MC PRN; +IOHEXOL 240 MG/ML 50ML VIAL. PO ONE; +IOHEXOL 300 MG/ML 100ML VIAL. IV ONE
--- NOTE | 2021-11-07 10:16 | RAD ---
INDICATION: Reason: Incisional hernia / Spl. Instructions: IV omni 300 75mls and PO omni 240 50mls / History: COMPARISON: October 2020 TECHNIQUE: Axial CT images were obtained through the abdomen and pelvis without and with intravenous contrast. One or more of the following individualized dose reduction techniques were utilized for this examinat ion: 1. Automated exposure control; 2. Adjustment of the mA and/or kV according to patient size; 3 . Use of iterative reconstruction technique. FINDINGS: Linear opacities at left lung base could be scarring or atelectasis. Hiatal hernia is again seen with some contrast within. Partial visualization of pacemaker lead. Vascular: No abdominal aortic aneurysm. Hepatobiliary: Liver is low-density. Nonspecific but can be seen with fatty infiltration. Pancreas: No peripancreatic edema. Spleen: Spleen unremarkable. Renal/Bladder: No hydronephrosis. Left renal cyst. Urinary bladder partially distended. Right renal l esion which does not measure as simple cyst. 16 mm. Gastrointestinal: Colonic diverticulosis. Appendiceal stump with suture line. No dilated loops of bow el to suggest obstruction. Small right greater than left inguinal hernia. Degenerative changes of the spine. There are multiple anterior abdominal wall hernias containing fat. This includes: Upper abdomen just to the left of midline with the defect measuring 19 mm. Similar to prior. Just inf erior to this there is an additional fat-containing anterior abdominal wall hernia with the anterior defect measuring 14 mm. Similar to prior. Apparent postoperative changes with mesh seen overlying the umbilical region. At the left rectus sheath there demonstration of a defect at the peritoneal wall anteriorly with fat extending into the rectus sheath. This defect measures approximately 23 mm and was also seen on prior examination. IMPRESSION: * Redemonstration of multiple fat-containing anterior pelvic wall hernias which appear similar to p rior. * Hiatal hernia with contrast within. * Right renal lesion which does not measure as a simple cyst. Could be from a complex cyst but solid component is not excluded and if additional clarification is needed focused ultrasound or renal prot ocol MRI could better assess and ensure there is no solid component Electronically signed by: Jaime Coats MD (11/07/2021 10:14 AM) [id number]
== END ==
LOC: CT 07:46
PROVIDERS: ATTEND Surgery
DX: K44.9 Diaphragmatic hernia without obstruction or gangrene (principal); K43.2 Incisional hernia without obstruction or gangrene; N28.1 Cyst of kidney, acquired; N32.89 Other specified disorders of bladder; M47.819 Spondylosis without myelopathy or radiculopathy, site unspecified
CPT/HCPCS: 74178; Q9966; Q9967